=== PATIENT | female | born 1935 | race Hispanic/Latino ===

== ENCOUNTER 2021-04-01 19:26 | Observation (INO) | payer MEDICARE ==
--- NOTE | 2021-04-01 20:57 | Emergency Department Report ---
ED General Adult HPI - General Chief complaint: Urogenital-Female Stated complaint: My belly hurts, I am having chills PUI?: No Time Seen by Provider: 04/01/21 20:46 Source: patient, EMS ( EMS documentation not available at time of chart dictation ), RN notes reviewed Mode of arrival: Stretcher Limitations: No Limitations - History of Present Illness Initial comments: Primary CARE doctor: Anthony savage The patient is an 85-year-old female. She is not known to myself previously. Patient states she has no chronic medical issues. Nursing team documents the patient has a history of emphysema, renal disease. The patient presents to the ER today with a complaint of shaking, chills, malaise, fatigue, lower abdominal pain, dark-colored urine, and reports that a few days ago, she had nonsensical speech, and possibly slurred speech. She is received a Covid vaccination. She denies loss of taste and smell. At the moment, she denies headache, neck pain, chest pain. She has lower abdominal pain. She has dark and foul-smelling urine. She denies focal extremity weakness and numbness. Symptoms intermittent, do not radiate anywhere, do not have exacerbating relieving factors that she is aware of. She is currently not accompanied by friends or family at this time for collateral information. She lives by herself. She gives consent for the details of her medical care to be discussed with her family if necessary. -: Sudden Consistency: intermittent Improves with: none Worsens with: none - Related Data Home Medications Medication Instructions Recorded Confirmed Last Taken Omeprazole 20 mg PO BID 04/02/21 04/02/21 04/01/21 clonazePAM [KlonoPIN] 2 tab PO HS 04/02/21 04/02/21 04/01/21 Previous Rx's Medication Instructions Recorded Last Taken Type Aspirin EC [Halfprin EC] 81 mg PO QDAY #30 tablet. 04/03/21 Unknown Rx AtorvaSTATin [Lipitor] 40 mg PO QHS #30 tablet 04/03/21 Unknown Rx Pantoprazole [Protonix TAB] 20 mg PO BID #30 tablet. 04/03/21 Unknown Rx bisacodyL [Dulcolax suppos] 10 mg SD QDAY PRN #14 supp.rect 04/03/21 Unknown Rx cefUROXime [Ceftin] 2 tab PO Q12H #12 tablet 04/03/21 Unknown Rx Allergies Allergy/AdvReac Type Severity Reaction Status Date / Time No Known Allergies Allergy Unverified 04/01/21 21:34 ED Review of Systems ROS: Stated complaint: POSS UTI Other details as noted in HPI Constitutional: chills, malaise, weakness Eyes: denies: eye discharge ENT: denies: epistaxis Respiratory: denies: cough Cardiovascular: denies: chest pain Gastrointestinal: abdominal pain Genitourinary: as per HPI Musculoskeletal: myalgia Neurological: as per HPI, weakness, other (Slurred speech, now resolved) Psychiatric: anxiety Hematological/Lymphatic: denies: easy bleeding ED Past Medical Hx - Past Medical History Previous Medical History?: Yes Hx Renal Disease: Yes (kidney stones) Hx Arthritis: Yes Additional medical history: Emphyzema - Surgical History Past Surgical History?: Yes Hx Appendectomy: Yes Additional Surgical History: C Section, Kidney stone removal - Social History Smoking Status: Never Smoker Substance Use Type: None - Medications Home Medications: Home Medications Medication Instructions Recorded Confirmed Last Taken Type Omeprazole 20 mg PO BID 04/02/21 04/02/21 04/01/21 History clonazePAM [KlonoPIN] 2 tab PO HS 04/02/21 04/02/21 04/01/21 History Aspirin EC [Halfprin EC] 81 mg PO QDAY #30 tablet. 04/03/21 Unknown Rx AtorvaSTATin [Lipitor] 40 mg PO QHS #30 tablet 04/03/21 Unknown Rx Pantoprazole [Protonix TAB] 20 mg PO BID #30 tablet. 04/03/21 Unknown Rx bisacodyL [Dulcolax suppos] 10 mg SD QDAY PRN #14 supp.rect 04/03/21 Unknown Rx cefUROXime [Ceftin] 2 tab PO Q12H #12 tablet 04/03/21 Unknown Rx ED Physical Exam - General Limitations: No Limitations General appearance: alert, in no apparent distress - Head Head exam: Present: atraumatic, normocephalic - Eye Eye exam: Present: normal appearance, EOMI. Absent: nystagmus - ENT ENT exam: Present: normal exam, normal orophraynx, mucous membranes moist, normal external ear exam - Neck Neck exam: Present: normal inspection, full ROM. Absent: tenderness, meningismus - Respiratory Respiratory exam: Present: normal lung sounds bilaterally. Absent: respiratory distress, wheezes, rales, rhonchi, stridor, decreased breath sounds - Cardiovascular Cardiovascular Exam: Present: regular rate, normal rhythm, normal heart sounds. Absent: bradycardia, tachycardia, irregular rhythm, systolic murmur, diastolic murmur, rubs, gallop - GI/Abdominal GI/Abdominal exam: Present: soft, tenderness. Absent: distended, guarding, rebound, rigid, pulsatile mass - Extremities Exam Extremities exam: Present: normal inspection, full ROM, other (2+ pulses noted in the bilateral upper and lower extremities. There is no palpable cord. negative Homans sign. Muscular compartments are soft. The pelvis is stable.). Absent: pedal edema, calf tenderness - Back Exam Back exam: Present: normal inspection, full ROM. Absent: tenderness, CVA tenderness (R), CVA tenderness (L), paraspinal tenderness, vertebral tenderness - Neurological Exam Neurological exam: Present: alert, oriented X3, other (No facial droop. Tongue midline. Extraocular movements intact bilaterally. Facial sensation intact to light touch in V1, V2, V3 distribution bilaterally. 5 and a 5 strength in 4 extremities. Sensation intact to light touch in 4 extremities.). Absent: motor sensory deficit - Psychiatric Psychiatric exam: Present: anxious - Skin Skin exam: Present: warm, dry, intact, normal color. Absent: rash ED Course Vital Signs 04/01/21 04/01/21 04/01/21 20:33 20:41 20:45 Temperature 98.6 F Pulse Rate 76 115 H Respiratory 22 38 H Rate Blood Pressure 162/78 O2 Sat by Pulse 99 96 Oximetry 04/01/21 04/01/21 04/01/21 21:01 21:15 21:31 Temperature Pulse Rate 75 79 101 H Respiratory 24 20 30 H Rate Blood Pressure 162/78 157/73 157/73 O2 Sat by Pulse 93 98 98 Oximetry 04/01/21 04/01/21 04/01/21 21:36 21:49 21:50 Temperature 102 F H Pulse Rate 87 119 H Respiratory 21 33 H Rate Blood Pressure 147/66 O2 Sat by Pulse 98 96 Oximetry 04/01/21 04/01/21 04/01/21 21:51 22:00 22:15 Temperature Pulse Rate 104 H 103 H 91 H Respiratory 25 H 22 24 Rate Blood Pressure 147/66 147/66 137/69 O2 Sat by Pulse 96 95 95 Oximetry 04/01/21 04/01/21 04/01/21 22:31 22:45 23:09 Temperature Pulse Rate 90 89 82 Respiratory 20 21 22 Rate Blood Pressure 137/69 129/67 O2 Sat by Pulse 96 94 97 Oximetry 04/01/21 04/01/21 04/01/21 23:15 23:31 23:45 Temperature Pulse Rate 88 84 87 Respiratory 21 20 23 Rate Blood Pressure 127/50 127/50 111/55 O2 Sat by Pulse 91 94 93 Oximetry 04/02/21 04/02/21 04/02/21 00:00 00:01 00:16 Temperature 98.8 F Pulse Rate 90 85 Respiratory 21 32 H Rate Blood Pressure 111/55 111/55 O2 Sat by Pulse 95 Oximetry 04/02/21 04/02/21 04/02/21 00:31 00:45 01:01 Temperature Pulse Rate 78 73 74 Respiratory 16 11 L 18 Rate Blood Pressure 109/59 109/59 107/56 O2 Sat by Pulse 98 95 95 Oximetry 04/02/21 04/02/21 04/02/21 01:15 01:31 01:45 Temperature Pulse Rate 76 78 72 Respiratory 20 15 20 Rate Blood Pressure 111/55 114/56 107/56 O2 Sat by Pulse 93 95 92 Oximetry 04/02/21 04/02/21 04/02/21 02:01 02:31 03:01 Temperature Pulse Rate 71 65 66 Respiratory 19 19 19 Rate Blood Pressure 114/65 125/67 136/70 O2 Sat by Pulse 92 93 93 Oximetry 04/02/21 04/02/21 04/02/21 03:31 04:01 04:31 Temperature Pulse Rate 61 58 L Respiratory 16 19 Rate Blood Pressure 136/70 128/65 136/70 O2 Sat by Pulse 98 95 93 Oximetry 04/02/21 05:01 Temperature Pulse Rate 56 L Respiratory 18 Rate Blood Pressure 128/65 O2 Sat by Pulse 93 Oximetry - Reevaluation(s) Reevaluation #1: 04/01/21 21:48 Differential diagnosis, Limited to: Bacteremia, viremia, pneumonia, urinary tract infection, renal colic, sepsis, TIA, electrolyte derangement, thyroid derangement Assessment and plan 85-year-old female, with a complaint of urinary symptoms, lower abdominal pain, shaking, chills, rigors, and speech disturbance, now resolved. Patient has a GCS of 15. She has an NIH score of 0 at this time. Not a TPA candidate as she has NIH score of 0. Her examination is not suggestive of a large vessel occlusion at this time. 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 Obtain rectal temperature. Obtain CT scan of the abdomen pelvis. Start antibiotics empirically. Anticipate acute infectious pathology. I recommended admission to the medical service. Hold aspirin at this time, given potential for acutely surgical condition. I discussed this plan of care with the patient. She has verbalized jesus alberto gChristine Reassess after data points have resulted. 04/01/21 21:48 04/01/21 21:55 Rectal temperature 102. Heart rate greater than 90. Patient meets criteria for sepsis. Code sepsis called overhead. IV fluids ordered. 04/01/21 23:01 Dr Lema of the [facility] authorizes patient to be admitted to this hospital. I discussed the patient's history, physical, laboratory studies, imaging studies, and overall clinical impression. [facility] will call back in a day or so, if the patient is still in the hospital Transaminitis reviewed and appreciated. No right upper quadrant tenderness. CT scan of the abdomen pelvis negative for acute pathology in the right upper quadrant. Defer to inpatient team to further evaluate. 04/04/21 06:18 23: 50 p.m. 04/01/2021. CT scan brain negative for acute findings. CT scan abdomen pelvis negative for acute findings. Urinalysis pending at this time. [facility] physician, Dr. Lema has provided authorization for this patient to be admitted to this hospital, as the [facility] does not have any beds at this time. Care will be admitted to the hospital nurse practitioner, Matt Dailey, working with hospital physician, Dr. Emily Simmons Please note this patient was admitted during downtime procedures. Please reference hardcopy paper chart. 04/04/21 06:20 ED Medical Decision Making - Lab Data Result diagrams: 04/03/21 05:51 04/03/21 05:51 Vital Signs 04/01/21 20:41 Temperature 98.6 F Lab Results 04/01/21 04/01/21 04/01/21 Range/Units 21:05 21:05 21:05 WBC 6.7 (4.5-11.0) K/mm3 RBC 4.78 (3.65-5.03) M/mm3 Hgb 13.6 (10.1-14.3) gm/dl Hct 41.3 (30.3-42.9) % MCV 87 (79-97) fl MCH 28 (28-32) pg MCHC 33 (30-34) % RDW 15.3 H (13.2-15.2) % Plt Count 228 (140-440) K/mm3 Lymph % (Auto) 7.9 L (13.4-35.0) % [place] % (Auto) 8.1 H (0.0-7.3) % Eos % (Auto) 0.7 (0.0-4.3) % Baso % (Auto) 0.3 (0.0-1.8) % Lymph # (Auto) 0.5 L (1.2-5.4) K/mm3 [place] # (Auto) 0.5 (0.0-0.8) K/mm3 Eos # (Auto) 0.0 (0.0-0.4) K/mm3 Baso # (Auto) 0.0 (0.0-0.1) K/mm3 Seg Neutrophils % 83.0 H (40.0-70.0) % Seg Neutrophils # 5.6 (1.8-7.7) K/mm3 PT 13.7 (12.2-14.9) Sec. INR 1.00 (0.87-1.13) APTT 27.7 (24.2-36.6) Sec. Estimated GFR 53 ml/min BUN/Creatinine Ratio 12 % Lactic Acid (0.7-2.0) mmol/L Troponin T < 0.010 (0.00-0.029) ng/mL Albumin/Globulin Ratio 1.0 % 04/01/21 Range/Units 21:05 WBC (4.5-11.0) K/mm3 RBC (3.65-5.03) M/mm3 Hgb (10.1-14.3) gm/dl Hct (30.3-42.9) % MCV (79-97) fl MCH (28-32) pg MCHC (30-34) % RDW (13.2-15.2) % Plt Count (140-440) K/mm3 Lymph % (Auto) (13.4-35.0) % [place] % (Auto) (0.0-7.3) % Eos % (Auto) (0.0-4.3) % Baso % (Auto) (0.0-1.8) % Lymph # (Auto) (1.2-5.4) K/mm3 [place] # (Auto) (0.0-0.8) K/mm3 Eos # (Auto) (0.0-0.4) K/mm3 Baso # (Auto) (0.0-0.1) K/mm3 Seg Neutrophils % (40.0-70.0) % Seg Neutrophils # (1.8-7.7) K/mm3 PT (12.2-14.9) Sec. INR (0.87-1.13) APTT (24.2-36.6) Sec. Estimated GFR ml/min BUN/Creatinine Ratio % Lactic Acid 1.50 (0.7-2.0) mmol/L Troponin T (0.00-0.029) ng/mL Albumin/Globulin Ratio % Lab Results 04/01/21 04/01/21 04/01/21 Range/Units 21:05 21:05 21:05 WBC 6.7 (4.5-11.0) K/mm3 RBC 4.78 (3.65-5.03) M/mm3 Hgb 13.6 (10.1-14.3) gm/dl Hct 41.3 (30.3-42.9) % MCV 87 (79-97) fl MCH 28 (28-32) pg MCHC 33 (30-34) % RDW 15.3 H (13.2-15.2) % Plt Count 228 (140-440) K/mm3 Lymph % (Auto) 7.9 L (13.4-35.0) % [place] % (Auto) 8.1 H (0.0-7.3) % Eos % (Auto) 0.7 (0.0-4.3) % Baso % (Auto) 0.3 (0.0-1.8) % Lymph # (Auto) 0.5 L (1.2-5.4) K/mm3 [place] # (Auto) 0.5 (0.0-0.8) K/mm3 Eos # (Auto) 0.0 (0.0-0.4) K/mm3 Baso # (Auto) 0.0 (0.0-0.1) K/mm3 Seg Neutrophils % 83.0 H (40.0-70.0) % Seg Neutrophils # 5.6 (1.8-7.7) K/mm3 PT 13.7 (12.2-14.9) Sec. INR 1.00 (0.87-1.13) APTT 27.7 (24.2-36.6) Sec. Sodium 138 (137-145) mmol/L Potassium 4.0 (3.6-5.0) mmol/L Chloride 104.1 (98-107) mmol/L Carbon Dioxide 19 L (22-30) mmol/L Anion Gap 19 mmol/L BUN 12 (7-17) mg/dL Creatinine 1.0 (0.6-1.2) mg/dL Estimated GFR 53 ml/min BUN/Creatinine Ratio 12 % Glucose 98 (65-100) mg/dL Lactic Acid (0.7-2.0) mmol/L Calcium 9.3 (8.4-10.2) mg/dL Magnesium 2.00 (1.7-2.3) mg/dL Total Bilirubin 1.30 H (0.1-1.2) mg/dL AST 74 H (5-40) units/L ALT 93 H (7-56) units/L Alkaline Phosphatase 196 H (35-129) units/L Total Creatine Kinase 87 (30-135) units/L Troponin T < 0.010 (0.00-0.029) ng/mL Total Protein 7.2 (6.3-8.2) g/dL Albumin 3.6 L (3.9-5) g/dL Albumin/Globulin Ratio 1.0 % TSH (0.270-4.200) mlU/mL 04/01/21 04/01/21 Range/Units 21:05 21:05 WBC (4.5-11.0) K/mm3 RBC (3.65-5.03) M/mm3 Hgb (10.1-14.3) gm/dl Hct (30.3-42.9) % MCV (79-97) fl MCH (28-32) pg MCHC (30-34) % RDW (13.2-15.2) % Plt Count (140-440) K/mm3 Lymph % (Auto) (13.4-35.0) % [place] % (Auto) (0.0-7.3) % Eos % (Auto) (0.0-4.3) % Baso % (Auto) (0.0-1.8) % Lymph # (Auto) (1.2-5.4) K/mm3 [place] # (Auto) (0.0-0.8) K/mm3 Eos # (Auto) (0.0-0.4) K/mm3 Baso # (Auto) (0.0-0.1) K/mm3 Seg Neutrophils % (40.0-70.0) % Seg Neutrophils # (1.8-7.7) K/mm3 PT (12.2-14.9) Sec. INR (0.87-1.13) APTT (24.2-36.6) Sec. Sodium (137-145) mmol/L Potassium (3.6-5.0) mmol/L Chloride (98-107) mmol/L Carbon Dioxide (22-30) mmol/L Anion Gap mmol/L BUN (7-17) mg/dL Creatinine (0.6-1.2) mg/dL Estimated GFR ml/min BUN/Creatinine Ratio % Glucose (65-100) mg/dL Lactic Acid 1.50 (0.7-2.0) mmol/L Calcium (8.4-10.2) mg/dL Magnesium (1.7-2.3) mg/dL Total Bilirubin (0.1-1.2) mg/dL AST (5-40) units/L ALT (7-56) units/L Alkaline Phosphatase (35-129) units/L Total Creatine Kinase (30-135) units/L Troponin T (0.00-0.029) ng/mL Total Protein (6.3-8.2) g/dL Albumin (3.9-5) g/dL Albumin/Globulin Ratio % TSH 2.600 (0.270-4.200) mlU/mL Vital Signs 07/21/21 07/21/21 07/21/21 20:33 20:41 20:45 Temperature 98.6 F Pulse Rate 76 115 H Respiratory 22 38 H Rate Blood Pressure 162/78 O2 Sat by Pulse 99 96 Oximetry 04/01/21 04/01/21 04/01/21 21:01 21:15 21:31 Temperature Pulse Rate 75 79 101 H Respiratory 24 20 30 H Rate Blood Pressure 162/78 157/73 157/73 O2 Sat by Pulse 93 98 98 Oximetry 04/01/21 04/01/21 21:49 21:50 Temperature 102 F H Pulse Rate 119 H Respiratory 33 H Rate Blood Pressure 147/66 O2 Sat by Pulse 96 Oximetry - EKG Data -: EKG Interpreted by Ok EKG shows normal: sinus rhythm Rate: normal - EKG Data 04/01/21 21:47 The EKG today is interpreted at 21: 16 This is a sinus rhythm, with a normal P wave axis. Rate 80 bpm. QTC prolonged, 463 ms. Low voltage. Abnormal EKG. Q waves noted in the inferior leads. This is not a STEMI. There is no prior for comparison. - Radiology Data Radiology results: pending, report reviewed, image reviewed CHEST 1 VIEW 04/01/2021 8:10 PM INDICATION / CLINICAL INFORMATION: chills weakness sepsis. COMPARISON: None available. FINDINGS: SUPPORT DEVICES: None. HEART / MEDIASTINUM: The cardiomediastinal silhouette is within normal limits for technique. LUNGS / PLEURA: No focal lung consolidation. No pneumothorax. ADDITIONAL FINDINGS: No significant additional findings. IMPRESSION: 1. No acute findings. Signer Name: Nima Schwab MD Signed: 04/01/2021 8:25 PM Workstation Name: [id number] CT HEAD WITHOUT CONTRAST INDICATION / CLINICAL INFORMATION: slurred speech confusion now resolved. TECHNIQUE: All CT scans at this location are performed using CT dose reduction for ALARA by means of automated exposure control. COMPARISON: None available. FINDINGS: HEMORRHAGE: None. EXTRA-AXIAL SPACES: Normal in size and morphology for the patient's age. VENTRICULAR SYSTEM: Normal in size and morphology for the patient's age. CEREBRAL PARENCHYMA: No acute abnormality. No acute territorial infarct. There is decreased attenuation in the periventricular white matter characteristic of microangiopathic change. MIDLINE SHIFT / HERNIATION: None. CEREBELLUM / BRAINSTEM: No significant abnormality. ORBITS: Normal as visualized. SOFT TISSUES: No significant abnormality. SKULL: No significant abnormality. PARANASAL SINUSES / MASTOID AIR CELLS: Normal as visualized. ADDITIONAL FINDINGS: None. IMPRESSION: 1. No acute intracranial abnormality. Signer Name: Rasheed Elaine MD Signed: 04/01/2021 10:38 PM Workstation Name: [id number] 04/01/2021 Tamar Goldstein Matt; date of 1935; ; da te of service 04/01/2021 CT ABDOMEN AND PELVIS WITHOUT AND WITH CONTRAST INDICATION / CLINICAL INFORMATION: Acute right lower quadrant pain, suspected sepsis [id number] 100ml. TECHNIQUE: Axial CT images were obtained through the abdomen and pelvis before and after 100 cc of Omnipaque [address] scans at this location are performed using CT dose reduction for ALARA by means of automated exposure control. COMPARISON: None available. FINDINGS: LOWER CHEST: There is peripheral interstitial disease in the lung bases which is likely chronic atherosclerotic calcifications are noted in the coronary arteries. LIVER: No acute abnormality. GALLBLADDER: Absent BILE DUCTS: There is air in the intrahepatic biliary system indicating prior sphincterotomy or biliary surgery. PANCREAS: No significant abnormality. SPLEEN: No significant abnormality. ADRENALS: There is a 1.7 cm left adrenal nodule which measures fat density on precontrast images. This does enhance but is likely an adenoma RIGHT KIDNEY and URETER: No significant abnormality. LEFT KIDNEY and URETER: There is a 2 cm cyst in the upper pole which measures water density on pre and postcontrast imaging. No renal or ureteral calculi are seen. STOMACH and SMALL BOWEL: No significant abnormality. COLON: There is oral contrast media in the colon APPENDIX: Not seen PERITONEUM: No free fluid. No free air. No fluid collection. LYMPH NODES: No significant adenopathy. AORTA and ARTERIES: Moderate atherosclerotic calcification without acute abnormality. IVC and VEINS: No significant abnormality. URINARY BLADDER: No significant abnormality. REPRODUCTIVE ORGANS: No significant abnormality. ADDITIONAL FINDINGS: None. Tamar Goldstein; date of 1935; ; date of service 04/01/2021 SKELETAL SYSTEM: No acute abnormality IMPRESSION: 1. There is no obstruction, inflammation, or free air. There are no abnormal fluid collections. The appendix is not seen. There is no inflammatory change in the right lower quadrant to suggest appendicitis however. Signer Name: Rasheed Elaine MD Signed: 04/01/2021 10:36 PM Workstation Name: [id number] Critical Care Time: Yes Critical care time in (mins) excluding proc time.: 35 Critical care attestation.: If time is entered above; I have spent that time in minutes in the direct care of this critically ill patient, excluding procedure time. ED Disposition Clinical Impression: Sepsis, Acute abdominal pain, History of dysarthria Disposition: -09 OP ADMIT IP TO THIS HOSP Is pt being admited?: Yes Does the pt Need Aspirin: No (Aspirin ordered on downtime form) Condition: Stable
[2021-04-01 21:25] LABS: Basophils % (Auto) 0.3 % (0.0-1.8); Eosinophils % (Auto) 0.7 % (0.0-4.3); Hematocrit 41.3 % (30.3-42.9); Hemoglobin 13.6 gm/dl (10.1-14.3); Lymphocytes # (Auto) 0.5 K/mm3 (1.2-5.4); Lymphocytes % (Auto) 7.9 % (13.4-35.0); Mean Corpuscular HGB Conc 33 % (30-34); Mean Corpuscular Volume 87 fl (79-97); Monocytes # (Auto) 0.5 K/mm3 (0.0-0.8); Monocytes % (Auto) 8.1 % (0.0-7.3); Platelet Count 228 K/mm3 (140-440); Red Blood Count 4.78 M/mm3 (3.65-5.03); Red Cell Distribution Width 15.3 % (13.2-15.2)
--- NOTE | 2021-04-01 21:29 | XRay Report ---
CHEST 1 VIEW 04/01/2021 8:10 PM INDICATION / CLINICAL INFORMATION: chills weakness sepsis. COMPARISON: None available. FINDINGS: SUPPORT DEVICES: None. HEART / MEDIASTINUM: The cardiomediastinal silhouette is within normal limits for technique. LUNGS / PLEURA: No focal lung consolidation. No pneumothorax. ADDITIONAL FINDINGS: No significant additional findings. IMPRESSION: 1. No acute findings. Signer Name: Nima Schwab MD Signed: 04/01/2021 9:25 PM Workstation Name: [id number]
[2021-04-01 21:36] LABS: Partial Thromboplastin Time 27.7 Sec. (24.2-36.6)
[2021-04-01 21:44] LABS: Alanine Aminotransferase 93 units/L (7-56); Albumin 3.6 g/dL (3.9-5); BUN/Creatinine Ratio 12; Blood Urea Nitrogen 12 mg/dL (7-17); Calcium 9.3 mg/dL (8.4-10.2); Hemolysis Index 7
[2021-04-01] MEDS ORDERED: LACTATED RINGERS 1000 ML IV SOLN IV ONE (21:54)
[2021-04-01] MEDS ORDERED: ACETAMINOPHEN 325 MG TAB PO ONE (22:00)
[2021-04-01] MEDS ORDERED: PIPERACIL/TAZOBACTA 4.5/NS 100 4.5 GM/100 ML VIAL IV ONE (22:00)
[2021-04-01] MEDS ORDERED: LACTATED RINGERS 500 ML IV ONE (22:00)
--- NOTE | 2021-04-02 00:41 | Cat Scan Report ---
CT HEAD WITHOUT CONTRAST INDICATION / CLINICAL INFORMATION: slurred speech confusion now resolved. TECHNIQUE: All CT scans at this location are performed using CT dose reduction for ALARA by means of automated exposure control. COMPARISON: None available. FINDINGS: HEMORRHAGE: None. EXTRA-AXIAL SPACES: Normal in size and morphology for the patient's age. VENTRICULAR SYSTEM: Normal in size and morphology for the patient's age. CEREBRAL PARENCHYMA: No acute abnormality. No acute territorial infarct. There is decreased attenuati on in the periventricular white matter characteristic of microangiopathic change. MIDLINE SHIFT / HERNIATION: None. CEREBELLUM / BRAINSTEM: No significant abnormality. ORBITS: Normal as visualized. SOFT TISSUES: No significant abnormality. SKULL: No significant abnormality. PARANASAL SINUSES / MASTOID AIR CELLS: Normal as visualized. ADDITIONAL FINDINGS: None. IMPRESSION: 1. No acute intracranial abnormality. Signer Name: Rasheed Elaine MD Signed: 04/01/2021 11:38 PM Workstation Name: [id number]
--- NOTE | 2021-04-02 00:41 | Cat Scan Report ---
CT ABDOMEN AND PELVIS WITHOUT AND WITH CONTRAST INDICATION / CLINICAL INFORMATION: Acute right lower quadrant pain, suspected sepsis [id number] 100ml. TECHNIQUE: Axial CT images were obtained through the abdomen and pelvis before and after 100 cc of Omnipaque [address] scans at this location are performed using CT dose reduction for ALARA by means of automated exposure control. COMPARISON: None available. FINDINGS: LOWER CHEST: There is peripheral interstitial disease in the lung bases which is likely chronic ather osclerotic calcifications are noted in the coronary arteries. LIVER: No acute abnormality. GALLBLADDER: Absent BILE DUCTS: There is air in the intrahepatic biliary system indicating prior sphincterotomy or biliar y surgery. PANCREAS: No significant abnormality. SPLEEN: No significant abnormality. ADRENALS: There is a 1.7 cm left adrenal nodule which measures fat density on precontrast images. Thi s does enhance but is likely an adenoma RIGHT KIDNEY and URETER: No significant abnormality. LEFT KIDNEY and URETER: There is a 2 cm cyst in the upper pole which measures water density on pre an d postcontrast imaging. No renal or ureteral calculi are seen. STOMACH and SMALL BOWEL: No significant abnormality. COLON: There is oral contrast media in the colon APPENDIX: Not seen PERITONEUM: No free fluid. No free air. No fluid collection. LYMPH NODES: No significant adenopathy. AORTA and ARTERIES: Moderate atherosclerotic calcification without acute abnormality. IVC and VEINS: No significant abnormality. URINARY BLADDER: No significant abnormality. REPRODUCTIVE ORGANS: No significant abnormality. ADDITIONAL FINDINGS: None. SKELETAL SYSTEM: No acute abnormality IMPRESSION: 1. There is no obstruction, inflammation, or free air. There are no abnormal fluid collections. The a ppendix is not seen. There is no inflammatory change in the right lower quadrant to suggest appendici tis however. Signer Name: Rasheed Elaine MD Signed: 04/01/2021 11:36 PM Workstation Name: [id number]
[2021-04-02] MEDS ORDERED: ACETAMINOPHEN 325 MG TAB PO PRN ×3 (03:26→03:45)
[2021-04-02] MEDS ORDERED: ONDANSETRON 4 MG/2 ML INJ IV PRN ×3 (03:26→03:45)
[2021-04-02] MEDS ORDERED: MORPHINE 2 MG/1 ML INJ IV PRN ×2 (03:26→03:45)
[2021-04-02] MEDS ORDERED: MORPHINE 4 MG/1 ML INJ IV PRN ×2 (03:26→03:45)
[2021-04-02] MEDS ORDERED: PROMETHAZINE 25 MG RECT SUPP PR PRN (03:26)
[2021-04-02] MEDS ORDERED: METOCLOPRAMIDE 10 MG TAB PO PRN (03:26)
[2021-04-02] MEDS ORDERED: MAGNESIUM HYDROXIDE (MOM) ORAL LIQD UDC PO PRN ×2 (03:26)
[2021-04-02] MEDS ORDERED: SODIUM CHLORIDE 0.9% 1000 ML 1,000 ML IV SCH (03:30)
--- NOTE | 2021-04-02 03:55 | History and Physical Report ---
History of Present Illness Date of examination: 04/02/21 Date of admission: 04/02/2021 Chief complaint: Fever Chills History of present illness: 85-year-old white female with known history of arthritis, emphysema and kidney stone presents to the emergency room today complaining of chills, generalized malaise, fatigue, abdominal pain and dark-colored urine which has been ongoing for the past few days. She denies any cough or shortness of breath no chest pain, no nausea vomiting, no diarrhea, denies any hematuria or dysuria. Patient however indicates that she has had recurrent urinary tract infection in the past. She denies any sick contacts and no recent travel. Patient denies contact with anyone with COVID-19. Patient also states that she had an episode of slurred speech few days ago which has since resolved. She denies any difficulty swallowing, denies any facial Asymmetry and denies any unsteady gait. Upon arrival in the emergency room patient was tachycardic and tachypneic with temperature 102.0 F Work-up in the emergency room today, CT of the abdomen and pelvis was unremarkable. CT of the head shows no acute findings. Chest x-ray no acute findings Urinalysis was also unremarkable. Liver enzymes were elevated with AST of 74 and ALT of 93, alkaline phos was 196. Patient being admitted for abdominal pain, possible sepsis, elevated liver enzymes. Past History Past Medical History: arthritis, other (Kidney stones, emphysema) Past Surgical History: , Other (Kidney stone removal) Social history: no significant social history, full code Family history: no significant family history Medications and Allergies Allergies Allergy/AdvReac Type Severity Reaction Status Date / Time No Known Allergies Allergy Unverified 04/01/21 21:34 Active Meds: Active Medications Acetaminophen (Acetaminophen 325 Mg Tab) 650 mg PO Q4H PRN PRN Reason: Pain MILD(1-3)/Fever >100.5/ Acetaminophen (Acetaminophen 325 Mg Tab) 650 mg PO Q4H PRN PRN Reason: Pain, Mild (1-3) Acetaminophen (Acetaminophen 325 Mg Tab) 650 mg PO Q4H PRN PRN Reason: Pain MILD(1-3)/Fever >100.5/ Aspirin (Aspirin 325 Mg Tab) 325 mg PO QDAY OVI Atorvastatin Calcium (Atorvastatin 40 Mg Tab) 40 mg PO QHS OVI Bisacodyl (Bisacodyl 10 Mg Rect Supp) 10 mg [place] QDAY PRN PRN Reason: Constipation Heparin Sodium (Porcine) (Heparin 5,000 Unit/1 Ml Vial) 5,000 unit SUB-Q Q8HR OVI Sodium Chloride (Nacl 0.9% 1000 Ml) 1,000 mls @ 125 mls/hr IV DIRECT OVI Ceftriaxone Sodium (Rocephin/Ns 1 Gm/50 Ml) 1 gm in 50 mls @ 100 mls/hr IV Q24H OVI; Protocol Magnesium Hydroxide (Magnesium Hydroxide (Mom) Oral Liqd Udc) 30 ml PO Q4H PRN PRN Reason: Constipation Magnesium Hydroxide (Magnesium Hydroxide (Mom) Oral Liqd Udc) 30 ml PO Q4H PRN PRN Reason: Constipation Metoclopramide HCl (Metoclopramide 10 Mg Tab) 10 mg PO Q6H PRN PRN Reason: Nausea And Vomiting Morphine Sulfate (Morphine 2 Mg/1 Ml Inj) 2 mg IV Q4H PRN PRN Reason: Pain, Moderate (4-6) Morphine Sulfate (Morphine 4 Mg/1 Ml Inj) 4 mg IV Q4H PRN PRN Reason: Pain , Severe (7-10) Morphine Sulfate (Morphine 2 Mg/1 Ml Inj) 2 mg IV Q4H PRN PRN Reason: Pain, Moderate (4-6) Morphine Sulfate (Morphine 4 Mg/1 Ml Inj) 4 mg IV Q4H PRN PRN Reason: Pain , Severe (7-10) Ondansetron HCl (Ondansetron 4 Mg/2 Ml Inj) 4 mg IV Q8H PRN PRN Reason: Nausea And Vomiting Ondansetron HCl (Ondansetron 4 Mg/2 Ml Inj) 4 mg IV Q8H PRN PRN Reason: Nausea And Vomiting Ondansetron HCl (Ondansetron 4 Mg/2 Ml Inj) 4 mg IV Q8H PRN PRN Reason: Nausea And Vomiting Promethazine HCl (Promethazine 25 Mg Rect Supp) 25 mg [place] Q6H PRN PRN Reason: Nausea And Vomiting Sodium Chloride (Sodium Chloride 0.9% 10 Ml Flush Syringe) 10 ml IV BID OVI Sodium Chloride (Sodium Chloride 0.9% 10 Ml Flush Syringe) 10 ml IV PRN PRN PRN Reason: LINE FLUSH Sodium Chloride (Sodium Chloride 0.9% 10 Ml Flush Syringe) 10 ml INJ PRN PRN PRN Reason: LINE FLUSH Review of Systems Constitutional: fever, chills, no weakness Ears, nose, mouth and throat: no nasal congestion, no sore throat Cardiovascular: no chest pain, no palpitations Respiratory: no cough, no shortness of breath Gastrointestinal: abdominal pain, no nausea, no vomiting, no diarrhea Genitourinary Female: no pelvic pain, no flank pain, no dysuria, no hematuria Musculoskeletal: no neck pain, no low back pain Integumentary: no rash, no pruritis Neurological: no headaches, no confusion Psychiatric: no anxiety, no depression Endocrine: no polydipsia, no polyuria, no nocturia Exam - Constitutional Vitals: Temp Pulse Resp BP Pulse Ox 98.8 F 65 19 125/67 93 04/02/21 00:00 04/02/21 02:31 04/02/21 02:31 04/02/21 02:31 04/02/21 02:31 General appearance: Present: no acute distress, well-nourished - EENT Eyes: Present: PERRL, EOM intact. Absent: scleral icterus ENT: hearing intact, clear oral mucosa, dentition normal - Neck Neck: Present: supple, normal ROM - Respiratory Respiratory effort: normal Respiratory: bilateral: CTA - Cardiovascular Rhythm: regular Heart Sounds: Present: S1 & S2. Absent: gallop, systolic murmur, diastolic murmur, rub, click - Extremities Extremities: no ischemia, pulses intact, pulses symmetrical, No edema, normal temperature, normal color, Full ROM Peripheral Pulses: within normal limits - Abdominal General gastrointestinal: Present: soft, tender (Mild tenderness in the suprapubic region), non-distended, normal bowel sounds. Absent: mass - Integumentary Integumentary: Present: clear, warm, dry. Absent: rash - Musculoskeletal Musculoskeletal: strength equal bilaterally - Psychiatric Psychiatric: appropriate mood/affect, intact judgment & insight, memory intact, cooperative - Neurologic Neurologic: CNII-XII intact, no focal deficits, moves all extremities HEART Score - HEART Score Troponin: Troponin T < 0.010 ng/mL (0.00-0.029) 04/01/21 21:05 Results - Labs CBC & Chem 7: 04/01/21 21:05 07/21/21 21:05 Labs: Abnormal lab results 07/21/21 07/21/21 Range/Units 21:05 21:05 RDW 15.3 H (13.2-15.2) % Lymph % (Auto) 7.9 L (13.4-35.0) % [place] % (Auto) 8.1 H (0.0-7.3) % Lymph # (Auto) 0.5 L (1.2-5.4) K/mm3 Seg Neutrophils % 83.0 H (40.0-70.0) % Carbon Dioxide 19 L (22-30) mmol/L Total Bilirubin 1.30 H (0.1-1.2) mg/dL AST 74 H (5-40) units/L ALT 93 H (7-56) units/L Alkaline Phosphatase 196 H (35-129) units/L Albumin 3.6 L (3.9-5) g/dL Assessment and Plan - Patient Problems (1) Acute abdominal pain Current Visit: Yes Status: Acute Plan to address problem: Etiology is unclear. Patient will be placed on analgesic medications as needed. CT of the abdomen and pelvis has been unremarkable. (2) Sepsis Current Visit: Yes Status: Acute Plan to address problem: Present on admission. Patient placed on empiric IV antibiotics. Will await culture results. (3) Slurred speech Current Visit: Yes Status: Acute Plan to address problem: Resolved. However will work patient up for possible TIA. She has been started on daily aspirin. We will schedule for carotid Doppler, MRI and echocardiogram. We will request neurology evaluation. (4) Elevated liver enzymes Current Visit: Yes Status: Acute Plan to address problem: Etiology unclear.. Will check hepatitis profile. We will also schedule for right upper quadrant ultrasound. Consult placed to gastroenterology for evaluation and recommendations. We will monitor liver enzymes. (5) DVT prophylaxis Current Visit: Yes Status: Acute Plan to address problem: Patient placed on subcutaneous heparin.
[2021-04-02] MEDS ORDERED: cefTRIAXone/NS 1 GM/50 ML 1 GM/50 ML BAG IV SCH (04:00)
[2021-04-02 04:24] LABS: Bacteria,Urine 1+ /HPF (Negative); Bilirubin,Urine NEG (Negative); Blood,Urine NEG (Negative); Color,Urine Yellow (Yellow); Mucus,Urine FEW /HPF
[2021-04-02] MEDS: HEPARIN 5,000 UNIT/1 ML VIAL SUB-Q SCH ×3 (07:13→22:46)
[2021-04-02] MEDS: PIPERACIL/TAZOBACTA 4.5/NS 100 4.5 GM/100 ML VIAL IV SCH ×3 (07:13→22:45)
--- NOTE | 2021-04-02 09:45 | Gastroenterology Consultation ---
History of Present Illness - Reason for Consult Consult date: 04/02/21 abnormal liver enzymes Requesting physician: VALENTINO GEIGER - History of Present Illness The patient presents with constitutional sx's including generalized weakness, fatigue, chills and abd pain per chart (however, denies abd pain to me at time of exam). reports sx's for ~4-5 days. change in urine color as well. poor po intake. denies fevers. h/o ccy. elevated liver enzymes in mixed pattern. Past History Past Medical History: arthritis, other (Kidney stones, emphysema) Past Surgical History: , Other (Kidney stone removal) Social history: no significant social history, full code Family history: no significant family history Medications and Allergies Allergies Allergy/AdvReac Type Severity Reaction Status Date / Time No Known Allergies Allergy Unverified 04/01/21 21:34 Active Meds: Active Medications Acetaminophen (Acetaminophen 325 Mg Tab) 650 mg PO Q4H PRN PRN Reason: Pain MILD(1-3)/Fever >100.5/ Aspirin (Aspirin 325 Mg Tab) 325 mg PO QDAY OVI Atorvastatin Calcium (Atorvastatin 40 Mg Tab) 40 mg PO QHS OVI Bisacodyl (Bisacodyl 10 Mg Rect Supp) 10 mg [place] QDAY PRN PRN Reason: Constipation Heparin Sodium (Porcine) (Heparin 5,000 Unit/1 Ml Vial) 5,000 unit SUB-Q Q8HR OVI Last Admin: 04/02/21 07:13 Dose: 5,000 unit Documented by: Sodium Chloride (Nacl 0.9% 1000 Ml) 1,000 mls @ 125 mls/hr IV DIRECT OVI Piperacillin Sod/Tazobactam Sod (Zosyn/Ns 4.5gm/100ml) 4.5 gm in 100 mls @ 200 mls/hr IV Q8H OVI; Protocol Last Admin: 04/02/21 07:13 Dose: 200 mls/hr Documented by: Magnesium Hydroxide (Magnesium Hydroxide (Mom) Oral Liqd Udc) 30 ml PO Q4H PRN PRN Reason: Constipation Metoclopramide HCl (Metoclopramide 10 Mg Tab) 10 mg PO Q6H PRN PRN Reason: Nausea And Vomiting Morphine Sulfate (Morphine 2 Mg/1 Ml Inj) 2 mg IV Q4H PRN PRN Reason: Pain, Moderate (4-6) Morphine Sulfate (Morphine 4 Mg/1 Ml Inj) 4 mg IV Q4H PRN PRN Reason: Pain , Severe (7-10) Ondansetron HCl (Ondansetron 4 Mg/2 Ml Inj) 4 mg IV Q8H PRN PRN Reason: Nausea And Vomiting Promethazine HCl (Promethazine 25 Mg Rect Supp) 25 mg [place] Q6H PRN PRN Reason: Nausea And Vomiting Sodium Chloride (Sodium Chloride 0.9% 10 Ml Flush Syringe) 10 ml IV BID OVI Sodium Chloride (Sodium Chloride 0.9% 10 Ml Flush Syringe) 10 ml IV PRN PRN PRN Reason: LINE FLUSH reviewed/updated patient's home and current medications Review of Systems - Review of Systems All systems: negative (per HPI) Exam - Constitutional Vital Signs: Temp Pulse Resp BP Pulse Ox 98.8 F 56 L 18 128/65 96 04/02/21 00:00 04/02/21 05:01 04/02/21 05:01 04/02/21 05:01 04/02/21 05:55 General appearance: no acute distress - Respiratory Respiratory effort: normal Respiratory: bilateral: CTA - Cardiovascular Rhythm: regular Heart Sounds: Present: S1 & S2 - Gastrointestinal General gastrointestinal: Present: soft, non-tender, non-distended - Neurologic Neurological: alert and oriented x3 - Psychiatric Psychiatric: appropriate mood/affect - Labs CBC & Chem 7: 04/01/21 21:05 04/01/21 21:05 Lab Results: Laboratory Results - last 24 hr 04/01/21 04/01/21 04/01/21 21:05 21:05 21:05 WBC 6.7 RBC 4.78 Hgb 13.6 Hct 41.3 MCV 87 MCH 28 MCHC 33 RDW 15.3 H Plt Count 228 Lymph % (Auto) 7.9 L [place] % (Auto) 8.1 H Eos % (Auto) 0.7 Baso % (Auto) 0.3 Lymph # (Auto) 0.5 L [place] # (Auto) 0.5 Eos # (Auto) 0.0 Baso # (Auto) 0.0 Seg Neutrophils % 83.0 H Seg Neutrophils # 5.6 PT 13.7 INR 1.00 APTT 27.7 Sodium 138 Potassium 4.0 Chloride 104.1 Carbon Dioxide 19 L Anion Gap 19 BUN 12 Creatinine 1.0 Estimated GFR 53 BUN/Creatinine Ratio 12 Glucose 98 Lactic Acid Calcium 9.3 Magnesium 2.00 Total Bilirubin 1.30 H AST 74 H ALT 93 H Alkaline Phosphatase 196 H Total Creatine Kinase 87 Troponin T < 0.010 Total Protein 7.2 Albumin 3.6 L Albumin/Globulin Ratio 1.0 Lipase TSH Urine Color Urine Turbidity Urine pH Ur Specific [place] Urine Protein Urine Glucose (UA) Urine Ketones Urine Blood Urine Nitrite Urine Bilirubin Urine Urobilinogen Ur Leukocyte Esterase Urine WBC (Auto) Urine RBC (Auto) U Epithel Cells (Auto) Urine Bacteria (Auto) Urine Mucus 04/01/21 04/01/21 04/01/21 21:05 21:05 21:05 WBC RBC Hgb Hct MCV MCH MCHC RDW Plt Count Lymph % (Auto) [place] % (Auto) Eos % (Auto) Baso % (Auto) Lymph # (Auto) [place] # (Auto) Eos # (Auto) Baso # (Auto) Seg Neutrophils % Seg Neutrophils # PT INR APTT Sodium Potassium Chloride Carbon Dioxide Anion Gap BUN Creatinine Estimated GFR BUN/Creatinine Ratio Glucose Lactic Acid 1.50 Calcium Magnesium Total Bilirubin AST ALT Alkaline Phosphatase Total Creatine Kinase Troponin T Total Protein Albumin Albumin/Globulin Ratio Lipase 30 TSH 2.600 Urine Color Urine Turbidity Urine pH Ur Specific [place] Urine Protein Urine Glucose (UA) Urine Ketones Urine Blood Urine Nitrite Urine Bilirubin Urine Urobilinogen Ur Leukocyte Esterase Urine WBC (Auto) Urine RBC (Auto) U Epithel Cells (Auto) Urine Bacteria (Auto) Urine Mucus 04/02/21 04/02/21 02:56 03:51 WBC RBC Hgb Hct MCV MCH MCHC RDW Plt Count Lymph % (Auto) [place] % (Auto) Eos % (Auto) Baso % (Auto) Lymph # (Auto) [place] # (Auto) Eos # (Auto) Baso # (Auto) Seg Neutrophils % Seg Neutrophils # PT INR APTT Sodium Potassium Chloride Carbon Dioxide Anion Gap BUN Creatinine Estimated GFR BUN/Creatinine Ratio Glucose Lactic Acid 0.70 Calcium Magnesium Total Bilirubin AST ALT Alkaline Phosphatase Total Creatine Kinase Troponin T Total Protein Albumin Albumin/Globulin Ratio Lipase TSH Urine Color Yellow Urine Turbidity Clear Urine pH 7.0 Ur Specific [place] 1.046 H Urine Protein 30 mg/dl Urine Glucose (UA) Neg Urine Ketones 20 Urine Blood Neg Urine Nitrite Neg Urine Bilirubin Neg Urine Urobilinogen 4.0 Ur Leukocyte Esterase Neg Urine WBC (Auto) 2.0 Urine RBC (Auto) 1.0 U Epithel Cells (Auto) 2.0 Urine Bacteria (Auto) 1+ Urine Mucus Few Assessment and Plan abnormal liver enzymes - labs show + 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 would explain constitutional sx's as well. supportive care is the mainstay of management from gi stand point. trend liver enzymes and okay for po intake as tolerated.
--- NOTE | 2021-04-02 09:48 | Ultrasound Report ---
ULTRASOUND ABDOMEN, LIMITED (RIGHT UPPER QUADRANT) INDICATION: ELEVATED LIVER ENZYMES. COMPARISON: CT one day prior FINDINGS: Pancreas: Visualized portion shows no significant abnormality. Liver: Normal. Gallbladder: Removed. Bile ducts: Normal. Common Bile Duct measures 3 mm. Free fluid: None. Additional Findings: None. IMPRESSION: 1. No sonographic abnormality of the right upper quadrant. Signer Name: Omari Garcia MD Signed: 04/02/2021 9:44 AM Workstation Name: [id number]
--- NOTE | 2021-04-02 10:02 | Progress Note ---
Assessment and Plan Assessment and plan: --Slurred speech/possible CVA and TIA Current Visit: Yes Status: Acute Possible CVA versus TIA Not a candidate for TPA Neuro work-up is in progress Continue aspirin and statin Follow neurology evaluation recommendations Patient's work-up ;Negative so far; CT head without contrast; no acute abnormality MRI brain; no acute abnormality Carotid Doppler; Echocardiogram; echo 55 to 60%, no shunt Abdominal ultrasound; no abnormality right upper quadrant CT abdomen and pelvis chest x-ray; no acute abnormality no acute abnormality no acute abnormality CT abdomen and pelvis; no obstruction inflammation of free air Appendix normal --Bilateral carotid artery stenosis;> 70% Current Visit: Yes Status: Acute Patient is already on aspirin and statin Consult vascular surgeon --Acute abdominal pain Current Visit: Yes Status: Acute Etiology is unclear. Patient will be placed on analgesic medications as needed. CT of the abdomen and pelvis has been unremarkable. -- Sepsis secondary to urinary tract infection Current Visit: Yes Status: Acute/present on admission Fever , tachycardia , tachypnea , UA consistent with UTI present on admission.Continue empiric IV antibiotics. Follow cultures -- Elevated liver enzymes Current Visit: Yes Status: Acute Etiology unclear.. Will check hepatitis profile. We will also schedule for right upper quadrant ultrasound. GI evaluated the patient, meds optimized We will monitor liver enzymes. -- DVT prophylaxis Current Visit: Yes Status: Acute subcutaneous heparin Follow PT OT. Recommendations We will closely monitor the patient and adjust management as needed Plan of care reviewed with the patient and her nurse History Interval history: Seen and examined the patient at the bedside patient's chart and medicines re viewed Admitted with neuro symptoms Not a candidate for TPA Neuro work-up is negative except for bilateral carotid stenosis Vital signs noted Hospitalist Physical - Constitutional Vitals: Temp Pulse Resp BP Pulse Ox 98.8 F 56 L 18 128/65 96 04/02/21 00:00 04/02/21 05:01 04/02/21 05:01 04/02/21 05:01 04/02/21 05:55 General appearance: Present: no acute distress, well-nourished - EENT Eyes: Present: PERRL, EOM intact - Neck Neck: Present: supple, normal ROM - Respiratory Respiratory effort: normal Respiratory: bilateral: diminished, negative: rales, rhonchi, wheezing - Cardiovascular Rhythm: regular Heart Sounds: Present: S1 & S2 - Extremities Extremities: no ischemia, No edema - Abdominal General gastrointestinal: soft, non-tender, non-distended, normal bowel sounds - Integumentary Integumentary: Present: clear, warm - Psychiatric Psychiatric: appropriate mood/affect, cooperative - Neurologic Neurologic: CNII-XII intact, moves all extremities HEART Score - HEART Score Troponin: Troponin T < 0.010 ng/mL (0.00-0.029) 04/01/21 21:05 Results - Labs CBC & Chem 7: 04/01/21 21:05 04/01/21 21:05 Labs: Laboratory Last Values WBC 6.7 K/mm3 (4.5-11.0) 04/01/21 21: RBC 4.78 M/mm3 (3.65-5.03) 04/01/21 21: Hgb 13.6 gm/dl (10.1-14.3) 04/01/21 21: Hct 41.3 % (30.3-42.9) 04/01/21 21: MCV 87 fl (79-97) 04/01/21 21:05 MCH 28 pg (28-32) 04/01/21 21:05 MCHC 33 % (30-34) 04/01/21 21: RDW 15.3 % (13.2-15.2) H 04/01/21 21:05 Plt Count 228 K/mm3 (140-440) 04/01/21 21:05 Lymph % (Auto) 7.9 % (13.4-35.0) L 04/01/21 21: [place] % (Auto) 8.1 % (0.0-7.3) H 04/01/21 21:05 Eos % (Auto) 0.7 % (0.0-4.3) 04/01/21 21:05 Baso % (Auto) 0.3 % (0.0-1.8) 04/01/21 21:05 Lymph # (Auto) 0.5 K/mm3 (1.2-5.4) L 04/01/21 21:05 [place] # (Auto) 0.5 K/mm3 (0.0-0.8) 04/01/21 21:05 Eos # (Auto) 0.0 K/mm3 (0.0-0.4) 04/01/21 21:05 Baso # (Auto) 0.0 K/mm3 (0.0-0.1) 04/01/21 21:05 Seg Neutrophils % 83.0 % (40.0-70.0) H 04/01/21 21:05 Seg Neutrophils # 5.6 K/mm3 (1.8-7.7) 04/01/21 21:05 PT 13.7 Sec. (12.2-14.9) 04/01/21 21:05 INR 1.00 (0.87-1.13) 04/01/21 21:05 APTT 27.7 Sec. (24.2-36.6) 04/01/21 21:05 Sodium 138 mmol/L (137-145) 04/01/21 21:05 Potassium 4.0 mmol/L (3.6-5.0) 04/01/21 21:05 Chloride 104.1 mmol/L (98-107) 04/01/21 21:05 Carbon Dioxide 19 mmol/L (22-30) L 04/01/21 21:05 Anion Gap 19 mmol/L 04/01/21 21:05 BUN 12 mg/dL (7-17) 04/01/21 21:05 Creatinine 1.0 mg/dL (0.6-1.2) 04/01/21 21:05 Estimated GFR 53 ml/min 04/01/21 21:05 BUN/Creatinine Ratio 12 % 04/01/21 21:05 Glucose 98 mg/dL (65-100) 04/01/21 21:05 Lactic Acid 0.70 mmol/L (0.7-2.0) 04/02/21 03:51 Calcium 9.3 mg/dL (8.4-10.2) 04/01/21 21:05 Magnesium 2.00 mg/dL (1.7-2.3) 04/01/21 21:05 Total Bilirubin 1.30 mg/dL (0.1-1.2) H 04/01/21 21:05 AST 74 units/L (5-40) H 04/01/21 21:05 ALT 93 units/L (7-56) H 04/01/21 21:05 Alkaline Phosphatase 196 units/L (35-129) H 04/01/21 21:05 Total Creatine Kinase 87 units/L (30-135) 04/01/21 21:05 Troponin T < 0.010 ng/mL (0.00-0.029) 04/01/21 21:05 Total Protein 7.2 g/dL (6.3-8.2) 04/01/21 21:05 Albumin 3.6 g/dL (3.9-5) L 04/01/21 21:05 Albumin/Globulin Ratio 1.0 % 04/01/21 21:05 Lipase 30 units/L (13-60) 04/01/21 21:05 TSH 2.600 mlU/mL (0.270-4.200) 04/01/21 21:05 Urine Color Yellow (Yellow) 04/02/21 02:56 Urine Turbidity Clear (Clear) 04/02/21 02:56 Urine pH 7.0 (5.0-7.0) 04/02/21 02:56 Ur Specific [place] 1.046 (1.003-1.030) H 04/02/21 02:56 Urine Protein 30 mg/dl mg/dL (Negative) 04/02/21 02:56 Urine Glucose (UA) Neg mg/dL (Negative) 04/02/21 02:56 Urine Ketones 20 mg/dL (Negative) 04/02/21 02:56 Urine Blood Neg (Negative) 04/02/21 02:56 Urine Nitrite Neg (Negative) 04/02/21 02:56 Urine Bilirubin Neg (Negative) 04/02/21 02:56 Urine Urobilinogen 4.0 mg/dL (<2.0) 04/02/21 02:56 Ur Leukocyte Esterase Neg (Negative) 04/02/21 02:56 Urine WBC (Auto) 2.0 /HPF (0.0-6.0) 04/02/21 02:56 Urine RBC (Auto) 1.0 /HPF (0.0-6.0) 04/02/21 02:56 U Epithel Cells (Auto) 2.0 /HPF (0-13.0) 04/02/21 02:56 Urine Bacteria (Auto) 1+ /HPF (Negative) 04/02/21 02:56 Urine Mucus Few /HPF 04/02/21 02:56 Microbiology: Microbiology 04/01/21 21:14 Peripheral/Venous Blood Culture - Preliminary Culture in Progress 04/01/21 21:05 Peripheral/Venous Blood Culture - Preliminary Culture in Progress Sánchez/IV: Voiding Method Toilet Active Medications - Current Medications Current Medications: Generic Name Dose Route Start Last Admin Trade Name Freq PRN Reason Stop Dose Admin Acetaminophen 650 mg 04/02/21 03:26 Acetaminophen 325 Mg Tab PO Q4H PRN Pain MILD(1-3)/Fever >100.5/ Aspirin 325 mg 04/02/21 10:00 Aspirin 325 Mg Tab PO QDAY [facility] Atorvastatin Calcium 40 mg 04/02/21 22:00 Atorvastatin 40 Mg Tab PO QHS [facility] Bisacodyl 10 mg 04/02/21 03:26 Bisacodyl 10 Mg Rect Supp DC QDAY PRN Constipation Heparin Sodium (Porcine) 5,000 unit 04/02/21 06:00 04/02/21 07:13 Heparin 5,000 Unit/1 Ml Vial SUB-Q 5,000 unit Q8HR OVI Administration Sodium Chloride 1,000 mls @ 125 mls/hr 04/02/21 03:30 Nacl 0.9% 1000 Ml IV DIRECT OVI Piperacillin Sod/Tazobactam Sod 4.5 gm in 100 mls @ 200 mls/hr 04/02/21 06:00 04/02/21 07:13 Zosyn/Ns 4.5gm/100ml IV 200 mls/hr Q8H OVI Administration Protocol Magnesium Hydroxide 30 ml 04/02/21 03:26 Magnesium Hydroxide (Mom) Oral Liqd Udc PO Q4H PRN Constipation Metoclopramide HCl 10 mg 04/02/21 03:26 Metoclopramide 10 Mg Tab PO Q6H PRN Nausea And Vomiting Morphine Sulfate 2 mg 04/02/21 03:26 Morphine 2 Mg/1 Ml Inj IV Q4H PRN Pain, Moderate (4-6) Morphine Sulfate 4 mg 04/02/21 03:26 Morphine 4 Mg/1 Ml Inj IV Q4H PRN Pain , Severe (7-10) Ondansetron HCl 4 mg 04/02/21 03:26 Ondansetron 4 Mg/2 Ml Inj IV Q8H PRN Nausea And Vomiting Promethazine HCl 25 mg 04/02/21 03:26 Promethazine 25 Mg Rect Supp DC Q6H PRN Nausea And Vomiting Sodium Chloride 10 ml 04/02/21 10:00 Sodium Chloride 0.9% 10 Ml Flush Syringe IV BID OVI Sodium Chloride 10 ml 04/02/21 03:26 Sodium Chloride 0.9% 10 Ml Flush Syringe IV PRN PRN LINE FLUSH Nutrition/Malnutrition Assess - Dietary Evaluation Nutrition/Malnutrition Findings: Nutrition Notes Start: 04/02/21 08:51 Freq: Status: Active Protocol: Document 04/02/21 08:51 JOSE EDUARDO (Rec: 04/02/21 08:56 NHALL [id number]) Nutrition Notes Need for Assessment generated from: MD Order,Education Initial or Follow up Assessment Current Diagnosis Sepsis Other Pertinent Diagnosis Abdominal pain, elevated LFTs, possible UTI Current Diet Regular Labs/Tests Reviewed Pertinent Medications Reviewed Height 5 ft 4 in Weight 74.843 kg [place] Body Weight (kg) 54.54 BMI 28.3 Weight Status Appropriate Subjective/Other Information RD consulted for diet education (unsure of reason though) and NTR recommendations. Pt being worked up for possible TIA ( sec to slurred speech); she was admitted with c/o chills, generalized malaise and fatigue. Burn Absent Trauma Absent Minimum of two criteria No #1 Nutrition Diagnosis Predicted suboptimal energy intake Etiology advanced age, weakness As Evidenced by Signs and Symptoms pt c/o abdominal pain and weakness upon admission Is patient on ventilator? No Is Patient Ambulatory and/or Out of Bed No REE-([facility]-confined to bed) [phone] Calculation Used for Recommendations [facility] Additional Notes Pro needs 1-1.2g/k-90g/ day Fluid needs 1ml/kcal Nutrition Intervention Change Diet Order: Continue current diet order Goal #1 PO intakes to meet at least 75 % energy and pro needs Anticipated Discharge Needs: None identified at this time Follow-Up By: 04/07/21 Additional Comments F/U: intakes
[2021-04-02 11:05] LABS: Hepatitis B Surface Antigen Non-Reactive (Negative); Hepatitis C Virus Antibody Non-Reactive (NonReactive)
--- NOTE | 2021-04-02 11:50 | Magnetic Resonance Report ---
MRI BRAIN WITHOUT CONTRAST INDICATION / CLINICAL INFORMATION: stroke, DIZZINESS. TECHNIQUE: Multiplanar, multisequence MR images of the brain were obtained. COMPARISON: Head CT 04/01/2021 FINDINGS: BRAIN / INTRACRANIAL CONTENTS: No acute ischemia, acute hemorrhage, mass effect, midline shift, or hy drocephalus. No chronic infarct. Age-commensurate generalized ventricular and cisternal/sulcal promi nence without discrete superimposed focal atrophy. Age-commensurate small foci of cerebral white kim er FLAIR hyperintensity. CRANIOCERVICAL JUNCTION: No significant abnormality. VASCULAR FLOW-VOIDS: No significant abnormality. ORBITS: Previous bilateral cataract surgery. SINUSES / MASTOIDS: No significant abnormality of visualized sinuses and mastoid air cells. ADDITIONAL FINDINGS: None. IMPRESSION: 1. No acute intracranial abnormality. Signer Name: Alex Cristina MD Signed: 04/02/2021 11:46 AM Workstation Name: [id number]
--- NOTE | 2021-04-02 12:36 | Electrocardiograph Report ---
[facility] Test Date: 2021-04-01 Test Time: 21:16:50 Pat Name: MARGRET MARIE Department: Room: A356 1 Gender: F [employer] Managing Editor: HELGA : 1935 Requested By: ELIF ACEVES Order Number: [id number] Reading MD: Lyla Campos Measurements Intervals [place] Rate: 80 P: 54 LA: 120 QRS: 83 QRSD: 95 T: 33 QT: 392 QTc: 453 Interpretive Statements Sinus rhythm Low voltage, precordial leads No previous ECG available for comparison Electronically Signed On 04-02-2021 12:36:15 EDT by Lyla Campos
[2021-04-02] MEDS: ASPIRIN 325 MG TAB PO SCH (13:51)
--- NOTE | 2021-04-02 15:11 | Consultation ---
History of Present Illness Consult date: 04/02/21 Reason for Consult: slurred speech Chief complaint: slurred speech History of present illness: 85 yo female with arthritis, emphysema, pancreatitis secondary to compliaction of biliary duct patholog leading to cholecystectomy, kidney stones, who presents with a transient (<10 second) episode of speaking "nonsense" prior to experiencing (15 to 20 mins later) chills, shakes, and generalized malaise. Upon arrival to the ED, noted with a fever with tachypnea/tachycardia with transaminitis and noted UTI. Daughter at bedside notes that the patient had a similar issues when she experienced delirium with the whole pancreatitis / cholecystectomy hospitalization, otherwise no other similar episodes have occurred in the past. Currently, she feels she is back at her baseline. Past History Past Medical History: arthritis, other (Kidney stones, emphysema) Past Surgical History: , Other (Kidney stone removal) Social history: no significant social history, full code Family history: no significant family history Medications and Allergies Allergies Allergy/AdvReac Type Severity Reaction Status Date / Time No Known Allergies Allergy Unverified 04/01/21 21:34 Active Meds: Active Medications Acetaminophen (Acetaminophen 325 Mg Tab) 650 mg PO Q4H PRN PRN Reason: Pain MILD(1-3)/Fever >100.5/ Aspirin (Aspirin 325 Mg Tab) 325 mg PO QDAY OVI Last Admin: 04/02/21 13:51 Dose: 325 mg Documented by: Atorvastatin Calcium (Atorvastatin 40 Mg Tab) 40 mg PO QHS OVI Bisacodyl (Bisacodyl 10 Mg Rect Supp) 10 mg OR QDAY PRN PRN Reason: Constipation Heparin Sodium (Porcine) (Heparin 5,000 Unit/1 Ml Vial) 5,000 unit SUB-Q Q8HR OVI Last Admin: 04/02/21 13:51 Dose: 5,000 unit Documented by: Sodium Chloride (Nacl 0.9% 1000 Ml) 1,000 mls @ 125 mls/hr IV DIRECT OVI Piperacillin Sod/Tazobactam Sod (Zosyn/Ns 4.5gm/100ml) 4.5 gm in 100 mls @ 200 mls/hr IV Q8H OVI; Protocol Last Admin: 04/02/21 13:53 Dose: 200 mls/hr Documented by: Magnesium Hydroxide (Magnesium Hydroxide (Mom) Oral Liqd Udc) 30 ml PO Q4H PRN PRN Reason: Constipation Metoclopramide HCl (Metoclopramide 10 Mg Tab) 10 mg PO Q6H PRN PRN Reason: Nausea And Vomiting Morphine Sulfate (Morphine 2 Mg/1 Ml Inj) 2 mg IV Q4H PRN PRN Reason: Pain, Moderate (4-6) Morphine Sulfate (Morphine 4 Mg/1 Ml Inj) 4 mg IV Q4H PRN PRN Reason: Pain , Severe (7-10) Ondansetron HCl (Ondansetron 4 Mg/2 Ml Inj) 4 mg IV Q8H PRN PRN Reason: Nausea And Vomiting Promethazine HCl (Promethazine 25 Mg Rect Supp) 25 mg OR Q6H PRN PRN Reason: Nausea And Vomiting Sodium Chloride (Sodium Chloride 0.9% 10 Ml Flush Syringe) 10 ml IV BID OVI Last Admin: 04/02/21 13:51 Dose: 10 ml Documented by: Sodium Chloride (Sodium Chloride 0.9% 10 Ml Flush Syringe) 10 ml IV PRN PRN PRN Reason: LINE FLUSH Review of Systems All systems: negative (as per HPI;) Physical Examination - Vital Signs Vital Signs: Vital Signs Pulse Resp Pulse Ox 76 22 99 04/01/21 20:33 04/01/21 20:33 04/01/21 20:33 - Physical Exam Narrative exam: Gen: nad, well-nourished; Head: normocephalic; Eyes: no gaze deviation; no ptosis; ENT: normal vocalization; CVS: warm and well-perfused; Pulm: no respiratory distress; GI: appears non-distended, protuberant; Ext: no cyanosis at distal extremities; Skin: no acute rash at distal extremities; Heme: no pathologic bruising or ecchymosis at distal extremities; Neuro: alert, oriented to name, age, month, year, surroundings, no dysarthria, no aphasia, CN 2 - PERRL, visual jiménez grossly intact, CN 3, 4, 6 - EOMI, CN 5 - facial sensation symmetric to light touch, CN 7 - facial movement symmetric, CN 8 - hearing grossly intact, CN 9, 10 - uvula midline, CN 11 - shrug symmetric, CN 12 - tongue midline; Motor - at least 4+/5 in all exts; Sensory - light touch symmetric, Cerebellar - fnf /hts intact, Gait - deferred secondary to fall risk; NIHSS0 (1a.) Level of Consciousness:0 (1b.) LOC Questions:0 (1c.) LOC Commands:0 (2.) Best Gaze:0 (3.) Visual:0 (4.) Facial Palsy:0 (5a.) Motor Arm, Left:0 (5b.) Motor Arm, Right:0 (6a.) Motor Leg, Left:0 (6b.) Motor Leg, Right:0 (7.) Limb Ataxia:0 (8.) Sensory:0 (9.) Best Language:0 (10.) Dysarthria:0 (11.) Extinction and Inattention:0 NIHSS Total Score:0 Results - Laboratory Findings CBC and BMP: 04/01/21 21:05 04/01/21 21:05 Abnormal Lab Findings: Abnormal Labs 04/01/21 04/01/21 04/02/21 21:05 21:05 02:56 RDW 15.3 H Lymph % (Auto) 7.9 L [place] % (Auto) 8.1 H Lymph # (Auto) 0.5 L Seg Neutrophils % 83.0 H Carbon Dioxide 19 L Total Bilirubin 1.30 H AST 74 H ALT 93 H Alkaline Phosphatase 196 H Albumin 3.6 L Ur Specific [place] 1.046 H Hepatitis A IgM Ab 04/02/21 08:27 RDW Lymph % (Auto) [place] % (Auto) Lymph # (Auto) Seg Neutrophils % Carbon Dioxide Total Bilirubin AST ALT Alkaline Phosphatase Albumin Ur Specific [place] Hepatitis A IgM Ab Reactive A Assessment and Plan 85 yo female with arthritis, emphysema, pancreatitis secondary to compliaction of biliary duct patholog leading to cholecystectomy, kidney stones, who presents with a transient (<10 second) episode of speaking "nonsense" prior to experiencing (15 to 20 mins later) chills, shakes, and generalized malaise. Upon arrival to the ED, noted with a fever with tachypnea/tachycardia with transaminitis and a noted UTI. Daughter at bedside notes that the patient had a similar issues when she experienced delirium with the whole pancreatitis / cholecystectomy hospitalization, otherwise no other similar episodes have occurred in the past. Currently, she feels she is back at her baseline. 1. TIA - asa 325 mg po qday; plavix 75 mg po qday x 21 days only; statin therapy for a goal ldl of 70; nihss every 4 hours; telemetry, permissive hypertension w/ SBP <200 mmHg / DBP < 90 mmHg; st evaluation/monitoring. 2. Bilateral Carotid Stenosis - per CUS; cta head/neck w/ wo contrast (system will not let me order these tests). 3. Metabolic Encephalopathy - in the setting of underlying fever / inflammation / infection. 4. Transaminitis - noted with positive HepA profile per primary team. 5. UTI w/ SIRS / Sepsis - aggressive treatment per primary team. Donavon Taylor MD Neurology [id number]
--- NOTE | 2021-04-02 15:43 | Vascular Lab Report ---
DUPLEX DOPPLER ULTRASOUND CAROTID, BILATERAL INDICATION / CLINICAL INFORMATION: Stroke. COMPARISON: None available. FINDINGS: RIGHT CAROTID: Calcified plaque is present within the bulb, extending into proximal ICA. - PLAQUE ESTIMATE (%): >50% - CCA velocity: 66 cm/sec. - ICA peak systolic velocity: 269 cm/sec. - ICA/CCA PSV Ratio: 4.1 Right Vertebral Artery: Antegrade flow. LEFT CAROTID: Calcified plaque is present within the bulb, extending into proximal ICA. - PLAQUE ESTIMATE (%): >50% - CCA velocity: 76 cm/sec. - ICA peak systolic velocity: 298 cm/sec. - ICA/CCA PSV Ratio: 3.9 Left Vertebral Artery: Antegrade flow. IMPRESSION: 1. Right Internal Carotid Artery: >70% diameter stenosis but less than total occlusion 2. Left Internal Carotid Artery: >70% diameter stenosis but less than total occlusion Velocity criteria are extrapolated from diameter data as defined by the Society of Radiologists in Ul trasound Consensus Conference, Radiology 2003; 229;340-346. NO STENOSIS (NORMAL) - Plaque = none; ICA PSV < 125 cm/sec; ICA/CCA PSV Ratio < 2.0 <50% STENOSIS - Plaque < 50%; ICA PSV < 125 cm/sec; ICA/CCA PSV Ratio < 2.0 50-69% STENOSIS - Plaque > 50%; ICA PSV = 125-230 cm/sec; ICA/CCA PSV Ratio = 2.0-4.0 >70% BUT <100% STENOSIS - Plaque > 50%; ICA PSV > 230 cm/sec; ICA/CCA PSV Ratio > 4.0 NEAR OCCLUSION - Plaque = visible lumen; ICA PSV = high/low/none; ICA/CCA PSV Ratio = variable TOTAL OCCLUSION - Plaque = no lumen; ICA PSV = none; ICA/CCA PSV Ratio = N/A Scribed by: Uzma Potter RDMS, RVT Scribed: 04/02/2021 2:20 PM I have reviewed the images, agree with this report, and edited this report as needed. Signer Name: Trip Maldonado MD Signed: 04/02/2021 3:39 PM Workstation Name: [id number]
--- NOTE | 2021-04-02 19:12 | Progress Note ---
Assessment and Plan Assessment and plan: --Hypokalemia; Current Visit: Yes Status: Acute Replenished with 40 mEq oral KCl Follow electrolytes --Bilateral carotid artery stenosis;> 70% Current Visit: Yes Status: Acute Patient is already on aspirin and statin Vascular consulted --Slurred speech resolved/possible TIA Current Visit: Yes Status: Acute CT head without contrast and MRI brain negative Acute CVA ruled out ,Continue aspirin and statin Follow neurology evaluation recommendations Patient's work-up ;Negative so far; acute CVA ruled out CT head without contrast; no acute abnormality MRI brain; no acute abnormality Carotid Doppler; bilateral carotid stenosis more than 70% Echocardiogram; echo 55 to 60%, no shunt Abdominal ultrasound; no abnormality right upper quadrant CT abdomen and pelvis; no acute abnormality noted chest x-ray; no acute abnormality --Acute abdominal pain Current Visit: Yes Status: Acute Resolved CT of the abdomen and pelvis has been unremarkable. -- Sepsis secondary to urinary tract infection Current Visit: Yes Status: Acute/present on admission Fever , tachycardia , tachypnea , UA consistent with UTI present on admission.Continue empiric IV antibiotics. Follow cultures -- Elevated liver enzymes Current Visit: Yes Status: Acute Etiology unclear.. Will check hepatitis profile. We will also schedule for right upper quadrant ultrasound. GI evaluated the patient, meds optimized We will monitor liver enzymes. -- DVT prophylaxis Current Visit: Yes Status: Acute subcutaneous heparin PT recommended outpatient physical therapy upon discharge We will closely monitor the patient and adjust management as needed Plan of care reviewed with the patient and her nurse Hospitalist Physical - Constitutional Vitals: Temp Pulse Resp BP Pulse Ox 97.9 F 60 18 125/59 95 04/02/21 15:39 04/02/21 15:39 04/02/21 15:39 04/02/21 15:39 04/02/21 15:39 General appearance: Present: no acute distress, well-nourished HEART Score - HEART Score Troponin: Troponin T < 0.010 ng/mL (0.00-0.029) 04/01/21 21:05 Results - Labs CBC & Chem 7: 04/03/21 05:51 04/03/21 05:51 Labs: Laboratory Last Values WBC 6.7 K/mm3 (4.5-11.0) 04/01/21 21:05 RBC 4.78 M/mm3 (3.65-5.03) 04/01/21 21:05 Hgb 13.6 gm/dl (10.1-14.3) 04/01/21 21:05 Hct 41.3 % (30.3-42.9) 04/01/21 21:05 MCV 87 fl (79-97) 04/01/21 21:05 MCH 28 pg (28-32) 04/01/21 21:05 MCHC 33 % (30-34) 04/01/21 21:05 RDW 15.3 % (13.2-15.2) H 04/01/21 21:05 Plt Count 228 K/mm3 (140-440) 04/01/21 21:05 Lymph % (Auto) 7.9 % (13.4-35.0) L 04/01/21 21:05 [place] % (Auto) 8.1 % (0.0-7.3) H 04/01/21 21:05 Eos % (Auto) 0.7 % (0.0-4.3) 04/01/21 21:05 Baso % (Auto) 0.3 % (0.0-1.8) 04/01/21 21:05 Lymph # (Auto) 0.5 K/mm3 (1.2-5.4) L 04/01/21 21:05 [place] # (Auto) 0.5 K/mm3 (0.0-0.8) 04/01/21 21:05 Eos # (Auto) 0.0 K/mm3 (0.0-0.4) 04/01/21 21: Baso # (Auto) 0.0 K/mm3 (0.0-0.1) 04/01/21 21:05 Seg Neutrophils % 83.0 % (40.0-70.0) H 04/01/21 21:05 Seg Neutrophils # 5.6 K/mm3 (1.8-7.7) 04/01/21 21:05 PT 13.7 Sec. (12.2-14.9) 04/01/21 21: INR 1.00 (0.87-1.13) 04/01/21 21:05 APTT 27.7 Sec. (24.2-36.6) 04/01/21 21:05 Sodium 138 mmol/L (137-145) 04/01/21 21:05 Potassium 4.0 mmol/L (3.6-5.0) 04/01/21 21:05 Chloride 104.1 mmol/L (98-107) 04/01/21 21:05 Carbon Dioxide 19 mmol/L (22-30) L 04/01/21 21:05 Anion Gap 19 mmol/L 04/01/21 21:05 BUN 12 mg/dL (7-17) 04/01/21 21:05 Creatinine 1.0 mg/dL (0.6-1.2) 04/01/21 21:05 Estimated GFR 53 ml/min 04/01/21 21:05 BUN/Creatinine Ratio 12 % 04/01/21 21:05 Glucose 98 mg/dL (65-100) 04/01/21 21:05 Lactic Acid 0.70 mmol/L (0.7-2.0) 04/02/21 03:51 Calcium 9.3 mg/dL (8.4-10.2) 04/01/21 21:05 Magnesium 2.00 mg/dL (1.7-2.3) 04/01/21 21:05 Total Bilirubin 1.30 mg/dL (0.1-1.2) H 04/01/21 21:05 AST 74 units/L (5-40) H 04/01/21 21:05 ALT 93 units/L (7-56) H 04/01/21 21:05 Alkaline Phosphatase 196 units/L (35-129) H 04/01/21 21:05 Total Creatine Kinase 87 units/L (30-135) 04/01/21 21:05 Troponin T < 0.010 ng/mL (0.00-0.029) 04/01/21 21:05 Total Protein 7.2 g/dL (6.3-8.2) 04/01/21 21:05 Albumin 3.6 g/dL (3.9-5) L 04/01/21 21:05 Albumin/Globulin Ratio 1.0 % 04/01/21 21:05 Lipase 30 units/L (13-60) 04/01/21 21:05 TSH 2.600 mlU/mL (0.270-4.200) 04/01/21 21:05 Urine Color Yellow (Yellow) 04/02/21 02:56 Urine Turbidity Clear (Clear) 04/02/21 02:56 Urine pH 7.0 (5.0-7.0) 04/02/21 02:56 Ur Specific [place] 1.046 (1.003-1.030) H 04/02/21 02:56 Urine Protein 30 mg/dl mg/dL (Negative) 04/02/21 02:56 Urine Glucose (UA) Neg mg/dL (Negative) 04/02/21 02:56 Urine Ketones 20 mg/dL (Negative) 04/02/21 02:56 Urine Blood Neg (Negative) 04/02/21 02:56 Urine Nitrite Neg (Negative) 04/02/21 02:56 Urine Bilirubin Neg (Negative) 04/02/21 02:56 Urine Urobilinogen 4.0 mg/dL (<2.0) 04/02/21 02:56 Ur Leukocyte Esterase Neg (Negative) 04/02/21 02:56 Urine WBC (Auto) 2.0 /HPF (0.0-6.0) 04/02/21 02:56 Urine RBC (Auto) 1.0 /HPF (0.0-6.0) 04/02/21 02:56 U Epithel Cells (Auto) 2.0 /HPF (0-13.0) 04/02/21 02:56 Urine Bacteria (Auto) 1+ /HPF (Negative) 04/02/21 02:56 Urine Mucus Few /HPF 04/02/21 02:56 Hepatitis A IgM Ab Reactive (NonReactive) A 04/02/21 08:27 Hep Bs Antigen Non-reactive (Negative) 04/02/21 08:27 Hep B Core IgM Ab Non-reactive (NonReactive) 04/02/21 08:27 Hepatitis C Antibody Non-reactive (NonReactive) 04/02/21 08:27 Microbiology: Microbiology 04/01/21 21:14 Peripheral/Venous Blood Culture - Preliminary Culture in Progress 04/01/21 21:05 Peripheral/Venous Blood Culture - Preliminary Culture in Progress Sánchez/IV: Voiding Method Toilet Active Medications - Current Medications Current Medications: Generic Name Dose Route Start Last Admin Trade Name Freq PRN Reason Stop Dose Admin Acetaminophen 650 mg 04/02/21 03:26 Acetaminophen 325 Mg Tab PO Q4H PRN Pain MILD(1-3)/Fever >100.5/ Aspirin 325 mg 04/02/21 10:00 04/02/21 13:51 Aspirin 325 Mg Tab PO 325 mg QDAY OVI Administration Atorvastatin Calcium 40 mg 04/02/21 22:00 Atorvastatin 40 Mg Tab PO QHS OVI Bisacodyl 10 mg 04/02/21 03:26 Bisacodyl 10 Mg Rect Supp [place] QDAY PRN Constipation Heparin Sodium (Porcine) 5,000 unit 04/02/21 06:00 04/02/21 13:51 Heparin 5,000 Unit/1 Ml Vial SUB-Q 5,000 unit Q8HR OVI Administration Sodium Chloride 1,000 mls @ 125 mls/hr 04/02/21 03:30 Nacl 0.9% 1000 Ml IV DIRECT OVI Piperacillin Sod/Tazobactam Sod 4.5 gm in 100 mls @ 200 mls/hr 04/02/21 06:00 04/02/21 13:53 Zosyn/Ns 4.5gm/100ml IV 200 mls/hr Q8H OVI Administration Protocol Magnesium Hydroxide 30 ml 04/02/21 03:26 Magnesium Hydroxide (Mom) Oral Liqd Udc PO Q4H PRN Constipation Metoclopramide HCl 10 mg 04/02/21 03:26 Metoclopramide 10 Mg Tab PO Q6H PRN Nausea And Vomiting Morphine Sulfate 2 mg 04/02/21 03:26 Morphine 2 Mg/1 Ml Inj IV Q4H PRN Pain, Moderate (4-6) Morphine Sulfate 4 mg 04/02/21 03:26 Morphine 4 Mg/1 Ml Inj IV Q4H PRN Pain , Severe (7-10) Ondansetron HCl 4 mg 04/02/21 03:26 Ondansetron 4 Mg/2 Ml Inj IV Q8H PRN Nausea And Vomiting Promethazine HCl 25 mg 04/02/21 03:26 Promethazine 25 Mg Rect Supp [place] Q6H PRN Nausea And Vomiting Sodium Chloride 10 ml 04/02/21 10:00 04/02/21 13:51 Sodium Chloride 0.9% 10 Ml Flush Syringe IV 10 ml BID OVI Administration Sodium Chloride 10 ml 04/02/21 03:26 Sodium Chloride 0.9% 10 Ml Flush Syringe IV PRN PRN LINE FLUSH Nutrition/Malnutrition Assess - Dietary Evaluation Nutrition/Malnutrition Findings: Nutrition Notes Start: 04/02/21 08:51 Freq: Status: Active Protocol: Document 04/02/21 08:51 JOSE EDUARDO (Rec: 04/02/21 08:56 JOSE EDUARDO [id number]) Nutrition Notes Need for Assessment generated from: MD Order,Education Initial or Follow up Assessment Current Diagnosis Sepsis Other Pertinent Diagnosis Abdominal pain, elevated LFTs, possible UTI Current Diet Regular Labs/Tests Reviewed Pertinent Medications Reviewed Height 5 ft 4 in Weight 74.843 kg [place] Body Weight (kg) 54.54 BMI 28.3 Weight Status Appropriate Subjective/Other Information RD consulted for diet education (unsure of reason though) and NTR recommendations. Pt being worked up for possible TIA ( sec to slurred speech); she was admitted with c/o chills, generalized malaise and fatigue. Burn Absent Trauma Absent Minimum of two criteria No #1 Nutrition Diagnosis Predicted suboptimal energy intake Etiology advanced age, weakness As Evidenced by Signs and Symptoms pt c/o abdominal pain and weakness upon admission Is patient on ventilator? No Is Patient Ambulatory and/or Out of Bed No REE-([facility]-confined to bed) 5745.722 Calculation Used for Recommendations [facility] Additional Notes Pro needs 1-1.2g/k-90g/ day Fluid needs 1ml/kcal Nutrition Intervention Change Diet Order: Continue current diet order Goal #1 PO intakes to meet at least 75 % energy and pro needs Anticipated Discharge Needs: None identified at this time Follow-Up By: 04/07/21 Additional Comments F/U: intakes
[2021-04-02] MEDS ORDERED: clonazePAM 0.5 MG TAB PO PRN (19:18)
--- NOTE | 2021-04-02 19:22 | Event Note ---
Date: 04/02/21 I called [place] physician Dr. Gray at [phone] and discussed in detail patient's condition, tests and reports, consultants recommendations, treatment plan, informed her about abnormal carotid Doppler with bilateral more than 70% stenosis, that we consulted vascular pending evaluation tomorrow morning. She agreed with the treatment plan, and will update has a physician tomorrow after vascular evaluation and recommendations.
[2021-04-02] MEDS: PANTOPRAZOLE 20 MG TAB PO SCH (22:46)
[2021-04-03] MEDS: PIPERACIL/TAZOBACTA 4.5/NS 100 4.5 GM/100 ML VIAL IV SCH ×2 (06:01→15:24)
[2021-04-03] MEDS: HEPARIN 5,000 UNIT/1 ML VIAL SUB-Q SCH ×2 (06:01→15:24)
[2021-04-03 07:17] LABS: Basophils % (Auto) 0.6 % (0.0-1.8); Eosinophils # (Auto) 0.2 K/mm3 (0.0-0.4); Eosinophils % (Auto) 4.1 % (0.0-4.3); Hematocrit 35.8 % (30.3-42.9); Lymphocytes # (Auto) 0.9 K/mm3 (1.2-5.4); Lymphocytes % (Auto) 24.4 % (13.4-35.0); Mean Corpuscular HGB Conc 34 % (30-34); Mean Corpuscular Volume 86 fl (79-97); Monocytes # (Auto) 0.5 K/mm3 (0.0-0.8); Monocytes % (Auto) 12.8 % (0.0-7.3); Platelet Count 192 K/mm3 (140-440); Red Blood Count 4.18 M/mm3 (3.65-5.03); Red Cell Distribution Width 15.4 % (13.2-15.2)
[2021-04-03 07:27] LABS: INR 1.01 (0.87-1.13)
[2021-04-03 07:38] LABS: Calcium 8.9 mg/dL (8.4-10.2)
[2021-04-03] MEDS ORDERED: POTASSIUM CHLORIDE ER 20 MEQ TAB PO NR (07:50)
[2021-04-03 08:14] LABS: Albumin 3.4 g/dL (3.9-5); Bilirubin,Direct 0.3 mg/dL (0-0.2)
[2021-04-03] MEDS: ASPIRIN 325 MG TAB PO SCH (11:32)
[2021-04-03] MEDS: PANTOPRAZOLE 20 MG TAB PO SCH (11:32)
--- NOTE | 2021-04-03 13:58 | Gastroenterology Progress Note ---
Assessment and Plan abnormal liver enzymes - normalized, ? acute hep A (IgM Ab positive). cont supportive care. diet as tolerated. will sign off, please call as needed. Subjective Date of service: 04/03/21 Principal diagnosis: abnormal liver enzymes Interval history: feels well without new gi complaints/symptoms Objective - Constitutional Vitals: Temp Pulse Resp BP Pulse Ox 97.9 F 66 20 127/61 94 04/02/21 22:01 04/02/21 22:01 04/02/21 22:01 04/02/21 22:01 04/02/21 22:01 General appearance: no acute distress - Respiratory Respiratory effort: normal Respiratory: bilateral: CTA - Cardiovascular Rhythm: regular Heart Sounds: Present: S1 & S2 - Gastrointestinal General gastrointestinal: Present: soft, non-tender, non-distended - Labs CBC & Chem 7: 04/03/21 05:51 04/03/21 05:51 Labs: Laboratory Results - last 24 hr 04/03/21 04/03/21 04/03/21 05:51 05:51 05:51 WBC 3.8 L RBC 4.18 Hgb 12.0 Hct 35.8 MCV 86 MCH 29 MCHC 34 RDW 15.4 H Plt Count 192 Lymph % (Auto) 24.4 [place] % (Auto) 12.8 H Eos % (Auto) 4.1 Baso % (Auto) 0.6 Lymph # (Auto) 0.9 L [place] # (Auto) 0.5 Eos # (Auto) 0.2 Baso # (Auto) 0.0 Seg Neutrophils % 58.1 Seg Neutrophils # 2.2 PT 13.9 INR 1.01 Sodium 142 Potassium 3.3 L Chloride 107.5 H Carbon Dioxide 23 Anion Gap 15 BUN 7 Creatinine 1.0 Estimated GFR 53 BUN/Creatinine Ratio 7 Glucose 76 Calcium 8.9 Total Bilirubin Direct Bilirubin Indirect Bilirubin AST ALT Alkaline Phosphatase Total Protein Albumin Albumin/Globulin Ratio 04/03/21 05:51 WBC RBC Hgb Hct MCV MCH MCHC RDW Plt Count Lymph % (Auto) [place] % (Auto) Eos % (Auto) Baso % (Auto) Lymph # (Auto) [place] # (Auto) Eos # (Auto) Baso # (Auto) Seg Neutrophils % Seg Neutrophils # PT INR Sodium Potassium Chloride Carbon Dioxide Anion Gap BUN Creatinine Estimated GFR BUN/Creatinine Ratio Glucose Calcium Total Bilirubin 0.60 Direct Bilirubin 0.3 H Indirect Bilirubin 0.3 AST 31 ALT 46 Alkaline Phosphatase 126 Total Protein 6.1 L Albumin 3.4 L Albumin/Globulin Ratio 1.3
--- NOTE | 2021-04-03 15:31 | Event Note ---
Date: 04/03/21 Discussed the history and examined the patient. Also reviewed the carotid duplex. Patient's symptoms not related to her carotid disease and more likely due to infection. She does have bilateral cartoid stenosis that is >70% bilaterally. She would benefit from a CTA of her neck and head to evaluate patency of the distal carotid arteries however this as well as any surgical intervention can be performed as an outpatient at [place].
--- NOTE | 2021-04-03 15:44 | Discharge Summary ---
Providers - Providers Date of Admission: 04/02/21 03:45 Date of discharge: 04/03/21 Attending physician: VALENTINO GEIGER 04/02/21 03:30 Consult to Dietitian/Nutrition [CONS] Routine Physician Instructions: Reason For Exam: Reason for Consult: Nutrition Recommendations Reason for Consult: Diet education Occupational Therapy Evaluate and Treat [CONS] Routine Comment: Reason For Exam: Neuro deficits Physical Therapy Evaluation and Treat [CONS] Routine Comment: Reason For Exam: Neuro deficits 04/02/21 03:58 Consult to Physician [CONS] Routine Comment: Consulting Provider: ANTON FERNANDEZ Physician Instructions: Reason For Exam: Slurred speech- R/O TIA 04/02/21 05:27 Consult to Physician [CONS] Routine Comment: Consulting Provider: KATHI PENA Physician Instructions: Reason For Exam: Elevated liver enzymes 04/02/21 17:18 Consult to Physician [CONS] Routine Comment: Consulting Provider: FRANKIE RINCON Physician Instructions: Reason For Exam: Morales carotid stenosis[>70%] neuro symptoms Primary care physician: COMBINER Hospitalization Reason for admission: Generalized weakness/slurred speech Condition: Stable Pertinent studies: CT head without contrast; no acute abnormality MRI brain; no acute abnormality Carotid Doppler; bilateral carotids more than 70% stenosis[evaluated by vascular, advised to see [facility] vascular surgeon upon discharge] Echocardiogram; echo 55 to 60%, no shunt, Abdominal ultrasound; no abnormality right upper quadrant chest x-ray; no acute abnormality no acute abnormality no acute abnormality CT abdomen and pelvis; no obstruction inflammation of free air Appendix normal Hospital course: 85-year-old female patient with history of osteoarthritis emphysema kidney stone was admitted through emergency room generalized malaise fatigue and dark-colored urine, patient also reported episode of slurred speech few days ago which has since resolved denies any difficulty swallowing or focal weakness or unsteady gait Initial work-up CT abdomen pelvis and CT head and CT chest were unremarkable Patient was evaluated by neurologist work-up was negative except for bilateral carotid artery stenosis, vascular surgeon has evaluated the patient and recommend outpatient evaluation and surgery as needed by the [facility] vascular physicians as patient is from the [facility] system Patient was treated with aspirin and statin aspirin statin patient symptoms slowly but gradually improved today patient is comfortable no new complaints. Rest of the work-up with CT head and, MRI brain negative acute CVA ruled out possible TIA Patient symptoms significantly improved Today she is comfortable no new complaints vital signs stable physical examination no new changes Hemodynamically and clinically stable for discharge Discharge diagnosis: --Hypokalemia; Current Visit: Yes Status: Acute Replenished with 40 mEq oral KCl Follow electrolytes --Bilateral carotid artery stenosis;> 70% Current Visit: Yes Status: Acute Patient is already on aspirin and statin Vascular evaluated, Dr. Frankie Rincon vascular surgeon recommended Follow-up with [facility] vascular physicians immediately after discharge [As patient is from [facility]] --Slurred speech resolved/possible TIA Current Visit: Yes Status: Acute CT head without contrast and MRI brain negative Acute CVA ruled out ,Continue aspirin and statin Follow neurology evaluation recommendations Patient's work-up ;Negative so far; acute CVA ruled out CT head without contrast; no acute abnormality MRI brain; no acute abnormality Carotid Doppler; bilateral carotid stenosis more than 70% Echocardiogram; echo 55 to 60%, no shunt, no LV thrombus Abdominal ultrasound; no abnormality right upper quadrant CT abdomen and pelvis; no acute abnormality noted chest x-ray; no acute abnormality --Acute abdominal pain Current Visit: Yes Status: Acute Resolved CT of the abdomen and pelvis has been unremarkable. -- Sepsis secondary to urinary tract infection Current Visit: Yes Status: Acute/present on admission Fever , tachycardia , tachypnea , UA consistent with UTI present on admission.Continue empiric IV antibiotics. Follow cultures -- Elevated liver enzymes Current Visit: Yes Status: Acute Etiology unclear.. Will check hepatitis profile. We will also schedule for right upper quadrant ultrasound. GI evaluated the patient, meds optimized We will monitor liver enzymes. Stable at discharge Disposition: DC-01 TO HOME OR SELFCARE Final Discharge Diagnosis (Prints w/discharge instructions): TIA. Sepsis secondary to UTI. Transaminitis improving. Bilateral carotid artery stenosis. Slurred speech resolved. Hypokalemia corrected Time spent for discharge: 35 min Core Measure Documentation - Palliative Care Palliative Care/ Comfort Measures: Not Applicable - Core Measures Any of the following diagnoses?: none Exam - Constitutional Vitals: Temp Pulse Resp BP Pulse Ox 97.9 F 66 20 127/61 94 04/02/21 22:01 04/02/21 22:01 04/02/21 22:01 04/02/21 22:01 04/02/21 22:01 General appearance: Present: no acute distress, well-nourished - EENT Eyes: Present: PERRL, EOM intact - Neck Neck: Present: supple, normal ROM - Respiratory Respiratory effort: normal Respiratory: bilateral: diminished, negative: rales, rhonchi, wheezing - Cardiovascular Rhythm: regular Heart Sounds: Present: S1 & S2 - Extremities Extremities: no ischemia, No edema - Abdominal General gastrointestinal: Present: soft, non-tender, non-distended - Integumentary Integumentary: Present: clear, warm - Musculoskeletal Musculoskeletal: strength equal bilaterally - Psychiatric Psychiatric: appropriate mood/affect, cooperative - Neurologic Neurologic: moves all extremities Plan Activity: advance as tolerated, fall precautions Diet: other (cardiac diet) Additional Instructions: Advised to see private neurologist in 2 to 4 weeks or as needed. Advised to see private [facility] primary care physician within 1 week. Fall precautions. If you have worsening symptoms contact MD or go to emergency room as needed. Follow vascular surgery in 4 to 6 weeks for further evaluation of bilateral carotid stenosis Follow up with: PRIMARY CARE,MD [Primary Care Provider] - 3-5 Days Prescriptions: cefUROXime [Ceftin] 2 tab PO Q12H #12 tablet bisacodyL [Dulcolax suppos] 10 mg VA QDAY PRN #14 supp.rect PRN Reason: Constipation Aspirin EC [Halfprin EC] 81 mg PO QDAY #30 tablet. AtorvaSTATin [Lipitor] 40 mg PO QHS #30 tablet Pantoprazole [Protonix TAB] 20 mg PO BID #30 tablet.
[2021-04-03 16:41] LABS: Chol/HDL Ratio 5.63 %
[2021-04-03 17:02] VITALS: BP 144/71
--- NOTE | 2021-04-03 19:08 | Event Note ---
Date: 04/03/21 I called [facility] physician at [phone] and updated patient's condition, vascular recommendations Discharge plans for today, she she informed me that she is going to set up follow-up visits with [facility] primary care physician as well as vascular. I informed the patient's nurse about my conversation with [facility] physician
== END 2021-04-03 17:53 | disposition home or self-care (01) ==
LOC: ED 19:26 → 3A 04-02 03:45
PROVIDERS: ADMIT Internal Medicine Geriatric Medicine; ATTEND Internal Medicine
DX: A41.9 Sepsis, unspecified organism (principal); R10.9 Unspecified abdominal pain; R47.81 Slurred speech; J43.9 Emphysema, unspecified; R79.89 Other specified abnormal findings of blood chemistry; M19.90 Unspecified osteoarthritis, unspecified site; E87.6 Hypokalemia; R47.1 Dysarthria and anarthria; R29.700 NIHSS score 0; I65.23 Occlusion and stenosis of bilateral carotid arteries; G93.41 Metabolic encephalopathy; N39.0 Urinary tract infection, site not specified; R74.01 Elevation of levels of liver transaminase levels; Z87.442 Personal history of urinary calculi; Z98.891 History of uterine scar from previous surgery; Z79.82 Long term (current) use of aspirin; Z90.49 Acquired absence of other specified parts of digestive tract
CPT/HCPCS: 36415; 70450; 70551; 71045; 74178; 76705; 80048; 80053; 80061; 80074; 80076; 81001; 82140; 82550; 83690; 83735; 84443; 84484; 85025; 85610; 85730; 87040; 87086; 93005; 93306; 93880; 96365; 96366; 97116; 97161; 97165; 99291; A9270; G0378; J1644; J2543; J7120; Q9967

== ENCOUNTER 2021-12-06 09:22 | Inpatient (IN) | payer MEDICARE ==
[2021-12-06] MEDS ORDERED: ALBUTEROL 2.5 MG/3 ML NEBU IH ONE (09:35)
--- NOTE | 2021-12-06 09:36 | Emergency Department Report ---
ED Shortness of Breath HPI - General Stated Complaint: ISH Time Seen by Provider: 12/06/21 09:28 Source: patient, EMS, old records reviewed Mode of arrival: Stretcher Limitations: Other - History of Present Illness Initial Comments: 86-year-old female the past medical history of COPD on home oxygen, atrial fibrillation (pradaxa), and TIA presents to the hospital with complaints of respiratory distress. EMS reports that they were at the home 3 days ago for same complaint and patient refused transport at that time. Today upon EMS arrival patient was satting 50% on room air and had a A. fib heart rate in the 140s with respiratory distress. Patient was treated with albuterol 5 mg, Atrovent 0.5 mg, Solu-Medrol 125 mg, magnesium 2 g with some improvement in symptoms. Patient apparently declined CPAP in route to the hospital. She arrives with nonrebreather oxygen treatment with persistent tachypnea and signs of respiratory distress. 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 [employer] - Related Data Home Medications Medication Instructions Recorded Confirmed Last Taken Omeprazole 20 mg PO BID 04/02/21 12/06/21 12/05/21 clonazePAM [KlonoPIN] 2 tab PO HS 04/02/21 12/06/21 12/05/21 Albuterol Sulfate [Proair 90 mcg IH Q6HR PRN 12/06/21 12/06/21 Unknown Digihaler] Calcium Carbonate [Calcium] 1,200 mg PO DAILY 12/06/21 12/06/21 12/05/21 Cholecalciferol Vit D3 [Vitamin D3 1,000 unit PO DAILY 12/06/21 12/06/21 12/06/21 1,000 UNIT TAB] Cyanocobalamin (Vitamin B-12) 1,000 mcg PO DAILY 12/06/21 12/06/21 12/05/21 [Vitamin B-12] Dabigatran [Pradaxa] 150 mg PO BID 12/06/21 12/06/21 12/05/21 Fluticasone Propion/Salmeterol 1 each IH DAILY 12/06/21 12/06/21 12/05/21 [Wixela 250-50 Inhub] Furosemide [Lasix] 40 mg PO DAILY 12/06/21 12/06/21 12/05/21 Pravastatin Sodium [Pravastatin] 40 mg PO QHS 12/06/21 12/06/21 12/05/21 Prednisone [predniSONE 10 mg 10 mg PO .TAPER 12/06/21 12/06/21 12/05/21 (6-Day Pack, 21 Tabs)] Thiamine HCl [Vitamin B-1] 100 mg PO DAILY 12/06/21 12/06/21 12/05/21 dilTIAZem HCl [Diltiazem 24Hr ER 180 mg PO DAILY 12/06/21 12/06/21 12/05/21 (Cd)] Previous Rx's Medication Instructions Recorded Last Taken Type Aspirin EC [Halfprin EC] 81 mg PO QDAY #30 tablet. 04/03/21 12/05/21 Rx Allergies Allergy/AdvReac Type Severity Reaction Status Date / Time No Known Allergies Allergy Unverified 04/01/21 21:34 ED Review of Systems ROS: Stated complaint: ISH Other details as noted in HPI Comment: All other systems reviewed and negative ED Past Medical Hx - Past Medical History Hx Renal Disease: Yes (kidney stones) Hx Arthritis: Yes Hx Kidney Stones: Yes Additional medical history: Emphyzema - Surgical History Hx Appendectomy: Yes Additional Surgical History: C Section, Kidney stone removal - Social History Smoking Status: Never Smoker Substance Use Type: None - Medications Home Medications: Home Medications Medication Instructions Recorded Confirmed Last Taken Type Omeprazole 20 mg PO BID 04/02/21 12/06/21 12/05/21 History clonazePAM [KlonoPIN] 2 tab PO HS 04/02/21 12/06/21 12/05/21 History Aspirin EC [Halfprin EC] 81 mg PO QDAY #30 tablet. 04/03/21 12/06/21 12/05/21 Rx Albuterol Sulfate [Proair 90 mcg IH Q6HR PRN 12/06/21 12/06/21 Unknown History Digihaler] Calcium Carbonate [Calcium] 1,200 mg PO DAILY 12/06/21 12/06/21 12/05/21 History Cholecalciferol Vit D3 [Vitamin D3 1,000 unit PO DAILY 12/06/21 12/06/21 12/06/21 History 1,000 UNIT TAB] Cyanocobalamin (Vitamin B-12) 1,000 mcg PO DAILY 12/06/21 12/06/21 12/05/21 History [Vitamin B-12] Dabigatran [Pradaxa] 150 mg PO BID 12/06/21 12/06/21 12/05/21 History Fluticasone Propion/Salmeterol 1 each IH DAILY 12/06/21 12/06/21 12/05/21 History [Wixela 250-50 Inhub] Furosemide [Lasix] 40 mg PO DAILY 12/06/21 12/06/21 12/05/21 History Pravastatin Sodium [Pravastatin] 40 mg PO QHS 12/06/21 12/06/21 12/05/21 History Prednisone [predniSONE 10 mg 10 mg PO .TAPER 12/06/21 12/06/21 12/05/21 History (6-Day Pack, 21 Tabs)] Thiamine HCl [Vitamin B-1] 100 mg PO DAILY 12/06/21 12/06/21 12/05/21 History dilTIAZem HCl [Diltiazem 24Hr ER 180 mg PO DAILY 12/06/21 12/06/21 12/05/21 History (Cd)] ED Physical Exam - Other Other exam information: General: Moderate respiratory distress Head: Atraumatic Eyes: normal appearance ENT: Moist mucous membranes Neck: Normal appearance, no midline tenderness Chest: Tachypneic, excessive muscle use, fair air movement, bilateral wheezing CV: Tachycardic irregular rate Abdomen: Soft, normal bowel sounds, nontender, nondistended, no rebound or guarding Back: Normal inspection Extremity: Normal inspection, full range of motion Neuro: Alert O x 3, no facial asymmetry Psych: Appropriate behavior Skin: No rash ED Course Vital Signs 12/06/21 12/06/21 12/06/21 09:25 09:30 09:45 Temperature 987.6 F H Pulse Rate 98 H 98 H 99 H Pulse Rate [ Anterior Bilateral Throughout] Respiratory 38 H 38 H 32 H Rate Respiratory Rate [Anterior Bilateral Throughout] Blood Pressure 112/58 Blood Pressure 112/58 [Right] O2 Sat by Pulse 97 76 L 98 Oximetry 12/06/21 12/06/21 12/06/21 10:02 10:06 10:15 Temperature Pulse Rate 110 H 105 H Pulse Rate [ Anterior Bilateral Throughout] Respiratory 34 H 38 H 39 H Rate Respiratory Rate [Anterior Bilateral Throughout] Blood Pressure 124/61 Blood Pressure [Right] O2 Sat by Pulse 91 98 88 Oximetry 12/06/21 12/06/21 12/06/21 10:28 10:30 10:31 Temperature Pulse Rate 107 H 112 H Pulse Rate [ 119 H Anterior Bilateral Throughout] Respiratory 36 H 35 H Rate Respiratory 34 H Rate [Anterior Bilateral Throughout] Blood Pressure 129/76 129/76 Blood Pressure [Right] O2 Sat by Pulse 96 97 Oximetry 12/06/21 12/06/21 12/06/21 10:45 11:01 11:15 Temperature Pulse Rate 97 H 106 H 98 H Pulse Rate [ Anterior Bilateral Throughout] Respiratory 35 H 35 H 34 H Rate Respiratory Rate [Anterior Bilateral Throughout] Blood Pressure 135/66 134/67 Blood Pressure 134/67 [Right] O2 Sat by Pulse 95 94 95 Oximetry - Consultations Consultation #1: 12/06/21 11:21 case d/w Dr Sánchez with [facility], will fax recent meds on file, last echo was years ago with plan to schedule repeat echo soon, recent steroid taper prescribed should be completed, admission in Sep for pneumonia. approved admission for here. ED Medical Decision Making - Lab Data Result diagrams: 12/06/21 10:05 12/06/21 10:05 Lab Results 12/06/21 12/06/21 12/06/21 Range/Units 10:05 10:05 10:05 WBC 16.9 H (4.5-11.0) K/mm3 RBC 4.30 (3.65-5.03) M/mm3 Hgb 11.9 (10.1-14.3) gm/dl Hct 37.6 (30.3-42.9) % MCV 88 (79-97) fl MCH 28 (28-32) pg MCHC 32 (30-34) % RDW 16.3 H (13.2-15.2) % Plt Count 473 H (140-440) K/mm3 Lymph % (Auto) 3.3 L (13.4-35.0) % Menard % (Auto) 7.1 (0.0-7.3) % Eos % (Auto) 0.0 (0.0-4.3) % Baso % (Auto) 0.1 (0.0-1.8) % Lymph # (Auto) 0.6 L (1.2-5.4) K/mm3 Menard # (Auto) 1.2 H (0.0-0.8) K/mm3 Eos # (Auto) 0.0 (0.0-0.4) K/mm3 Baso # (Auto) 0.0 (0.0-0.1) K/mm3 Seg Neutrophils % 89.5 H (40.0-70.0) % Seg Neutrophils # 15.1 H (1.8-7.7) K/mm3 PT 18.5 H (12.2-14.9) Sec. INR 1.37 H (0.87-1.13) Sodium 138 (137-145) mmol/L Potassium 2.9 L* (3.6-5.0) mmol/L Chloride 100.1 (98-107) mmol/L Carbon Dioxide 21 L (22-30) mmol/L Anion Gap 20 mmol/L BUN 20 H (7-17) mg/dL Creatinine 0.7 (0.6-1.2) mg/dL Estimated GFR > 60 ml/min BUN/Creatinine Ratio 29 % Glucose 127 H (65-100) mg/dL Calcium 8.9 (8.4-10.2) mg/dL Magnesium 2.90 H (1.7-2.3) mg/dL Total Bilirubin 0.90 (0.1-1.2) mg/dL AST 21 (5-40) units/L ALT 22 (7-56) units/L Alkaline Phosphatase 140 H (35-129) units/L Troponin T (0.00-0.029) ng/mL NT-Pro-B Natriuret Pep (0-900) pg/mL Total Protein 7.1 (6.3-8.2) g/dL Albumin 3.5 L (3.9-5) g/dL Albumin/Globulin Ratio 1.0 % // Range/Units 10:05 WBC (4.5-11.0) K/mm3 RBC (3.65-5.03) M/mm3 Hgb (10.1-14.3) gm/dl Hct (30.3-42.9) % MCV (79-97) fl MCH (28-32) pg MCHC (30-34) % RDW (13.2-15.2) % Plt Count (140-440) K/mm3 Lymph % (Auto) (13.4-35.0) % Menard % (Auto) (0.0-7.3) % Eos % (Auto) (0.0-4.3) % Baso % (Auto) (0.0-1.8) % Lymph # (Auto) (1.2-5.4) K/mm3 Menard # (Auto) (0.0-0.8) K/mm3 Eos # (Auto) (0.0-0.4) K/mm3 Baso # (Auto) (0.0-0.1) K/mm3 Seg Neutrophils % (40.0-70.0) % Seg Neutrophils # (1.8-7.7) K/mm3 PT (12.2-14.9) Sec. INR (0.87-1.13) Sodium (137-145) mmol/L Potassium (3.6-5.0) mmol/L Chloride (98-107) mmol/L Carbon Dioxide (22-30) mmol/L Anion Gap mmol/L BUN (7-17) mg/dL Creatinine (0.6-1.2) mg/dL Estimated GFR ml/min BUN/Creatinine Ratio % Glucose (65-100) mg/dL Calcium (8.4-10.2) mg/dL Magnesium (1.7-2.3) mg/dL Total Bilirubin (0.1-1.2) mg/dL AST (5-40) units/L ALT (7-56) units/L Alkaline Phosphatase (35-129) units/L Troponin T < 0.010 (0.00-0.029) ng/mL NT-Pro-B Natriuret Pep 6552 H (0-900) pg/mL Total Protein (6.3-8.2) g/dL Albumin (3.9-5) g/dL Albumin/Globulin Ratio % - EKG Data -: EKG Interpreted by Me (afib) EKG shows normal: ST-T waves (no stemi) Rate: tachycardia (100) - Radiology Data Radiology results: report reviewed CHEST 1 VIEW 12/06/2021 9:46 AM INDICATION / CLINICAL INFORMATION: Dyspnea. COMPARISON: 04/01/2021 FINDINGS: SUPPORT DEVICES: None. HEART / MEDIASTINUM: No significant abnormality. LUNGS / PLEURA: Diffuse opacities in bilateral lungs. No large pneumothorax ADDITIONAL FINDINGS: No significant additional findings. IMPRESSION: 1. Diffuse bilateral pulmonary opacities - Medical Decision Making 86-year female presents to the hospital respiratory distress requiring BiPAP support. History of COPD with oxygen dependence as well as CHF and atrial fibrillation. Patient improved symptomatically on BiPAP with 1 hour continuous bronchodilators. X-ray shows bilateral pulmonary opacities suspicious for CHF. Patient also empirically treated for pneumonia given leukocytosis. Covid test ordered. Patient treated with p.o. and IV potassium for hypokalemia. Lasix held secondary to hypokalemia. ABG shows hypoxia without acid-base disturbance Critical Care Time: Yes Critical care attestation.: If time is entered above; I have spent that time in minutes in the direct care of this critically ill patient, excluding procedure time. Critical Care Time: 35 minutes of critical care time excluding procedures were used in the care of the patient. I came immediately to the bedside upon patient's arrival. I obtained history from EMS at the bedside. I discussed treatment plan with the nursing team members. I reviewed electronic record. Patient required multiple interventions and reassessments. Spoke with hospitalist, asya wilkes, ordered cardiology consult. ED Disposition Clinical Impression: Acute respiratory failure, Pulmonary edema, COPD exacerbation, Bilateral pneumonia, Chronic atrial fibrillation, Chronic anticoagulation, Hypokalemia Disposition: 09 ADMITTED INPATIENT Is pt being admited?: Yes Condition: Stable Instructions: Pulmonary Edema (ED), Chronic Obstructive Pulmonary Disease (ED), Bacterial Pneumonia (ED) Time of Disposition: 11:54 (Dr Dias/hospitalist)
[2021-12-06] MEDS: IPRATROPIUM 0.02% NEBU 2.5 ML IH ONE (09:47)
--- NOTE | 2021-12-06 10:02 | XRay Report ---
CHEST 1 VIEW 12/06/2021 9:46 AM INDICATION / CLINICAL INFORMATION: Dyspnea. COMPARISON: 04/01/2021 FINDINGS: SUPPORT DEVICES: None. HEART / MEDIASTINUM: No significant abnormality. LUNGS / PLEURA: Diffuse opacities in bilateral lungs. No large pneumothorax ADDITIONAL FINDINGS: No significant additional findings. IMPRESSION: 1. Diffuse bilateral pulmonary opacities Signer Name: Pablito Meyers MD Signed: 12/06/2021 9:58 AM Workstation Name: [id number]
[2021-12-06 10:25] LABS: Basophils % (Auto) 0.1 % (0.0-1.8); Hematocrit 37.6 % (30.3-42.9); Hemoglobin 11.9 gm/dl (10.1-14.3); Lymphocytes # (Auto) 0.6 K/mm3 (1.2-5.4); Lymphocytes % (Auto) 3.3 % (13.4-35.0); Mean Corpuscular HGB Conc 32 % (30-34); Mean Corpuscular Volume 88 fl (79-97); Monocytes # (Auto) 1.2 K/mm3 (0.0-0.8); Monocytes % (Auto) 7.1 % (0.0-7.3); Platelet Count 473 K/mm3 (140-440); Red Cell Distribution Width 16.3 % (13.2-15.2)
[2021-12-06 10:38] LABS: INR 1.37 (0.87-1.13)
[2021-12-06 10:58] LABS: Alanine Aminotransferase 22 units/L (7-56); Albumin 3.5 g/dL (3.9-5); Blood Urea Nitrogen 20 mg/dL (7-17); Calcium 8.9 mg/dL (8.4-10.2); Hemolysis Index 3
[2021-12-06 10:59] LABS: BUN/Creatinine Ratio 29
[2021-12-06] MEDS ORDERED: cefTRIAXone/NS 2 GM/100 ML 2 GM/100 ML BAG IV ONE (11:24)
[2021-12-06] MEDS ORDERED: AZITHROMYCIN/NS 500 MG/250 ML 500 MG/250 ML BAG IV ONE (11:24)
[2021-12-06 11:32] LABS: ABG Base Excess -1.4 mmol/L (-2.0-3.0); ABG HCO3 22.2 mmol/L (20.0-26.0); ABG Methemoglobin 0.5 % (0.0-1.5); ABG Oxygen Saturation 91.7 % (95.0-99.0); ABG PCO2 33.6 mm Hg; ABG PH 7.438 pH Units (7.350-7.450); ABG PO2 61.6 mm Hg (80.0-90.0)
[2021-12-06] MEDS: POTASSIUM CHLORIDE 10 MEQ 10 MEQ/100 ML BAG IV SCH ×4 (11:48→16:12)
[2021-12-06] MEDS ORDERED: NON-FORMULARY EACH (Albuterol Sulfate [Proair Digihaler] 90 MCG Aer.Pw.Bas) IH PRN (15:18)
[2021-12-06] MEDS ORDERED: ACETAMINOPHEN 325 MG TAB PO PRN (15:23)
[2021-12-06] MEDS ORDERED: ONDANSETRON 4 MG/2 ML INJ IV PRN (15:23)
[2021-12-06] MEDS ORDERED: IPRATROPIUM/ALBUTEROL SULFATE 3 ML AMPUL.NEB IH PRN (15:27)
[2021-12-06] MEDS: DABIGATRAN 150 MG CAP PO SCH ×2 (16:05→22:00)
[2021-12-06] MEDS: dilTIAZem CD 180 MG CAP PO SCH (16:05)
[2021-12-06] MEDS: ASPIRIN EC 81 MG TAB PO SCH (16:05)
[2021-12-06] MEDS ORDERED: ALBUTEROL 2.5 MG/3 ML NEBU IH PRN (16:11)
[2021-12-06] MEDS: methylPREDNISolone Sod Succinate 125 MG/2 ML INJ IV SCH (16:57)
[2021-12-06] MEDS: SODIUM CHLORIDE 0.9% 1000 ML 1,000 ML IV SCH (16:58)
[2021-12-06] MEDS: IPRATROPIUM/ALBUTEROL SULFATE 3 ML AMPUL.NEB IH SCH ×2 (19:21→21:21)
[2021-12-06] MEDS ORDERED: NON-FORMULARY EACH (Pravastatin Sodium [Pravastatin] 10 MG Tablet) PO SCH (22:00)
[2021-12-06] MEDS: PANTOPRAZOLE 20 MG TAB PO SCH (22:00)
[2021-12-06] MEDS ORDERED: NON-FORMULARY EACH (Omeprazole [Omeprazole] 20 MG Capsule.Dr) PO SCH (22:00)
[2021-12-06] MEDS: PRAVASTATIN 40 MG TAB PO SCH (22:00)
[2021-12-06] MEDS ORDERED: HEPARIN 5,000 UNIT/1 ML VIAL SUB-Q SCH (22:00)
[2021-12-06] MEDS: clonazePAM 0.5 MG TAB PO SCH (22:00)
[2021-12-07] MEDS: methylPREDNISolone Sod Succinate 125 MG/2 ML INJ IV SCH ×4 (03:07→23:02)
--- NOTE | 2021-12-07 08:09 | History and Physical Report ---
History of Present Illness Date of examination: 12/06/21 Date of admission: 12/06/21 15:23 Chief complaint: Increasing shortness of breath for 3 days History of present illness: 86-year-old female with history of COPD, atrial fibrillation, CHF and hyperlipidemia brought in by EMS for severe shortness of breath and low oxygen saturations with 50% improvement. Patient also atrial fibrillation with rapid ventricular rate of 140. Patient was treated with Solu-Medrol. Patient declined CPAP en route to the hospital. Patient arrived with nonrebreather oxygen treatment systemic tachypnea. Patient was initiated on BiPAP. No fever or chills. Cough productive of mucoid sputum present. - Past Medical History --Renal Disease: Yes (kidney stones) --Arthritis: Yes --Kidney Stones: Yes --Additional medical history: Emphyzema - Surgical History --Appendectomy: Yes --Additional Surgical History: C Section, Kidney stone removal - Social History --Smoking Status: Never Smoker --Substance Use Type: None Review of Systems ROS: Constitutional no weight loss or weight gain no fever or chills HEENT no sore throat no post nasal drip no diplopia Neck no neck stiffness no lymph gland enlargement Chest and lungs severe shortness of breath and respiratory distress CVS no chest pain no diaphoresis no palpitations GI no nausea no vomiting no diarrhea Genitourinary system no dysuria no flank pain Musculoskeletal system no muscle pains no joint pains PRODUCER no syncope no seizures Skin no rash no itching Psychiatric no depression no homicidal or suicidal tendencies Hematologic no lymphedema or bruising Endocrine no polydipsia no polyuria no cold intolerance no heat intolerance Medications and Allergies Allergies Allergy/AdvReac Type Severity Reaction Status Date / Time No Known Allergies Allergy Unverified 04/01/21 21:34 Home Medications Medication Instructions Recorded Confirmed Last Taken Type Omeprazole 20 mg PO BID 04/02/21 12/06/21 12/05/21 History clonazePAM [KlonoPIN] 2 tab PO HS 04/02/21 12/06/21 12/05/21 History Aspirin EC [Halfprin EC] 81 mg PO QDAY #30 tablet. 04/03/21 12/06/21 12/05/21 Rx Albuterol Sulfate [Proair 90 mcg IH Q6HR PRN 12/06/21 12/06/21 Unknown History Digihaler] Calcium Carbonate [Calcium] 1,200 mg PO DAILY 12/06/21 12/06/21 12/05/21 History Cholecalciferol Vit D3 [Vitamin D3 1,000 unit PO DAILY 12/06/21 12/06/21 12/05/21 History 1,000 UNIT TAB] Cyanocobalamin (Vitamin B-12) 1,000 mcg PO DAILY 12/06/21 12/06/21 12/05/21 History [Vitamin B-12] Dabigatran [Pradaxa] 150 mg PO BID 12/06/21 12/06/21 12/05/21 History Fluticasone Propion/Salmeterol 1 each IH DAILY 12/06/21 12/06/21 12/05/21 History [Wixela 250-50 Inhub] Furosemide [Lasix] 40 mg PO DAILY 12/06/21 12/06/21 12/05/21 History Pravastatin Sodium [Pravastatin] 40 mg PO QHS 12/06/21 12/06/21 12/05/21 History Prednisone [predniSONE 10 mg 10 mg PO .TAPER 12/06/21 12/06/21 12/05/21 History (6-Day Pack, 21 Tabs)] Thiamine HCl [Vitamin B-1] 100 mg PO DAILY 12/06/21 12/06/21 12/05/21 History dilTIAZem HCl [Diltiazem 24Hr ER 180 mg PO DAILY 12/06/21 12/06/21 12/05/21 History (Cd)] Active Meds: Active Medications Acetaminophen (Acetaminophen 325 Mg Tab) 650 mg PO Q4H PRN PRN Reason: Pain MILD(1-3)/Fever >100.5/ Albuterol (Albuterol 2.5 Mg/3 Ml Nebu) 2.5 mg IH Q4H PRN PRN Reason: Shortness Of Breath Albuterol/Ipratropium (Ipratropium/Albuterol Sulfate 3 Ml Ampul.Neb) 1 ampul IH QIDRT [facility] Last Admin: 12/06/21 21:21 Dose: 1 ampul Arformoterol Tartrate (Arformoterol 15 Mcg/2 Ml Nebu) 15 mcg IH Q12HRT [facility] Aspirin (Aspirin Ec 81 Mg Tab) 81 mg PO QDAY [facility] Last Admin: 12/06/21 16:05 Dose: Not Given Azithromycin (Azithromycin 250 Mg Tab) 500 mg PO QDAY [facility]; Protocol Stop: 12/10/21 10:01 Budesonide (Budesonide 0.5 Mg/2 Ml Nebu) 0.5 mg IH Q12HRT [facility] Calcium Carbonate/Glycine (Calcium Carbonate 1250 Mg Tab) 1,250 mg PO QDAY [facility] Cholecalciferol (Cholecalciferol (Vit D3) 1000 Unit (25 Mcg) Tab) 1,000 unit PO DAILY [facility] Clonazepam (Clonazepam 0.5 Mg Tab) 0.5 mg PO HS [facility] Last Admin: 12/06/21 22:00 Dose: 0.5 mg Cyanocobalamin (Cyanocobalamin (Vit B-12) 1000 Mcg Tab) 1,000 mcg PO DAILY [facility] Dabigatran (Dabigatran 150 Mg Cap) 150 mg PO BID [facility]; Protocol Last Admin: 12/06/21 22:00 Dose: 150 mg Diltiazem HCl (Diltiazem Cd 180 Mg Cap) 180 mg PO DAILY [facility] Last Admin: 12/06/21 16:05 Dose: Not Given Furosemide (Furosemide 40 Mg Tab) 40 mg PO DAILY [facility] Sodium Chloride (Nacl 0.9% 1000 Ml) 1,000 mls @ 42 mls/hr IV DIRECT [facility] Last Admin: 12/06/21 16:58 Dose: 42 mls/hr Ceftriaxone Sodium (Rocephin/Ns 2 Gm/100 Ml) 2 gm in 100 mls @ 200 mls/hr IV Q24H [facility]; Protocol Stop: 12/10/21 12:59 Methylprednisolone Sodium Succinate (Methylprednisolone Sod Succinate 125 Mg/2 Ml Inj) 80 mg IV Q8H [facility] Last Admin: 12/07/21 03:07 Dose: Not Given Morphine Sulfate (Morphine 2 Mg/1 Ml Inj) 2 mg IV Q4H PRN PRN Reason: Pain, Moderate (4-6) Ondansetron HCl (Ondansetron 4 Mg/2 Ml Inj) 4 mg IV Q8H PRN PRN Reason: Nausea And Vomiting Oxycodone/Acetaminophen (Oxycodone /Acetaminophen 5-325mg Tab) 1 tab PO Q6H PRN PRN Reason: Pain, Moderate (4-6) Pantoprazole Sodium (Pantoprazole 20 Mg Tab) 20 mg PO BID [facility] Last Admin: 12/06/21 22:00 Dose: 20 mg Pravastatin Sodium (Pravastatin 40 Mg Tab) 40 mg PO QHS [facility] Last Admin: 12/06/21 22:00 Dose: 40 mg Sodium Chloride (Sodium Chloride 0.9% 10 Ml Flush Syringe) 10 ml IV BID [facility] Last Admin: 12/06/21 22:00 Dose: 10 ml Sodium Chloride (Sodium Chloride 0.9% 10 Ml Flush Syringe) 10 ml IV PRN PRN PRN Reason: LINE FLUSH Thiamine HCl (Thiamine 100 Mg Tab) 100 mg PO QDAY [facility] Exam - Constitutional Vitals: Temp Pulse Resp BP Pulse Ox 97.5 F L 103 H 32 H 148/83 91 12/07/21 02:24 12/07/21 05:57 12/07/21 05:57 12/07/21 05:57 12/07/21 05:57 General appearance: Present: no acute distress, well-nourished - EENT Eyes: Present: PERRL ENT: hearing intact, clear oral mucosa - Neck Neck: Present: supple, normal ROM - Respiratory Respiratory effort: normal Respiratory: bilateral: diminished, rhonchi, wheezing - Cardiovascular Heart rate: 140 Rhythm: irregularly irregular Heart Sounds: Present: S1 & S2. Absent: rub, click - Extremities Extremities: pulses symmetrical, No edema Peripheral Pulses: within normal limits - Abdominal General gastrointestinal: Present: soft, non-tender, non-distended, normal bowel sounds Female genitourinary: Present: normal - Integumentary Integumentary: Present: clear, warm, dry - Musculoskeletal Musculoskeletal: gait normal, strength equal bilaterally - Psychiatric Psychiatric: appropriate mood/affect, intact judgment & insight - Neurologic Neurologic: CNII-XII intact, moves all extremities HEART Score - HEART Score Troponin: Troponin T 0.019 ng/mL (0.00-0.029) 12/06/21 13:54 Results - Labs CBC & Chem 7: 12/06/21 10:05 12/06/21 10:05 Labs: Laboratory Last Values WBC 16.9 K/mm3 (4.5-11.0) H 12/06/21 10:05 RBC 4.30 M/mm3 (3.65-5.03) 12/06/21 10:05 Hgb 11.9 gm/dl (10.1-14.3) 12/06/21 10:05 Hct 37.6 % (30.3-42.9) 12/06/21 10:05 MCV 88 fl (79-97) 12/06/21 10:05 MCH 28 pg (28-32) 12/06/21 10:05 MCHC 32 % (30-34) 12/06/21 10:05 RDW 16.3 % (13.2-15.2) H 12/06/21 10:05 Plt Count 473 K/mm3 (140-440) H 12/06/21 10:05 Lymph % (Auto) 3.3 % (13.4-35.0) L 12/06/21 10:05 [place] % (Auto) 7.1 % (0.0-7.3) 12/06/21 10:05 Eos % (Auto) 0.0 % (0.0-4.3) 12/06/21 10:05 Baso % (Auto) 0.1 % (0.0-1.8) 12/06/21 10:05 Lymph # (Auto) 0.6 K/mm3 (1.2-5.4) L 12/06/21 10:05 [place] # (Auto) 1.2 K/mm3 (0.0-0.8) H 12/06/21 10:05 Eos # (Auto) 0.0 K/mm3 (0.0-0.4) 12/06/21 10:05 Baso # (Auto) 0.0 K/mm3 (0.0-0.1) 12/06/21 10:05 Seg Neutrophils % 89.5 % (40.0-70.0) H 12/06/21 10:05 Seg Neutrophils # 15.1 K/mm3 (1.8-7.7) H 12/06/21 10:05 PT 18.5 Sec. (12.2-14.9) H 12/06/21 10:05 INR 1.37 (0.87-1.13) H 12/06/21 10:05 ABG pH 7.438 pH Units (7.350-7.450) 12/06/21 11:15 ABG pCO2 33.6 mm Hg 12/06/21 11:15 ABG pO2 61.6 mm Hg (80.0-90.0) L 12/06/21 11:15 ABG HCO3 22.2 mmol/L (20.0-26.0) 12/06/21 11:15 ABG O2 Saturation 91.7 % (95.0-99.0) L 12/06/21 11:15 ABG O2 Content 15.0 (0.0-44) 12/06/21 11:15 ABG Base Excess -1.4 mmol/L (-2.0-3.0) 12/06/21 11:15 ABG Hemoglobin 11.9 gm/dl (12.0-16.0) L 12/06/21 11:15 ABG Carboxyhemoglobin 1.5 % (0.0-5.0) 12/06/21 11:15 ABG Methemoglobin 0.5 % (0.0-1.5) 12/06/21 11:15 Oxyhemoglobin 90.0 % (95.0-99.0) L 12/06/21 11:15 FiO2 80 % 12/06/21 11:15 Sodium 138 mmol/L (137-145) 12/06/21 10:05 Potassium 2.9 mmol/L (3.6-5.0) L* 12/06/21 10:05 Chloride 100.1 mmol/L (98-107) 12/06/21 10:05 Carbon Dioxide 21 mmol/L (22-30) L 12/06/21 10:05 Anion Gap 20 mmol/L 12/06/21 10:05 BUN 20 mg/dL (7-17) H 12/06/21 10:05 Creatinine 0.7 mg/dL (0.6-1.2) 12/06/21 10:05 Estimated GFR > 60 ml/min 12/06/21 10:05 BUN/Creatinine Ratio 29 % 12/06/21 10:05 Glucose 127 mg/dL (65-100) H 12/06/21 10:05 Calcium 8.9 mg/dL (8.4-10.2) 12/06/21 10:05 Magnesium 2.90 mg/dL (1.7-2.3) H 12/06/21 10:05 Total Bilirubin 0.90 mg/dL (0.1-1.2) 12/06/21 10:05 AST 21 units/L (5-40) 12/06/21 10:05 ALT 22 units/L (7-56) 12/06/21 10:05 Alkaline Phosphatase 140 units/L (35-129) H 12/06/21 10:05 Troponin T 0.019 ng/mL (0.00-0.029) 12/06/21 13:54 NT-Pro-B Natriuret Pep 6552 pg/mL (0-900) H 12/06/21 10:05 Total Protein 7.1 g/dL (6.3-8.2) 12/06/21 10:05 Albumin 3.5 g/dL (3.9-5) L 12/06/21 10:05 Albumin/Globulin Ratio 1.0 % 12/06/21 10:05 Short CBC 12/06/21 Range/Units 10:05 WBC 16.9 H (4.5-11.0) K/mm3 Hgb 11.9 (10.1-14.3) gm/dl Hct 37.6 (30.3-42.9) % Plt Count 473 H (140-440) K/mm3 BMP 12/06/21 10:05 Sodium 138 Potassium 2.9 L* Chloride 100.1 Carbon Dioxide 21 L BUN 20 H Creatinine 0.7 Glucose 127 H Calcium 8.9 Cardiac Enzymes 12/06/21 12/06/21 Range/Units 10:05 13:54 Troponin T < 0.010 0.019 (0.00-0.029) ng/mL Liver Function 12/06/21 Range/Units 10:05 Total Bilirubin 0.90 (0.1-1.2) mg/dL AST 21 (5-40) units/L ALT 22 (7-56) units/L Alkaline Phosphatase 140 H (35-129) units/L Albumin 3.5 L (3.9-5) g/dL Microbiology: Microbiology 12/06/21 13:54 Peripheral/Venous Blood Culture - Preliminary Culture in Progress 12/06/21 13:54 Peripheral/Venous Blood Culture - Preliminary Culture in Progress - Imaging and Cardiology EKG: report reviewed (Atrial fibrillation with rapid ventricular rate) Chest x-ray: report reviewed Imaging and Cardiology: Chest x-ray Diffuse bilateral pulmonary opacities Sánchez/IV: Voiding Method External Female Catheter Assessment and Plan Advance Directives: Yes (Full code) VTE prophylaxis?: Chemical Plan of care discussed with patient/family: Yes - Patient Problems (1) Acute respiratory failure with hypoxia Current Visit: Yes Status: Acute Plan to address problem: Patient initiated on BiPAP IV Solu-Medrol IV antibiotics Duo nebs [id number] and as needed Intubation if necessary Pulmonary consult if necessary (2) Bilateral pneumonia Current Visit: Yes Status: Acute Plan to address problem: Patient initiated on IV Zithromax and IV ceftriaxone Coronavirus to be ruled out (3) COPD exacerbation Current Visit: Yes Status: Acute Plan to address problem: Patient initiated on IV antibiotics, IV Solu-Medrol duo nebs [id number] and as needed. BiPAP. Intubation if necessary. (4) Chronic atrial fibrillation Current Visit: Yes Status: Chronic Plan to address problem: Patient on Pradaxa and diltiazem. Initially rate was high but now controlled. (5) Hypokalemia Current Visit: Yes Status: Acute Plan to address problem: Supplemented. (6) CHF (congestive heart failure) Current Visit: Yes Status: Chronic Qualifiers: Heart failure type: combined systolic and diastolic Plan to address problem: On Lasix and Aldactone. Echocardiogram for ejection fraction. (7) GERD (gastroesophageal reflux disease) Current Visit: Yes Status: Chronic Qualifiers: Esophagitis presence: without esophagitis Qualified Code(s): K21.9 - Gastro-esophageal reflux disease without esophagitis Plan to address problem: On PPIs. (8) Hyperlipidemia Current Visit: Yes Status: Chronic Qualifiers: Hyperlipidemia type: mixed hyperlipidemia Qualified Code(s): E78.2 - Mixed hyperlipidemia Plan to address problem: On statins. (9) DVT prophylaxis Current Visit: Yes Status: Acute Plan to address problem: On Pradaxa and GI prophylaxis. (10) Advance care planning Current Visit: Yes Status: Acute Plan to address problem: Disease education conducted, care plan discussed, diagnosis discussed, prognosis discussed. Patient is full code. Patient acknowledges understanding and agreement with care plan. +30 minutes.
[2021-12-07] MEDS: IPRATROPIUM/ALBUTEROL SULFATE 3 ML AMPUL.NEB IH SCH ×5 (08:25→20:53)
[2021-12-07] MEDS: BUDESONIDE 0.5 MG/2 ML NEBU IH SCH ×2 (08:25→20:54)
[2021-12-07] MEDS: ARFORMOTEROL 15 MCG/2 ML NEBU IH SCH ×2 (08:26→20:53)
[2021-12-07] MEDS ORDERED: POTASSIUM CHLORIDE ER 20 MEQ TAB PO NR (09:00)
[2021-12-07] MEDS: SODIUM CHLORIDE 0.9% 1000 ML 1,000 ML IV SCH (09:56)
[2021-12-07] MEDS: THIAMINE 100 MG TAB PO SCH (09:59)
[2021-12-07] MEDS ORDERED: CALCIUM CARBONATE 1250 MG TAB PO SCH (10:00)
[2021-12-07] MEDS ORDERED: NON-FORMULARY EACH (Thiamine Hcl [Vitamin B-1] 100 MG Tablet) PO SCH (10:00)
[2021-12-07] MEDS: PANTOPRAZOLE 20 MG TAB PO SCH ×2 (10:00→22:55)
[2021-12-07] MEDS ORDERED: FUROSEMIDE 40 MG TAB PO SCH (10:00)
[2021-12-07] MEDS ORDERED: AZITHROMYCIN 250 MG TAB PO SCH (10:00)
[2021-12-07] MEDS: CHOLECALCIFEROL (VIT D3) 1000 UNIT (25 mcg) TAB PO SCH (10:00)
[2021-12-07] MEDS: CYANOCOBALAMIN (VIT B-12) 1000 MCG TAB PO SCH (10:00)
[2021-12-07] MEDS ORDERED: NON-FORMULARY EACH (Fluticasone Propion/Salmeterol [Wixela 250-50 Inhub] 1 EACH Blst.W.Dev IH SCH (10:00)
[2021-12-07] MEDS ORDERED: NON-FORMULARY EACH (Calcium Carbonate [Calcium] 600 MG Tablet) PO SCH (10:00)
[2021-12-07] MEDS: POTASSIUM CHLORIDE 10 MEQ 10 MEQ/100 ML BAG IV SCH ×4 (10:05→16:37)
--- NOTE | 2021-12-07 10:25 | Consultation ---
History of Present Illness Consult date: 12/07/21 Consult reason: atrial fibrillation, shortness of breath History of present illness: The patient is an 86-year-old woman with COPD on home oxygen, who presents to the hospital with shortness of breath, hypoxemia and on chest x-ray has a dense right lower lobe and right middle lobe infiltrate. She is admitted to the medical floor, a COVID-19 test has been ordered and is pending. She is a patient of [facility], with additional comorbidities of atrial fibrillation, and prior CVA. She is on Pradaxa for anticoagulation. Her out patient records are not available for review, but an echocardiogram done in this hospital 8 months ago reported normal left ventricular systolic ejection fraction 55 to 60%, negative contrast bubble study. Serial EKGs during that admission in March 2021 also showed a stable sinus rhythm at the time. The chronicity of the atrial fibrillation is therefore uncertain without review of the intervening outpatient records. There is no documented history of coronary artery disease. Patient is currently on the medical unit, on BiPAP therapy, awake, no chest pain. EKG is atrial fibrillation, with well-controlled ventricular rate, nonspecific intraventricular conduction delay. Laboratory exams show a negative troponin x2. The potassium was low at 2.9 on presentation. Chest x-ray shows dense right middle lobe and right lower lobe infiltrate. The right upper lobe and the left lung jiménez are relatively free of infiltrate or edema. There is mild enlargement of the cardiac silhouette. Past History Past Medical History: atrial fib, COPD, hypertension, stroke Medications and Allergies Allergies Allergy/AdvReac Type Severity Reaction Status Date / Time No Known Allergies Allergy Unverified 04/01/21 21:34 Home Medications Medication Instructions Recorded Confirmed Last Taken Type Omeprazole 20 mg PO BID 04/02/21 12/06/21 12/05/21 History clonazePAM [KlonoPIN] 2 tab PO HS 04/02/21 12/06/21 12/05/21 History Aspirin EC [Halfprin EC] 81 mg PO QDAY #30 tablet. 04/03/21 12/06/21 12/05/21 Rx Albuterol Sulfate [Proair 90 mcg IH Q6HR PRN 12/06/21 12/06/21 Unknown History Digihaler] Calcium Carbonate [Calcium] 1,200 mg PO DAILY 12/06/21 12/06/21 12/05/21 History Cholecalciferol Vit D3 [Vitamin D3 1,000 unit PO DAILY 12/06/21 12/06/21 12/05/21 History 1,000 UNIT TAB] Cyanocobalamin (Vitamin B-12) 1,000 mcg PO DAILY 12/06/21 12/06/21 12/05/21 History [Vitamin B-12] Dabigatran [Pradaxa] 150 mg PO BID 12/06/21 12/06/21 12/05/21 History Fluticasone Propion/Salmeterol 1 each IH DAILY 12/06/21 12/06/21 12/05/21 History [Wixela 250-50 Inhub] Furosemide [Lasix] 40 mg PO DAILY 12/06/21 12/06/21 12/05/21 History Pravastatin Sodium [Pravastatin] 40 mg PO QHS 12/06/21 12/06/21 12/05/21 History Prednisone [predniSONE 10 mg 10 mg PO .TAPER 12/06/21 12/06/21 12/05/21 History (6-Day Pack, 21 Tabs)] Thiamine HCl [Vitamin B-1] 100 mg PO DAILY 12/06/21 12/06/21 12/05/21 History dilTIAZem HCl [Diltiazem 24Hr ER 180 mg PO DAILY 12/06/21 12/06/21 12/05/21 History (Cd)] Active Meds: Active Medications Acetaminophen (Acetaminophen 325 Mg Tab) 650 mg PO Q4H PRN PRN Reason: Pain MILD(1-3)/Fever >100.5/ Albuterol (Albuterol 2.5 Mg/3 Ml Nebu) 2.5 mg IH Q4H PRN PRN Reason: Shortness Of Breath Albuterol/Ipratropium (Ipratropium/Albuterol Sulfate 3 Ml Ampul.Neb) 1 ampul IH QIDRT [facility] Last Admin: 12/06/21 21:21 Dose: 1 ampul Arformoterol Tartrate (Arformoterol 15 Mcg/2 Ml Nebu) 15 mcg IH Q12HRT [facility] Last Admin: 12/07/21 08:26 Dose: 15 mcg Aspirin (Aspirin Ec 81 Mg Tab) 81 mg PO QDAY [facility] Last Admin: 12/06/21 16:05 Dose: Not Given Azithromycin (Azithromycin 250 Mg Tab) 500 mg PO QDAY [facility]; Protocol Stop: 12/10/21 10:01 Last Admin: 12/07/21 10:00 Dose: 500 mg Budesonide (Budesonide 0.5 Mg/2 Ml Nebu) 0.5 mg IH Q12HRT [facility] Last Admin: 12/07/21 08:25 Dose: 0.5 mg Calcium Carbonate/Glycine (Calcium Carbonate 1250 Mg Tab) 1,250 mg PO QDAY [facility] Cholecalciferol (Cholecalciferol (Vit D3) 1000 Unit (25 Mcg) Tab) 1,000 unit PO DAILY [facility] Last Admin: 12/07/21 10:00 Dose: 1,000 unit Clonazepam (Clonazepam 0.5 Mg Tab) 0.5 mg PO HS [facility] Last Admin: 12/06/21 22:00 Dose: 0.5 mg Cyanocobalamin (Cyanocobalamin (Vit B-12) 1000 Mcg Tab) 1,000 mcg PO DAILY [facility] Last Admin: 12/07/21 10:00 Dose: 1,000 mcg Dabigatran (Dabigatran 150 Mg Cap) 150 mg PO BID [facility]; Protocol Last Admin: 12/06/21 22:00 Dose: 150 mg Diltiazem HCl (Diltiazem Cd 180 Mg Cap) 180 mg PO DAILY [facility] Last Admin: 12/06/21 16:05 Dose: Not Given Furosemide (Furosemide 40 Mg Tab) 40 mg PO DAILY [facility] Last Admin: 12/07/21 09:59 Dose: 40 mg Sodium Chloride (Nacl 0.9% 1000 Ml) 1,000 mls @ 42 mls/hr IV DIRECT [facility] Last Admin: 12/07/21 09:56 Dose: 42 mls/hr Ceftriaxone Sodium (Rocephin/Ns 2 Gm/100 Ml) 2 gm in 100 mls @ 200 mls/hr IV Q24H [facility]; Protocol Stop: 12/10/21 12:59 Potassium Chloride (Kcl 10meq/100ml) 10 meq in 100 mls @ 100 mls/hr IV Q1H [facility] Stop: 12/07/21 13:59 Last Admin: 12/07/21 10:05 Dose: 100 mls/hr Methylprednisolone Sodium Succinate (Methylprednisolone Sod Succinate 125 Mg/2 Ml Inj) 80 mg IV Q8H [facility] Last Admin: 12/07/21 09:56 Dose: 80 mg Morphine Sulfate (Morphine 2 Mg/1 Ml Inj) 2 mg IV Q4H PRN PRN Reason: Pain, Moderate (4-6) Ondansetron HCl (Ondansetron 4 Mg/2 Ml Inj) 4 mg IV Q8H PRN PRN Reason: Nausea And Vomiting Oxycodone/Acetaminophen (Oxycodone /Acetaminophen 5-325mg Tab) 1 tab PO Q6H PRN PRN Reason: Pain, Moderate (4-6) Pantoprazole Sodium (Pantoprazole 20 Mg Tab) 20 mg PO BID [facility] Last Admin: 12/07/21 10:00 Dose: 20 mg Potassium Chloride (Potassium Chloride Er 20 Meq Tab) 40 meq PO ONCE@0900 NR Stop: 12/07/21 13:00 Last Admin: 12/07/21 09:59 Dose: 40 meq Pravastatin Sodium (Pravastatin 40 Mg Tab) 40 mg PO QHS [facility] Last Admin: 12/06/21 22:00 Dose: 40 mg Sodium Chloride (Sodium Chloride 0.9% 10 Ml Flush Syringe) 10 ml IV BID [facility] Last Admin: 12/06/21 22:00 Dose: 10 ml Sodium Chloride (Sodium Chloride 0.9% 10 Ml Flush Syringe) 10 ml IV PRN PRN PRN Reason: LINE FLUSH Thiamine HCl (Thiamine 100 Mg Tab) 100 mg PO QDAY [facility] Last Admin: 12/07/21 09:59 Dose: 100 mg Review of Systems Cardiovascular: palpitations, rapid/irregular heart beat, shortness of breath, no chest pain, no orthopnea, no edema, no syncope, no lightheadedness Physical Examination Vital Signs Pulse Resp Pulse Ox 98 H 38 H 97 12/06/21 09:25 12/06/21 09:25 12/06/21 09:25 General appearance: mild distress, other (Patient is on BiPAP) HEENT: Positive: PERRL Neck: Positive: neck supple Cardiac: Positive: irregularly irregular Lungs: Positive: Decreased Breath Sounds Neuro: Positive: Grossly Intact Abdomen: Positive: Soft Female genitourinary: deferred Skin: Positive: Clear Extremities: Absent: edema Results 12/06/21 10:05 12/06/21 10:05 Cardiac Enzymes 12/06/21 Range/Units 10:05 AST 21 (5-40) units/L Coagulation 12/06/21 Range/Units 10:05 PT 18.5 H (12.2-14.9) Sec. INR 1.37 H (0.87-1.13) CBC 12/06/21 Range/Units 10:05 WBC 16.9 H (4.5-11.0) K/mm3 RBC 4.30 (3.65-5.03) M/mm3 Hgb 11.9 (10.1-14.3) gm/dl Hct 37.6 (30.3-42.9) % Plt Count 473 H (140-440) K/mm3 Lymph # (Auto) 0.6 L (1.2-5.4) K/mm3 [place] # (Auto) 1.2 H (0.0-0.8) K/mm3 Eos # (Auto) 0.0 (0.0-0.4) K/mm3 Baso # (Auto) 0.0 (0.0-0.1) K/mm3 Comprehensive Metabolic Panel 12/06/21 Range/Units 10:05 Sodium 138 (137-145) mmol/L Potassium 2.9 L* (3.6-5.0) mmol/L Chloride 100.1 (98-107) mmol/L Carbon Dioxide 21 L (22-30) mmol/L BUN 20 H (7-17) mg/dL Creatinine 0.7 (0.6-1.2) mg/dL Glucose 127 H (65-100) mg/dL Calcium 8.9 (8.4-10.2) mg/dL AST 21 (5-40) units/L ALT 22 (7-56) units/L Alkaline Phosphatase 140 H (35-129) units/L Total Protein 7.1 (6.3-8.2) g/dL Albumin 3.5 L (3.9-5) g/dL EKG interpretations - Telemetry EKG Rhythm: Atrial Fibrillation Assessment and Plan - Patient Problems (1) Shortness of breath Current Visit: Yes Status: Acute Plan to address problem: Patient with COPD on home oxygen, admitted with shortness of breath and has dense right lower lobe and right middle lobe infiltrate. Presentation is consistent with acute pneumonia. A COVID-19 test is pending. Defer to internal medicine and pulmonary for further management of COPD exacerbation and acute pneumonia. (2) Atrial fibrillation Current Visit: Yes Status: Acute Plan to address problem: Patient has paroxysmal atrial fibrillation, was sinus rhythm on prior presentation in February 2021. Outpatient records are not available to establish the actual chronicity of the atrial fibrillation. We will continue rate control and oral anticoagulation with Pradaxa.
[2021-12-07 11:06] LABS: Alanine Aminotransferase 19 units/L (7-56); Albumin 3.4 g/dL (3.9-5); BUN/Creatinine Ratio 32; Blood Urea Nitrogen 16 mg/dL (7-17); Calcium 8.3 mg/dL (8.4-10.2); Hemolysis Index 0
[2021-12-07] MEDS ORDERED: AZITHROMYCIN/NS 500 MG/250 ML 500 MG/250 ML BAG IV SCH (12:00)
[2021-12-07] MEDS ORDERED: LORazepam 2 MG/ML VIAL IV ONE (12:30)
--- NOTE | 2021-12-07 12:51 | Consultation ---
History of Present Illness Consult date: 12/07/21 Reason for consult: dyspnea, hypoxemia History of present illness: 86-year-old female the past medical history of COPD on home oxygen, atrial fib rillation (pradaxa), and TIA presents to the hospital with complaints of respiratory distress. EMS reports that they were at the home 3 days ago for same complaint and patient refused transport at that time. Today upon EMS arrival patient was satting 50% on room air and had a A. fib heart rate in the 140s with respiratory distress. Patient was treated with albuterol 5 mg, Atrovent 0.5 mg, Solu-Medrol 125 mg, magnesium 2 g with some improvement in symptoms. Patient apparently declined CPAP in route to the hospital. She arrives with nonrebreather oxygen treatment with persistent tachypnea and signs of respiratory distress. BiPAP initiated upon arrival. Patient admitted to third floor. Patient is on BIPAP 16/6, rate 14,FIO2 100%. Patient still having increased work of breathing. Patient has slight history of smoking. Stopped smoking 30 years ago. Denies alcohol or drug abuse. 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 Patient afebrile. Has leukocytosis.Blood pressure 140/96, pulse 87. Respirations 27. Chest xray 12/06/21 reported Diffuse bilateral pulmonary opacities Venous doppler studies of both extremities 12/07/21 reported no sonographic evidence of DVT. Patient is on I/V Solumedrol, Brovanna/Bdesonide aerosol treatments q 12 hours. Albuterol/atrovent aerosol treatments q 6 hours prn for shortness of breath., Zithromax and ceftriaxone, Pradaxa and protonix. Patient having increased work of breathing even with BPAP. Recommend to transfer the patient to ICU or IMCU. Past History Past Medical History: atrial fib, COPD, hypertension, stroke Medications and Allergies Allergies Allergy/AdvReac Type Severity Reaction Status Date / Time No Known Allergies Allergy Unverified 04/01/21 21:34 Home Medications Medication Instructions Recorded Confirmed Last Taken Type Omeprazole 20 mg PO BID 04/02/21 12/06/21 12/05/21 History clonazePAM [KlonoPIN] 2 tab PO HS 04/02/21 12/06/21 12/05/21 History Aspirin EC [Halfprin EC] 81 mg PO QDAY #30 tablet. 04/03/21 12/06/21 12/05/21 Rx Albuterol Sulfate [Proair 90 mcg IH Q6HR PRN 12/06/21 12/06/21 Unknown History Digihaler] Calcium Carbonate [Calcium] 1,200 mg PO DAILY 12/06/21 12/06/21 12/05/21 History Cholecalciferol Vit D3 [Vitamin D3 1,000 unit PO DAILY 12/06/21 12/06/21 12/05/21 History 1,000 UNIT TAB] Cyanocobalamin (Vitamin B-12) 1,000 mcg PO DAILY 12/06/21 12/06/21 12/05/21 History [Vitamin B-12] Dabigatran [Pradaxa] 150 mg PO BID 12/06/21 12/06/21 12/05/21 History Fluticasone Propion/Salmeterol 1 each IH DAILY 12/06/21 12/06/21 12/05/21 History [Wixela 250-50 Inhub] Furosemide [Lasix] 40 mg PO DAILY 12/06/21 12/06/21 12/05/21 History Pravastatin Sodium [Pravastatin] 40 mg PO QHS 12/06/21 12/06/21 12/05/21 History Prednisone [predniSONE 10 mg 10 mg PO .TAPER 12/06/21 12/06/21 12/05/21 History (6-Day Pack, 21 Tabs)] Thiamine HCl [Vitamin B-1] 100 mg PO DAILY 12/06/21 12/06/21 12/05/21 History dilTIAZem HCl [Diltiazem 24Hr ER 180 mg PO DAILY 12/06/21 12/06/21 12/05/21 History (Cd)] Active Meds: Active Medications Acetaminophen (Acetaminophen 325 Mg Tab) 650 mg PO Q4H PRN PRN Reason: Pain MILD(1-3)/Fever >100.5/ Albuterol (Albuterol 2.5 Mg/3 Ml Nebu) 2.5 mg IH Q4H PRN PRN Reason: Shortness Of Breath Albuterol/Ipratropium (Ipratropium/Albuterol Sulfate 3 Ml Ampul.Neb) 1 ampul IH QIDRT [facility] Last Admin: 12/06/21 21:21 Dose: 1 ampul Arformoterol Tartrate (Arformoterol 15 Mcg/2 Ml Nebu) 15 mcg IH Q12HRT [facility] Last Admin: 12/07/21 08:26 Dose: 15 mcg Aspirin (Aspirin Ec 81 Mg Tab) 81 mg PO QDAY [facility] Last Admin: 12/06/21 16:05 Dose: Not Given Azithromycin (Azithromycin 250 Mg Tab) 500 mg PO QDAY [facility]; Protocol Stop: 12/10/21 10:01 Last Admin: 12/07/21 10:00 Dose: 500 mg Budesonide (Budesonide 0.5 Mg/2 Ml Nebu) 0.5 mg IH Q12HRT [facility] Last Admin: 12/07/21 08:25 Dose: 0.5 mg Calcium Carbonate/Glycine (Calcium Carbonate 1250 Mg Tab) 1,250 mg PO QDAY [facility] Cholecalciferol (Cholecalciferol (Vit D3) 1000 Unit (25 Mcg) Tab) 1,000 unit PO DAILY [facility] Last Admin: 12/07/21 10:00 Dose: 1,000 unit Clonazepam (Clonazepam 0.5 Mg Tab) 0.5 mg PO HS [facility] Last Admin: 12/06/21 22:00 Dose: 0.5 mg Cyanocobalamin (Cyanocobalamin (Vit B-12) 1000 Mcg Tab) 1,000 mcg PO DAILY [facility] Last Admin: 12/07/21 10:00 Dose: 1,000 mcg Dabigatran (Dabigatran 150 Mg Cap) 150 mg PO BID [facility]; Protocol Last Admin: 12/06/21 22:00 Dose: 150 mg Diltiazem HCl (Diltiazem Cd 180 Mg Cap) 180 mg PO DAILY [facility] Last Admin: 12/06/21 16:05 Dose: Not Given Furosemide (Furosemide 40 Mg Tab) 40 mg PO DAILY [facility] Last Admin: 12/07/21 09:59 Dose: 40 mg Sodium Chloride (Nacl 0.9% 1000 Ml) 1,000 mls @ 42 mls/hr IV DIRECT [facility] Last Admin: 12/07/21 09:56 Dose: 42 mls/hr Ceftriaxone Sodium (Rocephin/Ns 2 Gm/100 Ml) 2 gm in 100 mls @ 200 mls/hr IV Q24H [facility]; Protocol Stop: 12/10/21 12:59 Potassium Chloride (Kcl 10meq/100ml) 10 meq in 100 mls @ 100 mls/hr IV Q1H [facility] Stop: 12/07/21 13:59 Last Admin: 12/07/21 10:05 Dose: 100 mls/hr Methylprednisolone Sodium Succinate (Methylprednisolone Sod Succinate 125 Mg/2 Ml Inj) 80 mg IV Q8H [facility] Last Admin: 12/07/21 09:56 Dose: 80 mg Morphine Sulfate (Morphine 2 Mg/1 Ml Inj) 2 mg IV Q4H PRN PRN Reason: Pain, Moderate (4-6) Ondansetron HCl (Ondansetron 4 Mg/2 Ml Inj) 4 mg IV Q8H PRN PRN Reason: Nausea And Vomiting Oxycodone/Acetaminophen (Oxycodone /Acetaminophen 5-325mg Tab) 1 tab PO Q6H PRN PRN Reason: Pain, Moderate (4-6) Pantoprazole Sodium (Pantoprazole 20 Mg Tab) 20 mg PO BID [facility] Last Admin: 12/07/21 10:00 Dose: 20 mg Potassium Chloride (Potassium Chloride Er 20 Meq Tab) 40 meq PO ONCE@0900 NR Stop: 12/07/21 13:00 Last Admin: 12/07/21 09:59 Dose: 40 meq Pravastatin Sodium (Pravastatin 40 Mg Tab) 40 mg PO QHS [facility] Last Admin: 12/06/21 22:00 Dose: 40 mg Sodium Chloride (Sodium Chloride 0.9% 10 Ml Flush Syringe) 10 ml IV BID [facility] Last Admin: 12/06/21 22:00 Dose: 10 ml Sodium Chloride (Sodium Chloride 0.9% 10 Ml Flush Syringe) 10 ml IV PRN PRN PRN Reason: LINE FLUSH Thiamine HCl (Thiamine 100 Mg Tab) 100 mg PO QDAY [facility] Last Admin: 12/07/21 09:59 Dose: 100 mg Review of Systems All systems: negative Physical Examination Vital signs: Vital Signs Pulse Resp Pulse Ox 98 H 38 H 97 12/06/21 09:25 12/06/21 09:25 12/06/21 09:25 General appearance: alert, appears uncomfortable, other (Having increased work of breathing on BIPAP.) Eyes: non-icteric ENT: oropharynx moist Neck: supple, no JVD Effort: mildly labored Ascultation: Bilateral: rales, rhonchi Cardiovascular: irregular rhythm Gastrointestinal: hypoactive bowel sounds, soft, non-tender Integumentary: normal Extremities: no cyanosis Musculoskeletal: no deformities Gait: other (Patient is in bed at this time.) normal mental status, non-focal exam, pupils equal and round depressed Results - Laboratory Findings CBC and BMP: 12/06/21 10:05 12/07/21 09:21 ABG ABG pH 7.438 pH Units (7.350-7.450) 12/06/21 11:15 ABG pCO2 33.6 mm Hg 12/06/21 11:15 ABG pO2 61.6 mm Hg (80.0-90.0) L 12/06/21 11:15 ABG O2 Saturation 91.7 % (95.0-99.0) L 12/06/21 11:15 PT/INR, D-dimer PT 18.5 Sec. (12.2-14.9) H 12/06/21 10:05 INR 1.37 (0.87-1.13) H 12/06/21 10:05 Abnormal lab findings: Abnormal Labs 12/06/21 12/06/21 12/06/21 10:05 10:05 10:05 WBC 16.9 H RDW 16.3 H Plt Count 473 H Lymph % (Auto) 3.3 L Lymph # (Auto) 0.6 L [place] # (Auto) 1.2 H Seg Neutrophils % 89.5 H Seg Neutrophils # 15.1 H PT 18.5 H INR 1.37 H ABG pO2 ABG O2 Saturation ABG Hemoglobin Oxyhemoglobin Potassium 2.9 L* Carbon Dioxide 21 L BUN 20 H Creatinine Glucose 127 H Calcium Magnesium 2.90 H Alkaline Phosphatase 140 H NT-Pro-B Natriuret Pep Albumin 3.5 L 12/06/21 12/06/21 12/07/21 10:05 11:15 09:21 WBC RDW Plt Count Lymph % (Auto) Lymph # (Auto) [place] # (Auto) Seg Neutrophils % Seg Neutrophils # PT INR ABG pO2 61.6 L ABG O2 Saturation 91.7 L ABG Hemoglobin 11.9 L Oxyhemoglobin 90.0 L Potassium 3.5 L D Carbon Dioxide 20 L BUN Creatinine 0.5 L Glucose 105 H Calcium 8.3 L Magnesium Alkaline Phosphatase 136 H NT-Pro-B Natriuret Pep 6552 H Albumin 3.4 L - Diagnostic Findings Chest x-ray: report reviewed, image reviewed Additional studies: CHEST 1 VIEW 12/06/2021 9:46 AM INDICATION / CLINICAL INFORMATION: Dyspnea. COMPARISON: 04/01/2021 FINDINGS: SUPPORT DEVICES: None. HEART / MEDIASTINUM: No significant abnormality. LUNGS / PLEURA: Diffuse opacities in bilateral lungs. No large pneumothorax ADDITIONAL FINDINGS: No significant additional findings. IMPRESSION: 1. Diffuse bilateral pulmonary opacities Assessment and Plan 86-year-old female the past medical history of COPD on home oxygen, atrial fib rillation (pradaxa), and TIA presents to the hospital with complaints of respiratory distress. EMS reports that they were at the home 3 days ago for same complaint and patient refused transport at that time. Today upon EMS arrival patient was satting 50% on room air and had a A. fib heart rate in the 140s with respiratory distress. Patient was treated with albuterol 5 mg, Atrovent 0.5 mg, Solu-Medrol 125 mg, magnesium 2 g with some improvement in symptoms. Patient apparently declined CPAP in route to the hospital. She arrives with nonrebreather oxygen treatment with persistent tachypnea and signs of respiratory distress. BiPAP initiated upon arrival. Patient admitted to third floor. Patient is on BIPAP 16/6, rate 14,FIO2 100%. Patient still having increased work of breathing. Patient has slight history of smoking. Stopped smoking 30 years ago. Denies alcohol or drug abuse. 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 Patient afebrile. Has leukocytosis.Blood pressure 140/96, pulse 87. Respirations 27. Chest xray 12/06/21 reported Diffuse bilateral pulmonary opacities Venous doppler studies of both extremities 12/07/21 reported no sonographic evidence of DVT. Patient is on I/V Solumedrol, Brovanna/Bdesonide aerosol treatments q 12 hours. Albuterol/atrovent aerosol treatments q 6 hours prn for shortness of breath., Zithromax and ceftriaxone, Pradaxa and protonix. Patient having increased work of breathing even with BPAP. Recommend to transfer the patient to ICU or IMCU. I spent critical care time of 45 minutes review the chart, Talking to the patient, Examine the patient, review xrays and labs, talking to the nursing staff and respiratory therapy and work up a plan of treatment. - Patient Problems (1) Acute respiratory failure with hypoxia Current Visit: Yes Status: Acute Plan to address problem: BIPAP20/6, rate 14, FIO2 100%. Continue I/V solumedrol Brovanna/Budesonide aerosol treatments q 12 hours. Albuterol/atrovent aerosol treatments q 6 hours prn for shortness of breath. Continue Pradaxa Continue Protonix. (2) Bilateral pneumonia Current Visit: Yes Status: Acute Plan to address problem: Zithromax and ceftriaxone. (3) Atrial fibrillation Current Visit: Yes Status: Acute Plan to address problem: On Pradaxa. Management as per cardiology. (4) COPD exacerbation Current Visit: Yes Status: Acute Plan to address problem: BIPAP20/6, rate 14, FIO2 100%. Continue I/V solumedrol Brovanna/Budesonide aerosol treatments q 12 hours. Albuterol/atrovent aerosol treatments q 6 hours prn for shortness of breath. Continue Pradaxa Continue Protonix. Continue ceftriaxone and Zithromax. (5) Pulmonary edema Current Visit: Yes Status: Acute Plan to address problem: Patient is on Lasix. Management as per cardiology. (6) CHF (congestive heart failure) Current Visit: Yes Status: Chronic Qualifiers: Heart failure type: combined systolic and diastolic Plan to address problem: Management as per cardiology. (7) GERD (gastroesophageal reflux disease) Current Visit: Yes Status: Chronic Qualifiers: Esophagitis presence: without esophagitis Qualified Code(s): K21.9 - Gastro-esophageal reflux disease without esophagitis Plan to address problem: Patient is on Protonix.
[2021-12-07] MEDS: ASPIRIN EC 81 MG TAB PO SCH (13:05)
[2021-12-07] MEDS: dilTIAZem CD 180 MG CAP PO SCH (13:05)
[2021-12-07] MEDS: CALCIUM CARBONATE 1250 MG TAB PO SCH (13:06)
[2021-12-07] MEDS: DABIGATRAN 150 MG CAP PO SCH ×2 (13:06→22:28)
[2021-12-07 13:34] LABS: ABG HCO3 20.5 mmol/L (20.0-26.0); ABG Methemoglobin 0.4 % (0.0-1.5); ABG Oxygen Saturation 96.6 % (95.0-99.0); ABG PH 7.424 pH Units (7.350-7.450); ABG PO2 79.3 mm Hg (80.0-90.0)
--- NOTE | 2021-12-07 14:45 | Event Note ---
Date: 12/07/21 s/p rapid resp[onse evaluation seen and examined at bedside states she is on lasix at home now on BIPAP with tachypnea to high 30's denies acute chest pain denies N/V over past week - transferred to IMCU - increased set rate on BIPAP to 30/min in short term to catch up on her rate - lasix 20 mg IV X 1 - get procalcitonin level - empiric CAP AB's - VTE w/up with d-dimers and dopplers +/- CTA - full consult to follow
[2021-12-07] MEDS: AZITHROMYCIN/NS 500 MG/250 ML 500 MG/250 ML BAG IV SCH (15:25)
[2021-12-07] MEDS: FUROSEMIDE 20 MG/2 ML INJ IV SCH (15:25)
--- NOTE | 2021-12-07 16:25 | Vascular Lab Report ---
DUPLEX DOPPLER LOWER EXTREMITY VEINS, BILATERAL INDICATION / CLINICAL INFORMATION: pain swelling. TECHNIQUE: Duplex doppler imaging was performed through the veins of both lower extremities using venous maki arlene and other maneuvers. COMPARISON: None available. FINDINGS: RIGHT COMMON FEMORAL VEIN: Negative. RIGHT FEMORAL VEIN: Negative. RIGHT POPLITEAL VEIN: Negative. RIGHT CALF VEINS: Negative. LEFT COMMON FEMORAL VEIN: Negative. LEFT FEMORAL VEIN: Negative. LEFT POPLITEAL VEIN: Negative. LEFT CALF VEINS: Negative. ADDITIONAL FINDINGS: None. IMPRESSION: 1. No sonographic evidence for DVT in either lower extremity. Signer Name: Sam Boo MD Signed: 12/07/2021 4:20 PM Workstation Name: [id number]
[2021-12-07] MEDS: cefTRIAXone/NS 2 GM/100 ML 2 GM/100 ML BAG IV SCH (16:30)
[2021-12-07] MEDS: MORPHINE 2 MG/1 ML INJ IV PRN (22:26)
[2021-12-07] MEDS: clonazePAM 0.5 MG TAB PO SCH (22:28)
[2021-12-07] MEDS: PRAVASTATIN 40 MG TAB PO SCH (22:28)
--- NOTE | 2021-12-08 06:23 | Progress Note ---
Assessment and Plan - Patient Problems (1) Acute respiratory failure with hypoxia Current Visit: Yes Status: Acute Plan to address problem: Patient initiated on BiPAP IV Solu-Medrol IV antibiotics Duo nebs [id number] and as needed Intubation if necessary Pulmonary consult appreciated Patient transferred to [facility] for possible intubation (2) Bilateral pneumonia Current Visit: Yes Status: Acute Plan to address problem: Patient initiated on IV Zithromax and IV ceftriaxone Coronavirus to be ruled out (3) COPD exacerbation Current Visit: Yes Status: Acute Plan to address problem: Patient initiated on IV antibiotics, IV Solu-Medrol duo nebs [id number] and as needed. BiPAP. Intubation if necessary. (4) Chronic atrial fibrillation Current Visit: Yes Status: Chronic Plan to address problem: Patient on Pradaxa and diltiazem. Initially rate was high but now controlled. (5) Hypokalemia Current Visit: Yes Status: Acute Plan to address problem: Supplemented. (6) CHF (congestive heart failure) Current Visit: Yes Status: Chronic Qualifiers: Heart failure type: combined systolic and diastolic Plan to address problem: On Lasix and Aldactone. Echocardiogram for ejection fraction. (7) GERD (gastroesophageal reflux disease) Current Visit: Yes Status: Chronic Qualifiers: Esophagitis presence: without esophagitis Qualified Code(s): K21.9 - Gastro-esophageal reflux disease without esophagitis Plan to address problem: On PPIs. (8) Hyperlipidemia Current Visit: Yes Status: Chronic Qualifiers: Hyperlipidemia type: mixed hyperlipidemia Qualified Code(s): E78.2 - Mixed hyperlipidemia Plan to address problem: On statins. (9) DVT prophylaxis Current Visit: Yes Status: Acute Plan to address problem: On Pradaxa and GI prophylaxis. (10) Advance care planning Current Visit: Yes Status: Acute Plan to address problem: Disease education conducted, care plan discussed, diagnosis discussed, prognosis discussed. Patient is full code. Patient acknowledges understanding and agreement with care plan. +30 minutes. Subjective Date of service: 12/07/21 Principal diagnosis: Acute respiratory failure with hypoxia, COPD exacerbation Interval history: History of present illness: 86-year-old female with history of COPD, atrial fibrillation, CHF and hyperlipidemia brought in by EMS for severe shortness of breath and low oxygen saturations with 50% improvement. Patient also atrial fibrillation with rapid ventricular rate of 140. Patient was treated with Solu-Medrol. Patient declined CPAP en route to the hospital. Patient arrived with nonrebreather oxygen treatment systemic tachypnea. Patient was initiated on BiPAP. No fever or chills. Cough productive of mucoid sputum present. 12/07/2021 Patient very short of breath in spite of BiPAP Patient to be transferred to IMCU Patient may need intubation Pulmonary informed Objective - Constitutional Vitals: Vital Signs - 12hr 12/07/21 12/07/21 12/07/21 18:30 18:40 19:00 Temperature Pulse Rate 105 H 115 H 113 H Pulse Rate [ Anterior Bilateral Throughout] Pulse Rate [ From Monitor] Respiratory 37 H 39 H 38 H Rate Respiratory Rate [Anterior Bilateral Throughout] Blood Pressure 149/90 149/90 149/90 O2 Sat by Pulse 92 92 92 Oximetry 12/07/21 12/07/21 12/07/21 19:15 19:30 20:00 Temperature 97.2 F L Pulse Rate 124 H 123 H 118 H Pulse Rate [ Anterior Bilateral Throughout] Pulse Rate [ 118 H From Monitor] Respiratory 38 H 44 H Rate Respiratory Rate [Anterior Bilateral Throughout] Blood Pressure 149/90 149/90 O2 Sat by Pulse 93 93 Oximetry 12/07/21 12/07/21 12/07/21 20:14 20:40 20:46 Temperature Pulse Rate 119 H 135 H Pulse Rate [ 128 H Anterior Bilateral Throughout] Pulse Rate [ From Monitor] Respiratory 38 H 38 H Rate Respiratory 34 H Rate [Anterior Bilateral Throughout] Blood Pressure 158/96 158/96 O2 Sat by Pulse 93 92 Oximetry 12/07/21 12/07/21 12/07/21 21:00 22:00 22:26 Temperature Pulse Rate 114 H 114 H Pulse Rate [ Anterior Bilateral Throughout] Pulse Rate [ From Monitor] Respiratory 38 H 38 H 34 H Rate Respiratory Rate [Anterior Bilateral Throughout] Blood Pressure 158/96 166/106 O2 Sat by Pulse 93 92 Oximetry 12/07/21 12/07/21 12/08/21 23:00 23:50 00:00 Temperature 97.7 F Pulse Rate 114 H 111 H 105 H Pulse Rate [ Anterior Bilateral Throughout] Pulse Rate [ 105 H From Monitor] Respiratory 40 H 32 H 30 H Rate Respiratory Rate [Anterior Bilateral Throughout] Blood Pressure 173/98 141/92 141/92 O2 Sat by Pulse 92 93 94 Oximetry 12/08/21 12/08/21 12/08/21 01:00 02:00 03:00 Temperature Pulse Rate 112 H 114 H 112 H Pulse Rate [ Anterior Bilateral Throughout] Pulse Rate [ From Monitor] Respiratory 31 H 38 H 33 H Rate Respiratory Rate [Anterior Bilateral Throughout] Blood Pressure 118/83 118/83 136/93 O2 Sat by Pulse 94 89 95 Oximetry 12/08/21 12/08/21 12/08/21 04:00 04:15 04:45 Temperature 97.6 F Pulse Rate 108 H 111 H 103 H Pulse Rate [ Anterior Bilateral Throughout] Pulse Rate [ 108 H From Monitor] Respiratory 28 H 31 H Rate Respiratory Rate [Anterior Bilateral Throughout] Blood Pressure 146/94 146/94 O2 Sat by Pulse 94 94 Oximetry 12/08/21 05:00 Temperature Pulse Rate 111 H Pulse Rate [ Anterior Bilateral Throughout] Pulse Rate [ From Monitor] Respiratory 30 H Rate Respiratory Rate [Anterior Bilateral Throughout] Blood Pressure 138/103 O2 Sat by Pulse 95 Oximetry General appearance: Present: severe distress, well-nourished - EENT Eyes: PERRL, EOM intact ENT: hearing intact, clear oral mucosa Ears: bilateral: normal - Neck Neck: supple, normal ROM - Respiratory Respiratory effort: normal Respiratory: bilateral: diminished, rhonchi (Severe rhonchi), wheezing (Severe wheezing) - Breasts Breasts: normal - Cardiovascular Heart rate: 98 Rhythm: regular Heart Sounds: Present: S1 & S2. Absent: gallop, rub Extremities: pulses intact, No edema, normal color, Full ROM - Gastrointestinal General gastrointestinal: Present: soft, non-tender, non-distended, normal bowel sounds - Genitourinary Female genitourinary: normal - Integumentary Integumentary: clear, warm, dry - Musculoskeletal Musculoskeletal: 1, strength equal bilaterally - Neurologic Neurologic: moves all extremities - Psychiatric Psychiatric: memory intact, appropriate mood/affect, intact judgment & insight - Labs CBC & Chem 7: 12/06/21 10:05 12/07/21 09:21 Labs: Abnormal lab results 12/07/21 12/07/21 12/07/21 Range/Units 09:21 12:50 20:13 D-Dimer 7549.01 H (0-234) ng/mlDDU ABG pO2 79.3 L (80.0-90.0) mm Hg ABG Base Excess -3.0 L (-2.0-3.0) mmol/L Potassium 3.5 L D (3.6-5.0) mmol/L Carbon Dioxide 20 L (22-30) mmol/L Creatinine 0.5 L (0.6-1.2) mg/dL Glucose 105 H (65-100) mg/dL Calcium 8.3 L (8.4-10.2) mg/dL Alkaline Phosphatase 136 H (35-129) units/L Albumin 3.4 L (3.9-5) g/dL HEART Score - HEART Score Troponin: Troponin T 0.019 ng/mL (0.00-0.029) 12/06/21 13:54
[2021-12-08] MEDS: MORPHINE 2 MG/1 ML INJ IV PRN ×3 (06:42→20:18)
[2021-12-08] MEDS: methylPREDNISolone Sod Succinate 125 MG/2 ML INJ IV SCH ×3 (07:41→23:01)
--- NOTE | 2021-12-08 09:00 | Electrocardiograph Report ---
[facility] Test Date: 2021-12-06 Test Time: 09:24:19 Pat Name: MARGRET MARIE Department: Room: A265 Gender: F Mobile Device Developer: EDITH : [id number] Requested By: KRIS FARRELL Order Number: [id number] Reading MD: Juan J Carias Measurements Intervals [place] Rate: 100 P: FL: QRS: 104 QRSD: 96 T: 259 QT: 366 QTc: 473 Interpretive Statements Atrial fibrillation Nonspecific repol abnormality, diffuse leads Compared to ECG 04/01/2021 21:16:50 Right-axis deviation now present Early repolarization now present Sinus rhythm no longer present Electronically Signed On 12-08-2021 9:00:39 EDT by Juan J Carias
[2021-12-08] MEDS: IPRATROPIUM/ALBUTEROL SULFATE 3 ML AMPUL.NEB IH SCH ×5 (09:25→20:49)
[2021-12-08] MEDS: ARFORMOTEROL 15 MCG/2 ML NEBU IH SCH ×2 (09:25→20:49)
[2021-12-08] MEDS: BUDESONIDE 0.5 MG/2 ML NEBU IH SCH ×2 (09:25→20:49)
[2021-12-08] MEDS: CALCIUM CARBONATE 1250 MG TAB PO SCH (10:09)
[2021-12-08] MEDS: FUROSEMIDE 20 MG/2 ML INJ IV SCH ×2 (10:09→22:56)
[2021-12-08] MEDS: dilTIAZem CD 180 MG CAP PO SCH (10:09)
[2021-12-08] MEDS: DABIGATRAN 150 MG CAP PO SCH ×2 (10:09→22:55)
[2021-12-08] MEDS: CHOLECALCIFEROL (VIT D3) 1000 UNIT (25 mcg) TAB PO SCH (10:10)
[2021-12-08] MEDS: PANTOPRAZOLE 20 MG TAB PO SCH ×2 (10:10→22:55)
[2021-12-08] MEDS: CYANOCOBALAMIN (VIT B-12) 1000 MCG TAB PO SCH (10:10)
[2021-12-08] MEDS: THIAMINE 100 MG TAB PO SCH (10:10)
[2021-12-08] MEDS: ASPIRIN EC 81 MG TAB PO SCH (11:56)
[2021-12-08] MEDS: cefTRIAXone/NS 2 GM/100 ML 2 GM/100 ML BAG IV SCH (12:58)
--- NOTE | 2021-12-08 14:18 | Progress Note ---
Assessment and Plan Acute hypoxemic respiratory failure Bilateral pneumonia (CAP) Atrial fibrillation with RVR Acute COPD exacerbation Acute Pulmonary edema AE-CHF GERD - increased lasix to 20 mg IV bid - get ABG now and address - dopplers negative for DVT - repeat CXR in am - continue BIPAP scheduled qhs with prn daytime use - continue diuresis while monitoring electrolytes - continue to wean supplemental oxygen to keep O2 sats > 90% - continue Bronchodilators (LIU & LABA) with pulm hygiene per RT - aspiration precautions - continue bronchodilators with pulmonary hygiene per RT - continue accuchecks with glycemic control per SSI (While critically ill target blood glucose of 140-180 mg/dL; avoid hypoglycemia) - avoid nephrotoxins, renally dose all medications - continue to avoid benzodiazepine's, reduce the possibility of delirium - AB's per ID rec's - Maintenance of sleep-wake cycle, avoid delirium - G.I. & VTE prophylaxis - PT/OT/ROM exercises - mobility protocols for pressure ulcer prophylaxis - Monitor hemodynamics closely - continue other care per attending / other consultants - discharge planning ongoing concurrently COVID SPECIFIC INTERVENTIONS - COVID-19 PCR negative .... Re-evaluate in am & prn CONDITION: CRITICAL PROGNOSIS: GUARDED CODE STATUS: FULL CODE The high probability of a clinically significant, sudden or life-threatening deterioration of the [respiratory, cardiovascular & neurologic] system(s) required my full and direct attention, intervention and personal management. The aggregate critical care time was [33] minutes without overlap. Time includes spent on; [x] Data Review and interpretation [x] Patient assessment and monitoring of vital signs [x] Documentation [x] Medication orders and management Subjective Date of service: 12/08/21 Principal diagnosis: AHRF; CAP; A-fib with RVR; AE-COPD; Acute Pulmonary edema; AE-CHF; GERD Interval history: Patient is seen today for: Acute hypoxemic respiratory failure; Pneumonia (CAP); A-fib with RVR; AE-COPD; Acute Pulmonary edema; AE-CHF; GERD Seen and examined at bedside; 24hour events reviewed; nursing and respiratory care staff consulted; no adverse overnight events reported to me; resting peacefully in bed; daughter visiting; remains BIPAP dependent; feels better; denies N/V/F/C Objective Vital Signs - 12hr 12/08/21 12/08/21 12/08/21 03:00 04:00 04:15 Temperature 97.6 F Pulse Rate 112 H 108 H 111 H Pulse Rate [ Anterior Bilateral Throughout] Pulse Rate [ 108 H From Monitor] Respiratory 33 H 28 H 31 H Rate Respiratory Rate [Anterior Bilateral Throughout] Blood Pressure 136/93 146/94 146/94 O2 Sat by Pulse 95 94 94 Oximetry 12/08/21 12/08/21 12/08/21 04:45 05:00 05:30 Temperature Pulse Rate 103 H 111 H 118 H Pulse Rate [ Anterior Bilateral Throughout] Pulse Rate [ From Monitor] Respiratory 30 H 29 H Rate Respiratory Rate [Anterior Bilateral Throughout] Blood Pressure 138/103 138/103 O2 Sat by Pulse 95 95 Oximetry 12/08/21 12/08/21 12/08/21 06:00 06:30 06:42 Temperature Pulse Rate 115 H 118 H Pulse Rate [ Anterior Bilateral Throughout] Pulse Rate [ From Monitor] Respiratory 32 H 30 H 33 H Rate Respiratory Rate [Anterior Bilateral Throughout] Blood Pressure 138/103 146/98 O2 Sat by Pulse 94 95 Oximetry 12/08/21 12/08/21 12/08/21 07:00 07:08 07:30 Temperature Pulse Rate 108 H 105 H Pulse Rate [ Anterior Bilateral Throughout] Pulse Rate [ From Monitor] Respiratory 30 H 28 H 29 H Rate Respiratory Rate [Anterior Bilateral Throughout] Blood Pressure 146/95 146/95 O2 Sat by Pulse 95 96 Oximetry 12/08/21 12/08/21 12/08/21 08:00 08:30 09:00 Temperature 96.8 F L Pulse Rate 126 H 123 H 121 H Pulse Rate [ Anterior Bilateral Throughout] Pulse Rate [ 108 H From Monitor] Respiratory 35 H 30 H 29 H Rate Respiratory Rate [Anterior Bilateral Throughout] Blood Pressure 152/104 152/104 152/104 O2 Sat by Pulse 93 95 96 Oximetry 12/08/21 12/08/21 12/08/21 09:25 09:30 09:41 Temperature Pulse Rate 106 H 131 H Pulse Rate [ 128 H Anterior Bilateral Throughout] Pulse Rate [ From Monitor] Respiratory 33 H 33 H Rate Respiratory 34 H Rate [Anterior Bilateral Throughout] Blood Pressure 150/97 150/97 O2 Sat by Pulse 94 92 Oximetry 12/08/21 12/08/21 12/08/21 10:00 10:30 11:00 Temperature Pulse Rate 119 H 141 H 126 H Pulse Rate [ Anterior Bilateral Throughout] Pulse Rate [ From Monitor] Respiratory 34 H 38 H 31 H Rate Respiratory Rate [Anterior Bilateral Throughout] Blood Pressure 150/97 150/96 150/96 O2 Sat by Pulse 94 93 93 Oximetry 12/08/21 12/08/21 12/08/21 11:31 12:00 12:01 Temperature 98 F Pulse Rate 129 H 131 H 129 H Pulse Rate [ Anterior Bilateral Throughout] Pulse Rate [ 108 H From Monitor] Respiratory 36 H 28 H 31 H Rate Respiratory Rate [Anterior Bilateral Throughout] Blood Pressure 150/96 150/97 146/80 O2 Sat by Pulse 90 94 91 Oximetry 12/08/21 12/08/21 12/08/21 12:31 13:01 13:31 Temperature Pulse Rate 102 H 132 H 114 H Pulse Rate [ Anterior Bilateral Throughout] Pulse Rate [ From Monitor] Respiratory 30 H 29 H 28 H Rate Respiratory Rate [Anterior Bilateral Throughout] Blood Pressure 146/80 146/80 109/41 O2 Sat by Pulse 93 94 94 Oximetry Constitutional: alert, appears uncomfortable, other (Having increased work of breathing on BIPAP.) Eyes: non-icteric ENT: oropharynx moist Neck: supple, no JVD Effort: mildly labored Ascultation: Bilateral: rhonchi Percussion: Bilateral: not dull Cardiovascular: irregular rhythm Gastrointestinal: hypoactive bowel sounds, soft, non-tender, non-distended (protuberant) Integumentary: normal Extremities: no cyanosis, no edema, pink and warm, pulses normal, no ischemia or petechiae Neurologic: normal mental status, non-focal exam, pupils equal and round, motor strength normal and Psychiatric: anxious CBC and BMP: 12/09/21 07:31 12/09/21 07:31 ABG, PT/INR, D-dimer: ABG ABG pH 7.424 pH Units (7.350-7.450) 12/07/21 12:50 ABG pCO2 32.0 mm Hg 12/07/21 12:50 ABG pO2 79.3 mm Hg (80.0-90.0) L 12/07/21 12:50 ABG O2 Saturation 96.6 % (95.0-99.0) 12/07/21 12:50 PT/INR, D-dimer PT 18.5 Sec. (12.2-14.9) H 12/06/21 10:05 INR 1.37 (0.87-1.13) H 12/06/21 10:05 D-Dimer 7549.01 ng/mlDDU (0-234) H 12/07/21 20:13 Abnormal lab findings: Abnormal Labs 12/06/21 12/06/21 12/06/21 10:05 10:05 10:05 WBC 16.9 H RDW 16.3 H Plt Count 473 H Lymph % (Auto) 3.3 L Lymph # (Auto) 0.6 L [place]ven # (Auto) 1.2 H Seg Neutrophils % 89.5 H Seg Neutrophils # 15.1 H PT 18.5 H INR 1.37 H D-Dimer ABG pO2 ABG O2 Saturation ABG Base Excess ABG Hemoglobin Oxyhemoglobin Potassium 2.9 L* Carbon Dioxide 21 L BUN 20 H Creatinine Glucose 127 H Calcium Magnesium 2.90 H Alkaline Phosphatase 140 H NT-Pro-B Natriuret Pep Albumin 3.5 L 12/06/21 12/06/21 12/07/21 10:05 11:15 09:21 WBC RDW Plt Count Lymph % (Auto) Lymph # (Auto) Craven # (Auto) Seg Neutrophils % Seg Neutrophils # PT INR D-Dimer ABG pO2 61.6 L ABG O2 Saturation 91.7 L ABG Base Excess ABG Hemoglobin 11.9 L Oxyhemoglobin 90.0 L Potassium 3.5 L D Carbon Dioxide 20 L BUN Creatinine 0.5 L Glucose 105 H Calcium 8.3 L Magnesium Alkaline Phosphatase 136 H NT-Pro-B Natriuret Pep 6552 H Albumin 3.4 L 12/07/21 12/07/21 12:50 20:13 WBC RDW Plt Count Lymph % (Auto) Lymph # (Auto) [place]ven # (Auto) Seg Neutrophils % Seg Neutrophils # PT INR D-Dimer 7549.01 H ABG pO2 79.3 L ABG O2 Saturation ABG Base Excess -3.0 L ABG Hemoglobin Oxyhemoglobin Potassium Carbon Dioxide BUN Creatinine Glucose Calcium Magnesium Alkaline Phosphatase NT-Pro-B Natriuret Pep Albumin Allied health notes reviewed: nursing
[2021-12-08] MEDS: AZITHROMYCIN/NS 500 MG/250 ML 500 MG/250 ML BAG IV SCH (15:21)
[2021-12-08 16:30] LABS: ABG Base Excess -1.8 mmol/L (-2.0-3.0); ABG HCO3 21.9 mmol/L (20.0-26.0); ABG Methemoglobin 0.4 % (0.0-1.5); ABG PCO2 33.8 mm Hg; ABG PH 7.43 pH Units (7.350-7.450); ABG PO2 72.1 mm Hg (80.0-90.0)
--- NOTE | 2021-12-08 18:23 | Progress Note ---
Assessment and Plan - Patient Problems (1) Shortness of breath Current Visit: Yes Status: Acute Plan to address problem: Patient with COPD on home oxygen, admitted with shortness of breath and has dense right lower lobe and right middle lobe infiltrate. Presentation is consistent with acute pneumonia. A COVID-19 test is negative. Defer to internal medicine and pulmonary for further management of COPD exacerbation and acute pneumonia. (2) Atrial fibrillation Current Visit: Yes Status: Acute Plan to address problem: Patient has paroxysmal atrial fibrillation, was sinus rhythm on prior presentation in February 2021. Had been scheduled in the outpatients for cardioversion. With the onset of acute pneumonia, patient is currently not a candidate for mechanical rhythm control of the atrial fibrillation. We will continue rate control and oral anticoagulation with Pradaxa. Subjective Date of service: 12/08/21 Principal diagnosis: Right lower lobe pneumonia Interval history: Patient is on the stepdown unit, on BiPAP. On pvc monitor, atrial fibrill ation with a well-controlled ventricular rate. The patient's daughter who is at the bedside reports that the atrial fibrillation is relatively new, and had been planned for cardioversion as an outpatient, scheduled for next week. Objective Vital Signs Temp Pulse Pulse Pulse Resp Resp BP 12/08/21 17:00 123 H 30 H 130/78 12/08/21 16:31 131 H 33 H 127/83 12/08/21 16:10 126 H 32 H 12/08/21 16:01 117 H 32 H 127/83 12/08/21 16:00 97.6 F 125 H 108 H 28 H 120/64 12/08/21 15:31 111 H 30 H 120/64 12/08/21 15:00 125 H 27 H 120/64 12/08/21 14:31 122 H 39 H 110/60 12/08/21 14:01 111 H 28 H 110/60 12/08/21 13:31 114 H 28 H 109/41 12/08/21 13:01 132 H 29 H 146/80 12/08/21 12:31 102 H 30 H 146/80 12/08/21 12:01 129 H 31 H 146/80 12/08/21 12:00 98 F 131 H 108 H 28 H 150/97 12/08/21 11:31 129 H 36 H 150/96 12/08/21 11:00 126 H 31 H 150/96 12/08/21 10:30 141 H 38 H 150/96 12/08/21 10:00 119 H 34 H 150/97 12/08/21 09:41 131 H 33 H 150/97 12/08/21 09:30 106 H 33 H 150/97 12/08/21 09:25 128 H 34 H 12/08/21 09:00 121 H 29 H 152/104 12/08/21 08:30 123 H 30 H 152/104 12/08/21 08:00 96.8 F L 126 H 108 H 35 H 152/104 12/08/21 07:30 105 H 29 H 146/95 12/08/21 07:08 28 H 12/08/21 07:00 108 H 30 H 146/95 12/08/21 06:42 33 H 12/08/21 06:30 118 H 30 H 146/98 12/08/21 06:00 115 H 32 H 138/103 12/08/21 05:30 118 H 29 H 138/103 12/08/21 05:00 111 H 30 H 138/103 12/08/21 04:45 103 H 12/08/21 04:15 111 H 31 H 146/94 12/08/21 04:00 97.6 F 108 H 108 H 28 H 146/94 12/08/21 03:00 112 H 33 H 136/93 12/08/21 02:00 114 H 38 H 118/83 12/08/21 01:00 112 H 31 H 118/83 12/08/21 00:00 97.7 F 105 H 105 H 30 H 141/92 12/07/21 23:50 111 H 32 H 141/92 12/07/21 23:00 114 H 40 H 173/98 12/07/21 22:26 34 H 12/07/21 22:00 114 H 38 H 166/106 12/07/21 21:00 114 H 38 H 158/96 12/07/21 20:46 128 H 34 H 12/07/21 20:40 135 H 38 H 158/96 12/07/21 20:14 119 H 38 H 158/96 12/07/21 20:00 97.2 F L 118 H 118 H 44 H 149/90 12/07/21 19:30 123 H 38 H 149/90 12/07/21 19:15 124 H 03/28/22 19:00 113 H 38 H 149/90 12/07/21 18:40 115 H 39 H 149/90 12/07/21 18:30 105 H 37 H 149/90 Pulse Ox 12/08/21 17:00 95 12/08/21 16:31 97 12/08/21 16:10 12/08/21 16:01 93 12/08/21 16:00 94 12/08/21 15:31 95 12/08/21 15:00 95 12/08/21 14:31 89 12/08/21 14:01 95 12/08/21 13:31 94 12/08/21 13:01 94 12/08/21 12:31 93 12/08/21 12:01 91 12/08/21 12:00 94 12/08/21 11:31 90 12/08/21 11:00 93 12/08/21 10:30 93 12/08/21 10:00 94 12/08/21 09:41 92 12/08/21 09:30 94 12/08/21 09:25 12/08/21 09:00 96 12/08/21 08:30 95 12/08/21 08:00 93 12/08/21 07:30 96 12/08/21 07:08 12/08/21 07:00 95 12/08/21 06:42 12/08/21 06:30 95 12/08/21 06:00 94 12/08/21 05:30 95 12/08/21 05:00 95 12/08/21 04:45 12/08/21 04:15 94 12/08/21 04:00 94 12/08/21 03:00 95 12/08/21 02:00 89 12/08/21 01:00 94 12/08/21 00:00 94 12/07/21 23:50 93 12/07/21 23:00 92 12/07/21 22:26 12/07/21 22:00 92 12/07/21 21:00 93 12/07/21 20:46 12/07/21 20:40 92 12/07/21 20:14 93 12/07/21 20:00 93 12/07/21 19:30 93 12/07/21 19:15 12/07/21 19:00 92 12/07/21 18:40 92 12/07/21 18:30 92 - Physical Examination General: Other (Short of breath, on BiPAP) HEENT: Positive: PERRL Neck: Positive: neck supple Cardiac: Positive: irregularly irregular Lungs: Positive: Decreased Breath Sounds Neuro: Positive: Grossly Intact Abdomen: Positive: Soft Skin: Positive: Clear Extremities: Absent: edema - Imaging and Cardiology EKG: report reviewed (Atrial fibrillation with rapid ventricular rate)
[2021-12-08] MEDS: clonazePAM 0.5 MG TAB PO SCH (22:55)
[2021-12-08] MEDS: PRAVASTATIN 40 MG TAB PO SCH (22:56)
[2021-12-08] MEDS: oxyCODONE /ACETAMINOPHEN 5-325MG TAB PO PRN (23:05)
--- NOTE | 2021-12-09 05:55 | Progress Note ---
Assessment and Plan Critical care statement The high probability OF a clinically significant sudden or life-threatening deterioration of the cardiorespiratory system and endocrine system required my full and direct attention, intervention and postoperative management. The aggregate critical care time was 40 minutes. The time is in addition to time spent performing reported procedures but includes the followin: Data review and interpretation 2: Patient assessment and monitoring of vital signs 3: Documentation 4:: Medication orders and management - Patient Problems (1) Acute respiratory failure with hypoxia Current Visit: Yes Status: Acute Plan to address problem: Patient initiated on BiPAP IV Solu-Medrol IV antibiotics Duo nebs [id number] and as needed Intubation if necessary Pulmonary consult appreciated Slow improvement (2) Bilateral pneumonia Current Visit: Yes Status: Acute Plan to address problem: Patient initiated on IV Zithromax and IV ceftriaxone Coronavirus negative (3) COPD exacerbation Current Visit: Yes Status: Acute Plan to address problem: Patient initiated on IV antibiotics, IV Solu-Medrol duo nebs [id number] and as needed. BiPAP. Intubation if necessary. (4) Chronic atrial fibrillation Current Visit: Yes Status: Chronic Plan to address problem: Patient on Pradaxa and diltiazem. Initially rate was high but now controlled. (5) Hypokalemia Current Visit: Yes Status: Acute Plan to address problem: Supplemented. (6) CHF (congestive heart failure) Current Visit: Yes Status: Chronic Qualifiers: Heart failure type: combined systolic and diastolic Plan to address problem: On Lasix and Aldactone. Echocardiogram for ejection fraction. (7) GERD (gastroesophageal reflux disease) Current Visit: Yes Status: Chronic Qualifiers: Esophagitis presence: without esophagitis Qualified Code(s): K21.9 - Gastro-esophageal reflux disease without esophagitis Plan to address problem: On PPIs. (8) Hyperlipidemia Current Visit: Yes Status: Chronic Qualifiers: Hyperlipidemia type: mixed hyperlipidemia Qualified Code(s): E78.2 - Mixed hyperlipidemia Plan to address problem: On statins. (9) DVT prophylaxis Current Visit: Yes Status: Acute Plan to address problem: On Pradaxa and GI prophylaxis. (10) Advance care planning Current Visit: Yes Status: Acute Plan to address problem: Disease education conducted, care plan discussed, diagnosis discussed, prognosis discussed. Patient is full code. Patient acknowledges understanding and agreement with care plan. +30 minutes. Subjective Date of service: 12/08/21 Principal diagnosis: Right lower lobe pneumonia Interval history: History of present illness: 86-year-old female with history of COPD, atrial fibrillation, CHF and hype rlipidemia brought in by EMS for severe shortness of breath and low oxygen saturations with 50% improvement. Patient also atrial fibrillation with rapid ventricular rate of 140. Patient was treated with Solu-Medrol. Patient declined CPAP en route to the hospital. Patient arrived with nonrebreather oxygen treatment systemic tachypnea. Patient was initiated on BiPAP. No fever or chills. Cough productive of mucoid sputum present. 12/07/2021 Patient very short of breath in spite of BiPAP Patient to be transferred to IMCU Patient may need intubation Pulmonary informed December 08, 2021 Patient continues to be very short of breath Patient on BiPAP Slight improvement since yesterday Objective - Constitutional Vitals: Vital Signs - 12hr 12/08/21 12/08/21 12/08/21 18:01 18:31 19:00 Temperature Pulse Rate 127 H 129 H 114 H Pulse Rate [ Anterior Bilateral Throughout] Pulse Rate [ From Monitor] Respiratory 30 H 29 H 29 H Rate Respiratory Rate [Anterior Bilateral Throughout] Blood Pressure 130/87 130/87 123/83 O2 Sat by Pulse 95 95 95 Oximetry 12/08/21 12/08/21 12/08/21 19:53 20:00 20:05 Temperature 97.3 F L Pulse Rate 133 H 126 H Pulse Rate [ Anterior Bilateral Throughout] Pulse Rate [ 126 H From Monitor] Respiratory 35 H Rate Respiratory Rate [Anterior Bilateral Throughout] Blood Pressure 138/83 O2 Sat by Pulse 89 Oximetry 12/08/21 12/08/21 12/08/21 20:18 20:49 21:01 Temperature Pulse Rate 114 H 129 H Pulse Rate [ 118 H Anterior Bilateral Throughout] Pulse Rate [ From Monitor] Respiratory 32 H 32 H 30 H Rate Respiratory 27 H Rate [Anterior Bilateral Throughout] Blood Pressure 138/83 134/92 O2 Sat by Pulse 93 92 Oximetry 12/08/21 12/08/21 12/08/21 22:00 22:05 23:00 Temperature Pulse Rate 143 H 136 H 126 H Pulse Rate [ Anterior Bilateral Throughout] Pulse Rate [ From Monitor] Respiratory 43 H 33 H 30 H Rate Respiratory Rate [Anterior Bilateral Throughout] Blood Pressure 134/92 136/90 143/94 O2 Sat by Pulse 94 95 92 Oximetry 12/08/21 12/09/21 12/09/21 23:05 00:00 00:34 Temperature 98.2 F Pulse Rate 120 H 121 H Pulse Rate [ Anterior Bilateral Throughout] Pulse Rate [ 120 H From Monitor] Respiratory 29 H 19 34 H Rate Respiratory Rate [Anterior Bilateral Throughout] Blood Pressure 121/71 134/92 O2 Sat by Pulse 90 92 Oximetry 12/09/21 12/09/21 12/09/21 01:01 02:00 03:00 Temperature Pulse Rate 114 H 112 H 105 H Pulse Rate [ Anterior Bilateral Throughout] Pulse Rate [ From Monitor] Respiratory 20 19 20 Rate Respiratory Rate [Anterior Bilateral Throughout] Blood Pressure 104/59 109/77 110/76 O2 Sat by Pulse 92 92 92 Oximetry 12/09/21 12/09/21 04:00 05:10 Temperature 97.5 F L Pulse Rate 106 H 112 H Pulse Rate [ Anterior Bilateral Throughout] Pulse Rate [ From Monitor] Respiratory 32 H Rate Respiratory Rate [Anterior Bilateral Throughout] Blood Pressure 141/96 O2 Sat by Pulse 94 Oximetry General appearance: Present: no acute distress, well-nourished - EENT Eyes: PERRL, EOM intact ENT: hearing intact, clear oral mucosa Ears: bilateral: normal - Neck Neck: supple, normal ROM - Respiratory Respiratory effort: normal Respiratory: bilateral: diminished, rhonchi, wheezing - Breasts Breasts: normal - Cardiovascular Heart rate: 98 Rhythm: regular Heart Sounds: Present: S1 & S2. Absent: gallop, rub Extremities: pulses intact, No edema, normal color, Full ROM - Gastrointestinal General gastrointestinal: Present: soft, non-tender, non-distended, normal bowel sounds - Genitourinary Female genitourinary: normal - Integumentary Integumentary: clear, warm, dry - Musculoskeletal Musculoskeletal: 1, strength equal bilaterally - Neurologic Neurologic: moves all extremities - Psychiatric Psychiatric: memory intact, appropriate mood/affect, intact judgment & insight - Labs CBC & Chem 7: 12/06/21 10:05 12/07/21 09:21 Labs: Abnormal lab results 12/08/21 12/08/21 Range/Units 16:12 23:14 ABG pO2 72.1 L (80.0-90.0) mm Hg ABG Hemoglobin 11.2 L (12.0-16.0) gm/dl Oxyhemoglobin 93.6 L (95.0-99.0) % POC Glucose 179 H (70-105) mg/dL HEART Score - HEART Score Troponin: Troponin T 0.019 ng/mL (0.00-0.029) 12/06/21 13:54
[2021-12-09] MEDS: MORPHINE 2 MG/1 ML INJ IV PRN ×2 (06:11→13:23)
[2021-12-09 07:45] LABS: Hematocrit 33.8 % (30.3-42.9); Mean Corpuscular HGB Conc 32 % (30-34); Mean Corpuscular Volume 86 fl (79-97); Platelet Count 250 K/mm3 (140-440); Red Blood Count 3.94 M/mm3 (3.65-5.03); Red Cell Distribution Width 16.1 % (13.2-15.2)
[2021-12-09] MEDS: IPRATROPIUM/ALBUTEROL SULFATE 3 ML AMPUL.NEB IH SCH ×3 (07:48→21:00)
[2021-12-09] MEDS: BUDESONIDE 0.5 MG/2 ML NEBU IH SCH ×2 (07:48→21:00)
[2021-12-09] MEDS: ARFORMOTEROL 15 MCG/2 ML NEBU IH SCH ×2 (07:48→21:00)
[2021-12-09 08:05] LABS: Blood Urea Nitrogen 37 mg/dL (7-17); Calcium 9.4 mg/dL (8.4-10.2); Hemolysis Index 7
[2021-12-09 08:10] LABS: BUN/Creatinine Ratio 53
[2021-12-09 08:18] LABS: Total Cells Counted 100
[2021-12-09 08:19] LABS: Basophils % (Manual) 0 % (0.0-1.8); Eosinophils % (Manual) 0 % (0.0-4.3); Platelet Estimate Consistent w Auto; RBC Morphology Normal
[2021-12-09] MEDS ORDERED: ALBUTEROL 2.5 MG/3 ML NEBU IH PRN (08:44)
[2021-12-09] MEDS ORDERED: ALPRAZolam 0.25 MG TAB PO ONE (10:00)
[2021-12-09] MEDS: PANTOPRAZOLE 20 MG TAB PO SCH ×2 (10:03→21:55)
[2021-12-09] MEDS: FUROSEMIDE 20 MG/2 ML INJ IV SCH (10:03)
[2021-12-09] MEDS: DABIGATRAN 150 MG CAP PO SCH ×2 (10:03→21:54)
[2021-12-09] MEDS: THIAMINE 100 MG TAB PO SCH (10:03)
[2021-12-09] MEDS: CYANOCOBALAMIN (VIT B-12) 1000 MCG TAB PO SCH (10:03)
[2021-12-09] MEDS: ASPIRIN EC 81 MG TAB PO SCH (10:03)
[2021-12-09] MEDS: methylPREDNISolone Sod Succinate 125 MG/2 ML INJ IV SCH ×2 (10:03→17:37)
[2021-12-09] MEDS: CALCIUM CARBONATE 1250 MG TAB PO SCH (10:03)
[2021-12-09] MEDS: CHOLECALCIFEROL (VIT D3) 1000 UNIT (25 mcg) TAB PO SCH (10:04)
[2021-12-09] MEDS: dilTIAZem CD 180 MG CAP PO SCH (10:04)
--- NOTE | 2021-12-09 11:23 | Progress Note ---
Assessment and Plan Assessment and plan: 86-year-old female with history of COPD, atrial fibrillation, CHF and hyperlipidemia brought in by EMS for severe shortness of breath and low oxygen saturations with 50% improvement. Patient also atrial fibrillation with rapid ventricular rate of 140. Patient was treated with Solu-Medrol. Patient decl ined CPAP en route to the hospital. Patient arrived with nonrebreather oxygen treatment systemic tachypnea. Patient was initiated on BiPAP. No fever or chills. Cough productive of mucoid sputum present. 12/07/2021 Patient very short of breath in spite of BiPAP Patient to be transferred to [facility] Patient may need intubation Pulmonary informed December 08, 2021 Patient continues to be very short of breath Patient on BiPAP Slight improvement since yesterday 12/09: Patient seen and examined remains anxious. Patient is on high flow and nonrebreather and will likely continue to require BiPAP at nighttime. Will trial of low-dose Xanax 0.25. Cardiology and pulmonary input noted. Continue current management for severe COPD exacerbation with underlying pneumonia possible gram-negative. Will request records from [facility] and [facility]. Continue steroids no indication for weaning at this time except if otherwise noted by clothes ironer. # Acute respiratory failure with hypoxia # Bilateral pneumonia #COPD exacerbation # Chronic atrial fibrillation Patient on Pradaxa and diltiazem. Initially rate was high but now controlled. # Hypokalemia Current Visit: Yes Status: Acute Plan to address problem: Supplemented. # CHF (congestive heart failure) Current Visit: Yes Status: Chronic Qualifiers: Heart failure type: combined systolic and diastolic Plan to address problem: On Lasix and Aldactone. Echocardiogram for ejection fraction. # leukocytosis without evidence of sepsis # Hyponatremia #GERD (gastroesophageal reflux disease) # Hyperlipidemia # DVT prophylaxis Current Visit: Yes Status: Acute Plan to address problem: On Pradaxa and GI prophylaxis. # anxious # advance care planning Current Visit: Yes Status: Acute Plan to address problem: Disease education conducted, care plan discussed, diagnosis discussed, prognosis discussed. Patient is full code. Patient acknowledges understanding and agre ement with care plan. +30 minutes. The high probability of a clinically significant, sudden or life threatening deterioration of the [pulmonary, cardiac, neuro] system(s) required my full and direct attention, intervention and personal management. The aggregate critical care time was [40] minutes. This time is in addition to time spent performing reported procedures but includes the following: [x] Data Review and interpretation [x] Patient assessment and monitoring of vital signs [x] Documentation [x] Medication orders and management History Interval history: Patient seen and examined this morning still anxious. She is on high flow and a lso nonrebreather satting 94% to get a break from the BiPAP. Still with A. romario RVR. Hospitalist Physical - Physical exam Narrative exam: VITAL SIGNS: Reviewed. GENERAL: The patient appears normally developed, anxious, appears stated age vital signs as documented. HEAD: No signs of head trauma. EYES: Pupils are equal. Extraocular motions intact. EARS: Hearing grossly intact. MOUTH: Oropharynx is normal. NECK: No adenopathy, no JVD. CHEST: Tachypnea chest with clear breath although diminished sounds bilaterally. No wheezes, rales, or rhonchi. CARDIAC: Irregularly irregular rate and rhythm tachycardia S1 and S2, without murmurs, gallops, or rubs. VASCULAR: No Edema. Peripheral pulses normal and equal in all extremities. ABDOMEN: Soft, non tender and non distended. No rebound or guarding, and no masses palpated. Bowel Sounds normal. MUSCULOSKELETAL: Good range of motion of all major joints. Extremities without clubbing, cyanosis or edema. NEUROLOGIC EXAM: Alert and oriented x 3 No focal sensory or strength deficits. Speech normal. Follows commands. PSYCHIATRIC: Mood anxious SKIN: detail exam as documented in skin assessment - Constitutional Vitals: Temp Pulse Resp BP Pulse Ox 97.5 F L 126 H 29 H 152/82 86 12/09/21 04:00 12/09/21 11:01 12/09/21 11:01 12/09/21 11:01 12/09/21 11:01 General appearance: Present: no acute distress, well-nourished HEART Score - HEART Score Troponin: Troponin T 0.019 ng/mL (0.00-0.029) 12/06/21 13:54 Results - Labs CBC & Chem 7: 12/09/21 07:31 12/09/21 07:31 Labs: Laboratory Last Values WBC 16.7 K/mm3 (4.5-11.0) H 12/09/21 07:31 RBC 3.94 M/mm3 (3.65-5.03) 12/09/21 07:31 Hgb 11.0 gm/dl (10.1-14.3) 12/09/21 07:31 Hct 33.8 % (30.3-42.9) 12/09/21 07:31 MCV 86 fl (79-97) 12/09/21 07:31 MCH 28 pg (28-32) 12/09/21 07:31 MCHC 32 % (30-34) 12/09/21 07:31 RDW 16.1 % (13.2-15.2) H 12/09/21 07:31 Plt Count 250 K/mm3 (140-440) 12/09/21 07:31 Lymph % (Auto) 3.3 % (13.4-35.0) L 12/06/21 10:05 [place] % (Auto) 7.1 % (0.0-7.3) 12/06/21 10:05 Eos % (Auto) 0.0 % (0.0-4.3) 12/06/21 10:05 Baso % (Auto) 0.1 % (0.0-1.8) 12/06/21 10:05 Lymph # (Auto) 0.6 K/mm3 (1.2-5.4) L 12/06/21 10:05 [place] # (Auto) 1.2 K/mm3 (0.0-0.8) H 12/06/21 10:05 Eos # (Auto) 0.0 K/mm3 (0.0-0.4) 12/06/21 10:05 Baso # (Auto) 0.0 K/mm3 (0.0-0.1) 12/06/21 10:05 Add Manual Diff Complete 12/09/21 07:31 Total Counted 100 12/09/21 07:31 Seg Neutrophils % Workers' Compensation Hearings Officer 12/09/21 07:31 Seg Neuts % (Manual) 93.0 % (40.0-70.0) H 12/09/21 07:31 Band Neutrophils % 0 % 12/09/21 07:31 Lymphocytes % (Manual) 2.0 % (13.4-35.0) L 12/09/21 07:31 Reactive Lymphs % (Man) 0 % 12/09/21 07:31 Monocytes % (Manual) 5.0 % (0.0-7.3) 12/09/21 07:31 Eosinophils % (Manual) 0 % (0.0-4.3) 12/09/21 07:31 Basophils % (Manual) 0 % (0.0-1.8) 12/09/21 07:31 Metamyelocytes % 0 % 12/09/21 07:31 Myelocytes % 0 % 12/09/21 07:31 Promyelocytes % 0 % 12/09/21 07:31 Blast Cells % 0 % 12/09/21 07:31 Nucleated RBC % Not Reportable 12/09/21 07:31 Seg Neutrophils # 15.1 K/mm3 (1.8-7.7) H 12/06/21 10:05 Seg Neutrophils # Man 15.5 K/mm3 (1.8-7.7) H 12/09/21 07:31 Band Neutrophils # 0.0 K/mm3 12/09/21 07:31 Lymphocytes # (Manual) 0.3 K/mm3 (1.2-5.4) L 12/09/21 07:31 Abs React Lymphs (Man) 0.0 K/mm3 12/09/21 07:31 Monocytes # (Manual) 0.8 K/mm3 (0.0-0.8) 12/09/21 07:31 Eosinophils # (Manual) 0.0 K/mm3 (0.0-0.4) 12/09/21 07:31 Basophils # (Manual) 0.0 K/mm3 (0.0-0.1) 12/09/21 07:31 Metamyelocytes # 0.0 K/mm3 12/09/21 07:31 Myelocytes # 0.0 K/mm3 12/09/21 07:31 Promyelocytes # 0.0 K/mm3 12/09/21 07:31 Blast Cells # 0.0 K/mm3 12/09/21 07:31 WBC Morphology Not Reportable 12/09/21 07:31 Hypersegmented Neuts Not Reportable 12/09/21 07:31 Hyposegmented Neuts Not Reportable 12/09/21 07:31 Hypogranular Neuts Not Reportable 12/09/21 07:31 Smudge Cells Not Reportable 12/09/21 07:31 Toxic Granulation Not Reportable 12/09/21 07:31 Toxic Vacuolation Not Reportable 12/09/21 07:31 Dohle Bodies Not Reportable 12/09/21 07:31 Pelger-Huet Anomaly Not Reportable 12/09/21 07:31 Merry Rods Not Reportable 12/09/21 07:31 Platelet Estimate Consistent w auto 12/09/21 07:31 Clumped Platelets Not Reportable 12/09/21 07:31 Plt Clumps, EDTA Not Reportable 12/09/21 07:31 Large Platelets Not Reportable 12/09/21 07:31 Giant Platelets Not Reportable 12/09/21 07:31 Platelet Satelliting Not Reportable 12/09/21 07:31 Plt Morphology Comment Not Reportable 12/09/21 07:31 RBC Morphology Normal 12/09/21 07:31 Dimorphic RBCs Not Reportable 12/09/21 07:31 Polychromasia Not Reportable 12/09/21 07:31 Hypochromasia Not Reportable 12/09/21 07:31 Poikilocytosis Not Reportable 12/09/21 07:31 Anisocytosis Not Reportable 12/09/21 07:31 Microcytosis Not Reportable 12/09/21 07:31 Macrocytosis Not Reportable 12/09/21 07:31 Spherocytes Not Reportable 12/09/21 07:31 Pappenheimer Bodies Not Reportable 12/09/21 07:31 Sickle Cells Not Reportable 12/09/21 07:31 Target Cells Not Reportable 12/09/21 07:31 Tear Drop Cells Not Reportable 12/09/21 07:31 Ovalocytes Not Reportable 12/09/21 07:31 Helmet Cells Not Reportable 12/09/21 07:31 Alan-Uehling Bodies Not Reportable 12/09/21 07:31 Boring Rings Not Reportable 12/09/21 07:31 [place] Cells Not Reportable 12/09/21 07:31 Bite Cells Not Reportable 12/09/21 07:31 Crenated Cell Not Reportable 12/09/21 07:31 Elliptocytes Not Reportable 12/09/21 07:31 Acanthocytes (Spur) Not Reportable 12/09/21 07:31 Rouleaux Not Reportable 12/09/21 07:31 Hemoglobin C Crystals Not Reportable 12/09/21 07:31 Schistocytes Not Reportable 12/09/21 07:31 Malaria parasites Not Reportable 12/09/21 07:31 Farhan Bodies Not Reportable 12/09/21 07:31 Hem Pathologist Commnt No 12/09/21 07:31 PT 18.5 Sec. (12.2-14.9) H 12/06/21 10:05 INR 1.37 (0.87-1.13) H 12/06/21 10:05 D-Dimer 7549.01 ng/mlDDU (0-234) H 12/07/21 20:13 ABG pH 7.430 pH Units (7.350-7.450) 12/08/21 16:12 ABG pCO2 33.8 mm Hg 12/08/21 16:12 ABG pO2 72.1 mm Hg (80.0-90.0) L 12/08/21 16:12 ABG HCO3 21.9 mmol/L (20.0-26.0) 12/08/21 16:12 ABG O2 Saturation 95.0 % (95.0-99.0) 12/08/21 16:12 ABG O2 Content 14.8 (0.0-44) 12/08/21 16:12 ABG Base Excess -1.8 mmol/L (-2.0-3.0) 12/08/21 16:12 ABG Hemoglobin 11.2 gm/dl (12.0-16.0) L 12/08/21 16:12 ABG Carboxyhemoglobin 1.1 % (0.0-5.0) 12/08/21 16:12 ABG Methemoglobin 0.4 % (0.0-1.5) 12/08/21 16:12 Oxyhemoglobin 93.6 % (95.0-99.0) L 12/08/21 16:12 FiO2 100 % 12/08/21 16:12 Sodium 150 mmol/L (137-145) H 12/09/21 07:31 Potassium 3.8 mmol/L (3.6-5.0) 12/09/21 07:31 Chloride 110.4 mmol/L (98-107) H 12/09/21 07:31 Carbon Dioxide 23 mmol/L (22-30) 12/09/21 07:31 Anion Gap 20 mmol/L 12/09/21 07:31 BUN 37 mg/dL (7-17) H 12/09/21 07:31 Creatinine 0.7 mg/dL (0.6-1.2) 12/09/21 07:31 Estimated GFR > 60 ml/min 12/09/21 07:31 BUN/Creatinine Ratio 53 % 12/09/21 07:31 Glucose 183 mg/dL (65-100) H 12/09/21 07:31 POC Glucose 179 mg/dL (70-105) H 12/08/21 23:14 Calcium 9.4 mg/dL (8.4-10.2) 12/09/21 07:31 Magnesium 2.90 mg/dL (1.7-2.3) H 12/06/21 10:05 Total Bilirubin 0.60 mg/dL (0.1-1.2) 12/07/21 09:21 AST 22 units/L (5-40) 12/07/21 09:21 ALT 19 units/L (7-56) 12/07/21 09:21 Alkaline Phosphatase 136 units/L (35-129) H 12/07/21 09:21 Troponin T 0.019 ng/mL (0.00-0.029) 12/06/21 13:54 NT-Pro-B Natriuret Pep 6552 pg/mL (0-900) H 12/06/21 10:05 Total Protein 6.3 g/dL (6.3-8.2) 12/07/21 09:21 Albumin 3.4 g/dL (3.9-5) L 12/07/21 09:21 Albumin/Globulin Ratio 1.2 % 12/07/21 09:21 Nasal Screen MRSA (PCR) Negative (Negative) 12/08/21 Unknown Coronavirus (PCR) Negative (Negative) 12/07/21 08:25 Microbiology: Microbiology 12/06/21 13:54 Peripheral/Venous Blood Culture - Preliminary NO GROWTH AFTER 48 HOURS 12/06/21 13:54 Peripheral/Venous Blood Culture - Preliminary NO GROWTH AFTER 48 HOURS Sánchez/IV: Voiding Method External Female Catheter Active Medications - Current Medications Current Medications: Generic Name Dose Route Start Last Admin Trade Name Freq PRN Reason Stop Dose Admin Acetaminophen 650 mg 12/06/21 15:23 Acetaminophen 325 Mg Tab PO Q4H PRN Pain MILD(1-3)/Fever >100.5/ Albuterol 2.5 mg 12/09/21 08:44 Albuterol 2.5 Mg/3 Ml Nebu IH Q4H PRN Shortness Of Breath Albuterol/Ipratropium 1 ampul 12/09/21 14:00 Ipratropium/Albuterol Sulfate 3 Ml Ampul.Neb IH Q6HRT [facility] Arformoterol Tartrate 15 mcg 12/09/21 20:00 Arformoterol 15 Mcg/2 Ml Nebu IH Q12HRT [facility] Aspirin 81 mg 12/06/21 16:00 12/09/21 10:03 Aspirin Ec 81 Mg Tab PO 81 mg QDAY OVI Administration Budesonide 0.5 mg 12/09/21 20:00 Budesonide 0.5 Mg/2 Ml Nebu IH Q12HRT [facility] Calcium Carbonate/Glycine 1,250 mg 12/07/21 10:00 12/09/21 10:03 Calcium Carbonate 1250 Mg Tab PO 1,250 mg QDAY OVI Administration Cholecalciferol 1,000 unit 12/07/21 10:00 12/09/21 10:04 Cholecalciferol (Vit D3) 1000 Unit (25 Mcg) Tab PO 1,000 unit DAILY OVI Administration Clonazepam 0.5 mg 12/06/21 22:00 12/08/21 22:55 Clonazepam 0.5 Mg Tab PO 0.5 mg HS OVI Administration Cyanocobalamin 1,000 mcg 12/07/21 10:00 12/09/21 10:03 Cyanocobalamin (Vit B-12) 1000 Mcg Tab PO 1,000 mcg DAILY OVI Administration Dabigatran 150 mg 12/06/21 16:00 12/09/21 10:03 Dabigatran 150 Mg Cap PO 150 mg BID OVI Administration Protocol Diltiazem HCl 180 mg 12/06/21 16:00 12/09/21 10:04 Diltiazem Cd 180 Mg Cap PO 180 mg DAILY OVI Administration Furosemide 20 mg 12/08/21 22:00 12/09/21 10:03 Furosemide 20 Mg/2 Ml Inj IV 12/10/21 10:01 20 mg BID OVI Administration Ceftriaxone Sodium 2 gm in 100 mls @ 200 mls/hr 12/07/21 12:00 12/08/21 12:58 Rocephin/Ns 2 Gm/100 Ml IV 12/10/21 12:59 200 mls/hr Q24H OVI Administration Protocol Azithromycin 500 mg in 250 mls @ 250 mls/hr 12/07/21 15:00 12/08/21 15:21 Zithromax/Ns IV 12/09/21 15:59 250 mls/hr Q24H OVI Administration Methylprednisolone Sodium Succinate 80 mg 12/06/21 16:00 12/09/21 10:03 Methylprednisolone Sod Succinate 125 Mg/2 Ml Inj IV 80 mg Q8H OVI Administration Morphine Sulfate 2 mg 12/06/21 15:23 12/09/21 06:11 Morphine 2 Mg/1 Ml Inj IV 2 mg Q4H PRN Administration Pain, Moderate (4-6) Ondansetron HCl 4 mg 12/06/21 15:23 Ondansetron 4 Mg/2 Ml Inj IV Q8H PRN Nausea And Vomiting Oxycodone/Acetaminophen 1 tab 12/06/21 15:23 12/08/21 23:05 Oxycodone /Acetaminophen 5-325mg Tab PO 1 tab Q6H PRN Administration Pain, Moderate (4-6) Pantoprazole Sodium 20 mg 12/06/21 22:00 12/09/21 10:03 Pantoprazole 20 Mg Tab PO 20 mg BID OVI Administration Pravastatin Sodium 40 mg 12/06/21 22:00 12/08/21 22:56 Pravastatin 40 Mg Tab PO 40 mg QHS OVI Administration Sodium Chloride 10 ml 12/06/21 22:00 12/09/21 10:02 Sodium Chloride 0.9% 10 Ml Flush Syringe IV 10 ml BID OVI Administration Sodium Chloride 10 ml 12/06/21 15:23 Sodium Chloride 0.9% 10 Ml Flush Syringe IV PRN PRN LINE FLUSH Thiamine HCl 100 mg 12/07/21 10:00 12/09/21 10:03 Thiamine 100 Mg Tab PO 100 mg QDAY OVI Administration Nutrition/Malnutrition Assess - Dietary Evaluation Nutrition/Malnutrition Findings: Nutrition Notes Start: 12/08/21 16:55 Freq: Status: Active Protocol: Document 12/08/21 16:55 BLAEK (Rec: 12/08/21 17:16 BLAKE [id number]) Nutrition Notes Need for Assessment generated from: MD Order,inshore undersea warfare officer,MST Initial or Follow up Assessment Current Diagnosis COPD,Respiratory Failure, Hyperlipidemia Other Pertinent Diagnosis SOB, Atrial Fibrilation w/RVR, CHF, Bilateral Pneumonia, GERD. Current Diet NPO. Labs/Tests 12/08: K 3.5, CO2 20, Crea 0.5 , Glu 105, Ca 8.3. Pertinent Medications 12/08: Vit D3, others nutritionally unremarkable. Height 5 ft 4 in Weight 80 kg [place] Body Weight (kg) 54.54 BMI 30.2 Intake Prior to Admission Good Weight change and time frame Pt stated being unsure if loss body weight [employer] WORK[employer]. Weight Status Obese Subjective/Other Information RD consult for risk of malnutrition and dietary supplementation assessments. Pt currently on NPO. will assess PO intake of meals at F /U. Pt is on Bi-PaP+. Nutritional Supplements are not appropriate at this time, since NPO status. Pt shows no signs of concern for risk of malnutrition at the time, according to Physical Assessment History notes. Percent of energy/protein needs met: Pt currently on NPO. Burn Absent Trauma Absent GI Symptoms None Food Allergy No Skin Integrity/Comment Assessment WNL. Current % PO Other Minimum of two criteria No #1 Nutrition Diagnosis No nutrition diagnosis at this time Comments: Will assess PO intake of meals and need of ONS at F/U. Is patient on ventilator? No Is Patient Ambulatory and/or Out of Bed Yes REE-([place]-ambulatory/OOB) [ 1586.000 NUTR.[id number]] Kcal/Kg value to use for calculation 18 Approximate Energy Requirements Using 1440 kcal/Kg Calculation Used for Recommendations Kcal/kg Additional Notes Protein: 1-1.2 g/Kg AdjBW; 68- 82 g/day. Fluids: 1 ml/Kcal, or as per MD. Nutrition Intervention Follow-Up By: 12/10/21 Additional Comments Continue monitoring food tolerance, %PO intake of meals , and BM.
[2021-12-09] MEDS: cefTRIAXone/NS 2 GM/100 ML 2 GM/100 ML BAG IV SCH (13:11)
[2021-12-09] MEDS: HALOPERIDOL LACTATE 5 MG/1 ML INJ IV PRN ×2 (13:11→21:54)
--- NOTE | 2021-12-09 13:30 | Progress Note ---
Assessment and Plan - Patient Problems (1) Shortness of breath Current Visit: Yes Status: Acute Plan to address problem: Patient with COPD on home oxygen, admitted with shortness of breath and has dense right lower lobe and right middle lobe infiltrate. Presentation is consistent with acute pneumonia. A COVID-19 test is negative. Defer to internal medicine and pulmonary for further management of COPD exacerbation and acute pneumonia. (2) Atrial fibrillation Current Visit: Yes Status: Acute Plan to address problem: Patient has paroxysmal atrial fibrillation, was sinus rhythm on prior presentation in February 2021. Had been scheduled in the outpatients for cardioversion. With the onset of acute pneumonia, patient is currently not a candidate for mechanical rhythm control of the atrial fibrillation. We will continue rate control and oral anticoagulation with Pradaxa. Subjective Date of service: 12/09/21 Principal diagnosis: Right lower lobe pneumonia Interval history: Patient is in no acute distress, on hall monitor remains in atrial fibrilla tion with a well-controlled ventricular rate. Objective Vital Signs Temp Pulse Pulse Pulse Resp Resp BP 12/09/21 12:01 121 H 32 H 158/83 12/09/21 12:00 110 H 110 H 22 12/09/21 11:01 126 H 29 H 152/82 12/09/21 10:04 121 H 152/82 12/09/21 10:01 135 H 27 H 152/82 12/09/21 09:00 131 H 20 141/88 12/09/21 08:42 12/09/21 08:04 121 H 20 12/09/21 08:01 141 H 25 H 138/86 12/09/21 08:00 115 H 114 H 23 12/09/21 07:44 103 H 37 H 135/76 12/09/21 07:01 107 H 24 135/76 12/09/21 06:11 26 H 12/09/21 06:00 130 H 28 H 147/90 12/09/21 05:10 112 H 32 H 141/96 12/09/21 05:01 118 H 25 H 141/96 12/09/21 04:00 97.5 F L 111 H 93 H 19 120/83 12/09/21 03:00 105 H 20 110/76 12/09/21 02:00 112 H 19 109/77 12/09/21 01:01 114 H 20 104/59 12/09/21 00:34 121 H 34 H 134/92 12/09/21 00:00 98.2 F 120 H 120 H 19 121/71 12/08/21 23:05 29 H 12/08/21 23:00 126 H 30 H 143/94 12/08/21 22:05 136 H 33 H 136/90 12/08/21 22:00 143 H 43 H 134/92 12/08/21 21:01 129 H 30 H 134/92 12/08/21 20:49 114 H 118 H 32 H 27 H 138/83 12/08/21 20:18 32 H 12/08/21 20:05 126 H 12/08/21 20:00 133 H 126 H 35 H 138/83 12/08/21 19:53 97.3 F L 12/08/21 19:00 114 H 29 H 123/83 12/08/21 18:31 129 H 29 H 130/87 12/08/21 18:01 127 H 30 H 130/87 12/08/21 17:31 126 H 28 H 130/78 12/08/21 17:00 123 H 30 H 130/78 12/08/21 16:31 131 H 33 H 127/83 12/08/21 16:10 126 H 32 H 12/08/21 16:01 117 H 32 H 127/83 12/08/21 16:00 97.6 F 125 H 108 H 28 H 120/64 12/08/21 15:31 111 H 30 H 120/64 12/08/21 15:00 125 H 27 H 120/64 12/08/21 14:31 122 H 39 H 110/60 12/08/21 14:01 111 H 28 H 110/60 12/08/21 13:31 114 H 28 H 109/41 Pulse Ox 12/09/21 12:01 87 12/09/21 12:00 94 12/09/21 11:01 86 12/09/21 10:04 12/09/21 10:01 90 12/09/21 09:00 92 12/09/21 08:42 95 12/09/21 08:04 95 12/09/21 08:01 81 L 12/09/21 08:00 93 12/09/21 07:44 94 12/09/21 07:01 93 12/09/21 06:11 12/09/21 06:00 91 12/09/21 05:10 94 12/09/21 05:01 93 12/09/21 04:00 93 12/09/21 03:00 92 12/09/21 02:00 92 12/09/21 01:01 92 12/09/21 00:34 92 12/09/21 00:00 90 12/08/21 23:05 12/08/21 23:00 92 12/08/21 22:05 95 12/08/21 22:00 94 12/08/21 21:01 92 12/08/21 20:49 93 12/08/21 20:18 12/08/21 20:05 12/08/21 20:00 89 12/08/21 19:53 12/08/21 19:00 95 12/08/21 18:31 95 12/08/21 18:01 95 12/08/21 17:31 95 12/08/21 17:00 95 12/08/21 16:31 97 12/08/21 16:10 12/08/21 16:01 93 12/08/21 16:00 94 12/08/21 15:31 95 12/08/21 15:00 95 12/08/21 14:31 89 12/08/21 14:01 95 12/08/21 13:31 94 - Physical Examination General: Other (Short of breath, on BiPAP) HEENT: Positive: PERRL Neck: Positive: neck supple Cardiac: Positive: irregularly irregular Lungs: Positive: Decreased Breath Sounds Neuro: Positive: Grossly Intact Abdomen: Positive: Soft Skin: Positive: Clear Extremities: Absent: edema - Labs and Meds CBC 12/09/21 Range/Units 07:31 WBC 16.7 H (4.5-11.0) K/mm3 RBC 3.94 (3.65-5.03) M/mm3 Hgb 11.0 (10.1-14.3) gm/dl Hct 33.8 (30.3-42.9) % Plt Count 250 (140-440) K/mm3 Comprehensive Metabolic Panel 12/09/21 Range/Units 07:31 Sodium 150 H (137-145) mmol/L Potassium 3.8 (3.6-5.0) mmol/L Chloride 110.4 H (98-107) mmol/L Carbon Dioxide 23 (22-30) mmol/L BUN 37 H (7-17) mg/dL Creatinine 0.7 (0.6-1.2) mg/dL Glucose 183 H (65-100) mg/dL Calcium 9.4 (8.4-10.2) mg/dL - Imaging and Cardiology EKG: report reviewed (Atrial fibrillation with rapid ventricular rate) - Allied health notes Allied health notes reviewed: nursing
--- NOTE | 2021-12-09 13:47 | Progress Note ---
Assessment and Plan Acute hypoxemic respiratory failure Bilateral pneumonia (CAP) Atrial fibrillation with RVR Acute COPD exacerbation Acute Pulmonary edema AE-CHF GERD - Haldol 5mg IV q6h - schedule low dose Seroquel also - stopped lasix re: azotemia - continue empiric full anticoagualation re: A-fib - too unstable to send for CTA - get Procalcitonin to aid clinical decision making - continue care as below otherwise; - continue BIPAP scheduled qhs with prn daytime use - continue diuresis while monitoring electrolytes - continue to wean supplemental oxygen to keep O2 sats > 90% - continue Bronchodilators (LIU & LABA) with pulm hygiene per RT - aspiration precautions - continue bronchodilators with pulmonary hygiene per RT - continue accuchecks with glycemic control per SSI (While critically ill target blood glucose of 140-180 mg/dL; avoid hypoglycemia) - avoid nephrotoxins, renally dose all medications - continue to avoid benzodiazepine's, reduce the possibility of delirium - AB's per ID rec's - Maintenance of sleep-wake cycle, avoid delirium - G.I. & VTE prophylaxis - PT/OT/ROM exercises - mobility protocols for pressure ulcer prophylaxis - Monitor hemodynamics closely - continue other care per attending / other consultants - discharge planning ongoing concurrently COVID SPECIFIC INTERVENTIONS - COVID-19 PCR negative .... Re-evaluate in am & prn CONDITION: CRITICAL PROGNOSIS: GUARDED CODE STATUS: FULL CODE The high probability of a clinically significant, sudden or life-threatening deterioration of the [respiratory, cardiovascular & neurologic] system(s) required my full and direct attention, intervention and personal management. The aggregate critical care time was [35] minutes without overlap. Time includes spent on; [x] Data Review and interpretation [x] Patient assessment and monitoring of vital signs [x] Documentation [x] Medication orders and management Subjective Date of service: 12/09/21 Principal diagnosis: AHRF; CAP; A-fib with RVR; AE-COPD; Acute Pulmonary edema; AE-CHF; GERD Interval history: Patient is seen today for: Acute hypoxemic respiratory failure; Pneumonia (CAP); A-fib with RVR; AE-COPD; Acute Pulmonary edema; AE-CHF; GERD Seen and examined at bedside; 24hour events reviewed; nursing and respiratory care staff consulted; no adverse overnight events reported to me; resting peacefully in bed; back in RVR; anxious; no emesis or overt aspiration; Objective Vital Signs - 12hr 12/09/21 12/09/21 12/09/21 02:00 03:00 04:00 Temperature 97.5 F L Pulse Rate 112 H 105 H 111 H Pulse Rate [ Anterior Bilateral Throughout] Pulse Rate [ 93 H From Monitor] Respiratory 19 20 19 Rate Respiratory Rate [Anterior Bilateral Throughout] Blood Pressure 109/77 110/76 120/83 O2 Sat by Pulse 92 92 93 Oximetry 12/09/21 12/09/21 12/09/21 05:01 05:10 06:00 Temperature Pulse Rate 118 H 112 H 130 H Pulse Rate [ Anterior Bilateral Throughout] Pulse Rate [ From Monitor] Respiratory 25 H 32 H 28 H Rate Respiratory Rate [Anterior Bilateral Throughout] Blood Pressure 141/96 141/96 147/90 O2 Sat by Pulse 93 94 91 Oximetry 12/09/21 12/09/21 12/09/21 06:11 07:01 07:44 Temperature Pulse Rate 107 H 103 H Pulse Rate [ Anterior Bilateral Throughout] Pulse Rate [ From Monitor] Respiratory 26 H 24 37 H Rate Respiratory Rate [Anterior Bilateral Throughout] Blood Pressure 135/76 135/76 O2 Sat by Pulse 93 94 Oximetry 12/09/21 12/09/21 12/09/21 08:00 08:01 08:04 Temperature Pulse Rate 115 H 141 H Pulse Rate [ 121 H Anterior Bilateral Throughout] Pulse Rate [ 114 H From Monitor] Respiratory 23 25 H Rate Respiratory 20 Rate [Anterior Bilateral Throughout] Blood Pressure 138/86 O2 Sat by Pulse 93 81 L 95 Oximetry 12/09/21 12/09/21 12/09/21 08:42 09:00 10:01 Temperature Pulse Rate 131 H 135 H Pulse Rate [ Anterior Bilateral Throughout] Pulse Rate [ From Monitor] Respiratory 20 27 H Rate Respiratory Rate [Anterior Bilateral Throughout] Blood Pressure 141/88 152/82 O2 Sat by Pulse 95 92 90 Oximetry 12/09/21 12/09/21 12/09/21 10:04 11:01 12:00 Temperature Pulse Rate 121 H 126 H 110 H Pulse Rate [ Anterior Bilateral Throughout] Pulse Rate [ 110 H From Monitor] Respiratory 29 H 22 Rate Respiratory Rate [Anterior Bilateral Throughout] Blood Pressure 152/82 152/82 O2 Sat by Pulse 86 94 Oximetry 12/09/21 12:01 Temperature Pulse Rate 121 H Pulse Rate [ Anterior Bilateral Throughout] Pulse Rate [ From Monitor] Respiratory 32 H Rate Respiratory Rate [Anterior Bilateral Throughout] Blood Pressure 158/83 O2 Sat by Pulse 87 Oximetry Constitutional: alert, appears uncomfortable, other (Having increased work of breathing on BIPAP.) Eyes: non-icteric ENT: oropharynx moist Neck: supple, no JVD Effort: mildly labored Ascultation: Bilateral: rales (basilar inspiratory) Percussion: Bilateral: not dull Cardiovascular: irregular rhythm Gastrointestinal: hypoactive bowel sounds, soft, non-tender, non-distended (protuberant) Integumentary: normal Extremities: no cyanosis, no edema, pink and warm, pulses normal, no ischemia or petechiae Neurologic: normal mental status, non-focal exam, pupils equal and round, motor strength normal and Psychiatric: anxious CBC and BMP: 12/09/21 07:31 12/09/21 07:31 ABG, PT/INR, D-dimer: ABG ABG pH 7.430 pH Units (7.350-7.450) 12/08/21 16:12 ABG pCO2 33.8 mm Hg 12/08/21 16:12 ABG pO2 72.1 mm Hg (80.0-90.0) L 12/08/21 16:12 ABG O2 Saturation 95.0 % (95.0-99.0) 12/08/21 16:12 PT/INR, D-dimer PT 18.5 Sec. (12.2-14.9) H 12/06/21 10:05 INR 1.37 (0.87-1.13) H 12/06/21 10:05 D-Dimer 7549.01 ng/mlDDU (0-234) H 12/07/21 20:13 Abnormal lab findings: Abnormal Labs 12/06/21 12/06/21 12/06/21 10:05 10:05 10:05 WBC 16.9 H RDW 16.3 H Plt Count 473 H Lymph % (Auto) 3.3 L Lymph # (Auto) 0.6 L [place] # (Auto) 1.2 H Seg Neutrophils % 89.5 H Seg Neuts % (Manual) Lymphocytes % (Manual) Seg Neutrophils # 15.1 H Seg Neutrophils # Man Lymphocytes # (Manual) PT 18.5 H INR 1.37 H D-Dimer ABG pO2 ABG O2 Saturation ABG Base Excess ABG Hemoglobin Oxyhemoglobin Sodium Potassium 2.9 L* Chloride Carbon Dioxide 21 L BUN 20 H Creatinine Glucose 127 H POC Glucose Calcium Magnesium 2.90 H Alkaline Phosphatase 140 H NT-Pro-B Natriuret Pep Albumin 3.5 L 12/06/21 12/06/21 12/07/21 10:05 11:15 09:21 WBC RDW Plt Count Lymph % (Auto) Lymph # (Auto) [place] # (Auto) Seg Neutrophils % Seg Neuts % (Manual) Lymphocytes % (Manual) Seg Neutrophils # Seg Neutrophils # Man Lymphocytes # (Manual) PT INR D-Dimer ABG pO2 61.6 L ABG O2 Saturation 91.7 L ABG Base Excess ABG Hemoglobin 11.9 L Oxyhemoglobin 90.0 L Sodium Potassium 3.5 L D Chloride Carbon Dioxide 20 L BUN Creatinine 0.5 L Glucose 105 H POC Glucose Calcium 8.3 L Magnesium Alkaline Phosphatase 136 H NT-Pro-B Natriuret Pep 6552 H Albumin 3.4 L 12/07/21 12/07/21 12/08/21 12:50 20:13 16:12 WBC RDW Plt Count Lymph % (Auto) Lymph # (Auto) [place] # (Auto) Seg Neutrophils % Seg Neuts % (Manual) Lymphocytes % (Manual) Seg Neutrophils # Seg Neutrophils # Man Lymphocytes # (Manual) PT INR D-Dimer 7549.01 H ABG pO2 79.3 L 72.1 L ABG O2 Saturation ABG Base Excess -3.0 L ABG Hemoglobin 11.2 L Oxyhemoglobin 93.6 L Sodium Potassium Chloride Carbon Dioxide BUN Creatinine Glucose POC Glucose Calcium Magnesium Alkaline Phosphatase NT-Pro-B Natriuret Pep Albumin 12/08/21 12/09/21 12/09/21 23:14 07:31 07:31 WBC 16.7 H RDW 16.1 H Plt Count Lymph % (Auto) Lymph # (Auto) [place] # (Auto) Seg Neutrophils % Seg Neuts % (Manual) 93.0 H Lymphocytes % (Manual) 2.0 L Seg Neutrophils # Seg Neutrophils # Man 15.5 H Lymphocytes # (Manual) 0.3 L PT INR D-Dimer ABG pO2 ABG O2 Saturation ABG Base Excess ABG Hemoglobin Oxyhemoglobin Sodium 150 H Potassium Chloride 110.4 H Carbon Dioxide BUN 37 H Creatinine Glucose 183 H POC Glucose 179 H Calcium Magnesium Alkaline Phosphatase NT-Pro-B Natriuret Pep Albumin Allied health notes reviewed: nursing
[2021-12-09] MEDS: AZITHROMYCIN/NS 500 MG/250 ML 500 MG/250 ML BAG IV SCH (14:44)
[2021-12-09] MEDS: QUEtiapine 25 MG TAB PO SCH ×2 (14:47→22:07)
[2021-12-09] MEDS: clonazePAM 0.5 MG TAB PO SCH (21:54)
[2021-12-09] MEDS: PRAVASTATIN 40 MG TAB PO SCH (21:55)
[2021-12-09] MEDS ORDERED: dilTIAZem 25 MG/5 ML INJ IV ONE (22:42)
[2021-12-10] MEDS: methylPREDNISolone Sod Succinate 125 MG/2 ML INJ IV SCH ×3 (00:22→17:13)
[2021-12-10] MEDS: IPRATROPIUM/ALBUTEROL SULFATE 3 ML AMPUL.NEB IH SCH ×4 (04:43→20:41)
[2021-12-10] MEDS: HALOPERIDOL LACTATE 5 MG/1 ML INJ IV PRN ×2 (06:47→21:55)
[2021-12-10] MEDS: ARFORMOTEROL 15 MCG/2 ML NEBU IH SCH ×2 (09:00→20:41)
[2021-12-10] MEDS: BUDESONIDE 0.5 MG/2 ML NEBU IH SCH ×2 (09:00→20:41)
[2021-12-10] MEDS: MORPHINE 2 MG/1 ML INJ IV PRN ×2 (09:40→20:30)
[2021-12-10] MEDS: ASPIRIN EC 81 MG TAB PO SCH (11:07)
[2021-12-10] MEDS: CHOLECALCIFEROL (VIT D3) 1000 UNIT (25 mcg) TAB PO SCH (11:07)
[2021-12-10] MEDS: THIAMINE 100 MG TAB PO SCH (11:07)
[2021-12-10] MEDS: QUEtiapine 25 MG TAB PO SCH ×2 (11:07→21:57)
[2021-12-10] MEDS: CYANOCOBALAMIN (VIT B-12) 1000 MCG TAB PO SCH (11:07)
[2021-12-10] MEDS: PANTOPRAZOLE 20 MG TAB PO SCH ×2 (11:08→21:57)
[2021-12-10] MEDS: dilTIAZem CD 180 MG CAP PO SCH (11:16)
[2021-12-10] MEDS: CALCIUM CARBONATE 1250 MG TAB PO SCH (11:16)
[2021-12-10] MEDS: DABIGATRAN 150 MG CAP PO SCH ×2 (11:16→21:57)
[2021-12-10] MEDS: cefTRIAXone/NS 2 GM/100 ML 2 GM/100 ML BAG IV SCH (12:07)
--- NOTE | 2021-12-10 12:47 | Progress Note ---
Assessment and Plan Acute hypoxemic respiratory failure Bilateral pneumonia (CAP) Atrial fibrillation with RVR Acute COPD exacerbation Acute Pulmonary edema AE-CHF GERD - scontinue Seroquel but increased dose by 25 mg - continue Haldol 5mg IV q6h prn - repeat CXR - resume lasix 20 mg IV daily - repeat BMP in am - continue full anticoagualation re: A-fib - still too unstable to send for CTA - Procalcitonin unremarkable - continue systemic steroids - continue care as below otherwise; - continue BIPAP scheduled qhs with prn daytime use - continue diuresis while monitoring electrolytes - continue to wean supplemental oxygen to keep O2 sats > 90% - continue Bronchodilators (LIU & LABA) with pulm hygiene per RT - aspiration precautions - continue bronchodilators with pulmonary hygiene per RT - continue accuchecks with glycemic control per SSI (While critically ill target blood glucose of 140-180 mg/dL; avoid hypoglycemia) - avoid nephrotoxins, renally dose all medications - continue to avoid benzodiazepine's, reduce the possibility of delirium - AB's per ID rec's - Maintenance of sleep-wake cycle, avoid delirium - G.I. & VTE prophylaxis - PT/OT/ROM exercises - mobility protocols for pressure ulcer prophylaxis - Monitor hemodynamics closely - continue other care per attending / other consultants - discharge planning ongoing concurrently COVID SPECIFIC INTERVENTIONS - COVID-19 PCR negative .... Re-evaluate in am & prn CONDITION: CRITICAL PROGNOSIS: GUARDED CODE STATUS: FULL CODE The high probability of a clinically significant, sudden or life-threatening deterioration of the [respiratory, cardiovascular & neurologic] system(s) required my full and direct attention, intervention and personal management. The aggregate critical care time was [32] minutes without overlap. Time includes spent on; [x] Data Review and interpretation [x] Patient assessment and monitoring of vital signs [x] Documentation [x] Medication orders and management Subjective Date of service: 12/10/21 Principal diagnosis: AHRF; CAP; A-fib with RVR; AE-COPD; Acute Pulmonary edema; AE-CHF; GERD Interval history: Patient is seen today for: Acute hypoxemic respiratory failure; Pneumonia (CAP); A-fib with RVR; AE-COPD; Acute Pulmonary edema; AE-CHF; GERD Seen and examined at bedside; 24hour events reviewed; nursing and respiratory care staff consulted; no adverse overnight events reported to me; resting peacefully in bed; less agitated today but still with ARDS; denies chest pain; denies N/V/F/C; would like to try some broth Objective Vital Signs - 12hr 12/10/21 12/10/21 12/10/21 01:00 02:00 03:00 Temperature Pulse Rate 139 H 109 H 108 H Pulse Rate [ Anterior Bilateral Throughout] Pulse Rate [ From Monitor] Respiratory 25 H 21 22 Rate Respiratory Rate [Anterior Bilateral Throughout] Blood Pressure 144/86 137/87 127/95 O2 Sat by Pulse 96 96 96 Oximetry 12/10/21 12/10/21 12/10/21 04:00 04:01 04:43 Temperature 97.3 F L Pulse Rate 107 H 124 H 124 H Pulse Rate [ Anterior Bilateral Throughout] Pulse Rate [ 128 H From Monitor] Respiratory 22 22 30 H Rate Respiratory Rate [Anterior Bilateral Throughout] Blood Pressure 133/91 133/91 O2 Sat by Pulse 95 96 94 Oximetry 12/10/21 12/10/21 12/10/21 04:52 05:01 06:00 Temperature Pulse Rate 131 H 108 H Pulse Rate [ 138 H Anterior Bilateral Throughout] Pulse Rate [ From Monitor] Respiratory 25 H 25 H Rate Respiratory 26 H Rate [Anterior Bilateral Throughout] Blood Pressure 144/110 149/100 O2 Sat by Pulse 94 97 95 Oximetry 12/10/21 12/10/21 12/10/21 07:00 07:14 09:00 Temperature 97.8 F Pulse Rate 110 H 121 H Pulse Rate [ Anterior Bilateral Throughout] Pulse Rate [ From Monitor] Respiratory 25 H 26 H Rate Respiratory Rate [Anterior Bilateral Throughout] Blood Pressure 139/94 153/96 O2 Sat by Pulse 97 96 Oximetry 12/10/21 12/10/21 12/10/21 09:10 09:35 11:16 Temperature Pulse Rate 131 H Pulse Rate [ 122 H Anterior Bilateral Throughout] Pulse Rate [ From Monitor] Respiratory Rate Respiratory 25 H Rate [Anterior Bilateral Throughout] Blood Pressure 152/89 O2 Sat by Pulse 93 Oximetry Constitutional: alert, appears uncomfortable, other (Having increased work of breathing ) Eyes: non-icteric ENT: oropharynx moist Neck: supple, no JVD Effort: mildly labored Ascultation: Bilateral: rales (basilar inspiratory) Percussion: Bilateral: not dull Cardiovascular: irregular rhythm Gastrointestinal: hypoactive bowel sounds, soft, non-tender, non-distended (protuberant) Integumentary: normal Extremities: no cyanosis, no edema, pink and warm, pulses normal, no ischemia or petechiae Neurologic: normal mental status, non-focal exam, pupils equal and round, motor strength normal and Psychiatric: anxious CBC and BMP: 12/09/21 07:31 12/09/21 07:31 ABG, PT/INR, D-dimer: ABG ABG pH 7.430 pH Units (7.350-7.450) 12/08/21 16:12 ABG pCO2 33.8 mm Hg 12/08/21 16:12 ABG pO2 72.1 mm Hg (80.0-90.0) L 12/08/21 16:12 ABG O2 Saturation 95.0 % (95.0-99.0) 12/08/21 16:12 PT/INR, D-dimer PT 18.5 Sec. (12.2-14.9) H 12/06/21 10:05 INR 1.37 (0.87-1.13) H 12/06/21 10:05 D-Dimer 7549.01 ng/mlDDU (0-234) H 12/07/21 20:13 Abnormal lab findings: Abnormal Labs 12/06/21 12/06/21 12/06/21 10:05 10:05 10:05 WBC 16.9 H RDW 16.3 H Plt Count 473 H Lymph % (Auto) 3.3 L Lymph # (Auto) 0.6 L [place] # (Auto) 1.2 H Seg Neutrophils % 89.5 H Seg Neuts % (Manual) Lymphocytes % (Manual) Seg Neutrophils # 15.1 H Seg Neutrophils # Man Lymphocytes # (Manual) PT 18.5 H INR 1.37 H D-Dimer ABG pO2 ABG O2 Saturation ABG Base Excess ABG Hemoglobin Oxyhemoglobin Sodium Potassium 2.9 L* Chloride Carbon Dioxide 21 L BUN 20 H Creatinine Glucose 127 H POC Glucose Calcium Magnesium 2.90 H Alkaline Phosphatase 140 H NT-Pro-B Natriuret Pep Albumin 3.5 L 12/06/21 12/06/21 12/07/21 10:05 11:15 09:21 WBC RDW Plt Count Lymph % (Auto) Lymph # (Auto) [place] # (Auto) Seg Neutrophils % Seg Neuts % (Manual) Lymphocytes % (Manual) Seg Neutrophils # Seg Neutrophils # Man Lymphocytes # (Manual) PT INR D-Dimer ABG pO2 61.6 L ABG O2 Saturation 91.7 L ABG Base Excess ABG Hemoglobin 11.9 L Oxyhemoglobin 90.0 L Sodium Potassium 3.5 L D Chloride Carbon Dioxide 20 L BUN Creatinine 0.5 L Glucose 105 H POC Glucose Calcium 8.3 L Magnesium Alkaline Phosphatase 136 H NT-Pro-B Natriuret Pep 6552 H Albumin 3.4 L 12/07/21 12/07/21 12/08/21 12:50 20:13 16:12 WBC RDW Plt Count Lymph % (Auto) Lymph # (Auto) [place] # (Auto) Seg Neutrophils % Seg Neuts % (Manual) Lymphocytes % (Manual) Seg Neutrophils # Seg Neutrophils # Man Lymphocytes # (Manual) PT INR D-Dimer 7549.01 H ABG pO2 79.3 L 72.1 L ABG O2 Saturation ABG Base Excess -3.0 L ABG Hemoglobin 11.2 L Oxyhemoglobin 93.6 L Sodium Potassium Chloride Carbon Dioxide BUN Creatinine Glucose POC Glucose Calcium Magnesium Alkaline Phosphatase NT-Pro-B Natriuret Pep Albumin 12/08/21 12/09/21 12/09/21 23:14 07:31 07:31 WBC 16.7 H RDW 16.1 H Plt Count Lymph % (Auto) Lymph # (Auto) [place] # (Auto) Seg Neutrophils % Seg Neuts % (Manual) 93.0 H Lymphocytes % (Manual) 2.0 L Seg Neutrophils # Seg Neutrophils # Man 15.5 H Lymphocytes # (Manual) 0.3 L PT INR D-Dimer ABG pO2 ABG O2 Saturation ABG Base Excess ABG Hemoglobin Oxyhemoglobin Sodium 150 H Potassium Chloride 110.4 H Carbon Dioxide BUN 37 H Creatinine Glucose 183 H POC Glucose 179 H Calcium Magnesium Alkaline Phosphatase NT-Pro-B Natriuret Pep Albumin 12/10/21 00:09 WBC RDW Plt Count Lymph % (Auto) Lymph # (Auto) [place] # (Auto) Seg Neutrophils % Seg Neuts % (Manual) Lymphocytes % (Manual) Seg Neutrophils # Seg Neutrophils # Man Lymphocytes # (Manual) PT INR D-Dimer ABG pO2 ABG O2 Saturation ABG Base Excess ABG Hemoglobin Oxyhemoglobin Sodium Potassium Chloride Carbon Dioxide BUN Creatinine Glucose POC Glucose 166 H Calcium Magnesium Alkaline Phosphatase NT-Pro-B Natriuret Pep Albumin Chest x-ray: pending Allied health notes reviewed: nursing
--- NOTE | 2021-12-10 13:59 | XRay Report ---
CHEST 1 VIEW 12/10/2021 1:36 PM INDICATION / CLINICAL INFORMATION: Bilateral Pneumonia. COMPARISON: 12/06/21. FINDINGS: SUPPORT DEVICES: There is a probable new right midline catheter with the tip overlying the right axil la. HEART / MEDIASTINUM: Unchanged. LUNGS / PLEURA: There are moderate patchy areas of groundglass parenchymal opacity in both mid to low er lung zones, right greater than left. Bilateral consolidation has shown significant improvement. Th ere may be mild residual consolidation in the right midlung. No pleural effusion. No pneumothorax. ADDITIONAL FINDINGS: No significant additional findings. IMPRESSION: Moderate parenchymal opacities in both mid to lower lung zones have improved significantl y. Signer Name: Oleg Taylor MD Signed: 12/10/2021 1:55 PM Workstation Name: [id number]
--- NOTE | 2021-12-10 14:22 | Progress Note ---
Assessment and Plan - Patient Problems (1) Shortness of breath Current Visit: Yes Status: Acute Plan to address problem: Patient with COPD on home oxygen, admitted with shortness of breath and has dense right lower lobe and right middle lobe infiltrate. Presentation is consistent with acute pneumonia. A COVID-19 test is negative. Defer to internal medicine and pulmonary for further management of COPD exacerbation and acute pneumonia. (2) Atrial fibrillation Current Visit: Yes Status: Acute Plan to address problem: Patient has paroxysmal atrial fibrillation, was sinus rhythm on prior presentation in February 2021. Had been scheduled in the outpatients for cardioversion. With the onset of acute pneumonia, patient is currently not a candidate for mechanical rhythm control of the atrial fibrillation. We will continue rate control and oral anticoagulation with Pradaxa. We will add digoxin for rate control of atrial fibrillation. Subjective Date of service: 12/10/21 Principal diagnosis: Right lower lobe pneumonia Interval history: Patient is on BiPAP, on pvc monitor today there is an increase in ventricular rate of atrial fibrillation to 130s. Objective Vital Signs Temp Pulse Pulse Pulse Resp Resp BP 12/10/21 12:27 12/10/21 11:16 131 H 152/89 12/10/21 09:35 12/10/21 09:10 122 H 25 H 12/10/21 09:00 121 H 26 H 153/96 12/10/21 07:14 97.8 F 12/10/21 07:00 110 H 25 H 139/94 12/10/21 06:00 108 H 25 H 149/100 12/10/21 05:01 131 H 25 H 144/110 12/10/21 04:52 138 H 26 H 12/10/21 04:43 124 H 30 H 133/91 12/10/21 04:01 124 H 22 133/91 12/10/21 04:00 97.3 F L 107 H 128 H 22 12/10/21 03:00 108 H 22 127/95 12/10/21 02:00 109 H 21 137/87 12/10/21 01:00 139 H 25 H 144/86 12/10/21 00:28 107 H 33 H 145/88 12/10/21 00:01 116 H 22 145/88 12/09/21 23:37 115 H 32 H 12/09/21 23:29 124 H 26 H 157/94 12/09/21 23:00 97.4 F L 139 H 26 H 157/94 12/09/21 22:50 127 H 26 H 12/09/21 22:00 144 H 27 H 157/104 12/09/21 21:09 124 H 33 H 12/09/21 21:08 12/09/21 21:01 123 H 25 H 128/74 12/09/21 21:00 112 H 36 H 128/74 12/09/21 20:20 97.4 F L 12/09/21 20:01 134 H 25 H 137/83 12/09/21 19:53 126 H 120 H 26 H 12/09/21 19:01 125 H 22 128/77 12/09/21 18:01 135 H 20 95/80 12/09/21 17:06 118 H 37 H 95/77 12/09/21 17:01 120 H 21 95/77 12/09/21 16:01 120 H 19 97/70 12/09/21 16:00 98 H 114 H 26 H 12/09/21 15:00 105 H 24 130/88 Pulse Ox 12/10/21 12:27 91 12/10/21 11:16 12/10/21 09:35 93 12/10/21 09:10 12/10/21 09:00 96 12/10/21 07:14 12/10/21 07:00 97 12/10/21 06:00 95 12/10/21 05:01 97 12/10/21 04:52 94 12/10/21 04:43 94 12/10/21 04:01 96 12/10/21 04:00 95 12/10/21 03:00 96 12/10/21 02:00 96 12/10/21 01:00 96 12/10/21 00:28 97 12/10/21 00:01 96 12/09/21 23:37 95 12/09/21 23:29 96 12/09/21 23:00 95 12/09/21 22:50 97 12/09/21 22:00 94 12/09/21 21:09 12/09/21 21:08 97 12/09/21 21:01 98 12/09/21 21:00 97 12/09/21 20:20 12/09/21 20:01 97 12/09/21 19:53 95 12/09/21 19:01 98 12/09/21 18:01 97 12/09/21 17:06 96 12/09/21 17:01 96 12/09/21 16:01 95 12/09/21 16:00 95 12/09/21 15:00 95 - Physical Examination General: Other (Short of breath, on BiPAP) HEENT: Positive: PERRL Neck: Positive: neck supple Cardiac: Positive: irregularly irregular Lungs: Positive: Decreased Breath Sounds Neuro: Positive: Grossly Intact Abdomen: Positive: Soft Skin: Positive: Clear Extremities: Absent: edema - Imaging and Cardiology EKG: report reviewed (Atrial fibrillation with rapid ventricular rate) - Allied health notes Allied health notes reviewed: nursing
--- NOTE | 2021-12-10 15:01 | Progress Note ---
Assessment and Plan Assessment and plan: 86-year-old female with history of COPD, atrial fibrillation, CHF and hyperlipidemia brought in by EMS for severe shortness of breath and low oxygen saturations with 50% improvement. Patient also atrial fibrillation with rapid ventricular rate of 140. Patient was treated with Solu-Medrol. Patient decl ined CPAP en route to the hospital. Patient arrived with nonrebreather oxygen treatment systemic tachypnea. Patient was initiated on BiPAP. No fever or chills. Cough productive of mucoid sputum present. 12/07/2021 Patient very short of breath in spite of BiPAP Patient to be transferred to [facility] Patient may need intubation Pulmonary informed December 08, 2021 Patient continues to be very short of breath Patient on BiPAP Slight improvement since yesterday 12/09: Patient seen and examined remains anxious. Patient is on high flow and nonrebreather and will likely continue to require BiPAP at nighttime. Will trial of low-dose Xanax 0.25. Cardiology and pulmonary input noted. Continue current management for severe COPD exacerbation with underlying pneumonia possible gram-negative. Will request records from [facility] and [facility]. Continue steroids no indication for weaning at this time except if otherwise noted by procurement technician. 12/10: Continue current management. Cardiology added digoxin to current management. Continue Haldol and morphine for symptomatic control of hypoxia. Will request psych consult to assist with anxiety # Acute respiratory failure with hypoxia # Bilateral pneumonia #COPD exacerbation #Severe anxiety # Chronic atrial fibrillation Patient on Pradaxa and diltiazem. Initially rate was high but now controlled. # Hypokalemia Current Visit: Yes Status: Acute Plan to address problem: Supplemented. # CHF (congestive heart failure) Current Visit: Yes Status: Chronic Qualifiers: Heart failure type: combined systolic and diastolic Plan to address problem: On Lasix and Aldactone. Echocardiogram for ejection fraction. # leukocytosis without evidence of sepsis # Hyponatremia #GERD (gastroesophageal reflux disease) # Hyperlipidemia # DVT prophylaxis Current Visit: Yes Status: Acute Plan to address problem: On Pradaxa and GI prophylaxis. # anxious # advance care planning Current Visit: Yes Status: Acute Plan to address problem: Disease education conducted, care plan discussed, diagnosis discussed, prognosis discussed. Patient is full code. Patient acknowledges understanding and agreement with care plan. +30 minutes. The high probability of a clinically significant, sudden or life threatening deterioration of the [pulmonary, cardiac, neuro] system(s) required my full and direct attention, intervention and personal management. The aggregate critical care time was [40] minutes. This time is in addition to time spent performing reported procedures but includes the following: [x] Data Review and interpretation [x] Patient assessment and monitoring of vital signs [x] Documentation [x] Medication orders and management History Interval history: Patient seen and examined this morning still anxious. On BiPAP this morning with intermittent high flow and nonrebreather breaks in between. Hospitalist Physical - Physical exam Narrative exam: VITAL SIGNS: Reviewed. GENERAL: The patient appears normally developed, anxious, on BiPAP with 100% FiO2 saturating 93% appears stated age vital signs as documented. HEAD: No signs of head trauma. EYES: Pupils are equal. Extraocular motions intact. EARS: Hearing grossly intact. MOUTH: Oropharynx is normal. NECK: No adenopathy, no JVD. CHEST: Tachypnea chest with clear breath although diminished sounds bilaterally. No wheezes, rales, or rhonchi. CARDIAC: Irregularly irregular rate and rhythm tachycardia S1 and S2, without murmurs, gallops, or rubs. VASCULAR: No Edema. Peripheral pulses normal and equal in all extremities. ABDOMEN: Soft, non tender and non distended. No rebound or guarding, and no masses palpated. Bowel Sounds normal. MUSCULOSKELETAL: Good range of motion of all major joints. Extremities without clubbing, cyanosis or edema. NEUROLOGIC EXAM: Alert and oriented x 3 No focal sensory or strength deficits. Speech normal. Follows commands. PSYCHIATRIC: Mood anxious SKIN: detail exam as documented in skin assessment - Constitutional Vitals: Temp Pulse Resp BP Pulse Ox 97.8 F 131 H 25 H 152/89 91 12/10/21 07:14 12/10/21 11:16 12/10/21 09:10 12/10/21 11:16 12/10/21 12:27 General appearance: Present: no acute distress, well-nourished HEART Score - HEART Score Troponin: Troponin T 0.019 ng/mL (0.00-0.029) 12/06/21 13:54 Results - Labs CBC & Chem 7: 12/09/21 07:31 12/09/21 07:31 Labs: Laboratory Last Values WBC 16.7 K/mm3 (4.5-11.0) H 12/09/21 07:31 RBC 3.94 M/mm3 (3.65-5.03) 12/09/21 07:31 Hgb 11.0 gm/dl (10.1-14.3) 12/09/21 07:31 Hct 33.8 % (30.3-42.9) 12/09/21 07:31 MCV 86 fl (79-97) 12/09/21 07:31 MCH 28 pg (28-32) 12/09/21 07:31 MCHC 32 % (30-34) 12/09/21 07:31 RDW 16.1 % (13.2-15.2) H 12/09/21 07:31 Plt Count 250 K/mm3 (140-440) 12/09/21 07:31 Lymph % (Auto) 3.3 % (13.4-35.0) L 12/06/21 10:05 [place] % (Auto) 7.1 % (0.0-7.3) 12/06/21 10:05 Eos % (Auto) 0.0 % (0.0-4.3) 12/06/21 10:05 Baso % (Auto) 0.1 % (0.0-1.8) 12/06/21 10:05 Lymph # (Auto) 0.6 K/mm3 (1.2-5.4) L 12/06/21 10:05 [place] # (Auto) 1.2 K/mm3 (0.0-0.8) H 12/06/21 10:05 Eos # (Auto) 0.0 K/mm3 (0.0-0.4) 12/06/21 10:05 Baso # (Auto) 0.0 K/mm3 (0.0-0.1) 12/06/21 10:05 Add Manual Diff Complete 12/09/21 07:31 Total Counted 100 12/09/21 07:31 Seg Neutrophils % Beef Splitter 12/09/21 07:31 Seg Neuts % (Manual) 93.0 % (40.0-70.0) H 12/09/21 07:31 Band Neutrophils % 0 % 12/09/21 07:31 Lymphocytes % (Manual) 2.0 % (13.4-35.0) L 12/09/21 07:31 Reactive Lymphs % (Man) 0 % 12/09/21 07:31 Monocytes % (Manual) 5.0 % (0.0-7.3) 12/09/21 07:31 Eosinophils % (Manual) 0 % (0.0-4.3) 12/09/21 07:31 Basophils % (Manual) 0 % (0.0-1.8) 12/09/21 07:31 Metamyelocytes % 0 % 12/09/21 07:31 Myelocytes % 0 % 12/09/21 07:31 Promyelocytes % 0 % 12/09/21 07:31 Blast Cells % 0 % 12/09/21 07:31 Nucleated RBC % Not Reportable 12/09/21 07:31 Seg Neutrophils # 15.1 K/mm3 (1.8-7.7) H 12/06/21 10:05 Seg Neutrophils # Man 15.5 K/mm3 (1.8-7.7) H 12/09/21 07:31 Band Neutrophils # 0.0 K/mm3 12/09/21 07:31 Lymphocytes # (Manual) 0.3 K/mm3 (1.2-5.4) L 12/09/21 07:31 Abs React Lymphs (Man) 0.0 K/mm3 12/09/21 07:31 Monocytes # (Manual) 0.8 K/mm3 (0.0-0.8) 12/09/21 07:31 Eosinophils # (Manual) 0.0 K/mm3 (0.0-0.4) 12/09/21 07:31 Basophils # (Manual) 0.0 K/mm3 (0.0-0.1) 12/09/21 07:31 Metamyelocytes # 0.0 K/mm3 12/09/21 07:31 Myelocytes # 0.0 K/mm3 12/09/21 07:31 Promyelocytes # 0.0 K/mm3 12/09/21 07:31 Blast Cells # 0.0 K/mm3 12/09/21 07:31 WBC Morphology Not Reportable 12/09/21 07:31 Hypersegmented Neuts Not Reportable 12/09/21 07:31 Hyposegmented Neuts Not Reportable 12/09/21 07:31 Hypogranular Neuts Not Reportable 12/09/21 07:31 Smudge Cells Not Reportable 12/09/21 07:31 Toxic Granulation Not Reportable 12/09/21 07:31 Toxic Vacuolation Not Reportable 12/09/21 07:31 Dohle Bodies Not Reportable 12/09/21 07:31 Pelger-Huet Anomaly Not Reportable 12/09/21 07:31 Merry Rods Not Reportable 12/09/21 07:31 Platelet Estimate Consistent w auto 12/09/21 07:31 Clumped Platelets Not Reportable 12/09/21 07:31 Plt Clumps, EDTA Not Reportable 12/09/21 07:31 Large Platelets Not Reportable 12/09/21 07:31 Giant Platelets Not Reportable 12/09/21 07:31 Platelet Satelliting Not Reportable 12/09/21 07:31 Plt Morphology Comment Not Reportable 12/09/21 07:31 RBC Morphology Normal 12/09/21 07:31 Dimorphic RBCs Not Reportable 12/09/21 07:31 Polychromasia Not Reportable 12/09/21 07:31 Hypochromasia Not Reportable 12/09/21 07:31 Poikilocytosis Not Reportable 12/09/21 07:31 Anisocytosis Not Reportable 12/09/21 07:31 Microcytosis Not Reportable 12/09/21 07:31 Macrocytosis Not Reportable 12/09/21 07:31 Spherocytes Not Reportable 12/09/21 07:31 Pappenheimer Bodies Not Reportable 12/09/21 07:31 Sickle Cells Not Reportable 12/09/21 07:31 Target Cells Not Reportable 12/09/21 07:31 Tear Drop Cells Not Reportable 12/09/21 07:31 Ovalocytes Not Reportable 12/09/21 07:31 Helmet Cells Not Reportable 12/09/21 07:31 Alan-Belfonte Bodies Not Reportable 12/09/21 07:31 Otis Rings Not Reportable 12/09/21 07:31 Pollock Cells Not Reportable 12/09/21 07:31 Bite Cells Not Reportable 12/09/21 07:31 Crenated Cell Not Reportable 12/09/21 07:31 Elliptocytes Not Reportable 12/09/21 07:31 Acanthocytes (Spur) Not Reportable 12/09/21 07:31 Rouleaux Not Reportable 12/09/21 07:31 Hemoglobin C Crystals Not Reportable 12/09/21 07:31 Schistocytes Not Reportable 12/09/21 07:31 Malaria parasites Not Reportable 12/09/21 07:31 Farhan Bodies Not Reportable 12/09/21 07:31 Hem Pathologist Commnt No 12/09/21 07:31 PT 18.5 Sec. (12.2-14.9) H 12/06/21 10:05 INR 1.37 (0.87-1.13) H 12/06/21 10:05 D-Dimer 7549.01 ng/mlDDU (0-234) H 12/07/21 20:13 ABG pH 7.430 pH Units (7.350-7.450) 12/08/21 16:12 ABG pCO2 33.8 mm Hg 12/08/21 16:12 ABG pO2 72.1 mm Hg (80.0-90.0) L 12/08/21 16:12 ABG HCO3 21.9 mmol/L (20.0-26.0) 12/08/21 16:12 ABG O2 Saturation 95.0 % (95.0-99.0) 12/08/21 16:12 ABG O2 Content 14.8 (0.0-44) 12/08/21 16:12 ABG Base Excess -1.8 mmol/L (-2.0-3.0) 12/08/21 16:12 ABG Hemoglobin 11.2 gm/dl (12.0-16.0) L 12/08/21 16:12 ABG Carboxyhemoglobin 1.1 % (0.0-5.0) 12/08/21 16:12 ABG Methemoglobin 0.4 % (0.0-1.5) 12/08/21 16:12 Oxyhemoglobin 93.6 % (95.0-99.0) L 12/08/21 16:12 FiO2 100 % 12/08/21 16:12 Sodium 150 mmol/L (137-145) H 12/09/21 07:31 Potassium 3.8 mmol/L (3.6-5.0) 12/09/21 07:31 Chloride 110.4 mmol/L (98-107) H 12/09/21 07:31 Carbon Dioxide 23 mmol/L (22-30) 12/09/21 07:31 Anion Gap 20 mmol/L 12/09/21 07:31 BUN 37 mg/dL (7-17) H 12/09/21 07:31 Creatinine 0.7 mg/dL (0.6-1.2) 12/09/21 07:31 Estimated GFR > 60 ml/min 12/09/21 07:31 BUN/Creatinine Ratio 53 % 12/09/21 07:31 Glucose 183 mg/dL (65-100) H 12/09/21 07:31 POC Glucose 166 mg/dL (70-105) H 12/10/21 00:09 Calcium 9.4 mg/dL (8.4-10.2) 12/09/21 07:31 Magnesium 2.90 mg/dL (1.7-2.3) H 12/06/21 10:05 Total Bilirubin 0.60 mg/dL (0.1-1.2) 12/07/21 09:21 AST 22 units/L (5-40) 12/07/21 09:21 ALT 19 units/L (7-56) 12/07/21 09:21 Alkaline Phosphatase 136 units/L (35-129) H 12/07/21 09:21 Troponin T 0.019 ng/mL (0.00-0.029) 12/06/21 13:54 NT-Pro-B Natriuret Pep 6552 pg/mL (0-900) H 12/06/21 10:05 Total Protein 6.3 g/dL (6.3-8.2) 12/07/21 09:21 Albumin 3.4 g/dL (3.9-5) L 12/07/21 09:21 Albumin/Globulin Ratio 1.2 % 12/07/21 09:21 Procalcitonin 0.20 ng/mL (<0.15) 12/09/21 Unknown Nasal Screen MRSA (PCR) Negative (Negative) 12/08/21 Unknown Coronavirus (PCR) Negative (Negative) 12/07/21 08:25 Microbiology: Microbiology 12/06/21 13:54 Peripheral/Venous Blood Culture - Preliminary NO GROWTH AFTER 72 HOURS 12/06/21 13:54 Peripheral/Venous Blood Culture - Preliminary NO GROWTH AFTER 72 HOURS Sánchez/IV: Voiding Method External Female Catheter Active Medications - Current Medications Current Medications: Generic Name Dose Route Start Last Admin Trade Name Freq PRN Reason Stop Dose Admin Acetaminophen 650 mg 12/06/21 15:23 Acetaminophen 325 Mg Tab PO Q4H PRN Pain MILD(1-3)/Fever >100.5/ Albuterol 2.5 mg 12/09/21 08:44 Albuterol 2.5 Mg/3 Ml Nebu IH Q4H PRN Shortness Of Breath Albuterol/Ipratropium 1 ampul 12/09/21 14:00 12/10/21 08:00 Ipratropium/Albuterol Sulfate 3 Ml Ampul.Neb IH Not Given Q6HRT OVI Arformoterol Tartrate 15 mcg 12/09/21 20:00 12/10/21 09:00 Arformoterol 15 Mcg/2 Ml Nebu IH 15 mcg Q12HRT OVI Administration Aspirin 81 mg 12/06/21 16:00 12/10/21 11:07 Aspirin Ec 81 Mg Tab PO 81 mg QDAY OVI Administration Budesonide 0.5 mg 12/09/21 20:00 12/10/21 09:00 Budesonide 0.5 Mg/2 Ml Nebu IH 0.5 mg Q12HRT OVI Administration Calcium Carbonate/Glycine 1,250 mg 12/07/21 10:00 12/10/21 11:16 Calcium Carbonate 1250 Mg Tab PO 1,250 mg QDAY OVI Administration Cholecalciferol 1,000 unit 12/07/21 10:00 12/10/21 11:07 Cholecalciferol (Vit D3) 1000 Unit (25 Mcg) Tab PO 1,000 unit DAILY OVI Administration Clonazepam 0.5 mg 12/06/21 22:00 12/09/21 21:54 Clonazepam 0.5 Mg Tab PO Not Given HS [facility] Cyanocobalamin 1,000 mcg 12/07/21 10:00 12/10/21 11:07 Cyanocobalamin (Vit B-12) 1000 Mcg Tab PO 1,000 mcg DAILY OVI Administration Dabigatran 150 mg 12/06/21 16:00 12/10/21 11:16 Dabigatran 150 Mg Cap PO 150 mg BID OVI Administration Protocol Digoxin 0.125 mg 12/10/21 18:00 Digoxin 0.5 Mg/2 Ml Inj IV 12/11/21 00:01 Q6HR OVI Digoxin 0.125 mg 12/11/21 10:00 Digoxin 0.125 Mg Tab PO DAILY@1700 OVI Diltiazem HCl 180 mg 12/06/21 16:00 12/10/21 11:16 Diltiazem Cd 180 Mg Cap PO 180 mg DAILY OVI Administration Haloperidol Lactate 5 mg 12/09/21 13:01 12/10/21 06:47 Haloperidol Lactate 5 Mg/1 Ml Inj IV 5 mg Q6H PRN Administration Agitation Methylprednisolone Sodium Succinate 80 mg 12/06/21 16:00 12/10/21 11:07 Methylprednisolone Sod Succinate 125 Mg/2 Ml Inj IV 80 mg Q8H OVI Administration Morphine Sulfate 2 mg 12/06/21 15:23 12/10/21 09:40 Morphine 2 Mg/1 Ml Inj IV 2 mg Q4H PRN Administration Pain, Moderate (4-6) Ondansetron HCl 4 mg 12/06/21 15:23 Ondansetron 4 Mg/2 Ml Inj IV Q8H PRN Nausea And Vomiting Oxycodone/Acetaminophen 1 tab 12/06/21 15:23 12/08/21 23:05 Oxycodone /Acetaminophen 5-325mg Tab PO 1 tab Q6H PRN Administration Pain, Moderate (4-6) Pantoprazole Sodium 20 mg 12/06/21 22:00 12/10/21 11:08 Pantoprazole 20 Mg Tab PO 20 mg BID OVI Administration Pravastatin Sodium 40 mg 12/06/21 22:00 12/09/21 21:55 Pravastatin 40 Mg Tab PO Not Given QHS OVI Quetiapine Fumarate 50 mg 12/09/21 15:00 12/10/21 11:07 Quetiapine 25 Mg Tab PO 50 mg BID OVI Administration Sodium Chloride 10 ml 12/06/21 22:00 12/10/21 11:18 Sodium Chloride 0.9% 10 Ml Flush Syringe IV 10 ml BID OVI Administration Sodium Chloride 10 ml 12/06/21 15:23 Sodium Chloride 0.9% 10 Ml Flush Syringe IV PRN PRN LINE FLUSH Thiamine HCl 100 mg 12/07/21 10:00 12/10/21 11:07 Thiamine 100 Mg Tab PO 100 mg QDAY OVI Administration Nutrition/Malnutrition Assess - Dietary Evaluation Nutrition/Malnutrition Findings: Nutrition Notes Start: 12/08/21 16:55 Freq: Status: Active Protocol: Document 12/08/21 16:55 BLAKE (Rec: 12/08/21 17:16 BLAKE [id number]) Nutrition Notes Need for Assessment generated from: MD Order,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 Current Diet NPO. Labs/Tests 12/08: K 3.5, CO2 20, Crea 0.5 , Glu 105, Ca 8.3. Pertinent Medications 12/08: Vit D3, others nutritionally unremarkable. 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 Weight Status Obese Subjective/Other Information RD consult for risk of malnutrition and dietary supplementation assessments. Pt currently on NPO. will assess PO intake of meals at F /U. Pt is on Bi-PaP+. Nutritional Supplements are not appropriate at this time, since NPO status. Pt shows no signs of concern for risk of malnutrition at the time, according to Physical Assessment History notes. Percent of energy/protein needs met: Pt currently on NPO. Burn Absent Trauma Absent GI Symptoms None Food Allergy No Skin Integrity/Comment Assessment WNL. Current % PO Other Minimum of two criteria No #1 Nutrition Diagnosis No nutrition diagnosis at this time Comments: Will assess PO intake of meals and need of ONS at F/U. Is patient on ventilator? No Is Patient Ambulatory and/or Out of Bed Yes REE-([place]ambulatory/OOB) [ 1586.000 NUTR.[id number]] Kcal/Kg value to use for calculation 18 Approximate Energy Requirements Using 1440 kcal/Kg Calculation Used for Recommendations Kcal/kg Additional Notes Protein: 1-1.2 g/Kg AdjBW; 68- 82 g/day. Fluids: 1 ml/Kcal, or as per MD. Nutrition Intervention Follow-Up By: 12/10/21 Additional Comments Continue monitoring food tolerance, %PO intake of meals , and BM.
[2021-12-10] MEDS: DIGOXIN 0.5 MG/2 ML INJ IV SCH ×2 (17:13→23:55)
[2021-12-10] MEDS: PRAVASTATIN 40 MG TAB PO SCH (21:57)
[2021-12-10] MEDS: clonazePAM 0.5 MG TAB PO SCH (21:57)
[2021-12-11] MEDS: methylPREDNISolone Sod Succinate 125 MG/2 ML INJ IV SCH ×4 (01:52→23:10)
[2021-12-11] MEDS: IPRATROPIUM/ALBUTEROL SULFATE 3 ML AMPUL.NEB IH SCH ×5 (02:55→21:38)
[2021-12-11] MEDS: MORPHINE 2 MG/1 ML INJ IV PRN ×2 (04:40→13:24)
[2021-12-11 05:43] LABS: Hematocrit 34.9 % (30.3-42.9); Hemoglobin 11.1 gm/dl (10.1-14.3); Mean Corpuscular HGB Conc 32 % (30-34); Mean Corpuscular Volume 87 fl (79-97); Platelet Count 233 K/mm3 (140-440); Red Cell Distribution Width 16.4 % (13.2-15.2)
[2021-12-11 06:01] LABS: Blood Urea Nitrogen 43 mg/dL (7-17); Calcium 9.3 mg/dL (8.4-10.2); Hemolysis Index 5
[2021-12-11 06:04] LABS: BUN/Creatinine Ratio 61
--- NOTE | 2021-12-11 07:43 | XRay Report ---
ABDOMEN 1 VIEW(S) INDICATION / CLINICAL INFORMATION: NG tube placement. COMPARISON: None available. FINDINGS: TUBES / LINES: The distal tip of the feeding tube terminates in the body of the stomach but it is not transpyloric. BOWEL GAS PATTERN: No significant abnormality. FREE AIR / EXTRALUMINAL GAS: None seen. ADDITIONAL FINDINGS: Mild cardiomegaly and pulmonary venous congestion is suspected at the lung bases IMPRESSION: The feeding tube terminates in the mid stomach. Signer Name: Tomás Francis Jr, MD Signed: 12/11/2021 7:39 AM Workstation Name: [id number]
[2021-12-11] MEDS: ARFORMOTEROL 15 MCG/2 ML NEBU IH SCH ×2 (08:04→21:38)
[2021-12-11] MEDS: BUDESONIDE 0.5 MG/2 ML NEBU IH SCH ×2 (08:04→21:38)
[2021-12-11] MEDS ORDERED: DEXTROSE 5% IN WATER 1,000 ML IV SCH (09:00)
[2021-12-11] MEDS: PANTOPRAZOLE 20 MG TAB PO SCH ×2 (09:26→21:27)
[2021-12-11] MEDS: CHOLECALCIFEROL (VIT D3) 1000 UNIT (25 mcg) TAB PO SCH (09:26)
[2021-12-11] MEDS: HALOPERIDOL LACTATE 5 MG/1 ML INJ IV PRN ×2 (09:26→20:07)
[2021-12-11] MEDS: QUEtiapine 25 MG TAB PO SCH ×2 (09:26→21:27)
[2021-12-11] MEDS: CYANOCOBALAMIN (VIT B-12) 1000 MCG TAB PO SCH (09:26)
[2021-12-11] MEDS: DIGOXIN 0.125 MG TAB PO SCH ×2 (09:26→16:47)
[2021-12-11] MEDS: DABIGATRAN 150 MG CAP PO SCH ×2 (09:27→21:27)
[2021-12-11] MEDS: dilTIAZem CD 180 MG CAP PO SCH (09:27)
[2021-12-11] MEDS: THIAMINE 100 MG TAB PO SCH (09:27)
[2021-12-11] MEDS: CALCIUM CARBONATE 1250 MG TAB PO SCH (09:27)
[2021-12-11] MEDS: ASPIRIN EC 81 MG TAB PO SCH (09:27)
--- NOTE | 2021-12-11 11:54 | Progress Note ---
Assessment and Plan Assessment and plan: 86-year-old female with history of COPD, atrial fibrillation, CHF and hyperlipidemia brought in by EMS for severe shortness of breath and low oxygen saturations with 50% improvement. Patient also atrial fibrillation with rapid ventricular rate of 140. Patient was treated with Solu-Medrol. Patient decl ined CPAP en route to the hospital. Patient arrived with nonrebreather oxygen treatment systemic tachypnea. Patient was initiated on BiPAP. No fever or chills. Cough productive of mucoid sputum present. 12/07/2021 Patient very short of breath in spite of BiPAP Patient to be transferred to [facility] Patient may need intubation Pulmonary informed December 08, 2021 Patient continues to be very short of breath Patient on BiPAP Slight improvement since yesterday 12/09: Patient seen and examined remains anxious. Patient is on high flow and nonrebreather and will likely continue to require BiPAP at nighttime. Will trial of low-dose Xanax 0.25. Cardiology and pulmonary input noted. Continue current management for severe COPD exacerbation with underlying pneumonia possible gram-negative. Will request records from [facility] and [facility]. Continue steroids no indication for weaning at this time except if otherwise noted by compensation director. 12/10: Continue current management. Cardiology added digoxin to current management. Continue Haldol and morphine for symptomatic control of hypoxia. Will request psych consult to assist with anxiety. 12/11: Continue current management as outlined above. Still awaiting family to bring the advance care directive. Patient remains on BiPAP with interchangeable nonrebreather on high flow. Hypernatremia with a sodium level of 162 noted this morning. Patient started on water flushes at 300 cc every 6 hours with serial sodium level monitoring. Family at bedside discussed her poor prognosis with them in detail they verbalized understanding. The patient's daughter will be bringing her living will to help guide therapy. # Acute respiratory failure with hypoxia # Bilateral pneumonia #Hypernatremia #COPD exacerbation #Severe anxiety # Chronic atrial fibrillation Patient on Pradaxa and diltiazem. Initially rate was high but now controlled. # Hypokalemia Current Visit: Yes Status: Acute Plan to address problem: Supplemented. # CHF (congestive heart failure) Current Visit: Yes Status: Chronic Qualifiers: Heart failure type: combined systolic and diastolic Plan to address problem: On Lasix and Aldactone. Echocardiogram for ejection fraction. # leukocytosis without evidence of sepsis # Hyponatremia #GERD (gastroesophageal reflux disease) # Hyperlipidemia # DVT prophylaxis Current Visit: Yes Status: Acute Plan to address problem: On Pradaxa and GI prophylaxis. # anxious # advance care planning Current Visit: Yes Status: Acute Plan to address problem: Disease education conducted, care plan discussed, diagnosis discussed, prognosis discussed. Patient is full code. Patient acknowledges understanding and agreement with care plan. +30 minutes. The high probability of a clinically significant, sudden or life threatening deterioration of the [pulmonary, cardiac, neuro] system(s) required my full and direct attention, intervention and personal management. The aggregate critical care time was [40] minutes. This time is in addition to time spent performing reported procedures but includes the following: [x] Data Review and interpretation [x] Patient assessment and monitoring of vital signs [x] Documentation [x] Medication orders and management History Interval history: Patient seen and examined this morning still anxious. Was on BiPAP this morning but changed to high flow nonrebreather satting in the high 80s to low 90s. Hospitalist Physical - Physical exam Narrative exam: VITAL SIGNS: Reviewed. GENERAL: The patient appears normally developed, anxious, on high flow with nonrebreather with oxygen saturation of 89% vital signs as documented. HEAD: No signs of head trauma. EYES: Pupils are equal. Extraocular motions intact. EARS: Hearing grossly intact. MOUTH: Oropharynx is normal. NECK: No adenopathy, no JVD. CHEST: Tachypnea chest with clear breath although diminished sounds bilaterally. No wheezes, rales, or rhonchi. CARDIAC: Irregularly irregular rate and rhythm tachycardia S1 and S2, without murmurs, gallops, or rubs. VASCULAR: No Edema. Peripheral pulses normal and equal in all extremities. ABDOMEN: Soft, non tender and non distended. No rebound or guarding, and no masses palpated. Bowel Sounds normal. MUSCULOSKELETAL: Good range of motion of all major joints. Extremities without clubbing, cyanosis or edema. NEUROLOGIC EXAM: Alert and oriented x 3 No focal sensory or strength deficits. Speech normal. Follows commands. PSYCHIATRIC: Mood anxious SKIN: detail exam as documented in skin assessment - Constitutional Vitals: Temp Pulse Resp BP Pulse Ox 97.4 F L 102 H 24 110/53 93 12/11/21 03:42 12/11/21 10:12/11/21 10:22 10:01 12/11/21 10:01 General appearance: Present: no acute distress, well-nourished HEART Score - HEART Score Troponin: Troponin T 0.019 ng/mL (0.00-0.029) 12/06/21 13:54 Results - Labs CBC & Chem 7: 12/11/21 05:15 12/11/21 08:55 Labs: Laboratory Last Values WBC 15.3 K/mm3 (4.5-11.0) H 12/11/21 05:15 RBC 4.00 M/mm3 (3.65-5.03) 12/11/21 05:15 Hgb 11.1 gm/dl (10.1-14.3) 12/11/21 05:15 Hct 34.9 % (30.3-42.9) 12/11/21 05:15 MCV 87 fl (79-97) 12/11/21 05:15 MCH 28 pg (28-32) 12/11/21 05:15 MCHC 32 % (30-34) 12/11/21 05:15 RDW 16.4 % (13.2-15.2) H 12/11/21 05:15 Plt Count 233 K/mm3 (140-440) 12/11/21 05:15 Lymph % (Auto) 3.3 % (13.4-35.0) L 12/06/21 10:05 [place] % (Auto) 7.1 % (0.0-7.3) 12/06/21 10:05 Eos % (Auto) 0.0 % (0.0-4.3) 12/06/21 10:05 Baso % (Auto) 0.1 % (0.0-1.8) 12/06/21 10:05 Lymph # (Auto) 0.6 K/mm3 (1.2-5.4) L 12/06/21 10:05 [place] # (Auto) 1.2 K/mm3 (0.0-0.8) H 12/06/21 10:05 Eos # (Auto) 0.0 K/mm3 (0.0-0.4) 12/06/21 10:05 Baso # (Auto) 0.0 K/mm3 (0.0-0.1) 12/06/21 10:05 Add Manual Diff Complete 12/09/21 07:31 Total Counted 100 12/09/21 07:31 Seg Neutrophils % Redevelopment Manager 12/09/21 07:31 Seg Neuts % (Manual) 93.0 % (40.0-70.0) H 12/09/21 07:31 Band Neutrophils % 0 % 12/09/21 07:31 Lymphocytes % (Manual) 2.0 % (13.4-35.0) L 12/09/21 07:31 Reactive Lymphs % (Man) 0 % 12/09/21 07:31 Monocytes % (Manual) 5.0 % (0.0-7.3) 12/09/21 07:31 Eosinophils % (Manual) 0 % (0.0-4.3) 12/09/21 07:31 Basophils % (Manual) 0 % (0.0-1.8) 12/09/21 07:31 Metamyelocytes % 0 % 12/09/21 07:31 Myelocytes % 0 % 12/09/21 07:31 Promyelocytes % 0 % 12/09/21 07:31 Blast Cells % 0 % 12/09/21 07:31 Nucleated RBC % Not Reportable 12/09/21 07:31 Seg Neutrophils # 15.1 K/mm3 (1.8-7.7) H 12/06/21 10:05 Seg Neutrophils # Man 15.5 K/mm3 (1.8-7.7) H 12/09/21 07:31 Band Neutrophils # 0.0 K/mm3 12/09/21 07:31 Lymphocytes # (Manual) 0.3 K/mm3 (1.2-5.4) L 12/09/21 07:31 Abs React Lymphs (Man) 0.0 K/mm3 12/09/21 07:31 Monocytes # (Manual) 0.8 K/mm3 (0.0-0.8) 12/09/21 07:31 Eosinophils # (Manual) 0.0 K/mm3 (0.0-0.4) 12/09/21 07:31 Basophils # (Manual) 0.0 K/mm3 (0.0-0.1) 12/09/21 07:31 Metamyelocytes # 0.0 K/mm3 12/09/21 07:31 Myelocytes # 0.0 K/mm3 12/09/21 07:31 Promyelocytes # 0.0 K/mm3 12/09/21 07:31 Blast Cells # 0.0 K/mm3 12/09/21 07:31 WBC Morphology Not Reportable 12/09/21 07:31 Hypersegmented Neuts Not Reportable 12/09/21 07:31 Hyposegmented Neuts Not Reportable 12/09/21 07:31 Hypogranular Neuts Not Reportable 12/09/21 07:31 Smudge Cells Not Reportable 12/09/21 07:31 Toxic Granulation Not Reportable 12/09/21 07:31 Toxic Vacuolation Not Reportable 12/09/21 07:31 Dohle Bodies Not Reportable 12/09/21 07:31 Pelger-Huet Anomaly Not Reportable 12/09/21 07:31 Merry Rods Not Reportable 12/09/21 07:31 Platelet Estimate Consistent w auto 12/09/21 07:31 Clumped Platelets Not Reportable 12/09/21 07:31 Plt Clumps, EDTA Not Reportable 12/09/21 07:31 Large Platelets Not Reportable 12/09/21 07:31 Giant Platelets Not Reportable 12/09/21 07:31 Platelet Satelliting Not Reportable 12/09/21 07:31 Plt Morphology Comment Not Reportable 12/09/21 07:31 RBC Morphology Normal 12/09/21 07:31 Dimorphic RBCs Not Reportable 12/09/21 07:31 Polychromasia Not Reportable 12/09/21 07:31 Hypochromasia Not Reportable 12/09/21 07:31 Poikilocytosis Not Reportable 12/09/21 07:31 Anisocytosis Not Reportable 12/09/21 07:31 Microcytosis Not Reportable 12/09/21 07:31 Macrocytosis Not Reportable 12/09/21 07:31 Spherocytes Not Reportable 12/09/21 07:31 Pappenheimer Bodies Not Reportable 12/09/21 07:31 Sickle Cells Not Reportable 12/09/21 07:31 Target Cells Not Reportable 12/09/21 07:31 Tear Drop Cells Not Reportable 12/09/21 07:31 Ovalocytes Not Reportable 12/09/21 07:31 Helmet Cells Not Reportable 12/09/21 07:31 Alan-Bowers Bodies Not Reportable 12/09/21 07:31 [place] Rings Not Reportable 12/09/21 07:31 Abdiel Cells Not Reportable 12/09/21 07:31 Bite Cells Not Reportable 12/09/21 07:31 Crenated Cell Not Reportable 12/09/21 07:31 Elliptocytes Not Reportable 12/09/21 07:31 Acanthocytes (Spur) Not Reportable 12/09/21 07:31 Rouleaux Not Reportable 12/09/21 07:31 Hemoglobin C Crystals Not Reportable 12/09/21 07:31 Schistocytes Not Reportable 12/09/21 07:31 Malaria parasites Not Reportable 12/09/21 07:31 Farhan Bodies Not Reportable 12/09/21 07:31 Hem Pathologist Commnt No 12/09/21 07:31 PT 18.5 Sec. (12.2-14.9) H 12/06/21 10:05 INR 1.37 (0.87-1.13) H 12/06/21 10:05 D-Dimer 7549.01 ng/mlDDU (0-234) H 12/07/21 20:13 ABG pH 7.430 pH Units (7.350-7.450) 12/08/21 16:12 ABG pCO2 33.8 mm Hg 12/08/21 16:12 ABG pO2 72.1 mm Hg (80.0-90.0) L 12/08/21 16:12 ABG HCO3 21.9 mmol/L (20.0-26.0) 12/08/21 16:12 ABG O2 Saturation 95.0 % (95.0-99.0) 12/08/21 16:12 ABG O2 Content 14.8 (0.0-44) 12/08/21 16:12 ABG Base Excess -1.8 mmol/L (-2.0-3.0) 12/08/21 16:12 ABG Hemoglobin 11.2 gm/dl (12.0-16.0) L 12/08/21 16:12 ABG Carboxyhemoglobin 1.1 % (0.0-5.0) 12/08/21 16:12 ABG Methemoglobin 0.4 % (0.0-1.5) 12/08/21 16:12 Oxyhemoglobin 93.6 % (95.0-99.0) L 12/08/21 16:12 FiO2 100 % 12/08/21 16:12 Sodium 162 mmol/L (137-145) H* 12/11/21 08:55 Potassium 3.9 mmol/L (3.6-5.0) 12/11/21 05:15 Chloride 122.2 mmol/L (98-107) H 12/11/21 05:15 Carbon Dioxide 28 mmol/L (22-30) 12/11/21 05:15 Anion Gap 16 mmol/L 12/11/21 05:15 BUN 43 mg/dL (7-17) H 12/11/21 05:15 Creatinine 0.7 mg/dL (0.6-1.2) 12/11/21 05:15 Estimated GFR > 60 ml/min 12/11/21 05:15 BUN/Creatinine Ratio 61 % 12/11/21 05:15 Glucose 212 mg/dL (65-100) H 12/11/21 05:15 POC Glucose 180 mg/dL (70-105) H 12/10/21 17:01 Calcium 9.3 mg/dL (8.4-10.2) 12/11/21 05:15 Magnesium 2.90 mg/dL (1.7-2.3) H 12/06/21 10:05 Total Bilirubin 0.60 mg/dL (0.1-1.2) 12/07/21 09:21 AST 22 units/L (5-40) 12/07/21 09:21 ALT 19 units/L (7-56) 12/07/21 09:21 Alkaline Phosphatase 136 units/L (35-129) H 12/07/21 09:21 Troponin T 0.019 ng/mL (0.00-0.029) 12/06/21 13:54 NT-Pro-B Natriuret Pep 6552 pg/mL (0-900) H 12/06/21 10:05 Total Protein 6.3 g/dL (6.3-8.2) 12/07/21 09:21 Albumin 3.4 g/dL (3.9-5) L 12/07/21 09:21 Albumin/Globulin Ratio 1.2 % 12/07/21 09:21 Procalcitonin 0.20 ng/mL (<0.15) 12/09/21 Unknown Nasal Screen MRSA (PCR) Negative (Negative) 12/08/21 Unknown Coronavirus (PCR) Negative (Negative) 12/07/21 08:25 Microbiology: Microbiology 12/06/21 13:54 Peripheral/Venous Blood Culture - Preliminary NO GROWTH AFTER 4 DAYS 12/06/21 13:54 Peripheral/Venous Blood Culture - Preliminary NO GROWTH AFTER 4 DAYS Sánchez/IV: Voiding Method Indwelling Catheter Active Medications - Current Medications Current Medications: Generic Name Dose Route Start Last Admin Trade Name Freq PRN Reason Stop Dose Admin Acetaminophen 650 mg 12/06/21 15:23 Acetaminophen 325 Mg Tab PO Q4H PRN Pain MILD(1-3)/Fever >100.5/ Albuterol 2.5 mg 12/09/21 08:44 Albuterol 2.5 Mg/3 Ml Nebu IH Q4H PRN Shortness Of Breath Albuterol/Ipratropium 1 ampul 12/09/21 14:00 12/11/21 08:05 Ipratropium/Albuterol Sulfate 3 Ml Ampul.Neb IH Not Given Q6HRT OVI Arformoterol Tartrate 15 mcg 12/09/21 20:00 12/11/21 08:04 Arformoterol 15 Mcg/2 Ml Nebu IH 15 mcg Q12HRT OVI Administration Aspirin 81 mg 12/06/21 16:00 12/11/21 09:27 Aspirin Ec 81 Mg Tab PO 81 mg QDAY OVI Administration Budesonide 0.5 mg 12/09/21 20:00 12/11/21 08:04 Budesonide 0.5 Mg/2 Ml Nebu IH 0.5 mg Q12HRT OVI Administration Calcium Carbonate/Glycine 1,250 mg 12/07/21 10:00 12/11/21 09:27 Calcium Carbonate 1250 Mg Tab PO 1,250 mg QDAY OVI Administration Cholecalciferol 1,000 unit 12/07/21 10:00 12/11/21 09:26 Cholecalciferol (Vit D3) 1000 Unit (25 Mcg) Tab PO 1,000 unit DAILY OVI Administration Clonazepam 0.5 mg 12/06/21 22:00 12/10/21 21:57 Clonazepam 0.5 Mg Tab PO 0.5 mg HS OVI Administration Cyanocobalamin 1,000 mcg 12/07/21 10:00 12/11/21 09:26 Cyanocobalamin (Vit B-12) 1000 Mcg Tab PO 1,000 mcg DAILY OVI Administration Dabigatran 150 mg 12/06/21 16:00 12/11/21 09:27 Dabigatran 150 Mg Cap PO 150 mg BID OVI Administration Protocol Digoxin 0.125 mg 12/11/21 10:00 12/11/21 09:26 Digoxin 0.125 Mg Tab PO 0.125 mg DAILY@1700 OVI Administration Diltiazem HCl 180 mg 12/06/21 16:00 12/11/21 09:27 Diltiazem Cd 180 Mg Cap PO 180 mg DAILY OVI Administration Haloperidol Lactate 5 mg 12/09/21 13:01 12/11/21 09:26 Haloperidol Lactate 5 Mg/1 Ml Inj IV 5 mg Q6H PRN Administration Agitation Methylprednisolone Sodium Succinate 80 mg 12/06/21 16:00 12/11/21 09:26 Methylprednisolone Sod Succinate 125 Mg/2 Ml Inj IV 80 mg Q8H OVI Administration Morphine Sulfate 2 mg 12/06/21 15:23 12/11/21 04:40 Morphine 2 Mg/1 Ml Inj IV 2 mg Q4H PRN Administration Pain, Moderate (4-6) Ondansetron HCl 4 mg 12/06/21 15:23 Ondansetron 4 Mg/2 Ml Inj IV Q8H PRN Nausea And Vomiting Oxycodone/Acetaminophen 1 tab 12/06/21 15:23 12/08/21 23:05 Oxycodone /Acetaminophen 5-325mg Tab PO 1 tab Q6H PRN Administration Pain, Moderate (4-6) Pantoprazole Sodium 20 mg 12/06/21 22:00 12/11/21 09:26 Pantoprazole 20 Mg Tab PO 20 mg BID OVI Administration Pravastatin Sodium 40 mg 12/06/21 22:00 12/10/21 21:57 Pravastatin 40 Mg Tab PO 40 mg QHS OVI Administration Quetiapine Fumarate 50 mg 12/09/21 15:00 12/11/21 09:26 Quetiapine 25 Mg Tab PO 50 mg BID OVI Administration Sodium Chloride 10 ml 12/06/21 22:00 12/11/21 09:25 Sodium Chloride 0.9% 10 Ml Flush Syringe IV 10 ml BID OVI Administration Sodium Chloride 10 ml 12/06/21 15:23 Sodium Chloride 0.9% 10 Ml Flush Syringe IV PRN PRN LINE FLUSH Thiamine HCl 100 mg 12/07/21 10:00 12/11/21 09:27 Thiamine 100 Mg Tab PO 100 mg QDAY OVI Administration Nutrition/Malnutrition Assess - Dietary Evaluation Nutrition/Malnutrition Findings: Nutrition Notes Start: 12/08/21 16:55 Freq: Status: Active Protocol: Document 12/10/21 17:39 BLAKE (Rec: 12/10/21 17:48 BLAKE [id number]) Nutrition Notes Initial or Follow up Brief Note Current Diagnosis COPD,Respiratory Failure, Hyperlipidemia Other Pertinent Diagnosis SOB, Atrial Fibrilation w/RVR, CHF, Bilateral Pneumonia, GERD. Current Diet Clear Liquids Diet (since L ). Height 5 ft 4 in Weight 76.7 kg [place] Body Weight (kg) 54.54 BMI 29.0 Weight change and time frame 3.3 Kg body weight loss reported in 2 days. Weight Status Overweight Subjective/Other Information RD consult for routine F/U on Dietary advancement. Diet advanced to [facility], no reports available on Pt's PO intake of meals at the time, will assess at F/U. Dietary supplementation needs will be assessed at F/U. Pt continues on NIV/Bi-PaP+. Percent of energy/protein needs met: Prescribed Clear Liquids Diet provides for energy/protein needs (590 Kcal/16 g) during LOS Nutrition Intervention Follow-Up By: 12/14/21 Additional Comments Continue monitoring food tolerance, %PO intake of meals , and BM.
--- NOTE | 2021-12-11 14:45 | Progress Note ---
Assessment and Plan - Patient Problems (1) Shortness of breath Current Visit: Yes Status: Acute Plan to address problem: Patient with COPD on home oxygen, admitted with shortness of breath and has dense right lower lobe and right middle lobe infiltrate. Presentation is consistent with acute pneumonia. A COVID-19 test is negative. Defer to internal medicine and pulmonary for further management of COPD exacerbation and acute pneumonia. (2) Atrial fibrillation Current Visit: Yes Status: Acute Plan to address problem: Patient has paroxysmal atrial fibrillation, was sinus rhythm on prior presentation in February 2021. Had been scheduled in the outpatients for cardioversion. With the onset of acute pneumonia, patient is currently not a candidate for mechanical rhythm control of the atrial fibrillation. We will continue rate control and oral anticoagulation with Pradaxa. We have added digoxin for rate control of atrial fibrillation. 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 Objective Vital Signs Temp Pulse Pulse Pulse Resp Resp BP 12/11/21 13:09 12/11/21 10:01 102 H 24 110/53 12/11/21 09:27 131 H 131/95 12/11/21 09:26 141 H 131/95 12/11/21 09:01 131 H 32 H 131/95 12/11/21 08:04 139 H 22 12/11/21 08:01 145 H 27 H 140/87 12/11/21 08:00 119 H 123 H 23 12/11/21 07:01 115 H 19 127/70 12/11/21 06:01 107 H 20 134/79 12/11/21 05:09 132 H 31 H 132/57 12/11/21 05:00 120 H 22 132/57 12/11/21 04:01 114 H 26 H 139/54 12/11/21 04:00 122 H 12/11/21 03:42 97.4 F L 12/11/21 03:20 123 H 23 12/11/21 03:00 125 H 36 H 144/86 12/11/21 02:01 129 H 27 H 139/90 12/11/21 02:00 108 H 30 H 12/11/21 01:01 111 H 25 H 129/88 12/11/21 00:27 129 H 21 107/73 12/11/21 00:00 105 H 120 H 22 107/73 12/10/21 23:55 129 H 101/69 12/10/21 23:30 99.0 F 12/10/21 23:01 135 H 20 101/69 12/10/21 22:19 121 H 21 125/67 12/10/21 22:00 126 H 33 H 125/67 12/10/21 21:00 142 H 22 131/74 12/10/21 20:47 12/10/21 20:44 120 H 43 H 12/10/21 20:41 135 H 42 H 131/76 12/10/21 20:00 127 H 35 H 131/76 12/10/21 19:53 98.7 F 12/10/21 19:45 131 H 12/10/21 19:41 131 H 32 H 12/10/21 19:01 115 H 36 H 137/86 12/10/21 18:00 129 H 34 H 139/91 12/10/21 17:38 98.5 F 12/10/21 17:13 131 H 142/91 12/10/21 17:00 136 H 32 H 142/91 12/10/21 16:05 120 H 33 H 130/67 12/10/21 16:00 120 H 114 H 27 H 133/61 12/10/21 15:00 133 H 25 H 130/67 Pulse Ox 12/11/21 13:09 92 12/11/21 10:01 93 12/11/21 09:27 12/11/21 09:26 12/11/21 09:01 88 12/11/21 08:04 91 12/11/21 08:01 95 12/11/21 08:00 96 12/11/21 07:01 96 12/11/21 06:01 95 12/11/21 05:09 96 12/11/21 05:00 94 12/11/21 04:01 96 12/11/21 04:00 12/11/21 03:42 12/11/21 03:20 96 12/11/21 03:00 91 12/11/21 02:01 92 12/11/21 02:00 95 12/11/21 01:01 93 12/11/21 00:27 94 12/11/21 00:00 94 12/10/21 23:55 12/10/21 23:30 12/10/21 23:01 93 12/10/21 22:19 93 12/10/21 22:00 94 12/10/21 21:00 94 12/10/21 20:47 93 12/10/21 20:44 12/10/21 20:41 93 12/10/21 20:00 93 12/10/21 19:53 12/10/21 19:45 12/10/21 19:41 96 12/10/21 19:01 93 12/10/21 18:00 91 12/10/21 17:38 12/10/21 17:13 12/10/21 17:00 91 12/10/21 16:05 92 12/10/21 16:00 95 12/10/21 15:00 92 - Physical Examination General: Other (Mild respiratory distress) HEENT: Positive: PERRL Neck: Positive: neck supple Cardiac: Positive: irregularly irregular Lungs: Positive: Decreased Breath Sounds Neuro: Positive: Grossly Intact Abdomen: Positive: Soft Skin: Positive: Clear Extremities: Absent: edema - Labs and Meds CBC 12/11/21 Range/Units 05:15 WBC 15.3 H (4.5-11.0) K/mm3 RBC 4.00 (3.65-5.03) M/mm3 Hgb 11.1 (10.1-14.3) gm/dl Hct 34.9 (30.3-42.9) % Plt Count 233 (140-440) K/mm3 Comprehensive Metabolic Panel 12/11/21 12/11/21 Range/Units 05:15 08:55 Sodium 162 H* D 162 H* (137-145) mmol/L Potassium 3.9 (3.6-5.0) mmol/L Chloride 122.2 H (98-107) mmol/L Carbon Dioxide 28 (22-30) mmol/L BUN 43 H (7-17) mg/dL Creatinine 0.7 (0.6-1.2) mg/dL Glucose 212 H (65-100) mg/dL Calcium 9.3 (8.4-10.2) mg/dL - Imaging and Cardiology EKG: report reviewed (Atrial fibrillation with rapid ventricular rate) - Allied health notes Allied health notes reviewed: nursing
--- NOTE | 2021-12-11 19:50 | Progress Note ---
Assessment and Plan 86-year-old female the past medical history of COPD on home oxygen, atrial fibrillation (pradaxa), and TIA presents to the hospital with complaints of respiratory distress. EMS reports that they were at the home 3 days ago for same complaint and patient refused transport at that time. Today upon EMS arrival patient was satting 50% on room air and had a A. fib heart rate in the 140s with respiratory distress. Patient was treated with albuterol 5 mg, Atrovent 0.5 mg, Solu-Medrol 125 mg, magnesium 2 g with some improvement in symptoms. Patient apparently declined CPAP in route to the hospital. She arrives with nonrebreather oxygen treatment with persistent tachypnea and signs of respiratory distress. BiPAP initiated upon arrival. Patient admitted to third floor. Patient is on BIPAP 16/6, rate 14,FIO2 100%. Patient still having increased work of breathing. Patient has slight history of smoking. Stopped smoking 30 years ago. Denies alcohol or drug abuse. 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 Patient is in IMCU. Patient sleeping. On BIPAP 16/8, rate 18, Fio2 100% and O2 saturation running 99%. No acute respiratory distress. Patient afebrile. Has leukocytosis.Blood pressure 133/74, pulse 112. Respirations 29. Chest xray 12/06/21 reported Diffuse bilateral pulmonary opacities Venous doppler studies of both extremities 12/07/21 reported no sonographic evidence of DVT. Chest xray 12/10/21 reported Moderate parenchymal opacities in both mid to lower lung zones have improved significantly. Patient is on I/V Solumedrol, Brovanna/Bdesonide aerosol treatments q 12 hours. Albuterol/atrovent aerosol treatments q 6 hours prn for shortness of breath., Pradaxa and protonix. I spent critical care time of 35 minutes review the chart, Talking to the patient, Examine the patient, review xrays and labs, talking to the nursing staff and respiratory therapy and work up a plan of treatment. - Patient Problems (1) Acute respiratory failure with hypoxia Current Visit: Yes Status: Acute Plan to address problem: BIPAP16/8, rate 18, FIO2 100%. Continue I/V solumedrol Brovanna/Budesonide aerosol treatments q 12 hours. Albuterol/atrovent aerosol treatments q 6 hours prn for shortness of breath. Continue Pradaxa Continue Protonix. (2) Bilateral pneumonia Current Visit: Yes Status: Acute Plan to address problem: Patient was on Zithromax and ceftriaxone. (3) Atrial fibrillation Current Visit: Yes Status: Acute Plan to address problem: On Pradaxa. Management as per cardiology. (4) COPD exacerbation Current Visit: Yes Status: Acute Plan to address problem: BIPAP 16/8, rate 18, FIO2 100%. Continue I/V solumedrol Brovanna/Budesonide aerosol treatments q 12 hours. Albuterol/atrovent aerosol treatments q 6 hours prn for shortness of breath. Continue Pradaxa Continue Protonix. (5) Pulmonary edema Current Visit: Yes Status: Acute Plan to address problem: Patient is on Lasix. Management as per cardiology. (6) CHF (congestive heart failure) Current Visit: Yes Status: Chronic Qualifiers: Heart failure type: combined systolic and diastolic Plan to address problem: Management as per cardiology. (7) GERD (gastroesophageal reflux disease) Current Visit: Yes Status: Chronic Qualifiers: Esophagitis presence: without esophagitis Qualified Code(s): K21.9 - Gastro-esophageal reflux disease without esophagitis Plan to address problem: Patient is on Protonix. Subjective Date of service: 12/11/21 Principal diagnosis: Right lower lobe pneumonia Interval history: 86-year-old female the past medical history of COPD on home oxygen, atrial fibrillation (pradaxa), and TIA presents to the hospital with complaints of respiratory distress. EMS reports that they were at the home 3 days ago for same complaint and patient refused transport at that time. Today upon EMS arrival patient was satting 50% on room air and had a A. fib heart rate in the 140s with respiratory distress. Patient was treated with albuterol 5 mg, Atrovent 0.5 mg, Solu-Medrol 125 mg, magnesium 2 g with some improvement in symptoms. Patient apparently declined CPAP in route to the hospital. She arrives with nonrebreather oxygen treatment with persistent tachypnea and signs of respiratory distress. BiPAP initiated upon arrival. Patient admitted to third floor. Patient is on BIPAP 16/6, rate 14,FIO2 100%. Patient still having increased work of breathing. Patient has slight history of smoking. Stopped smoking 30 years ago. Denies alcohol or drug abuse. 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 Patient is in IMCU. Patient sleeping. On BIPAP 16/8, rate 18, Fio2 100% and O2 saturation running 9 9%. No acute respiratory distress. Patient afebrile. Has leukocytosis.Blood pressure 133/74, pulse 112. Respirations 29. Chest xray 12/06/21 reported Diffuse bilateral pulmonary opacities Venous doppler studies of both extremities 12/07/21 reported no sonographic evidence of DVT. Chest xray 12/10/21 reported Moderate parenchymal opacities in both mid to lower lung zones have improved significantly. Patient is on I/V Solumedrol, Brovanna/Bdesonide aerosol treatments q 12 hours. Albuterol/atrovent aerosol treatments q 6 hours prn for shortness of breath., Pradaxa and protonix. Objective Vital Signs - 12hr 12/11/21 12/11/21 12/11/21 08:00 08:01 08:04 Temperature 98.1 F Pulse Rate 119 H 145 H Pulse Rate [ 139 H Anterior Bilateral Throughout] Pulse Rate [ 119 H From Monitor] Respiratory 17 27 H Rate Respiratory 22 Rate [Anterior Bilateral Throughout] Blood Pressure 140/87 O2 Sat by Pulse 98 95 91 Oximetry 12/11/21 12/11/21 12/11/21 09:01 09:26 09:27 Temperature Pulse Rate 131 H 141 H 131 H Pulse Rate [ Anterior Bilateral Throughout] Pulse Rate [ From Monitor] Respiratory 32 H Rate Respiratory Rate [Anterior Bilateral Throughout] Blood Pressure 131/95 131/95 131/95 O2 Sat by Pulse 88 Oximetry 12/11/21 12/11/21 12/11/21 10:01 11:00 12:00 Temperature 98.5 F Pulse Rate 102 H 124 H 117 H Pulse Rate [ Anterior Bilateral Throughout] Pulse Rate [ From Monitor] Respiratory 24 28 H 21 Rate Respiratory Rate [Anterior Bilateral Throughout] Blood Pressure 110/53 125/71 121/69 O2 Sat by Pulse 93 91 89 Oximetry 12/11/21 12/11/21 12/11/21 13:00 13:09 14:00 Temperature Pulse Rate 112 H 115 H Pulse Rate [ Anterior Bilateral Throughout] Pulse Rate [ From Monitor] Respiratory 31 H 30 H Rate Respiratory Rate [Anterior Bilateral Throughout] Blood Pressure 131/79 131/79 O2 Sat by Pulse 90 92 88 Oximetry 12/11/21 12/11/21 12/11/21 15:00 16:00 16:29 Temperature 98.7 F Pulse Rate 115 H 124 H 117 H Pulse Rate [ Anterior Bilateral Throughout] Pulse Rate [ From Monitor] Respiratory 23 26 H 26 H Rate Respiratory Rate [Anterior Bilateral Throughout] Blood Pressure 127/82 126/76 126/76 O2 Sat by Pulse 92 89 94 Oximetry 12/11/21 12/11/21 12/11/21 16:47 17:00 18:00 Temperature Pulse Rate 113 H 103 H 114 H Pulse Rate [ Anterior Bilateral Throughout] Pulse Rate [ From Monitor] Respiratory 18 29 H Rate Respiratory Rate [Anterior Bilateral Throughout] Blood Pressure 126/76 123/73 117/73 O2 Sat by Pulse 97 97 Oximetry 12/11/21 19:40 Temperature 98.3 F Pulse Rate Pulse Rate [ Anterior Bilateral Throughout] Pulse Rate [ From Monitor] Respiratory Rate Respiratory Rate [Anterior Bilateral Throughout] Blood Pressure O2 Sat by Pulse Oximetry Constitutional: no acute distress, asleep Eyes: non-icteric ENT: oropharynx moist Neck: supple, no JVD Effort: mildly labored Ascultation: Bilateral: rales (basilar inspiratory), rhonchi Percussion: Bilateral: not dull Cardiovascular: irregular rhythm Gastrointestinal: hypoactive bowel sounds, soft, non-tender, non-distended (protuberant) Integumentary: normal Extremities: no cyanosis, no edema, pink and warm, pulses normal, no ischemia or petechiae Neurologic: non-focal exam, pupils equal and round Psychiatric: other (Patient sleeping at this time.) CBC and BMP: 12/12/21 04:28 12/12/21 04:28 ABG, PT/INR, D-dimer: ABG ABG pH 7.430 pH Units (7.350-7.450) 12/08/21 16:12 ABG pCO2 33.8 mm Hg 12/08/21 16:12 ABG pO2 72.1 mm Hg (80.0-90.0) L 12/08/21 16:12 ABG O2 Saturation 95.0 % (95.0-99.0) 12/08/21 16:12 PT/INR, D-dimer PT 18.5 Sec. (12.2-14.9) H 12/06/21 10:05 INR 1.37 (0.87-1.13) H 12/06/21 10:05 D-Dimer 7549.01 ng/mlDDU (0-234) H 12/07/21 20:13 Abnormal lab findings: Abnormal Labs 12/06/21 12/06/21 12/06/21 10:05 10:05 10:05 WBC 16.9 H RDW 16.3 H Plt Count 473 H Lymph % (Auto) 3.3 L Lymph # (Auto) 0.6 L [place] # (Auto) 1.2 H Seg Neutrophils % 89.5 H Seg Neuts % (Manual) Lymphocytes % (Manual) Seg Neutrophils # 15.1 H Seg Neutrophils # Man Lymphocytes # (Manual) PT 18.5 H INR 1.37 H D-Dimer ABG pO2 ABG O2 Saturation ABG Base Excess ABG Hemoglobin Oxyhemoglobin Sodium Potassium 2.9 L* Chloride Carbon Dioxide 21 L BUN 20 H Creatinine Glucose 127 H POC Glucose Calcium Magnesium 2.90 H Alkaline Phosphatase 140 H NT-Pro-B Natriuret Pep Albumin 3.5 L 12/06/21 12/06/21 12/07/21 10:05 11:15 09:21 WBC RDW Plt Count Lymph % (Auto) Lymph # (Auto) [place] # (Auto) Seg Neutrophils % Seg Neuts % (Manual) Lymphocytes % (Manual) Seg Neutrophils # Seg Neutrophils # Man Lymphocytes # (Manual) PT INR D-Dimer ABG pO2 61.6 L ABG O2 Saturation 91.7 L ABG Base Excess ABG Hemoglobin 11.9 L Oxyhemoglobin 90.0 L Sodium Potassium 3.5 L D Chloride Carbon Dioxide 20 L BUN Creatinine 0.5 L Glucose 105 H POC Glucose Calcium 8.3 L Magnesium Alkaline Phosphatase 136 H NT-Pro-B Natriuret Pep 6552 H Albumin 3.4 L 12/07/21 12/07/21 12/08/21 12:50 20:13 16:12 WBC RDW Plt Count Lymph % (Auto) Lymph # (Auto) [place] # (Auto) Seg Neutrophils % Seg Neuts % (Manual) Lymphocytes % (Manual) Seg Neutrophils # Seg Neutrophils # Man Lymphocytes # (Manual) PT INR D-Dimer 7549.01 H ABG pO2 79.3 L 72.1 L ABG O2 Saturation ABG Base Excess -3.0 L ABG Hemoglobin 11.2 L Oxyhemoglobin 93.6 L Sodium Potassium Chloride Carbon Dioxide BUN Creatinine Glucose POC Glucose Calcium Magnesium Alkaline Phosphatase NT-Pro-B Natriuret Pep Albumin 12/08/21 12/09/21 12/09/21 23:14 07:31 07:31 WBC 16.7 H RDW 16.1 H Plt Count Lymph % (Auto) Lymph # (Auto) [place] # (Auto) Seg Neutrophils % Seg Neuts % (Manual) 93.0 H Lymphocytes % (Manual) 2.0 L Seg Neutrophils # Seg Neutrophils # Man 15.5 H Lymphocytes # (Manual) 0.3 L PT INR D-Dimer ABG pO2 ABG O2 Saturation ABG Base Excess ABG Hemoglobin Oxyhemoglobin Sodium 150 H Potassium Chloride 110.4 H Carbon Dioxide BUN 37 H Creatinine Glucose 183 H POC Glucose 179 H Calcium Magnesium Alkaline Phosphatase NT-Pro-B Natriuret Pep Albumin 12/10/21 12/10/21 12/11/21 00:09 17:01 05:15 WBC 15.3 H RDW 16.4 H Plt Count Lymph % (Auto) Lymph # (Auto) [place] # (Auto) Seg Neutrophils % Seg Neuts % (Manual) Lymphocytes % (Manual) Seg Neutrophils # Seg Neutrophils # Man Lymphocytes # (Manual) PT INR D-Dimer ABG pO2 ABG O2 Saturation ABG Base Excess ABG Hemoglobin Oxyhemoglobin Sodium Potassium Chloride Carbon Dioxide BUN Creatinine Glucose POC Glucose 166 H 180 H Calcium Magnesium Alkaline Phosphatase NT-Pro-B Natriuret Pep Albumin 12/11/21 12/11/21 12/11/21 05:15 08:55 09:13 WBC RDW Plt Count Lymph % (Auto) Lymph # (Auto) [place] # (Auto) Seg Neutrophils % Seg Neuts % (Manual) Lymphocytes % (Manual) Seg Neutrophils # Seg Neutrophils # Man Lymphocytes # (Manual) PT INR D-Dimer ABG pO2 ABG O2 Saturation ABG Base Excess ABG Hemoglobin Oxyhemoglobin Sodium 162 H* D 162 H* Potassium Chloride 122.2 H Carbon Dioxide BUN 43 H Creatinine Glucose 212 H POC Glucose 171 H Calcium Magnesium Alkaline Phosphatase NT-Pro-B Natriuret Pep Albumin 12/11/21 12/11/21 12/11/21 12:48 16:10 16:50 WBC RDW Plt Count Lymph % (Auto) Lymph # (Auto) [place] # (Auto) Seg Neutrophils % Seg Neuts % (Manual) Lymphocytes % (Manual) Seg Neutrophils # Seg Neutrophils # Man Lymphocytes # (Manual) PT INR D-Dimer ABG pO2 ABG O2 Saturation ABG Base Excess ABG Hemoglobin Oxyhemoglobin Sodium 164 H* Potassium Chloride Carbon Dioxide BUN Creatinine Glucose POC Glucose 174 H 167 H Calcium Magnesium Alkaline Phosphatase NT-Pro-B Natriuret Pep Albumin Chest x-ray: report reviewed, image reviewed Additional Studies: CHEST 1 VIEW 12/10/2021 1:36 PM INDICATION / CLINICAL INFORMATION: Bilateral Pneumonia. COMPARISON: 12/06/21. FINDINGS: SUPPORT DEVICES: There is a probable new right midline catheter with the tip overlying the right axilla. HEART / MEDIASTINUM: Unchanged. LUNGS / PLEURA: There are moderate patchy areas of groundglass parenchymal opacity in both mid to lower lung zones, right greater than left. Bilateral consolidation has shown significant improvement. There may be mild residual consolidation in the right midlung. No pleural effusion. No pneumothorax. ADDITIONAL FINDINGS: No significant additional findings. IMPRESSION: Moderate parenchymal opacities in both mid to lower lung zones have improved significantly. Allied health notes reviewed: nursing
[2021-12-11] MEDS: PRAVASTATIN 40 MG TAB PO SCH (21:27)
[2021-12-11] MEDS: clonazePAM 0.5 MG TAB PO SCH (21:27)
[2021-12-12] MEDS: IPRATROPIUM/ALBUTEROL SULFATE 3 ML AMPUL.NEB IH SCH ×4 (01:18→20:34)
[2021-12-12] MEDS: HALOPERIDOL LACTATE 5 MG/1 ML INJ IV PRN ×4 (02:22→20:39)
[2021-12-12 04:55] LABS: Hematocrit 35.8 % (30.3-42.9); Hemoglobin 11.2 gm/dl (10.1-14.3); Mean Corpuscular HGB Conc 31 % (30-34); Mean Corpuscular Volume 88 fl (79-97); Platelet Count 217 K/mm3 (140-440); Red Blood Count 4.06 M/mm3 (3.65-5.03); Red Cell Distribution Width 16.9 % (13.2-15.2)
[2021-12-12 05:14] LABS: Blood Urea Nitrogen 41 mg/dL (7-17); Calcium 8.7 mg/dL (8.4-10.2); Hemolysis Index 8
[2021-12-12 05:20] LABS: BUN/Creatinine Ratio 59
[2021-12-12] MEDS: methylPREDNISolone Sod Succinate 125 MG/2 ML INJ IV SCH ×3 (07:07→23:52)
[2021-12-12] MEDS: BUDESONIDE 0.5 MG/2 ML NEBU IH SCH ×2 (07:59→20:35)
[2021-12-12] MEDS: ARFORMOTEROL 15 MCG/2 ML NEBU IH SCH ×2 (07:59→20:34)
[2021-12-12] MEDS: CALCIUM CARBONATE 1250 MG TAB PO SCH (09:01)
[2021-12-12] MEDS: QUEtiapine 25 MG TAB PO SCH ×2 (09:01→22:33)
[2021-12-12] MEDS: CYANOCOBALAMIN (VIT B-12) 1000 MCG TAB PO SCH (09:01)
[2021-12-12] MEDS: ASPIRIN EC 81 MG TAB PO SCH (09:01)
[2021-12-12] MEDS: DABIGATRAN 150 MG CAP PO SCH ×2 (09:02→22:33)
[2021-12-12] MEDS: dilTIAZem CD 180 MG CAP PO SCH (09:02)
[2021-12-12] MEDS: PANTOPRAZOLE 20 MG TAB PO SCH ×2 (09:02→22:33)
[2021-12-12] MEDS: oxyCODONE /ACETAMINOPHEN 5-325MG TAB PO PRN (09:02)
[2021-12-12] MEDS: CHOLECALCIFEROL (VIT D3) 1000 UNIT (25 mcg) TAB PO SCH (09:02)
[2021-12-12] MEDS: THIAMINE 100 MG TAB PO SCH (09:03)
--- NOTE | 2021-12-12 09:21 | Progress Note ---
Assessment and Plan - Patient Problems (1) Atrial fibrillation Current Visit: Yes Status: Acute (2) COPD exacerbation Current Visit: Yes Status: Acute Subjective Date of service: 12/12/21 Principal diagnosis: Right lower lobe pneumonia Interval history: TACHYPNEIC Objective Vital Signs Temp Pulse Pulse Pulse Resp Resp BP 12/12/21 09:02 136 H 141/95 12/12/21 09:00 139 H 41 H 125/81 12/12/21 08:07 12/12/21 08:00 131 H 141 H 135 H 31 H 30 H 125/81 12/12/21 07:59 138 H 21 125/81 12/12/21 07:54 97.6 F 12/12/21 07:00 113 H 20 116/56 12/12/21 06:00 123 H 20 104/59 12/12/21 05:00 129 H 18 102/63 12/12/21 04:00 123 H 18 111/73 12/12/21 03:57 97.6 F 12/12/21 03:00 124 H 17 112/80 12/12/21 02:00 138 H 31 H 133/68 12/12/21 01:38 12/12/21 01:18 112 H 12 12/12/21 01:00 108 H 34 H 133/68 12/12/21 00:00 115 H 131 H 24 123/73 12/11/21 23:45 97.7 F 12/11/21 23:16 104 H 20 118/67 12/11/21 23:00 110 H 20 118/67 12/11/21 22:00 119 H 14 123/72 12/11/21 21:38 112 H 21 12/11/21 21:36 12/11/21 21:00 104 H 17 133/67 12/11/21 20:00 136 H 131 H 22 130/76 12/11/21 19:40 98.3 F 12/11/21 19:00 99 H 15 117/73 12/11/21 18:00 114 H 29 H 117/73 12/11/21 17:00 103 H 18 123/73 12/11/21 16:47 113 H 126/76 12/11/21 16:29 117 H 26 H 126/76 12/11/21 16:00 98.7 F 124 H 26 H 126/76 12/11/21 15:00 115 H 23 127/82 12/11/21 14:00 115 H 30 H 131/79 12/11/21 13:09 12/11/21 13:00 112 H 31 H 131/79 12/11/21 12:00 98.5 F 117 H 21 121/69 12/11/21 11:00 124 H 28 H 125/71 12/11/21 10:01 102 H 24 110/53 12/11/21 09:27 131 H 131/95 12/11/21 09:26 141 H 131/95 Pulse Ox 12/12/21 09:02 12/12/21 09:00 83 L 12/12/21 08:07 99 12/12/21 08:00 99 12/12/21 07:59 100 12/12/21 07:54 12/12/21 07:00 99 12/12/21 06:00 99 12/12/21 05:00 100 12/12/21 04:00 100 12/12/21 03:57 12/12/21 03:00 100 12/12/21 02:00 95 12/12/21 01:38 100 12/12/21 01:18 12/12/21 01:00 100 12/12/21 00:00 100 12/11/21 23:45 12/11/21 23:16 100 12/11/21 23:00 100 12/11/21 22:00 100 12/11/21 21:38 12/11/21 21:36 100 12/11/21 21:00 99 12/11/21 20:00 100 12/11/21 19:40 12/11/21 19:00 99 12/11/21 18:00 97 12/11/21 17:00 97 12/11/21 16:47 12/11/21 16:29 94 12/11/21 16:00 89 12/11/21 15:00 92 12/11/21 14:00 88 12/11/21 13:09 92 12/11/21 13:00 90 12/11/21 12:00 89 12/11/21 11:00 91 12/11/21 10:01 93 12/11/21 09:27 12/11/21 09:26 - Physical Examination General: Other (Mild respiratory distress) HEENT: Positive: PERRL Neck: Positive: neck supple Cardiac: Positive: Irregularly Regular, Tachycardia Lungs: Positive: Decreased Breath Sounds Neuro: Positive: Grossly Intact Abdomen: Positive: Soft Skin: Positive: Clear Extremities: Absent: edema - Labs and Meds CBC 12/12/21 Range/Units 04:28 WBC 17.8 H (4.5-11.0) K/mm3 RBC 4.06 (3.65-5.03) M/mm3 Hgb 11.2 (10.1-14.3) gm/dl Hct 35.8 (30.3-42.9) % Plt Count 217 (140-440) K/mm3 Comprehensive Metabolic Panel 12/11/21 12/11/21 12/11/21 Range/Units 08:55 16:10 21:41 Sodium 162 H* 164 H* 160 H (137-145) mmol/L Potassium (3.6-5.0) mmol/L Chloride (98-107) mmol/L Carbon Dioxide (22-30) mmol/L BUN (7-17) mg/dL Creatinine (0.6-1.2) mg/dL Glucose (65-100) mg/dL Calcium (8.4-10.2) mg/dL 12/12/21 Range/Units 04:28 Sodium 161 H* (137-145) mmol/L Potassium 3.8 (3.6-5.0) mmol/L Chloride 121.9 H (98-107) mmol/L Carbon Dioxide 28 (22-30) mmol/L BUN 41 H (7-17) mg/dL Creatinine 0.7 (0.6-1.2) mg/dL Glucose 195 H (65-100) mg/dL Calcium 8.7 (8.4-10.2) mg/dL - Imaging and Cardiology EKG: report reviewed (Atrial fibrillation with rapid ventricular rate) - Allied health notes Allied health notes reviewed: nursing
[2021-12-12] MEDS: MORPHINE 2 MG/1 ML INJ IV PRN ×2 (10:30→16:13)
[2021-12-12] MEDS: ALPRAZolam 1 MG TAB FEEDTUBE SCH ×2 (10:55→22:34)
--- NOTE | 2021-12-12 11:57 | Progress Note ---
Assessment and Plan Assessment and plan: 86-year-old female with history of COPD, atrial fibrillation, CHF and hyperlipidemia brought in by EMS for severe shortness of breath and low oxygen saturations with 50% improvement. Patient also atrial fibrillation with rapid ventricular rate of 140. Patient was treated with Solu-Medrol. Patient dec lined CPAP en route to the hospital. Patient arrived with nonrebreather oxygen treatment systemic tachypnea. Patient was initiated on BiPAP. No fever or chills. Cough productive of mucoid sputum present. 12/07/2021 Patient very short of breath in spite of BiPAP Patient to be transferred to [facility] Patient may need intubation Pulmonary informed December 08, 2021 Patient continues to be very short of breath Patient on BiPAP Slight improvement since yesterday 12/09: Patient seen and examined remains anxious. Patient is on high flow and nonrebreather and will likely continue to require BiPAP at nighttime. Will trial of low-dose Xanax 0.25. Cardiology and pulmonary input noted. Continue current management for severe COPD exacerbation with underlying pneumonia possible gram-negative. Will request records from [facility] and [facility]. Continue steroids no indication for weaning at this time except if otherwise noted by senior hris analyst. 12/10: Continue current management. Cardiology added digoxin to current management. Continue Haldol and morphine for symptomatic control of hypoxia. Will request psych consult to assist with anxiety. 12/11: Continue current management as outlined above. Still awaiting family to bring the advance care directive. Patient remains on BiPAP with interchangeable nonrebreather on high flow. Hypernatremia with a sodium level of 162 noted this morning. Patient started on water flushes at 300 cc every 6 hours with serial sodium level monitoring. Family at bedside discussed her poor prognosis with them in detail they verbalized understanding. The patient's daughter will be bringing her living will to help guide therapy. 12/12: Patient still requiring BiPAP. Appears very anxious on encounter today, initiated Xanax 1 mg NG twice daily. Discussed with granddaughter at bedside who agrees that patient's prognosis is very poor. Also discussed my encounter with patient earlier this morning with patient stating to myself and AUSTEN Leahy that she "Just wants to ". The granddaughter stated that the patient's daughter/POA is coming at 1300 today with patient's living will. She stated that the family is of the the sentiment that patient should be DNR/DNI and would not want any aggressive measures. I stated that I would discuss comfort measures with patient daughter when she comes to the hospital today. # Acute respiratory failure with hypoxia # Bilateral pneumonia #Hypernatremia #COPD exacerbation #Severe anxiety # Chronic atrial fibrillation Patient on Pradaxa and diltiazem. Initially rate was high but now controlled. # Hypokalemia Current Visit: Yes Status: Acute Plan to address problem: Supplemented. # CHF (congestive heart failure) Current Visit: Yes Status: Chronic Qualifiers: Heart failure type: combined systolic and diastolic Plan to address problem: On Lasix and Aldactone. Echocardiogram for ejection fraction. # leukocytosis without evidence of sepsis # Hyponatremia #GERD (gastroesophageal reflux disease) # Hyperlipidemia # DVT prophylaxis Current Visit: Yes Status: Acute Plan to address problem: On Pradaxa and GI prophylaxis. # anxious # advance care planning Current Visit: Yes Status: Acute Plan to address problem: Disease education conducted, care plan discussed, diagnosis discussed, prognosis discussed. Patient is full code. Patient acknowledges understanding and agreement with care plan. +30 minutes. The high probability of a clinically significant, sudden or life threatening deterioration of the [pulmonary, cardiac, neuro] system(s) required my full and direct attention, intervention and personal management. The aggregate critical care time was [40] minutes. This time is in addition to time spent performing re ported procedures but includes the following: [x] Data Review and interpretation [x] Patient assessment and monitoring of vital signs [x] Documentation [x] Medication orders and management History Interval history: Patient was seen and evaluated at bedside. She appeared very anxious appearing on my encounter. She was overlying BiPAP mask saturating in mid 90s. During my encounter with her she stated to myself and AUSTEN Leahy that she "Just wants to ". I asked her if she would want any aggressive measures in the form of CPR or intubation and the patient stated "No." It was very difficult to fully assess orientation as patient inconsistently participated on my examination and BiPAP mask obscured communication. I stated to the patient that I will await for her family/POA to present with accompanying living will documentation today and we will likely proceed to make her DNR. Hospitalist Physical - Physical exam Narrative exam: VITAL SIGNS: Reviewed. GENERAL: The patient appears normally developed, anxious, on BiPAP with sats in mid 90s. vital signs as documented. Very anxious appearing HEAD: No signs of head trauma. EYES: Pupils are equal. Extraocular motions intact. EARS: Hearing grossly intact. MOUTH: Oropharynx is normal. NECK: No adenopathy, no JVD. CHEST: Tachypnea chest with clear breath although diminished sounds bilaterally. No wheezes, rales, or rhonchi. CARDIAC: Irregularly irregular rate and rhythm tachycardia S1 and S2, without murmurs, gallops, or rubs. VASCULAR: No Edema. Peripheral pulses normal and equal in all extremities. ABDOMEN: Soft, non tender and non distended. No rebound or guarding, and no masses palpated. Bowel Sounds normal. MUSCULOSKELETAL: Good range of motion of all major joints. Extremities without clubbing, cyanosis or edema. NEUROLOGIC EXAM: Alert and oriented x 3 No focal sensory or strength deficits. Speech normal. Follows commands. PSYCHIATRIC: Mood anxious SKIN: detail exam as documented in skin assessment - Constitutional Vitals: Temp Pulse Resp BP Pulse Ox 97.6 F 103 H 18 95/58 97 12/12/21 07:54 12/12/21 11:00 12/12/21 11:00 12/12/21 11:00 12/12/21 11:00 General appearance: Present: no acute distress, well-nourished HEART Score - HEART Score Troponin: Troponin T 0.019 ng/mL (0.00-0.029) 12/06/21 13:54 Results - Labs CBC & Chem 7: 12/12/21 04:28 12/12/21 04:28 Labs: Laboratory Last Values WBC 17.8 K/mm3 (4.5-11.0) H 12/12/21 04:28 RBC 4.06 M/mm3 (3.65-5.03) 12/12/21 04:28 Hgb 11.2 gm/dl (10.1-14.3) 12/12/21 04:28 Hct 35.8 % (30.3-42.9) 12/12/21 04:28 MCV 88 fl (79-97) 12/12/21 04:28 MCH 28 pg (28-32) 12/12/21 04:28 MCHC 31 % (30-34) 12/12/21 04:28 RDW 16.9 % (13.2-15.2) H 12/12/21 04:28 Plt Count 217 K/mm3 (140-440) 12/12/21 04:28 Lymph % (Auto) 3.3 % (13.4-35.0) L 12/06/21 10:05 Dawson % (Auto) 7.1 % (0.0-7.3) 12/06/21 10:05 Eos % (Auto) 0.0 % (0.0-4.3) 12/06/21 10:05 Baso % (Auto) 0.1 % (0.0-1.8) 12/06/21 10:05 Lymph # (Auto) 0.6 K/mm3 (1.2-5.4) L 12/06/21 10:05 Dawson # (Auto) 1.2 K/mm3 (0.0-0.8) H 12/06/21 10:05 Eos # (Auto) 0.0 K/mm3 (0.0-0.4) 12/06/21 10:05 Baso # (Auto) 0.0 K/mm3 (0.0-0.1) 12/06/21 10:05 Add Manual Diff Complete 12/09/21 07:31 Total Counted 100 12/09/21 07:31 Seg Neutrophils % Sub Plant Manager 12/09/21 07:31 Seg Neuts % (Manual) 93.0 % (40.0-70.0) H 12/09/21 07:31 Band Neutrophils % 0 % 12/09/21 07:31 Lymphocytes % (Manual) 2.0 % (13.4-35.0) L 12/09/21 07:31 Reactive Lymphs % (Man) 0 % 12/09/21 07:31 Monocytes % (Manual) 5.0 % (0.0-7.3) 12/09/21 07:31 Eosinophils % (Manual) 0 % (0.0-4.3) 12/09/21 07:31 Basophils % (Manual) 0 % (0.0-1.8) 12/09/21 07:31 Metamyelocytes % 0 % 12/09/21 07:31 Myelocytes % 0 % 12/09/21 07:31 Promyelocytes % 0 % 12/09/21 07:31 Blast Cells % 0 % 12/09/21 07:31 Nucleated RBC % Not Reportable 12/09/21 07:31 Seg Neutrophils # 15.1 K/mm3 (1.8-7.7) H 12/06/21 10:05 Seg Neutrophils # Man 15.5 K/mm3 (1.8-7.7) H 12/09/21 07:31 Band Neutrophils # 0.0 K/mm3 12/09/21 07:31 Lymphocytes # (Manual) 0.3 K/mm3 (1.2-5.4) L 12/09/21 07:31 Abs React Lymphs (Man) 0.0 K/mm3 12/09/21 07:31 Monocytes # (Manual) 0.8 K/mm3 (0.0-0.8) 12/09/21 07:31 Eosinophils # (Manual) 0.0 K/mm3 (0.0-0.4) 12/09/21 07:31 Basophils # (Manual) 0.0 K/mm3 (0.0-0.1) 12/09/21 07:31 Metamyelocytes # 0.0 K/mm3 12/09/21 07:31 Myelocytes # 0.0 K/mm3 12/09/21 07:31 Promyelocytes # 0.0 K/mm3 12/09/21 07:31 Blast Cells # 0.0 K/mm3 12/09/21 07:31 WBC Morphology Not Reportable 12/09/21 07:31 Hypersegmented Neuts Not Reportable 12/09/21 07:31 Hyposegmented Neuts Not Reportable 12/09/21 07:31 Hypogranular Neuts Not Reportable 12/09/21 07:31 Smudge Cells Not Reportable 12/09/21 07:31 Toxic Granulation Not Reportable 12/09/21 07:31 Toxic Vacuolation Not Reportable 12/09/21 07:31 Dohle Bodies Not Reportable 12/09/21 07:31 Pelger-Huet Anomaly Not Reportable 12/09/21 07:31 Merry Rods Not Reportable 12/09/21 07:31 Platelet Estimate Consistent w auto 12/09/21 07:31 Clumped Platelets Not Reportable 12/09/21 07:31 Plt Clumps, EDTA Not Reportable 12/09/21 07:31 Large Platelets Not Reportable 12/09/21 07:31 Giant Platelets Not Reportable 12/09/21 07:31 Platelet Satelliting Not Reportable 12/09/21 07:31 Plt Morphology Comment Not Reportable 12/09/21 07:31 RBC Morphology Normal 12/09/21 07:31 Dimorphic RBCs Not Reportable 12/09/21 07:31 Polychromasia Not Reportable 12/09/21 07:31 Hypochromasia Not Reportable 12/09/21 07:31 Poikilocytosis Not Reportable 12/09/21 07:31 Anisocytosis Not Reportable 12/09/21 07:31 Microcytosis Not Reportable 12/09/21 07:31 Macrocytosis Not Reportable 12/09/21 07:31 Spherocytes Not Reportable 12/09/21 07:31 Pappenheimer Bodies Not Reportable 12/09/21 07:31 Sickle Cells Not Reportable 12/09/21 07:31 Target Cells Not Reportable 12/09/21 07:31 Tear Drop Cells Not Reportable 12/09/21 07:31 Ovalocytes Not Reportable 12/09/21 07:31 Helmet Cells Not Reportable 12/09/21 07:31 [place] Bodies Not Reportable 12/09/21 07:31 [place] Rings Not Reportable 12/09/21 07:31 Abdiel Cells Not Reportable 12/09/21 07:31 Bite Cells Not Reportable 12/09/21 07:31 Crenated Cell Not Reportable 12/09/21 07:31 Elliptocytes Not Reportable 12/09/21 07:31 Acanthocytes (Spur) Not Reportable 12/09/21 07:31 Rouleaux Not Reportable 12/09/21 07:31 Hemoglobin C Crystals Not Reportable 12/09/21 07:31 Schistocytes Not Reportable 12/09/21 07:31 Malaria parasites Not Reportable 12/09/21 07:31 Farhan Bodies Not Reportable 12/09/21 07:31 Hem Pathologist Commnt No 12/09/21 07:31 PT 18.5 Sec. (12.2-14.9) H 12/06/21 10:05 INR 1.37 (0.87-1.13) H 12/06/21 10:05 D-Dimer 7549.01 ng/mlDDU (0-234) H 12/07/21 20:13 ABG pH 7.430 pH Units (7.350-7.450) 12/08/21 16:12 ABG pCO2 33.8 mm Hg 12/08/21 16:12 ABG pO2 72.1 mm Hg (80.0-90.0) L 12/08/21 16:12 ABG HCO3 21.9 mmol/L (20.0-26.0) 12/08/21 16:12 ABG O2 Saturation 95.0 % (95.0-99.0) 12/08/21 16:12 ABG O2 Content 14.8 (0.0-44) 12/08/21 16:12 ABG Base Excess -1.8 mmol/L (-2.0-3.0) 12/08/21 16:12 ABG Hemoglobin 11.2 gm/dl (12.0-16.0) L 12/08/21 16:12 ABG Carboxyhemoglobin 1.1 % (0.0-5.0) 12/08/21 16:12 ABG Methemoglobin 0.4 % (0.0-1.5) 12/08/21 16:12 Oxyhemoglobin 93.6 % (95.0-99.0) L 12/08/21 16:12 FiO2 100 % 12/08/21 16:12 Sodium 161 mmol/L (137-145) H* 12/12/21 04:28 Potassium 3.8 mmol/L (3.6-5.0) 12/12/21 04:28 Chloride 121.9 mmol/L (98-107) H 12/12/21 04:28 Carbon Dioxide 28 mmol/L (22-30) 12/12/21 04:28 Anion Gap 16 mmol/L 12/12/21 04:28 BUN 41 mg/dL (7-17) H 12/12/21 04:28 Creatinine 0.7 mg/dL (0.6-1.2) 12/12/21 04:28 Estimated GFR > 60 ml/min 12/12/21 04:28 BUN/Creatinine Ratio 59 % 12/12/21 04:28 Glucose 195 mg/dL (65-100) H 12/12/21 04:28 POC Glucose 167 mg/dL (70-105) H 12/11/21 16:50 Calcium 8.7 mg/dL (8.4-10.2) 12/12/21 04:28 Magnesium 2.90 mg/dL (1.7-2.3) H 12/06/21 10:05 Total Bilirubin 0.60 mg/dL (0.1-1.2) 12/07/21 09:21 AST 22 units/L (5-40) 12/07/21 09:21 ALT 19 units/L (7-56) 12/07/21 09:21 Alkaline Phosphatase 136 units/L (35-129) H 12/07/21 09:21 Troponin T 0.019 ng/mL (0.00-0.029) 12/06/21 13:54 NT-Pro-B Natriuret Pep 6552 pg/mL (0-900) H 12/06/21 10:05 Total Protein 6.3 g/dL (6.3-8.2) 12/07/21 09:21 Albumin 3.4 g/dL (3.9-5) L 12/07/21 09:21 Albumin/Globulin Ratio 1.2 % 12/07/21 09:21 Procalcitonin 0.20 ng/mL (<0.15) 12/09/21 Unknown Nasal Screen MRSA (PCR) Negative (Negative) 12/08/21 Unknown Coronavirus (PCR) Negative (Negative) 12/07/21 08:25 Microbiology: Microbiology 12/06/21 13:54 Peripheral/Venous Blood Culture - Final NO GROWTH AFTER 5 DAYS 12/06/21 13:54 Peripheral/Venous Blood Culture - Final NO GROWTH AFTER 5 DAYS Sánchez/IV: Voiding Method Indwelling Catheter Active Medications - Current Medications Current Medications: Generic Name Dose Route Start Last Admin Trade Name Freq PRN Reason Stop Dose Admin Acetaminophen 650 mg 12/06/21 15:23 Acetaminophen 325 Mg Tab PO Q4H PRN Pain MILD(1-3)/Fever >100.5/ Albuterol 2.5 mg 12/09/21 08:44 Albuterol 2.5 Mg/3 Ml Nebu IH Q4H PRN Shortness Of Breath Albuterol/Ipratropium 1 ampul 12/09/21 14:00 12/12/21 07:59 Ipratropium/Albuterol Sulfate 3 Ml Ampul.Neb IH 1 ampul Q6HRT OVI Administration Alprazolam 1 mg 12/12/21 11:00 12/12/21 10:55 Alprazolam 1 Mg Tab FEEDTUBE 1 mg BID OVI Administration Arformoterol Tartrate 15 mcg 12/09/21 20:00 12/12/21 07:59 Arformoterol 15 Mcg/2 Ml Nebu IH 15 mcg Q12HRT OVI Administration Aspirin 81 mg 12/06/21 16:00 12/12/21 09:01 Aspirin Ec 81 Mg Tab PO 81 mg QDAY OVI Administration Budesonide 0.5 mg 12/09/21 20:00 12/12/21 07:59 Budesonide 0.5 Mg/2 Ml Nebu IH 0.5 mg Q12HRT OVI Administration Calcium Carbonate/Glycine 1,250 mg 12/07/21 10:00 12/12/21 09:01 Calcium Carbonate 1250 Mg Tab PO 1,250 mg QDAY OVI Administration Cholecalciferol 1,000 unit 12/07/21 10:00 12/12/21 09:02 Cholecalciferol (Vit D3) 1000 Unit (25 Mcg) Tab PO 1,000 unit DAILY OVI Administration Clonazepam 0.5 mg 12/06/21 22:00 12/11/21 21:27 Clonazepam 0.5 Mg Tab PO 0.5 mg HS OVI Administration Cyanocobalamin 1,000 mcg 12/07/21 10:00 12/12/21 09:01 Cyanocobalamin (Vit B-12) 1000 Mcg Tab PO 1,000 mcg DAILY OVI Administration Dabigatran 150 mg 12/06/21 16:00 12/12/21 09:02 Dabigatran 150 Mg Cap PO 150 mg BID OVI Administration Protocol Digoxin 0.125 mg 12/11/21 10:00 12/11/21 16:47 Digoxin 0.125 Mg Tab PO 0.125 mg DAILY@1700 OVI Administration Diltiazem HCl 60 mg 12/12/21 12:00 Diltiazem 60 Mg Tab FEEDTUBE Q6HR OVI Haloperidol Lactate 5 mg 12/09/21 13:01 12/12/21 07:40 Haloperidol Lactate 5 Mg/1 Ml Inj IV 5 mg Q6H PRN Administration Agitation Methylprednisolone Sodium Succinate 80 mg 12/06/21 16:00 12/12/21 07:07 Methylprednisolone Sod Succinate 125 Mg/2 Ml Inj IV 80 mg Q8H OVI Administration Morphine Sulfate 2 mg 12/06/21 15:23 12/12/21 10:30 Morphine 2 Mg/1 Ml Inj IV 2 mg Q4H PRN Administration Pain, Moderate (4-6) Ondansetron HCl 4 mg 12/06/21 15:23 Ondansetron 4 Mg/2 Ml Inj IV Q8H PRN Nausea And Vomiting Oxycodone/Acetaminophen 1 tab 12/06/21 15:23 12/12/21 09:02 Oxycodone /Acetaminophen 5-325mg Tab PO 1 tab Q6H PRN Administration Pain, Moderate (4-6) Pantoprazole Sodium 20 mg 12/06/21 22:00 12/12/21 09:02 Pantoprazole 20 Mg Tab PO 20 mg BID OVI Administration Pravastatin Sodium 40 mg 12/06/21 22:00 12/11/21 21:27 Pravastatin 40 Mg Tab PO 40 mg QHS OVI Administration Quetiapine Fumarate 50 mg 12/09/21 15:00 12/12/21 09:01 Quetiapine 25 Mg Tab PO 50 mg BID OVI Administration Sodium Chloride 10 ml 12/06/21 22:00 12/12/21 09:03 Sodium Chloride 0.9% 10 Ml Flush Syringe IV 10 ml BID OVI Administration Sodium Chloride 10 ml 12/06/21 15:23 Sodium Chloride 0.9% 10 Ml Flush Syringe IV PRN PRN LINE FLUSH Thiamine HCl 100 mg 12/07/21 10:00 12/12/21 09:03 Thiamine 100 Mg Tab PO 100 mg QDAY OVI Administration Nutrition/Malnutrition Assess - Dietary Evaluation Nutrition/Malnutrition Findings: Nutrition Notes Start: 12/08/21 16:55 Freq: Status: Active Protocol: Document 12/10/21 17:39 BLAKE (Rec: 12/10/21 17:48 BLAKE [id number]) Nutrition Notes Initial or Follow up Brief Note Current Diagnosis COPD,Respiratory Failure, Hyperlipidemia Other Pertinent Diagnosis SOB, Atrial Fibrilation w/RVR, CHF, Bilateral Pneumonia, GERD. Current Diet Clear Liquids Diet (since L ). Height 5 ft 4 in Weight 76.7 kg [place] Body Weight (kg) 54.54 BMI 29.0 Weight change and time frame 3.3 Kg body weight loss reported in 2 days. Weight Status Overweight Subjective/Other Information RD consult for routine F/U on Dietary advancement. Diet advanced to [facility], no reports available on Pt's PO intake of meals at the time, will assess at F/U. Dietary supplementation needs will be assessed at F/U. Pt continues on NIV/Bi-PaP+. Percent of energy/protein needs met: Prescribed Clear Liquids Diet provides for energy/protein needs (590 Kcal/16 g) during LOS Nutrition Intervention Follow-Up By: 12/14/21 Additional Comments Continue monitoring food tolerance, %PO intake of meals , and BM.
--- NOTE | 2021-12-12 12:20 | Progress Note ---
Assessment and Plan Acute hypoxemic respiratory failure Bilateral pneumonia (CAP) Atrial fibrillation with RVR Acute COPD exacerbation Acute Pulmonary edema AE-CHF GERD - attending to discuss further with family re: goals of care - continue BIPAP scheduled qhs with prn daytime use - scontinue Seroquel bwith prn Haldol 5mg IV q6h prn for agitation / delirium - free water for hyperkalemia via DHT - continue care as below otherwise; - continue full anticoagualation re: A-fib - still too unstable to send for CTA - Procalcitonin unremarkable - continue systemic steroids - continue diuresis while monitoring electrolytes - continue to wean supplemental oxygen to keep O2 sats > 90% - continue Bronchodilators (LIU & LABA) with pulm hygiene per RT - aspiration precautions - continue bronchodilators with pulmonary hygiene per RT - continue accuchecks with glycemic control per SSI (While critically ill target blood glucose of 140-180 mg/dL; avoid hypoglycemia) - avoid nephrotoxins, renally dose all medications - continue to avoid benzodiazepine's, reduce the possibility of delirium - AB's per ID rec's - Maintenance of sleep-wake cycle, avoid delirium - G.I. & VTE prophylaxis - PT/OT/ROM exercises - mobility protocols for pressure ulcer prophylaxis - Monitor hemodynamics closely - continue other care per attending / other consultants - discharge planning ongoing concurrently COVID SPECIFIC INTERVENTIONS - COVID-19 PCR negative .... Re-evaluate in am & prn CONDITION: CRITICAL PROGNOSIS: GUARDED CODE STATUS: FULL CODE The high probability of a clinically significant, sudden or life-threatening deterioration of the [respiratory, cardiovascular & neurologic] system(s) required my full and direct attention, intervention and personal management. The aggregate critical care time was [34] minutes without overlap. Time includes spent on; [x] Data Review and interpretation [x] Patient assessment and monitoring of vital signs [x] Documentation [x] Medication orders and management Subjective Date of service: 12/12/21 Principal diagnosis: AHRF; CAP; A-fib with RVR; AE-COPD; Acute Pulmonary edema; AE-CHF; GERD Interval history: Patient is seen today for: Acute hypoxemic respiratory failure; Pneumonia (CAP); A-fib with RVR; AE-COPD; Acute Pulmonary edema; AE-CHF; GERD Seen and examined at bedside; 24hour events reviewed; nursing and respiratory care staff consulted; no adverse overnight events reported to me; resting peacefully in bed; remains BIPAP dependent mostly; work of breathing increased despite FiO2 being down to 75%; she has expressed to her family that she wants to essentially go on hospice care and wants to change her CODE status Objective Vital Signs - 12hr 12/12/21 12/12/21 12/12/21 01:00 01:18 01:38 Temperature Pulse Rate 108 H Pulse Rate [ 112 H Anterior Bilateral Throughout] Pulse Rate [ From Monitor] Respiratory 34 H Rate Respiratory 12 Rate [Anterior Bilateral Throughout] Blood Pressure 133/68 O2 Sat by Pulse 100 100 Oximetry 12/12/21 12/12/21 12/12/21 02:00 03:00 03:57 Temperature 97.6 F Pulse Rate 138 H 124 H Pulse Rate [ Anterior Bilateral Throughout] Pulse Rate [ From Monitor] Respiratory 31 H 17 Rate Respiratory Rate [Anterior Bilateral Throughout] Blood Pressure 133/68 112/80 O2 Sat by Pulse 95 100 Oximetry 12/12/21 12/12/21 12/12/21 04:00 05:00 06:00 Temperature Pulse Rate 123 H 129 H 123 H Pulse Rate [ Anterior Bilateral Throughout] Pulse Rate [ From Monitor] Respiratory 18 18 20 Rate Respiratory Rate [Anterior Bilateral Throughout] Blood Pressure 111/73 102/63 104/59 O2 Sat by Pulse 100 100 99 Oximetry 12/12/21 12/12/21 12/12/21 07:00 07:54 07:59 Temperature 97.6 F Pulse Rate 113 H 138 H Pulse Rate [ Anterior Bilateral Throughout] Pulse Rate [ From Monitor] Respiratory 20 21 Rate Respiratory Rate [Anterior Bilateral Throughout] Blood Pressure 116/56 125/81 O2 Sat by Pulse 99 100 Oximetry 12/12/21 12/12/21 12/12/21 08:00 08:07 09:00 Temperature Pulse Rate 131 H 139 H Pulse Rate [ 141 H Anterior Bilateral Throughout] Pulse Rate [ 135 H From Monitor] Respiratory 31 H 41 H Rate Respiratory 30 H Rate [Anterior Bilateral Throughout] Blood Pressure 125/81 125/81 O2 Sat by Pulse 99 99 83 L Oximetry 12/12/21 12/12/21 12/12/21 09:02 10:00 11:00 Temperature Pulse Rate 136 H 117 H 103 H Pulse Rate [ Anterior Bilateral Throughout] Pulse Rate [ From Monitor] Respiratory 21 18 Rate Respiratory Rate [Anterior Bilateral Throughout] Blood Pressure 141/95 92/48 95/58 O2 Sat by Pulse 96 97 Oximetry 12/12/21 12:00 Temperature 97.7 F Pulse Rate 126 H Pulse Rate [ Anterior Bilateral Throughout] Pulse Rate [ 120 H From Monitor] Respiratory 16 Rate Respiratory Rate [Anterior Bilateral Throughout] Blood Pressure 93/60 O2 Sat by Pulse 94 Oximetry Constitutional: alert, appears uncomfortable, other (Having increased work of breathing ) Eyes: non-icteric ENT: oropharynx moist Neck: supple, no JVD Effort: mildly labored Ascultation: Bilateral: rales (basilar inspiratory), other (occasional accessory muscle use) Percussion: Bilateral: not dull Cardiovascular: regular rate and rhythm Gastrointestinal: hypoactive bowel sounds, soft, non-tender, non-distended (protuberant) Integumentary: normal Extremities: no cyanosis, no edema, pink and warm, pulses normal, no ischemia or petechiae Neurologic: normal mental status, non-focal exam, pupils equal and round, motor strength normal and Psychiatric: anxious CBC and BMP: 12/12/21 04:28 12/12/21 04:28 ABG, PT/INR, D-dimer: ABG ABG pH 7.430 pH Units (7.350-7.450) 12/08/21 16:12 ABG pCO2 33.8 mm Hg 12/08/21 16:12 ABG pO2 72.1 mm Hg (80.0-90.0) L 12/08/21 16:12 ABG O2 Saturation 95.0 % (95.0-99.0) 12/08/21 16:12 PT/INR, D-dimer PT 18.5 Sec. (12.2-14.9) H 12/06/21 10:05 INR 1.37 (0.87-1.13) H 12/06/21 10:05 D-Dimer 7549.01 ng/mlDDU (0-234) H 12/07/21 20:13 Abnormal lab findings: Abnormal Labs 12/06/21 12/06/21 12/06/21 10:05 10:05 10:05 WBC 16.9 H RDW 16.3 H Plt Count 473 H Lymph % (Auto) 3.3 L Lymph # (Auto) 0.6 L [place] # (Auto) 1.2 H Seg Neutrophils % 89.5 H Seg Neuts % (Manual) Lymphocytes % (Manual) Seg Neutrophils # 15.1 H Seg Neutrophils # Man Lymphocytes # (Manual) PT 18.5 H INR 1.37 H D-Dimer ABG pO2 ABG O2 Saturation ABG Base Excess ABG Hemoglobin Oxyhemoglobin Sodium Potassium 2.9 L* Chloride Carbon Dioxide 21 L BUN 20 H Creatinine Glucose 127 H POC Glucose Calcium Magnesium 2.90 H Alkaline Phosphatase 140 H NT-Pro-B Natriuret Pep Albumin 3.5 L 12/06/21 12/06/21 12/07/21 10:05 11:15 09:21 WBC RDW Plt Count Lymph % (Auto) Lymph # (Auto) [place] # (Auto) Seg Neutrophils % Seg Neuts % (Manual) Lymphocytes % (Manual) Seg Neutrophils # Seg Neutrophils # Man Lymphocytes # (Manual) PT INR D-Dimer ABG pO2 61.6 L ABG O2 Saturation 91.7 L ABG Base Excess ABG Hemoglobin 11.9 L Oxyhemoglobin 90.0 L Sodium Potassium 3.5 L D Chloride Carbon Dioxide 20 L BUN Creatinine 0.5 L Glucose 105 H POC Glucose Calcium 8.3 L Magnesium Alkaline Phosphatase 136 H NT-Pro-B Natriuret Pep 6552 H Albumin 3.4 L 12/07/21 12/07/21 12/08/21 12:50 20:13 16:12 WBC RDW Plt Count Lymph % (Auto) Lymph # (Auto) [place] # (Auto) Seg Neutrophils % Seg Neuts % (Manual) Lymphocytes % (Manual) Seg Neutrophils # Seg Neutrophils # Man Lymphocytes # (Manual) PT INR D-Dimer 7549.01 H ABG pO2 79.3 L 72.1 L ABG O2 Saturation ABG Base Excess -3.0 L ABG Hemoglobin 11.2 L Oxyhemoglobin 93.6 L Sodium Potassium Chloride Carbon Dioxide BUN Creatinine Glucose POC Glucose Calcium Magnesium Alkaline Phosphatase NT-Pro-B Natriuret Pep Albumin 12/08/21 12/09/21 12/09/21 23:14 07:31 07:31 WBC 16.7 H RDW 16.1 H Plt Count Lymph % (Auto) Lymph # (Auto) [place] # (Auto) Seg Neutrophils % Seg Neuts % (Manual) 93.0 H Lymphocytes % (Manual) 2.0 L Seg Neutrophils # Seg Neutrophils # Man 15.5 H Lymphocytes # (Manual) 0.3 L PT INR D-Dimer ABG pO2 ABG O2 Saturation ABG Base Excess ABG Hemoglobin Oxyhemoglobin Sodium 150 H Potassium Chloride 110.4 H Carbon Dioxide BUN 37 H Creatinine Glucose 183 H POC Glucose 179 H Calcium Magnesium Alkaline Phosphatase NT-Pro-B Natriuret Pep Albumin 12/10/21 12/10/21 12/11/21 00:09 17:01 05:15 WBC 15.3 H RDW 16.4 H Plt Count Lymph % (Auto) Lymph # (Auto) [place] # (Auto) Seg Neutrophils % Seg Neuts % (Manual) Lymphocytes % (Manual) Seg Neutrophils # Seg Neutrophils # Man Lymphocytes # (Manual) PT INR D-Dimer ABG pO2 ABG O2 Saturation ABG Base Excess ABG Hemoglobin Oxyhemoglobin Sodium Potassium Chloride Carbon Dioxide BUN Creatinine Glucose POC Glucose 166 H 180 H Calcium Magnesium Alkaline Phosphatase NT-Pro-B Natriuret Pep Albumin 12/11/21 12/11/21 12/11/21 05:15 08:55 09:13 WBC RDW Plt Count Lymph % (Auto) Lymph # (Auto) [place] # (Auto) Seg Neutrophils % Seg Neuts % (Manual) Lymphocytes % (Manual) Seg Neutrophils # Seg Neutrophils # Man Lymphocytes # (Manual) PT INR D-Dimer ABG pO2 ABG O2 Saturation ABG Base Excess ABG Hemoglobin Oxyhemoglobin Sodium 162 H* D 162 H* Potassium Chloride 122.2 H Carbon Dioxide BUN 43 H Creatinine Glucose 212 H POC Glucose 171 H Calcium Magnesium Alkaline Phosphatase NT-Pro-B Natriuret Pep Albumin 12/11/21 12/11/21 12/11/21 12:48 16:10 16:50 WBC RDW Plt Count Lymph % (Auto) Lymph # (Auto) [place] # (Auto) Seg Neutrophils % Seg Neuts % (Manual) Lymphocytes % (Manual) Seg Neutrophils # Seg Neutrophils # Man Lymphocytes # (Manual) PT INR D-Dimer ABG pO2 ABG O2 Saturation ABG Base Excess ABG Hemoglobin Oxyhemoglobin Sodium 164 H* Potassium Chloride Carbon Dioxide BUN Creatinine Glucose POC Glucose 174 H 167 H Calcium Magnesium Alkaline Phosphatase NT-Pro-B Natriuret Pep Albumin 12/11/21 12/12/21 12/12/21 21:41 04:28 04:28 WBC 17.8 H RDW 16.9 H Plt Count Lymph % (Auto) Lymph # (Auto) [place] # (Auto) Seg Neutrophils % Seg Neuts % (Manual) Lymphocytes % (Manual) Seg Neutrophils # Seg Neutrophils # Man Lymphocytes # (Manual) PT INR D-Dimer ABG pO2 ABG O2 Saturation ABG Base Excess ABG Hemoglobin Oxyhemoglobin Sodium 160 H 161 H* Potassium Chloride 121.9 H Carbon Dioxide BUN 41 H Creatinine Glucose 195 H POC Glucose Calcium Magnesium Alkaline Phosphatase NT-Pro-B Natriuret Pep Albumin Allied health notes reviewed: nursing
[2021-12-12] MEDS: dilTIAZem 60 MG TAB FEEDTUBE SCH ×3 (13:03→23:52)
--- NOTE | 2021-12-12 13:50 | Event Note ---
Date: 12/12/21 Spoke at length with both daughters of Tamar Goldstein at bedside. Discussed patient's case and clinical prognosis. I explained to them both that patient has severe end-stage COPD and overall clinical prognosis appears poor in the setting of multiple medical comorbidities. Thus far she has not responded to medical medical therapies administered this hospital admission. She has been escalating on her oxygen requirement and currently remains on BiPAP machine. The next step would be mechanical ventilation as she continues to progressively decline. The daughters expressed that they do not want any aggressive interventions in the form of intubation/mechanical ventilation or chest compressions. They also stated that they would like their mother to be comfortable and would like to look into comfort measures for their mother. I told him I would relay the sentiment to our case management will help initiate arrangements for hospice care. Arrangements likely will not be made until Tuesday. The daughter stated their preference would be for their mother to come home with hospice following along. I stated that I would make sure that this was communicated to our case management team. DNR paperwork was signed at bedside. CODE STATUS has been updated in the computer. CCT +30 minutes
[2021-12-12] MEDS: DIGOXIN 0.125 MG TAB PO SCH (17:08)
[2021-12-12] MEDS: clonazePAM 0.5 MG TAB PO SCH (22:33)
[2021-12-12] MEDS: PRAVASTATIN 40 MG TAB PO SCH (22:33)
[2021-12-13] MEDS: IPRATROPIUM/ALBUTEROL SULFATE 3 ML AMPUL.NEB IH SCH ×4 (02:15→19:47)
[2021-12-13] MEDS: dilTIAZem 60 MG TAB FEEDTUBE SCH ×3 (05:35→18:28)
[2021-12-13] MEDS ORDERED: DEXTROSE 50% IN WATER (25GM) 50 ML SYRINGE IV PRN (08:11)
--- NOTE | 2021-12-13 08:33 | Progress Note ---
Assessment and Plan Assessment and plan: HPI: 86-year-old female with history of COPD, atrial fibrillation, CHF and hyperlipidemia brought in by EMS for severe shortness of breath and low oxygen saturations with 50% improvement. Patient also atrial fibrillation with rapid ventricular rate of 140. Patient was treated with Solu-Medrol. Patient declined CPAP en route to the hospital. Patient arrived with nonrebreather oxygen treatment systemic tachypnea. Patient was initiated on BiPAP. No fever or chills. Cough productive of mucoid sputum present. CODE STATUS: DNR/AND hospital course: 12/07/2021 Patient very short of breath in spite of BiPAP Patient to be transferred to IMCU Patient may need intubation Pulmonary informed December 08, 2021 Patient continues to be very short of breath Patient on BiPAP Slight improvement since yesterday 12/09: Patient seen and examined remains anxious. Patient is on high flow and nonrebreather and will likely continue to require BiPAP at nighttime. Will tr ial of low-dose Xanax 0.25. Cardiology and pulmonary input noted. Continue current management for severe COPD exacerbation with underlying pneumonia possible gram-negative. Will request records from [facility] and [facility]. Continue steroids no indication for weaning at this time except if otherwise noted by loop tender. 12/10: Continue current management. Cardiology added digoxin to current management. Continue Haldol and morphine for symptomatic control of hypoxia. Will request psych consult to assist with anxiety. 12/11: Continue current management as outlined above. Still awaiting family to bring the advance care directive. Patient remains on BiPAP with interchangeable nonrebreather on high flow. Hypernatremia with a sodium level of 162 noted this morning. Patient started on water flushes at 300 cc every 6 hours with serial sodium level monitoring. Family at bedside discussed her poor prognosis with them in detail they verbalized understanding. The patient's daughter will be bringing her living will to help guide therapy. 12/12: Patient still requiring BiPAP. Appears very anxious on encounter today, initiated Xanax 1 mg NG twice daily. Discussed with granddaughter at bedside who agrees that patient's prognosis is very poor. Also discussed my encounter with patient earlier this morning with patient stating to myself and AUSTEN Leahy that she "Just wants to ". The granddaughter stated that the patient's daughter/POA is coming at 1300 today with patient's living will. She stated that the family is of the the sentiment that patient should be DNR/DNI and would not want any aggressive measures. I stated that I would discuss comfort measures with patient daughter when she comes to the hospital today. 12/13: Remains BIPAP dependent. HR better controlled, digoxin addition noted. Discussion with daughters yesterday regarding patient (please refer to event note). Patient now DNR/AND. Plan for home hospice arrangements, will discuss with cm tuesday. Assessment and Plan: # Acute respiratory failure with hypoxia # Bilateral pneumonia #Hypernatremia #COPD exacerbation #Severe anxiety # Chronic atrial fibrillation Patient on Pradaxa and diltiazem. Was initially scheduled for cardioversion OP, but hospitalized, now too unstable. Initially rate was high but now controlled. # Hypokalemia Current Visit: Yes Status: Acute Plan to address problem: Supplemented. # CHF (congestive heart failure) Current Visit: Yes Status: Chronic Qualifiers: Heart failure type: combined systolic and diastolic Plan to address problem: On Lasix and Aldactone. Echocardiogram for ejection fraction 60%. # leukocytosis without evidence of sepsis # Hyponatremia #GERD (gastroesophageal reflux disease) # Hyperlipidemia # DVT prophylaxis Current Visit: Yes Status: Acute Plan to address problem: On Pradaxa and GI prophylaxis. # anxious # advance care planning Current Visit: Yes Status: Acute Plan to address problem: Disease education conducted, care plan discussed, diagnosis discussed, prognosis discussed. Patient is full code. Patient acknowledges understanding and agreement with care plan. +30 minutes. The high probability of a clinically significant, sudden or life threatening deterioration of the [pulmonary, cardiac, neuro] system(s) required my full and direct attention, intervention and personal management. The aggregate critical care time was [40] minutes. This time is in addition to time spent performing reported procedures but includes the following: [x] Data Review and interpretation [x] Patient assessment and monitoring of vital signs [x] Documentation [x] Medication orders and management History Interval history: remains on bipap this AM. Not in any distress. Hospitalist Physical - Physical exam Narrative exam: VITAL SIGNS: Reviewed. GENERAL: The patient appears normally developed, anxious, on BiPAP with sats in mid 90s. vital signs as documented. Very anxious appearing HEAD: No signs of head trauma. EYES: Pupils are equal. Extraocular motions intact. EARS: Hearing grossly intact. MOUTH: Oropharynx is normal. NECK: No adenopathy, no JVD. CHEST: Tachypnea chest with clear breath although diminished sounds bilaterally. No wheezes, rales, or rhonchi. CARDIAC: Irregularly irregular rate and rhythm tachycardia S1 and S2, without murmurs, gallops, or rubs. VASCULAR: No Edema. Peripheral pulses normal and equal in all extremities. ABDOMEN: Soft, non tender and non distended. No rebound or guarding, and no masses palpated. Bowel Sounds normal. MUSCULOSKELETAL: Good range of motion of all major joints. Extremities without clubbing, cyanosis or edema. NEUROLOGIC EXAM: Alert and oriented x 3 No focal sensory or strength deficits. Speech normal. Follows commands. PSYCHIATRIC: Mood anxious SKIN: detail exam as documented in skin assessment - Constitutional Vitals: Temp Pulse Resp BP Pulse Ox 97.7 F 87 18 114/58 98 12/13/21 04:00 12/13/21 06:00 12/13/21 06:00 12/13/21 06:00 12/13/21 06:00 General appearance: Present: no acute distress, well-nourished HEART Score - HEART Score Troponin: Troponin T 0.019 ng/mL (0.00-0.029) 12/06/21 13:54 Results - Labs CBC & Chem 7: 12/12/21 04:28 12/12/21 04:28 Labs: Laboratory Last Values WBC 17.8 K/mm3 (4.5-11.0) H 12/12/21 04:28 RBC 4.06 M/mm3 (3.65-5.03) 12/12/21 04:28 Hgb 11.2 gm/dl (10.1-14.3) 12/12/21 04:28 Hct 35.8 % (30.3-42.9) 12/12/21 04:28 MCV 88 fl (79-97) 12/12/21 04:28 MCH 28 pg (28-32) 12/12/21 04:28 MCHC 31 % (30-34) 12/12/21 04:28 RDW 16.9 % (13.2-15.2) H 12/12/21 04:28 Plt Count 217 K/mm3 (140-440) 12/12/21 04:28 Lymph % (Auto) 3.3 % (13.4-35.0) L 12/06/21 10:05 [place] % (Auto) 7.1 % (0.0-7.3) 12/06/21 10:05 Eos % (Auto) 0.0 % (0.0-4.3) 12/06/21 10:05 Baso % (Auto) 0.1 % (0.0-1.8) 12/06/21 10:05 Lymph # (Auto) 0.6 K/mm3 (1.2-5.4) L 12/06/21 10:05 [place] # (Auto) 1.2 K/mm3 (0.0-0.8) H 12/06/21 10:05 Eos # (Auto) 0.0 K/mm3 (0.0-0.4) 12/06/21 10:05 Baso # (Auto) 0.0 K/mm3 (0.0-0.1) 12/06/21 10:05 Add Manual Diff Complete 12/09/21 07:31 Total Counted 100 12/09/21 07:31 Seg Neutrophils % Rv Mechanic 12/09/21 07:31 Seg Neuts % (Manual) 93.0 % (40.0-70.0) H 12/09/21 07:31 Band Neutrophils % 0 % 12/09/21 07:31 Lymphocytes % (Manual) 2.0 % (13.4-35.0) L 12/09/21 07:31 Reactive Lymphs % (Man) 0 % 12/09/21 07:31 Monocytes % (Manual) 5.0 % (0.0-7.3) 12/09/21 07:31 Eosinophils % (Manual) 0 % (0.0-4.3) 12/09/21 07:31 Basophils % (Manual) 0 % (0.0-1.8) 12/09/21 07:31 Metamyelocytes % 0 % 12/09/21 07:31 Myelocytes % 0 % 12/09/21 07:31 Promyelocytes % 0 % 12/09/21 07:31 Blast Cells % 0 % 12/09/21 07:31 Nucleated RBC % Not Reportable 12/09/21 07:31 Seg Neutrophils # 15.1 K/mm3 (1.8-7.7) H 12/06/21 10:05 Seg Neutrophils # Man 15.5 K/mm3 (1.8-7.7) H 12/09/21 07:31 Band Neutrophils # 0.0 K/mm3 12/09/21 07:31 Lymphocytes # (Manual) 0.3 K/mm3 (1.2-5.4) L 12/09/21 07:31 Abs React Lymphs (Man) 0.0 K/mm3 12/09/21 07:31 Monocytes # (Manual) 0.8 K/mm3 (0.0-0.8) 12/09/21 07:31 Eosinophils # (Manual) 0.0 K/mm3 (0.0-0.4) 12/09/21 07:31 Basophils # (Manual) 0.0 K/mm3 (0.0-0.1) 12/09/21 07:31 Metamyelocytes # 0.0 K/mm3 12/09/21 07:31 Myelocytes # 0.0 K/mm3 12/09/21 07:31 Promyelocytes # 0.0 K/mm3 12/09/21 07:31 Blast Cells # 0.0 K/mm3 12/09/21 07:31 WBC Morphology Not Reportable 12/09/21 07:31 Hypersegmented Neuts Not Reportable 12/09/21 07:31 Hyposegmented Neuts Not Reportable 12/09/21 07:31 Hypogranular Neuts Not Reportable 12/09/21 07:31 Smudge Cells Not Reportable 12/09/21 07:31 Toxic Granulation Not Reportable 12/09/21 07:31 Toxic Vacuolation Not Reportable 12/09/21 07:31 Dohle Bodies Not Reportable 12/09/21 07:31 Pelger-Huet Anomaly Not Reportable 12/09/21 07:31 Merry Rods Not Reportable 12/09/21 07:31 Platelet Estimate Consistent w auto 12/09/21 07:31 Clumped Platelets Not Reportable 12/09/21 07:31 Plt Clumps, EDTA Not Reportable 12/09/21 07:31 Large Platelets Not Reportable 12/09/21 07:31 Giant Platelets Not Reportable 12/09/21 07:31 Platelet Satelliting Not Reportable 12/09/21 07:31 Plt Morphology Comment Not Reportable 12/09/21 07:31 RBC Morphology Normal 12/09/21 07:31 Dimorphic RBCs Not Reportable 12/09/21 07:31 Polychromasia Not Reportable 12/09/21 07:31 Hypochromasia Not Reportable 12/09/21 07:31 Poikilocytosis Not Reportable 12/09/21 07:31 Anisocytosis Not Reportable 12/09/21 07:31 Microcytosis Not Reportable 12/09/21 07:31 Macrocytosis Not Reportable 12/09/21 07:31 Spherocytes Not Reportable 12/09/21 07:31 Pappenheimer Bodies Not Reportable 12/09/21 07:31 Sickle Cells Not Reportable 12/09/21 07:31 Target Cells Not Reportable 12/09/21 07:31 Tear Drop Cells Not Reportable 12/09/21 07:31 Ovalocytes Not Reportable 12/09/21 07:31 Helmet Cells Not Reportable 12/09/21 07:31 [place] Bodies Not Reportable 12/09/21 07:31 [place] Rings Not Reportable 12/09/21 07:31 Abdiel Cells Not Reportable 12/09/21 07:31 Bite Cells Not Reportable 12/09/21 07:31 Crenated Cell Not Reportable 12/09/21 07:31 Elliptocytes Not Reportable 12/09/21 07:31 Acanthocytes (Spur) Not Reportable 12/09/21 07:31 Rouleaux Not Reportable 12/09/21 07:31 Hemoglobin C Crystals Not Reportable 12/09/21 07:31 Schistocytes Not Reportable 12/09/21 07:31 Malaria parasites Not Reportable 12/09/21 07:31 Farhan Bodies Not Reportable 12/09/21 07:31 Hem Pathologist Commnt No 12/09/21 07:31 PT 18.5 Sec. (12.2-14.9) H 12/06/21 10:05 INR 1.37 (0.87-1.13) H 12/06/21 10:05 D-Dimer 7549.01 ng/mlDDU (0-234) H 12/07/21 20:13 ABG pH 7.430 pH Units (7.350-7.450) 12/08/21 16:12 ABG pCO2 33.8 mm Hg 12/08/21 16:12 ABG pO2 72.1 mm Hg (80.0-90.0) L 12/08/21 16:12 ABG HCO3 21.9 mmol/L (20.0-26.0) 12/08/21 16:12 ABG O2 Saturation 95.0 % (95.0-99.0) 12/08/21 16:12 ABG O2 Content 14.8 (0.0-44) 12/08/21 16:12 ABG Base Excess -1.8 mmol/L (-2.0-3.0) 12/08/21 16:12 ABG Hemoglobin 11.2 gm/dl (12.0-16.0) L 12/08/21 16:12 ABG Carboxyhemoglobin 1.1 % (0.0-5.0) 12/08/21 16:12 ABG Methemoglobin 0.4 % (0.0-1.5) 12/08/21 16:12 Oxyhemoglobin 93.6 % (95.0-99.0) L 12/08/21 16:12 FiO2 100 % 12/08/21 16:12 Sodium 161 mmol/L (137-145) H* 12/12/21 04:28 Potassium 3.8 mmol/L (3.6-5.0) 12/12/21 04:28 Chloride 121.9 mmol/L (98-107) H 12/12/21 04:28 Carbon Dioxide 28 mmol/L (22-30) 12/12/21 04:28 Anion Gap 16 mmol/L 12/12/21 04:28 BUN 41 mg/dL (7-17) H 12/12/21 04:28 Creatinine 0.7 mg/dL (0.6-1.2) 12/12/21 04:28 Estimated GFR > 60 ml/min 12/12/21 04:28 BUN/Creatinine Ratio 59 % 12/12/21 04:28 Glucose 195 mg/dL (65-100) H 12/12/21 04:28 POC Glucose 196 mg/dL (70-105) H 12/13/21 05:36 Calcium 8.7 mg/dL (8.4-10.2) 12/12/21 04:28 Magnesium 2.90 mg/dL (1.7-2.3) H 12/06/21 10:05 Total Bilirubin 0.60 mg/dL (0.1-1.2) 12/07/21 09:21 AST 22 units/L (5-40) 12/07/21 09:21 ALT 19 units/L (7-56) 12/07/21 09:21 Alkaline Phosphatase 136 units/L (35-129) H 12/07/21 09:21 Troponin T 0.019 ng/mL (0.00-0.029) 12/06/21 13:54 NT-Pro-B Natriuret Pep 6552 pg/mL (0-900) H 12/06/21 10:05 Total Protein 6.3 g/dL (6.3-8.2) 12/07/21 09:21 Albumin 3.4 g/dL (3.9-5) L 12/07/21 09:21 Albumin/Globulin Ratio 1.2 % 12/07/21 09:21 Procalcitonin 0.20 ng/mL (<0.15) 12/09/21 Unknown Nasal Screen MRSA (PCR) Negative (Negative) 12/08/21 Unknown Coronavirus (PCR) Negative (Negative) 12/07/21 08:25 Sánchez/IV: Voiding Method Indwelling Catheter Active Medications - Current Medications Current Medications: Generic Name Dose Route Start Last Admin Trade Name Freq PRN Reason Stop Dose Admin Acetaminophen 650 mg 12/06/21 15:23 Acetaminophen 325 Mg Tab PO Q4H PRN Pain MILD(1-3)/Fever >100.5/ Albuterol 2.5 mg 12/09/21 08:44 Albuterol 2.5 Mg/3 Ml Nebu IH Q4H PRN Shortness Of Breath Albuterol/Ipratropium 1 ampul 12/09/21 14:00 12/13/21 02:15 Ipratropium/Albuterol Sulfate 3 Ml Ampul.Neb IH 1 ampul Q6HRT OVI Administration Alprazolam 1 mg 12/12/21 11:00 12/12/21 22:34 Alprazolam 1 Mg Tab FEEDTUBE 1 mg BID OVI Administration Arformoterol Tartrate 15 mcg 12/09/21 20:00 12/12/21 20:34 Arformoterol 15 Mcg/2 Ml Nebu IH 15 mcg Q12HRT OVI Administration Aspirin 81 mg 12/06/21 16:00 12/12/21 09:01 Aspirin Ec 81 Mg Tab PO 81 mg QDAY OVI Administration Budesonide 0.5 mg 12/09/21 20:00 12/12/21 20:35 Budesonide 0.5 Mg/2 Ml Nebu IH 0.5 mg Q12HRT OVI Administration Calcium Carbonate/Glycine 1,250 mg 12/07/21 10:00 12/12/21 09:01 Calcium Carbonate 1250 Mg Tab PO 1,250 mg QDAY OVI Administration Cholecalciferol 1,000 unit 12/07/21 10:00 12/12/21 09:02 Cholecalciferol (Vit D3) 1000 Unit (25 Mcg) Tab PO 1,000 unit DAILY OVI Administration Clonazepam 0.5 mg 12/06/21 22:00 12/12/21 22:33 Clonazepam 0.5 Mg Tab PO 0.5 mg HS OVI Administration Cyanocobalamin 1,000 mcg 12/07/21 10:00 12/12/21 09:01 Cyanocobalamin (Vit B-12) 1000 Mcg Tab PO 1,000 mcg DAILY OVI Administration Dabigatran 150 mg 12/06/21 16:00 12/12/21 22:33 Dabigatran 150 Mg Cap PO 150 mg BID OVI Administration Protocol Dextrose 50 ml 12/13/21 08:11 Dextrose 50% In Water (25gm) 50 Ml Syringe IV Q30MIN PRN Hypoglycemia Protocol Digoxin 0.125 mg 12/11/21 10:00 12/12/21 17:08 Digoxin 0.125 Mg Tab PO 0.125 mg DAILY@1700 OVI Administration Diltiazem HCl 60 mg 12/12/21 12:00 12/13/21 05:35 Diltiazem 60 Mg Tab FEEDTUBE 60 mg Q6HR OVI Administration Haloperidol Lactate 5 mg 12/09/21 13:01 12/12/21 20:39 Haloperidol Lactate 5 Mg/1 Ml Inj IV 5 mg Q6H PRN Administration Agitation Insulin Human Lispro 0 unit 12/13/21 11:30 Insulin Lispro 100 Unit/Ml SUB-Q ACHS [facility] Protocol Methylprednisolone Sodium Succinate 80 mg 12/06/21 16:00 12/12/21 23:52 Methylprednisolone Sod Succinate 125 Mg/2 Ml Inj IV 80 mg Q8H OVI Administration Morphine Sulfate 2 mg 12/06/21 15:23 12/12/21 16:13 Morphine 2 Mg/1 Ml Inj IV 2 mg Q4H PRN Administration Pain, Moderate (4-6) Ondansetron HCl 4 mg 12/06/21 15:23 Ondansetron 4 Mg/2 Ml Inj IV Q8H PRN Nausea And Vomiting Oxycodone/Acetaminophen 1 tab 12/06/21 15:23 12/12/21 09:02 Oxycodone /Acetaminophen 5-325mg Tab PO 1 tab Q6H PRN Administration Pain, Moderate (4-6) Pantoprazole Sodium 20 mg 12/06/21 22:00 12/12/21 22:33 Pantoprazole 20 Mg Tab PO 20 mg BID OVI Administration Pravastatin Sodium 40 mg 12/06/21 22:00 12/12/21 22:33 Pravastatin 40 Mg Tab PO 40 mg QHS OVI Administration Quetiapine Fumarate 50 mg 12/09/21 15:00 12/12/21 22:33 Quetiapine 25 Mg Tab PO 50 mg BID OVI Administration Sodium Chloride 10 ml 12/06/21 22:00 12/12/21 22:34 Sodium Chloride 0.9% 10 Ml Flush Syringe IV 10 ml BID OVI Administration Sodium Chloride 10 ml 12/06/21 15:23 Sodium Chloride 0.9% 10 Ml Flush Syringe IV PRN PRN LINE FLUSH Thiamine HCl 100 mg 12/07/21 10:00 12/12/21 09:03 Thiamine 100 Mg Tab PO 100 mg QDAY OVI Administration Nutrition/Malnutrition Assess - Dietary Evaluation Nutrition/Malnutrition Findings: Nutrition Notes Start: 12/08/21 16:55 Freq: Status: Active Protocol: Document 12/12/21 12:12 JOSE EDUARDO (Rec: 12/12/21 12:23 [facility] [id number]) Nutrition Notes Need for Assessment generated from: MD Order Initial or Follow up Reassessment Current Diagnosis COPD,Heart Failure,Respiratory Failure,Hyperlipidemia Other Pertinent Diagnosis Bilat pneu, Hypernatremia, severe anxiety, chronic afib, GERD Current Diet Cl liq Labs/Tests Na 161 BUN 41 BG 195 Pertinent Medications Xanax BID, Oscal, Vit B12, Solumedrol, Vit B1 Height 5 ft 4 in Weight 75.4 kg [place] Body Weight (kg) 54.54 BMI 28.5 Weight Status Overweight Subjective/Other Information RD consulted for NPO status ( despite current order for cl liq diet). Pt on continuous BiPap support and with a very poor prognosis. She receives 300ml water flush q6h via NGT. MD to discuss comfort measures with her family today . Burn Absent Trauma Absent Minimum of two criteria No Energy Intake (severe) < or equal to 50% Estimated Energy Requirement > or equal to 5 days #1 Nutrition Diagnosis Inadequate oral intake Etiology respiratory failure; need for continuous BiPap therapy As Evidenced by Signs and Symptoms pt unable to tolerate PO intake at this time Is patient on ventilator? No Is Patient Ambulatory and/or Out of Bed No REE-(Pitts-St. Jeor-confined to bed) 3736.252 Calculation Used for Recommendations Pitts-St Jeor Additional Notes Pro needs 1-1.2g/k-90g/ day Fluid needs per MD. Nutrition Intervention Change Diet Order: PO diet as tolerated Nutrition Support: Consider NTR support if unable to tolerate/consume adequate PO Goal #1 PO tolerance Goal #2 Start NTR support in PO intake remains suboptimal Anticipated Discharge Needs: Unable to identify at this time Follow-Up By: 12/14/21 Additional Comments F/U: POC
[2021-12-13] MEDS: BUDESONIDE 0.5 MG/2 ML NEBU IH SCH ×2 (08:50→19:47)
[2021-12-13] MEDS: ARFORMOTEROL 15 MCG/2 ML NEBU IH SCH ×2 (08:55→19:47)
--- NOTE | 2021-12-13 09:32 | Progress Note ---
Assessment and Plan - Patient Problems (1) Atrial fibrillation Current Visit: Yes Status: Acute (2) COPD exacerbation Current Visit: Yes Status: Acute Subjective Date of service: 12/13/21 Principal diagnosis: AHRF; CAP; A-fib with RVR; AE-COPD; Acute Pulmonary edema; AE-CHF; GERD Interval history: TACHYPNEIC Objective Vital Signs Temp Pulse Pulse Pulse Resp Resp BP 12/13/21 06:00 87 18 114/58 12/13/21 05:35 118 H 125/71 12/13/21 05:00 118 H 20 125/71 12/13/21 04:00 97.7 F 86 114 H 15 113/57 12/13/21 03:00 100 H 17 124/63 12/13/21 02:15 93 H 18 12/13/21 02:00 94 H 17 110/63 12/13/21 01:00 113 H 17 115/53 12/13/21 00:05 115 H 27 H 116/47 12/13/21 00:02 104 H 17 116/51 12/13/21 00:00 97.8 F 100 H 16 116/51 12/12/21 23:52 117 H 111/63 12/12/21 23:00 103 H 17 128/66 12/12/21 22:00 99 H 15 118/63 12/12/21 21:00 117 H 14 111/63 12/12/21 20:30 104 H 22 120/66 12/12/21 20:15 117 H 21 12/12/21 20:00 97.5 F L 122 H 114 H 16 120/66 12/12/21 19:00 100 H 14 120/73 12/12/21 18:00 109 H 13 111/53 12/12/21 17:09 109 H 127/64 12/12/21 17:08 112 H 127/64 12/12/21 17:00 116 H 18 127/64 12/12/21 16:00 109 H 143 H 18 116/66 12/12/21 15:49 97.5 F L 12/12/21 15:40 112 H 34 H 12/12/21 15:30 104 H 22 118/60 12/12/21 15:20 121 H 12/12/21 15:00 114 H 22 106/55 12/12/21 14:00 101 H 15 104/51 12/12/21 13:03 129 H 111/51 12/12/21 13:00 130 H 16 115/66 12/12/21 12:00 97.7 F 126 H 120 H 16 93/60 12/12/21 11:00 103 H 18 95/58 12/12/21 10:00 117 H 21 92/48 Pulse Ox 12/13/21 06:00 98 12/13/21 05:35 12/13/21 05:00 97 12/13/21 04:00 98 12/13/21 03:00 97 12/13/21 02:15 12/13/21 02:00 97 12/13/21 01:00 96 12/13/21 00:05 96 12/13/21 00:02 97 12/13/21 00:00 97 12/12/21 23:52 12/12/21 23:00 97 12/12/21 22:00 96 12/12/21 21:00 95 12/12/21 20:30 96 12/12/21 20:15 12/12/21 20:00 97 12/12/21 19:00 96 12/12/21 18:00 95 12/12/21 17:09 12/12/21 17:08 12/12/21 17:00 95 12/12/21 16:00 97 12/12/21 15:49 12/12/21 15:40 12/12/21 15:30 96 12/12/21 15:20 12/12/21 15:00 96 12/12/21 14:00 96 12/12/21 13:03 12/12/21 13:00 95 12/12/21 12:00 94 12/12/21 11:00 97 12/12/21 10:00 96 - Physical Examination General: Other (Mild respiratory distress) HEENT: Positive: PERRL Neck: Positive: neck supple Cardiac: Positive: Irregularly Regular Lungs: Positive: Decreased Breath Sounds Neuro: Positive: Grossly Intact, Other (nonverbal) Abdomen: Positive: Soft Skin: Positive: Clear Extremities: Absent: edema - Imaging and Cardiology EKG: report reviewed (Atrial fibrillation with rapid ventricular rate) - Allied health notes Allied health notes reviewed: nursing
[2021-12-13] MEDS: methylPREDNISolone Sod Succinate 125 MG/2 ML INJ IV SCH ×2 (09:51→18:03)
[2021-12-13] MEDS: CYANOCOBALAMIN (VIT B-12) 1000 MCG TAB PO SCH (09:51)
[2021-12-13] MEDS: CALCIUM CARBONATE 1250 MG TAB PO SCH (09:51)
[2021-12-13] MEDS: ALPRAZolam 1 MG TAB FEEDTUBE SCH ×2 (09:51→21:45)
[2021-12-13] MEDS: ASPIRIN EC 81 MG TAB PO SCH (09:52)
[2021-12-13] MEDS: CHOLECALCIFEROL (VIT D3) 1000 UNIT (25 mcg) TAB PO SCH (09:52)
[2021-12-13] MEDS: QUEtiapine 25 MG TAB PO SCH ×2 (09:52→21:44)
[2021-12-13] MEDS: PANTOPRAZOLE 20 MG TAB PO SCH ×2 (09:52→21:45)
[2021-12-13] MEDS: DABIGATRAN 150 MG CAP PO SCH ×2 (09:52→21:44)
[2021-12-13] MEDS: THIAMINE 100 MG TAB PO SCH (09:52)
[2021-12-13] MEDS: INSULIN LISPRO 100 UNIT/ML SUB-Q SCH ×2 (13:23→18:02)
--- NOTE | 2021-12-13 15:01 | Progress Note ---
Assessment and Plan Acute hypoxemic respiratory failure Bilateral pneumonia (CAP) Atrial fibrillation with RVR Acute COPD exacerbation Acute Pulmonary edema AE-CHF GERD - hospice care consult - continue BIPAP scheduled qhs with prn daytime use (RTC use for now) - continue care as below otherwise; - scontinue Seroquel with prn Haldol 5mg IV q6h prn for agitation / delirium - free water for hyperkalemia via DHT - continue full anticoagualation re: A-fib - still too unstable to send for CTA - continue systemic steroids - continue diuresis while monitoring electrolytes - continue to wean supplemental oxygen to keep O2 sats > 90% - continue Bronchodilators (LIU & LABA) with pulm hygiene per RT - aspiration precautions - continue bronchodilators with pulmonary hygiene per RT - continue accuchecks with glycemic control per SSI (While critically ill target blood glucose of 140-180 mg/dL; avoid hypoglycemia) - avoid nephrotoxins, renally dose all medications - continue to avoid benzodiazepine's, reduce the possibility of delirium - AB's per ID rec's - Maintenance of sleep-wake cycle, avoid delirium - G.I. & VTE prophylaxis - PT/OT/ROM exercises - mobility protocols for pressure ulcer prophylaxis - Monitor hemodynamics closely - continue other care per attending / other consultants - discharge planning ongoing concurrently COVID SPECIFIC INTERVENTIONS - COVID-19 PCR negative .... Re-evaluate in am & prn CONDITION: CRITICAL PROGNOSIS: GUARDED CODE STATUS: FULL CODE The high probability of a clinically significant, sudden or life-threatening deterioration of the [respiratory, cardiovascular & neurologic] system(s) required my full and direct attention, intervention and personal management. The aggregate critical care time was [32] minutes without overlap. Time includes spent on; [x] Data Review and interpretation [x] Patient assessment and monitoring of vital signs [x] Documentation [x] Medication orders and management Subjective Date of service: 12/13/21 Principal diagnosis: AHRF; CAP; A-fib with RVR; AE-COPD; Acute Pulmonary edema; AE-CHF; GERD Interval history: Patient is seen today for: Acute hypoxemic respiratory failure; Pneumonia (CAP); A-fib with RVR; AE-COPD; Acute Pulmonary edema; AE-CHF; GERD Seen and examined at bedside; 24hour events reviewed; nursing and respiratory care staff consulted; no adverse overnight events reported to me; resting peacefully in bed; remains BIPAP dependent; family visiting; she has apparently decided on home hospice care Objective Vital Signs - 12hr 12/13/21 12/13/21 12/13/21 04:00 05:00 05:35 Temperature 97.7 F Pulse Rate 86 118 H 118 H Pulse Rate [ 114 H From Monitor] Respiratory 15 20 Rate Blood Pressure 113/57 125/71 125/71 O2 Sat by Pulse 98 97 Oximetry 12/13/21 12/13/21 12/13/21 06:00 07:00 08:00 Temperature 97.6 F Pulse Rate 87 90 Pulse Rate [ From Monitor] Respiratory 18 19 Rate Blood Pressure 114/58 133/62 O2 Sat by Pulse 98 96 Oximetry 12/13/21 12/13/21 12/13/21 08:01 09:00 10:00 Temperature Pulse Rate 97 H 97 H 99 H Pulse Rate [ From Monitor] Respiratory 17 19 21 Rate Blood Pressure 120/67 128/72 126/64 O2 Sat by Pulse 98 98 100 Oximetry 12/13/21 12/13/21 12/13/21 11:00 12:00 13:23 Temperature 97.7 F Pulse Rate 99 H 108 H Pulse Rate [ From Monitor] Respiratory 19 Rate Blood Pressure 110/64 117/70 O2 Sat by Pulse 96 Oximetry Constitutional: appears uncomfortable, other (Having increased work of breathing ) Eyes: non-icteric ENT: oropharynx moist Neck: supple, no JVD Effort: mildly labored Ascultation: Bilateral: rales (basilar inspiratory), other (occasional accessory muscle use) Percussion: Bilateral: not dull Cardiovascular: regular rate and rhythm Gastrointestinal: hypoactive bowel sounds, soft, non-tender, non-distended (protuberant) Integumentary: normal Extremities: no cyanosis, no edema, pink and warm, pulses normal, no ischemia or petechiae Neurologic: normal mental status, non-focal exam, pupils equal and round, motor strength normal and Psychiatric: anxious CBC and BMP: 12/12/21 04:28 12/12/21 04:28 ABG, PT/INR, D-dimer: ABG ABG pH 7.430 pH Units (7.350-7.450) 12/08/21 16:12 ABG pCO2 33.8 mm Hg 12/08/21 16:12 ABG pO2 72.1 mm Hg (80.0-90.0) L 12/08/21 16:12 ABG O2 Saturation 95.0 % (95.0-99.0) 12/08/21 16:12 PT/INR, D-dimer PT 18.5 Sec. (12.2-14.9) H 12/06/21 10:05 INR 1.37 (0.87-1.13) H 12/06/21 10:05 D-Dimer 7549.01 ng/mlDDU (0-234) H 12/07/21 20:13 Abnormal lab findings: Abnormal Labs 12/06/21 12/06/21 12/06/21 10:05 10:05 10:05 WBC 16.9 H RDW 16.3 H Plt Count 473 H Lymph % (Auto) 3.3 L Lymph # (Auto) 0.6 L [place] # (Auto) 1.2 H Seg Neutrophils % 89.5 H Seg Neuts % (Manual) Lymphocytes % (Manual) Seg Neutrophils # 15.1 H Seg Neutrophils # Man Lymphocytes # (Manual) PT 18.5 H INR 1.37 H D-Dimer ABG pO2 ABG O2 Saturation ABG Base Excess ABG Hemoglobin Oxyhemoglobin Sodium Potassium 2.9 L* Chloride Carbon Dioxide 21 L BUN 20 H Creatinine Glucose 127 H POC Glucose Calcium Magnesium 2.90 H Alkaline Phosphatase 140 H NT-Pro-B Natriuret Pep Albumin 3.5 L 12/06/21 12/06/21 12/07/21 10:05 11:15 09:21 WBC RDW Plt Count Lymph % (Auto) Lymph # (Auto) [place]arton # (Auto) Seg Neutrophils % Seg Neuts % (Manual) Lymphocytes % (Manual) Seg Neutrophils # Seg Neutrophils # Man Lymphocytes # (Manual) PT INR D-Dimer ABG pO2 61.6 L ABG O2 Saturation 91.7 L ABG Base Excess ABG Hemoglobin 11.9 L Oxyhemoglobin 90.0 L Sodium Potassium 3.5 L D Chloride Carbon Dioxide 20 L BUN Creatinine 0.5 L Glucose 105 H POC Glucose Calcium 8.3 L Magnesium Alkaline Phosphatase 136 H NT-Pro-B Natriuret Pep 6552 H Albumin 3.4 L 12/07/21 12/07/21 12/08/21 12:50 20:13 16:12 WBC RDW Plt Count Lymph % (Auto) Lymph # (Auto) [place]arton # (Auto) Seg Neutrophils % Seg Neuts % (Manual) Lymphocytes % (Manual) Seg Neutrophils # Seg Neutrophils # Man Lymphocytes # (Manual) PT INR D-Dimer 7549.01 H ABG pO2 79.3 L 72.1 L ABG O2 Saturation ABG Base Excess -3.0 L ABG Hemoglobin 11.2 L Oxyhemoglobin 93.6 L Sodium Potassium Chloride Carbon Dioxide BUN Creatinine Glucose POC Glucose Calcium Magnesium Alkaline Phosphatase NT-Pro-B Natriuret Pep Albumin 12/08/21 12/09/21 12/09/21 23:14 07:31 07:31 WBC 16.7 H RDW 16.1 H Plt Count Lymph % (Auto) Lymph # (Auto) [place] # (Auto) Seg Neutrophils % Seg Neuts % (Manual) 93.0 H Lymphocytes % (Manual) 2.0 L Seg Neutrophils # Seg Neutrophils # Man 15.5 H Lymphocytes # (Manual) 0.3 L PT INR D-Dimer ABG pO2 ABG O2 Saturation ABG Base Excess ABG Hemoglobin Oxyhemoglobin Sodium 150 H Potassium Chloride 110.4 H Carbon Dioxide BUN 37 H Creatinine Glucose 183 H POC Glucose 179 H Calcium Magnesium Alkaline Phosphatase NT-Pro-B Natriuret Pep Albumin 12/10/21 12/10/21 12/11/21 00:09 17:01 05:15 WBC 15.3 H RDW 16.4 H Plt Count Lymph % (Auto) Lymph # (Auto) [place] # (Auto) Seg Neutrophils % Seg Neuts % (Manual) Lymphocytes % (Manual) Seg Neutrophils # Seg Neutrophils # Man Lymphocytes # (Manual) PT INR D-Dimer ABG pO2 ABG O2 Saturation ABG Base Excess ABG Hemoglobin Oxyhemoglobin Sodium Potassium Chloride Carbon Dioxide BUN Creatinine Glucose POC Glucose 166 H 180 H Calcium Magnesium Alkaline Phosphatase NT-Pro-B Natriuret Pep Albumin 12/11/21 12/11/21 12/11/21 05:15 08:55 09:13 WBC RDW Plt Count Lymph % (Auto) Lymph # (Auto) [place] # (Auto) Seg Neutrophils % Seg Neuts % (Manual) Lymphocytes % (Manual) Seg Neutrophils # Seg Neutrophils # Man Lymphocytes # (Manual) PT INR D-Dimer ABG pO2 ABG O2 Saturation ABG Base Excess ABG Hemoglobin Oxyhemoglobin Sodium 162 H* D 162 H* Potassium Chloride 122.2 H Carbon Dioxide BUN 43 H Creatinine Glucose 212 H POC Glucose 171 H Calcium Magnesium Alkaline Phosphatase NT-Pro-B Natriuret Pep Albumin 12/11/21 12/11/21 12/11/21 12:48 16:10 16:50 WBC RDW Plt Count Lymph % (Auto) Lymph # (Auto) [place] # (Auto) Seg Neutrophils % Seg Neuts % (Manual) Lymphocytes % (Manual) Seg Neutrophils # Seg Neutrophils # Man Lymphocytes # (Manual) PT INR D-Dimer ABG pO2 ABG O2 Saturation ABG Base Excess ABG Hemoglobin Oxyhemoglobin Sodium 164 H* Potassium Chloride Carbon Dioxide BUN Creatinine Glucose POC Glucose 174 H 167 H Calcium Magnesium Alkaline Phosphatase NT-Pro-B Natriuret Pep Albumin 12/11/21 12/12/21 12/12/21 21:41 04:28 04:28 WBC 17.8 H RDW 16.9 H Plt Count Lymph % (Auto) Lymph # (Auto) [place] # (Auto) Seg Neutrophils % Seg Neuts % (Manual) Lymphocytes % (Manual) Seg Neutrophils # Seg Neutrophils # Man Lymphocytes # (Manual) PT INR D-Dimer ABG pO2 ABG O2 Saturation ABG Base Excess ABG Hemoglobin Oxyhemoglobin Sodium 160 H 161 H* Potassium Chloride 121.9 H Carbon Dioxide BUN 41 H Creatinine Glucose 195 H POC Glucose Calcium Magnesium Alkaline Phosphatase NT-Pro-B Natriuret Pep Albumin 12/12/21 12/13/21 12/13/21 17:01 05:36 11:50 WBC RDW Plt Count Lymph % (Auto) Lymph # (Auto) [place] # (Auto) Seg Neutrophils % Seg Neuts % (Manual) Lymphocytes % (Manual) Seg Neutrophils # Seg Neutrophils # Man Lymphocytes # (Manual) PT INR D-Dimer ABG pO2 ABG O2 Saturation ABG Base Excess ABG Hemoglobin Oxyhemoglobin Sodium Potassium Chloride Carbon Dioxide BUN Creatinine Glucose POC Glucose 176 H 196 H 169 H Calcium Magnesium Alkaline Phosphatase NT-Pro-B Natriuret Pep Albumin Chest x-ray: pending Allied health notes reviewed: nursing
--- NOTE | 2021-12-13 16:02 | Procedure Note ---
Date of procedure: 12/13/21 Pre-op diagnosis: Acute hypoxemic respiratory failure Post-op diagnosis: same Procedure: Right femoral vein triple-lumen catheter under ultrasound guidance The patient was prepped and draped in the usual sterile fashion. A timeout was taken with the patient's nurse at bedside to verify the correct patient, correct procedure, and correct operative site. Local anesthesia obtained with 1% lidocaine. The Seldinger technique was utilized to access the right femoral vein under ultrasound guidance without difficulty. A seeker needle was utilized to access the right femoral vein under ultrasound guidance. A guidewire was then advanced through the seeker needle into the right femoral vein and the seeker needle subsequently removed over the guidewire. A scalpel was used to incise the skin. A dilator was then passed over the guidewire into the right femoral vein. A preflush triple-lumen catheter was then advanced into the right femoral vein and the guidewire subsequently removed. All 3 ports flush and draw with ease. 3-0 silk suture was utilized to suture the triple-lumen catheter in place. A Biopatch was placed at the insertion site. Estimated blood loss minimal. Complications none. Anesthesia: local Estimated blood loss: minimal Pathology: none Condition: critical Disposition: ICU
[2021-12-13] MEDS: DIGOXIN 0.125 MG TAB PO SCH (18:02)
--- NOTE | 2021-12-13 19:58 | Event Note ---
Date: 12/13/21 Advance care planning conducted: Discussed patient prognosis with patient daughter. Patient daughter acknowledges understanding prognosis. Patient daughter elects to have patient discharged home with hospice care. Hospice care team notified. Discharge planning with IV [employer] infusion for pain control. Discharge home with hospice care. Awaiting family approval. Needs assessment conducted. +30 minutes.
[2021-12-13] MEDS: PRAVASTATIN 40 MG TAB PO SCH (21:45)
[2021-12-13] MEDS: clonazePAM 0.5 MG TAB PO SCH (21:45)
[2021-12-13] MEDS: MORPHINE 2 MG/1 ML INJ IV PRN (22:00)
[2021-12-14] MEDS: methylPREDNISolone Sod Succinate 125 MG/2 ML INJ IV SCH ×4 (01:27→23:03)
[2021-12-14] MEDS: dilTIAZem 60 MG TAB FEEDTUBE SCH ×5 (01:28→23:02)
[2021-12-14] MEDS: IPRATROPIUM/ALBUTEROL SULFATE 3 ML AMPUL.NEB IH SCH ×4 (03:21→20:19)
[2021-12-14] MEDS: ARFORMOTEROL 15 MCG/2 ML NEBU IH SCH ×2 (08:30→20:19)
[2021-12-14] MEDS: BUDESONIDE 0.5 MG/2 ML NEBU IH SCH ×2 (08:30→20:19)
[2021-12-14] MEDS: INSULIN LISPRO 100 UNIT/ML SUB-Q SCH ×5 (10:24→22:59)
[2021-12-14] MEDS: PANTOPRAZOLE 20 MG TAB PO SCH ×2 (10:25→21:49)
[2021-12-14] MEDS: ASPIRIN EC 81 MG TAB PO SCH (10:25)
[2021-12-14] MEDS: CALCIUM CARBONATE 1250 MG TAB PO SCH (10:25)
[2021-12-14] MEDS: DABIGATRAN 150 MG CAP PO SCH ×2 (10:25→21:49)
[2021-12-14] MEDS: QUEtiapine 25 MG TAB PO SCH ×2 (10:27→21:50)
[2021-12-14] MEDS: CYANOCOBALAMIN (VIT B-12) 1000 MCG TAB PO SCH (10:28)
[2021-12-14] MEDS: THIAMINE 100 MG TAB PO SCH (10:28)
[2021-12-14] MEDS: CHOLECALCIFEROL (VIT D3) 1000 UNIT (25 mcg) TAB PO SCH (10:28)
[2021-12-14] MEDS: ALPRAZolam 1 MG TAB FEEDTUBE SCH ×2 (10:28→21:49)
--- NOTE | 2021-12-14 12:19 | Progress Note ---
Assessment and Plan Assessment and plan: HPI: 86-year-old female with history of COPD, atrial fibrillation, CHF and hyperlipidemia brought in by EMS for severe shortness of breath and low oxygen saturations with 50% improvement. Patient also atrial fibrillation with rapid ventricular rate of 140. Patient was treated with Solu-Medrol. Patient declined CPAP en route to the hospital. Patient arrived with nonrebreather oxygen treatment systemic tachypnea. Patient was initiated on BiPAP. No fever or chills. Cough productive of mucoid sputum present. CODE STATUS: DNR/AND hospital course: 12/07/2021 Patient very short of breath in spite of BiPAP Patient to be transferred to IMCU Patient may need intubation Pulmonary informed December 08, 2021 Patient continues to be very short of breath Patient on BiPAP Slight improvement since yesterday 12/09: Patient seen and examined remains anxious. Patient is on high flow and nonrebreather and will likely continue to require BiPAP at nighttime. Will tr ial of low-dose Xanax 0.25. Cardiology and pulmonary input noted. Continue current management for severe COPD exacerbation with underlying pneumonia possible gram-negative. Will request records from [facility] and [facility]. Continue steroids no indication for weaning at this time except if otherwise noted by optical manufacturing technician. 12/10: Continue current management. Cardiology added digoxin to current management. Continue Haldol and morphine for symptomatic control of hypoxia. Will request psych consult to assist with anxiety. 12/11: Continue current management as outlined above. Still awaiting family to bring the advance care directive. Patient remains on BiPAP with interchangeable nonrebreather on high flow. Hypernatremia with a sodium level of 162 noted this morning. Patient started on water flushes at 300 cc every 6 hours with serial sodium level monitoring. Family at bedside discussed her poor prognosis with them in detail they verbalized understanding. The patient's daughter will be bringing her living will to help guide therapy. 12/12: Patient still requiring BiPAP. Appears very anxious on encounter today, initiated Xanax 1 mg NG twice daily. Discussed with granddaughter at bedside who agrees that patient's prognosis is very poor. Also discussed my encounter with patient earlier this morning with patient stating to myself and AUSTEN Leahy that she "Just wants to ". The granddaughter stated that the patient's daughter/POA is coming at 1300 today with patient's living will. She stated that the family is of the the sentiment that patient should be DNR/DNI and would not want any aggressive measures. I stated that I would discuss comfort measures with patient daughter when she comes to the hospital today. 12/13: Remains BIPAP dependent. HR better controlled, digoxin addition noted. Discussion with daughters yesterday regarding patient (please refer to event note). Patient now DNR/AND. Plan for home hospice arrangements, will discuss with cm tuesday. 12/14: plan is for home with hospice. D/w CM this AM, currently working on hospice arrangements. Assessment and Plan: # Acute respiratory failure with hypoxia # Bilateral pneumonia #Hypernatremia #COPD exacerbation #Severe anxiety # Chronic atrial fibrillation Patient on Pradaxa and diltiazem. Was initially scheduled for cardioversion OP, but hospitalized, now too unstable. Initially rate was high but now controlled. # Hypokalemia Current Visit: Yes Status: Acute Plan to address problem: Supplemented. # CHF (congestive heart failure) Current Visit: Yes Status: Chronic Qualifiers: Heart failure type: combined systolic and diastolic Plan to address problem: On Lasix and Aldactone. Echocardiogram for ejection fraction 60%. # leukocytosis without evidence of sepsis # Hyponatremia #GERD (gastroesophageal reflux disease) # Hyperlipidemia # DVT prophylaxis Current Visit: Yes Status: Acute Plan to address problem: On Pradaxa and GI prophylaxis. # anxious # advance care planning Current Visit: Yes Status: Acute Plan to address problem: Disease education conducted, care plan discussed, diagnosis discussed, prognosis discussed. Patient is full code. Patient acknowledges understanding and agreement with care plan. +30 minutes. The high probability of a clinically significant, sudden or life threatening deterioration of the [pulmonary, cardiac, neuro] system(s) required my full and direct attention, intervention and personal management. The aggregate critical care time was [40] minutes. This time is in addition to time spent performing reported procedures but includes the following: [x] Data Review and interpretation [x] Patient assessment and monitoring of vital signs [x] Documentation [x] Medication orders and management History Interval history: Remains on vent. no events overnight Hospitalist Physical - Physical exam Narrative exam: VITAL SIGNS: Reviewed. GENERAL: The patient appears normally developed, anxious, on BiPAP with sats in mid 90s. vital signs as documented. Very anxious appearing HEAD: No signs of head trauma. EYES: Pupils are equal. Extraocular motions intact. EARS: Hearing grossly intact. MOUTH: Oropharynx is normal. NECK: No adenopathy, no JVD. CHEST: Tachypnea chest with clear breath although diminished sounds bilaterally. No wheezes, rales, or rhonchi. CARDIAC: Irregularly irregular rate and rhythm tachycardia S1 and S2, without murmurs, gallops, or rubs. VASCULAR: No Edema. Peripheral pulses normal and equal in all extremities. ABDOMEN: Soft, non tender and non distended. No rebound or guarding, and no masses palpated. Bowel Sounds normal. MUSCULOSKELETAL: Good range of motion of all major joints. Extremities without clubbing, cyanosis or edema. NEUROLOGIC EXAM: Alert and oriented x 3 No focal sensory or strength deficits. Speech normal. Follows commands. PSYCHIATRIC: Mood anxious SKIN: detail exam as documented in skin assessment - Constitutional Vitals: Temp Pulse Resp BP Pulse Ox 97.7 F 80 24 119/59 96 12/14/21 12:00 12/14/21 11:00 12/14/21 11:00 12/14/21 11:00 12/14/21 11:00 General appearance: Present: no acute distress, well-nourished HEART Score - HEART Score Troponin: Troponin T 0.019 ng/mL (0.00-0.029) 12/06/21 13:54 Results - Labs CBC & Chem 7: 12/12/21 04:28 12/12/21 04:28 Labs: Laboratory Last Values WBC 17.8 K/mm3 (4.5-11.0) H 12/12/21 04:28 RBC 4.06 M/mm3 (3.65-5.03) 12/12/21 04:28 Hgb 11.2 gm/dl (10.1-14.3) 12/12/21 04:28 Hct 35.8 % (30.3-42.9) 12/12/21 04:28 MCV 88 fl (79-97) 12/12/21 04:28 MCH 28 pg (28-32) 12/12/21 04:28 MCHC 31 % (30-34) 12/12/21 04:28 RDW 16.9 % (13.2-15.2) H 12/12/21 04:28 Plt Count 217 K/mm3 (140-440) 12/12/21 04:28 Lymph % (Auto) 3.3 % (13.4-35.0) L 12/06/21 10:05 Barron % (Auto) 7.1 % (0.0-7.3) 12/06/21 10:05 Eos % (Auto) 0.0 % (0.0-4.3) 12/06/21 10:05 Baso % (Auto) 0.1 % (0.0-1.8) 12/06/21 10:05 Lymph # (Auto) 0.6 K/mm3 (1.2-5.4) L 12/06/21 10:05 Barron # (Auto) 1.2 K/mm3 (0.0-0.8) H 12/06/21 10:05 Eos # (Auto) 0.0 K/mm3 (0.0-0.4) 12/06/21 10:05 Baso # (Auto) 0.0 K/mm3 (0.0-0.1) 12/06/21 10:05 Add Manual Diff Complete 12/09/21 07:31 Total Counted 100 12/09/21 07:31 Seg Neutrophils % Senior Ecologist 12/09/21 07:31 Seg Neuts % (Manual) 93.0 % (40.0-70.0) H 12/09/21 07:31 Band Neutrophils % 0 % 12/09/21 07:31 Lymphocytes % (Manual) 2.0 % (13.4-35.0) L 12/09/21 07:31 Reactive Lymphs % (Man) 0 % 12/09/21 07:31 Monocytes % (Manual) 5.0 % (0.0-7.3) 12/09/21 07:31 Eosinophils % (Manual) 0 % (0.0-4.3) 12/09/21 07:31 Basophils % (Manual) 0 % (0.0-1.8) 12/09/21 07:31 Metamyelocytes % 0 % 12/09/21 07:31 Myelocytes % 0 % 12/09/21 07:31 Promyelocytes % 0 % 12/09/21 07:31 Blast Cells % 0 % 12/09/21 07:31 Nucleated RBC % Not Reportable 12/09/21 07:31 Seg Neutrophils # 15.1 K/mm3 (1.8-7.7) H 12/06/21 10:05 Seg Neutrophils # Man 15.5 K/mm3 (1.8-7.7) H 12/09/21 07:31 Band Neutrophils # 0.0 K/mm3 12/09/21 07:31 Lymphocytes # (Manual) 0.3 K/mm3 (1.2-5.4) L 12/09/21 07:31 Abs React Lymphs (Man) 0.0 K/mm3 12/09/21 07:31 Monocytes # (Manual) 0.8 K/mm3 (0.0-0.8) 12/09/21 07:31 Eosinophils # (Manual) 0.0 K/mm3 (0.0-0.4) 12/09/21 07:31 Basophils # (Manual) 0.0 K/mm3 (0.0-0.1) 12/09/21 07:31 Metamyelocytes # 0.0 K/mm3 12/09/21 07:31 Myelocytes # 0.0 K/mm3 12/09/21 07:31 Promyelocytes # 0.0 K/mm3 12/09/21 07:31 Blast Cells # 0.0 K/mm3 12/09/21 07:31 WBC Morphology Not Reportable 12/09/21 07:31 Hypersegmented Neuts Not Reportable 12/09/21 07:31 Hyposegmented Neuts Not Reportable 12/09/21 07:31 Hypogranular Neuts Not Reportable 12/09/21 07:31 Smudge Cells Not Reportable 12/09/21 07:31 Toxic Granulation Not Reportable 12/09/21 07:31 Toxic Vacuolation Not Reportable 12/09/21 07:31 Dohle Bodies Not Reportable 12/09/21 07:31 Pelger-Huet Anomaly Not Reportable 12/09/21 07:31 Merry Rods Not Reportable 12/09/21 07:31 Platelet Estimate Consistent w auto 12/09/21 07:31 Clumped Platelets Not Reportable 12/09/21 07:31 Plt Clumps, EDTA Not Reportable 12/09/21 07:31 Large Platelets Not Reportable 12/09/21 07:31 Giant Platelets Not Reportable 12/09/21 07:31 Platelet Satelliting Not Reportable 12/09/21 07:31 Plt Morphology Comment Not Reportable 12/09/21 07:31 RBC Morphology Normal 12/09/21 07:31 Dimorphic RBCs Not Reportable 12/09/21 07:31 Polychromasia Not Reportable 12/09/21 07:31 Hypochromasia Not Reportable 12/09/21 07:31 Poikilocytosis Not Reportable 12/09/21 07:31 Anisocytosis Not Reportable 12/09/21 07:31 Microcytosis Not Reportable 12/09/21 07:31 Macrocytosis Not Reportable 12/09/21 07:31 Spherocytes Not Reportable 12/09/21 07:31 Pappenheimer Bodies Not Reportable 12/09/21 07:31 Sickle Cells Not Reportable 12/09/21 07:31 Target Cells Not Reportable 12/09/21 07:31 Tear Drop Cells Not Reportable 12/09/21 07:31 Ovalocytes Not Reportable 12/09/21 07:31 Helmet Cells Not Reportable 12/09/21 07:31 Alan-[place] Bodies Not Reportable 12/09/21 07:31 [place] Rings Not Reportable 12/09/21 07:31 Abdiel Cells Not Reportable 12/09/21 07:31 Bite Cells Not Reportable 12/09/21 07:31 Crenated Cell Not Reportable 12/09/21 07:31 Elliptocytes Not Reportable 12/09/21 07:31 Acanthocytes (Spur) Not Reportable 12/09/21 07:31 Rouleaux Not Reportable 12/09/21 07:31 Hemoglobin C Crystals Not Reportable 12/09/21 07:31 Schistocytes Not Reportable 12/09/21 07:31 Malaria parasites Not Reportable 12/09/21 07:31 Farhan Bodies Not Reportable 12/09/21 07:31 Hem Pathologist Commnt No 12/09/21 07:31 PT 18.5 Sec. (12.2-14.9) H 12/06/21 10:05 INR 1.37 (0.87-1.13) H 12/06/21 10:05 D-Dimer 7549.01 ng/mlDDU (0-234) H 12/07/21 20:13 ABG pH 7.430 pH Units (7.350-7.450) 12/08/21 16:12 ABG pCO2 33.8 mm Hg 12/08/21 16:12 ABG pO2 72.1 mm Hg (80.0-90.0) L 12/08/21 16:12 ABG HCO3 21.9 mmol/L (20.0-26.0) 12/08/21 16:12 ABG O2 Saturation 95.0 % (95.0-99.0) 12/08/21 16:12 ABG O2 Content 14.8 (0.0-44) 12/08/21 16:12 ABG Base Excess -1.8 mmol/L (-2.0-3.0) 12/08/21 16:12 ABG Hemoglobin 11.2 gm/dl (12.0-16.0) L 12/08/21 16:12 ABG Carboxyhemoglobin 1.1 % (0.0-5.0) 12/08/21 16:12 ABG Methemoglobin 0.4 % (0.0-1.5) 12/08/21 16:12 Oxyhemoglobin 93.6 % (95.0-99.0) L 12/08/21 16:12 FiO2 100 % 12/08/21 16:12 Sodium 161 mmol/L (137-145) H* 12/12/21 04:28 Potassium 3.8 mmol/L (3.6-5.0) 12/12/21 04:28 Chloride 121.9 mmol/L (98-107) H 12/12/21 04:28 Carbon Dioxide 28 mmol/L (22-30) 12/12/21 04:28 Anion Gap 16 mmol/L 12/12/21 04:28 BUN 41 mg/dL (7-17) H 12/12/21 04:28 Creatinine 0.7 mg/dL (0.6-1.2) 12/12/21 04:28 Estimated GFR > 60 ml/min 12/12/21 04:28 BUN/Creatinine Ratio 59 % 12/12/21 04:28 Glucose 195 mg/dL (65-100) H 12/12/21 04:28 POC Glucose 215 mg/dL (70-105) H 12/14/21 07:54 Calcium 8.7 mg/dL (8.4-10.2) 12/12/21 04:28 Magnesium 2.90 mg/dL (1.7-2.3) H 12/06/21 10:05 Total Bilirubin 0.60 mg/dL (0.1-1.2) 12/07/21 09:21 AST 22 units/L (5-40) 12/07/21 09:21 ALT 19 units/L (7-56) 12/07/21 09:21 Alkaline Phosphatase 136 units/L (35-129) H 12/07/21 09:21 Troponin T 0.019 ng/mL (0.00-0.029) 12/06/21 13:54 NT-Pro-B Natriuret Pep 6552 pg/mL (0-900) H 12/06/21 10:05 Total Protein 6.3 g/dL (6.3-8.2) 12/07/21 09:21 Albumin 3.4 g/dL (3.9-5) L 12/07/21 09:21 Albumin/Globulin Ratio 1.2 % 12/07/21 09:21 Procalcitonin 0.20 ng/mL (<0.15) 12/09/21 Unknown Nasal Screen MRSA (PCR) Negative (Negative) 12/08/21 Unknown Coronavirus (PCR) Negative (Negative) 12/07/21 08:25 Sánchez/IV: Voiding Method Indwelling Catheter Active Medications - Current Medications Current Medications: Generic Name Dose Route Start Last Admin Trade Name Freq PRN Reason Stop Dose Admin Acetaminophen 650 mg 12/06/21 15:23 Acetaminophen 325 Mg Tab PO Q4H PRN Pain MILD(1-3)/Fever >100.5/ Albuterol 2.5 mg 12/09/21 08:44 Albuterol 2.5 Mg/3 Ml Nebu IH Q4H PRN Shortness Of Breath Albuterol/Ipratropium 1 ampul 12/09/21 14:00 12/14/21 08:30 Ipratropium/Albuterol Sulfate 3 Ml Ampul.Neb IH Not Given Q6HRT OVI Alprazolam 1 mg 12/12/21 11:00 12/14/21 10:28 Alprazolam 1 Mg Tab FEEDTUBE 1 mg BID OVI Administration Arformoterol Tartrate 15 mcg 12/09/21 20:00 12/14/21 08:30 Arformoterol 15 Mcg/2 Ml Nebu IH 15 mcg Q12HRT OVI Administration Aspirin 81 mg 12/06/21 16:00 12/14/21 10:25 Aspirin Ec 81 Mg Tab PO 81 mg QDAY OVI Administration Budesonide 0.5 mg 12/09/21 20:00 12/14/21 08:30 Budesonide 0.5 Mg/2 Ml Nebu IH 0.5 mg Q12HRT OVI Administration Calcium Carbonate/Glycine 1,250 mg 12/07/21 10:00 12/14/21 10:25 Calcium Carbonate 1250 Mg Tab PO 1,250 mg QDAY OVI Administration Cholecalciferol 1,000 unit 12/07/21 10:00 12/14/21 10:28 Cholecalciferol (Vit D3) 1000 Unit (25 Mcg) Tab PO 1,000 unit DAILY OVI Administration Clonazepam 0.5 mg 12/06/21 22:00 12/13/21 21:45 Clonazepam 0.5 Mg Tab PO 0.5 mg HS OVI Administration Cyanocobalamin 1,000 mcg 12/07/21 10:00 12/14/21 10:28 Cyanocobalamin (Vit B-12) 1000 Mcg Tab PO 1,000 mcg DAILY OVI Administration Dabigatran 150 mg 12/06/21 16:00 12/14/21 10:25 Dabigatran 150 Mg Cap PO 150 mg BID OVI Administration Protocol Dextrose 50 ml 12/13/21 08:11 Dextrose 50% In Water (25gm) 50 Ml Syringe IV Q30MIN PRN Hypoglycemia Protocol Digoxin 0.125 mg 12/11/21 10:00 12/13/21 18:02 Digoxin 0.125 Mg Tab PO 0.125 mg DAILY@1700 OVI Administration Diltiazem HCl 60 mg 12/12/21 12:00 12/14/21 05:30 Diltiazem 60 Mg Tab FEEDTUBE 60 mg Q6HR OVI Administration Haloperidol Lactate 5 mg 12/09/21 13:01 12/12/21 20:39 Haloperidol Lactate 5 Mg/1 Ml Inj IV 5 mg Q6H PRN Administration Agitation Insulin Human Lispro 0 unit 12/13/21 11:30 12/14/21 10:24 Insulin Lispro 100 Unit/Ml SUB-Q Not Given ACHS OVI Protocol Methylprednisolone Sodium Succinate 80 mg 12/06/21 16:00 12/14/21 08:55 Methylprednisolone Sod Succinate 125 Mg/2 Ml Inj IV 80 mg Q8H OVI Administration Morphine Sulfate 2 mg 12/06/21 15:23 12/13/21 22:00 Morphine 2 Mg/1 Ml Inj IV 2 mg Q4H PRN Administration Pain, Moderate (4-6) Ondansetron HCl 4 mg 12/06/21 15:23 Ondansetron 4 Mg/2 Ml Inj IV Q8H PRN Nausea And Vomiting Oxycodone/Acetaminophen 1 tab 12/06/21 15:23 12/12/21 09:02 Oxycodone /Acetaminophen 5-325mg Tab PO 1 tab Q6H PRN Administration Pain, Moderate (4-6) Pantoprazole Sodium 20 mg 12/06/21 22:00 12/14/21 10:25 Pantoprazole 20 Mg Tab PO 20 mg BID OVI Administration Pravastatin Sodium 40 mg 12/06/21 22:00 12/13/21 21:45 Pravastatin 40 Mg Tab PO 40 mg QHS OVI Administration Quetiapine Fumarate 50 mg 12/09/21 15:00 12/14/21 10:27 Quetiapine 25 Mg Tab PO 50 mg BID OVI Administration Sodium Chloride 10 ml 12/06/21 22:00 12/14/21 10:28 Sodium Chloride 0.9% 10 Ml Flush Syringe IV Not Given BID OVI Sodium Chloride 10 ml 12/06/21 15:23 Sodium Chloride 0.9% 10 Ml Flush Syringe IV PRN PRN LINE FLUSH Thiamine HCl 100 mg 12/07/21 10:00 12/14/21 10:28 Thiamine 100 Mg Tab PO 100 mg QDAY OVI Administration Nutrition/Malnutrition Assess - Dietary Evaluation Nutrition/Malnutrition Findings: Nutrition Notes Start: 12/08/21 16:55 Freq: Status: Active Protocol: Document 12/14/21 12:09 JOSE EDUARDO (Rec: 12/14/21 12:12 [facility] [id number] Nutrition Notes Initial or Follow up Reassessment Current Diagnosis COPD,Heart Failure,Respiratory Failure,Hyperlipidemia Other Pertinent Diagnosis Bilat pneu, Hypernatremia, severe anxiety, chronic afib, GERD Current Diet Cl liq Labs/Tests POC Glu range since last assessment: 169-228 (may be sec to steroid medication) Pertinent Medications 3 units Humalog given this am Height 5 ft 4 in Weight 74 kg [place] Body Weight (kg) 54.54 BMI 28.0 Weight Status Overweight Subjective/Other Information Pt remains on continuous BiPap support. Pt being evaluated for home hospice. Per RN, pt not tolerating PO at this time . Burn Absent Trauma Absent #1 Nutrition Diagnosis Inadequate oral intake Diagnosis Progress(for reassessment Continues documentation) Is patient on ventilator? No Is Patient Ambulatory and/or Out of Bed No REE-(Izard-St. Jeor-confined to bed) [phone] Calculation [facility] Additional Notes Pro needs 1-1.2g/k-89g/ day Fluid needs per MD. Nutrition Intervention Change Diet Order: PO diet as tolerated Goal #1 PO tolerance Follow-Up By: 12/17/21 Additional Comments F/U: POC, Na lab
--- NOTE | 2021-12-14 13:25 | Discharge Summary ---
Providers - Providers Date of Admission: 12/06/21 15:23 Attending physician: CHUCKY POSADA MD 12/06/21 11:52 Consult to Physician [CONS] Urgent Comment: Consulting Provider: XUAN ANDERSON Physician Instructions: Reason For Exam: pulmonary edema 12/07/21 08:23 Consult to Physician [CONS] Routine Comment: Consulting Provider: BERENICE RODRIGUEZ Physician Instructions: Reason For Exam: acute respiratory failure with hypoxia 12/07/21 09:47 Physical Therapy Evaluation and Treat [CONS] Stat Comment: Reason For Exam: eval and treat 12/07/21 12:32 Occupational Therapy Evaluate and Treat [CONS] Stat Comment: Reason For Exam: eval and treat 12/08/21 18:29 Midline [Consult to PICC Line RN] [CONS] Routine Reason For Exam: IV accesss needed Type Line:: Midline 12/10/21 15:01 Consult to Physician [CONS] Routine Comment: called spoke to jefferson/ jennifer Consulting Provider: ADAMARIS CAMPBELL Physician Instructions: Reason For Exam: severe anxiety due to hypoxia 12/11/21 20:27 Consult to Dietitian/Nutrition [CONS] Routine Physician Instructions: Reason For Exam: Reason for Consult: NPO 12/12/21 14:44 Consult to Case Management [CONS] Routine Services Needed at Discharge: Other Comment:: home hospice Hospitalization Reason for admission: shortness of breath Condition: Poor Hospital course: HPI: 86-year-old female with history of COPD, atrial fibrillation, CHF and hyperlipidemia brought in by EMS for severe shortness of breath and low oxygen saturations with 50% improvement. Patient also atrial fibrillation with rapid ventricular rate of 140. Patient was treated with Solu-Medrol. Patient declined CPAP en route to the hospital. Patient arrived with nonrebreather oxygen treatment systemic tachypnea. Patient was initiated on BiPAP. No fever or chills. Cough productive of mucoid sputum present. CODE STATUS: DNR/AND hospital course: 12/07/2021 Patient very short of breath in spite of BiPAP Patient to be transferred to IMCU Patient may need intubation Pulmonary informed December 08, 2021 Patient continues to be very short of breath Patient on BiPAP Slight improvement since yesterday 12/09: Patient seen and examined remains anxious. Patient is on high flow and nonrebreather and will likely continue to require BiPAP at nighttime. Will trial of low-dose Xanax 0.25. Cardiology and pulmonary input noted. Continue current management for severe COPD exacerbation with underlying pneumonia possible gram-negative. Will request records from [facility] and [facility]. Continue steroids no indication for weaning at this time except if otherwise noted by residency director. 12/10: Continue current management. Cardiology added digoxin to current management. Continue Haldol and morphine for symptomatic control of hypoxia. Will request psych consult to assist with anxiety. 12/11: Continue current management as outlined above. Still awaiting family to bring the advance care directive. Patient remains on BiPAP with interchangeable nonrebreather on high flow. Hypernatremia with a sodium level of 162 noted this morning. Patient started on water flushes at 300 cc every 6 hours with serial sodium level monitoring. Family at bedside discussed her poor prognosis with them in detail they verbalized understanding. The patient's daughter will be bringing her living will to help guide therapy. 12/12: Patient still requiring BiPAP. Appears very anxious on encounter today, initiated Xanax 1 mg NG twice daily. Discussed with granddaughter at bedside who agrees that patient's prognosis is very poor. Also discussed my encounter with patient earlier this morning with patient stating to myself and AUSTEN Leahy that she "Just wants to ". The granddaughter stated that the patient's daughter/POA is coming at 1300 today with patient's living will. She stated that the family is of the the sentiment that patient should be DNR/DNI and would not want any aggressive measures. I stated that I would discuss comfort measures with patient daughter when she comes to the hospital today. 12/13: Remains BIPAP dependent. HR better controlled, digoxin addition noted. Discussion with daughters yesterday regarding patient (please refer to event note). Patient now DNR/AND. Plan for home hospice arrangements, will discuss with cm tuesday. 12/14: plan is for home with hospice. D/w CM this AM, currently awaiting hospice arrangements. Discharge today or early AM. Assessment and Plan: # Acute respiratory failure with hypoxia # Bilateral pneumonia #Hypernatremia #COPD exacerbation #Severe anxiety # Chronic atrial fibrillation Patient on Pradaxa and diltiazem. Was initially scheduled for cardioversion OP, but hospitalized, now too unstable. Initially rate was high but now controlled. # Hypokalemia Current Visit: Yes Status: Acute Plan to address problem: Supplemented. # CHF (congestive heart failure) Current Visit: Yes Status: Chronic Qualifiers: Heart failure type: combined systolic and diastolic Plan to address problem: On Lasix and Aldactone. Echocardiogram for ejection fraction 60%. # leukocytosis without evidence of sepsis # Hyponatremia #GERD (gastroesophageal reflux disease) # Hyperlipidemia # DVT prophylaxis Current Visit: Yes Status: Acute Plan to address problem: On Pradaxa and GI prophylaxis. # anxious # advance care planning Current Visit: Yes Status: Acute Plan to address problem: Disease education conducted, care plan discussed, diagnosis discussed, prognosis discussed. Patient is full code. Patient acknowledges understanding and agreement with care plan. +30 minutes. Disposition: 51 HOSPICE/MEDICAL FACILITY Final Discharge Diagnosis (Prints w/discharge instructions): End stage COPD, acute hypoxic respiratory failure Time spent for discharge: 35 Core Measure Documentation - Palliative Care Palliative Care/ Comfort Measures: Hospice Care - Core Measures Any of the following diagnoses?: none Exam - Physical Exam Narrative exam: VITAL SIGNS: Reviewed. GENERAL: The patient appears normally developed, anxious, on BiPAP with sats in mid 90s. vital signs as documented. Very anxious appearing HEAD: No signs of head trauma. EYES: Pupils are equal. Extraocular motions intact. EARS: Hearing grossly intact. MOUTH: Oropharynx is normal. NECK: No adenopathy, no JVD. CHEST: Tachypnea chest with clear breath although diminished sounds bilaterally. No wheezes, rales, or rhonchi. CARDIAC: Irregularly irregular rate and rhythm tachycardia S1 and S2, without murmurs, gallops, or rubs. VASCULAR: No Edema. Peripheral pulses normal and equal in all extremities. ABDOMEN: Soft, non tender and non distended. No rebound or guarding, and no masses palpated. Bowel Sounds normal. MUSCULOSKELETAL: Good range of motion of all major joints. Extremities without clubbing, cyanosis or edema. NEUROLOGIC EXAM: Alert and oriented x 3 No focal sensory or strength deficits. Speech normal. Follows commands. PSYCHIATRIC: Mood anxious SKIN: detail exam as documented in skin assessment - Constitutional Vitals: Temp Pulse Resp BP Pulse Ox 97.7 F 97 H 26 H 130/65 96 12/14/21 12:00 12/14/21 13:00 12/14/21 13:00 12/14/21 13:00 12/14/21 13:00 Plan Follow up with: IVAN JOSE [Other] - 3-5 Days
--- NOTE | 2021-12-14 14:03 | Progress Note ---
Assessment and Plan 86-year-old female the past medical history of COPD on home oxygen, atrial fibrillation (pradaxa), and TIA presents to the hospital with complaints of respiratory distress. EMS reports that they were at the home 3 days ago for same complaint and patient refused transport at that time. Today upon EMS arrival patient was satting 50% on room air and had a A. fib heart rate in the 140s with respiratory distress. Patient was treated with albuterol 5 mg, Atrovent 0.5 mg, Solu-Medrol 125 mg, magnesium 2 g with some improvement in symptoms. Patient apparently declined CPAP in route to the hospital. She arrives with nonrebreather oxygen treatment with persistent tachypnea and signs of respiratory distress. BiPAP initiated upon arrival. Patient admitted to third floor. Patient is on BIPAP 16/6, rate 14,FIO2 100%. Patient still having increased work of breathing. Patient has slight history of smoking. Stopped smoking 30 years ago. Denies alcohol or drug abuse. 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 Patient is in IMCU. Patient sleeping. On BIPAP 16/8, rate 18, Fio2 75% and O2 saturation running 95%. No acute respiratory distress. Patient afebrile. Has leukocytosis.Blood pressure 124/63, pulse 95. Respirations 31. Chest xray 12/06/21 reported Diffuse bilateral pulmonary opacities Venous doppler studies of both extremities 12/07/21 reported no sonographic evidence of DVT. Chest xray 12/10/21 reported Moderate parenchymal opacities in both mid to lower lung zones have improved significantly. Patient is on I/V Solumedrol, Brovanna/Bdesonide aerosol treatments q 12 hours. Albuterol/atrovent aerosol treatments q 6 hours prn for shortness of breath., Pradaxa and protonix. I spent critical care time of 32 minutes review the chart, Talking to the patient, Examine the patient, review xrays and labs, talking to the nursing staff and respiratory therapy and work up a plan of treatment. - Patient Problems (1) Acute respiratory failure with hypoxia Status: Acute Plan to address problem: BIPAP16/8, rate 18, FIO2 75%. Continue I/V solumedrol Brovanna/Budesonide aerosol treatments q 12 hours. Albuterol/atrovent aerosol treatments q 6 hours prn for shortness of breath. Continue Pradaxa Continue Protonix. (2) Bilateral pneumonia Status: Acute Plan to address problem: Patient was on Zithromax and ceftriaxone. (3) Atrial fibrillation Status: Acute Plan to address problem: On Pradaxa. Management as per cardiology. (4) COPD exacerbation Status: Acute Plan to address problem: BIPAP 16/8, rate 18, FIO2 75%. Continue I/V solumedrol Brovanna/Budesonide aerosol treatments q 12 hours. Albuterol/atrovent aerosol treatments q 6 hours prn for shortness of breath. Continue Pradaxa Continue Protonix. (5) Pulmonary edema Status: Acute Plan to address problem: Patient is on Lasix. Management as per cardiology. (6) CHF (congestive heart failure) Status: Chronic Qualifiers: Heart failure type: combined systolic and diastolic Plan to address problem: Management as per cardiology. (7) GERD (gastroesophageal reflux disease) Status: Chronic Qualifiers: Esophagitis presence: without esophagitis Qualified Code(s): K21.9 - Gastro-esophageal reflux disease without esophagitis Plan to address problem: Patient is on Protonix. Subjective Date of service: 12/14/21 Principal diagnosis: AHRF; CAP; A-fib with RVR; AE-COPD; Acute Pulmonary edema; AE-CHF; GERD Interval history: 86-year-old female the past medical history of COPD on home oxygen, atrial fibrillation (pradaxa), and TIA presents to the hospital with complaints of respiratory distress. EMS reports that they were at the home 3 days ago for same complaint and patient refused transport at that time. Today upon EMS arrival patient was satting 50% on room air and had a A. fib heart rate in the 140s with respiratory distress. Patient was treated with albuterol 5 mg, Atrovent 0.5 mg, Solu-Medrol 125 mg, magnesium 2 g with some improvement in symptoms. Patient apparently declined CPAP in route to the hospital. She arrives with nonrebreather oxygen treatment with persistent tachypnea and signs of respiratory distress. BiPAP initiated upon arrival. Patient admitted to third floor. Patient is on BIPAP 16/6, rate 14,FIO2 100%. Patient still having increased work of breathing. Patient has slight history of smoking. Stopped smoking 30 years ago. Denies alcohol or drug abuse. 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 Patient is in IMCU. Patient sleeping. On BIPAP 16/8, rate 18, Fio2 75% and O2 saturation running 95%. No acute respiratory distress. Patient afebrile. Has leukocytosis.Blood pressure 124/63, pulse 95. Respirations 31. Chest xray 12/06/21 reported Diffuse bilateral pulmonary opacities Venous doppler studies of both extremities 12/07/21 reported no sonographic evidence of DVT. Chest xray 12/10/21 reported Moderate parenchymal opacities in both mid to lower lung zones have improved significantly. Patient is on I/V Solumedrol, Brovanna/Bdesonide aerosol treatments q 12 hours. Albuterol/atrovent aerosol treatments q 6 hours prn for shortness of breath., Pradaxa and protonix. Objective Vital Signs - 12hr 12/14/21 12/14/21 12/14/21 03:00 03:24 04:00 Temperature 97.8 F Pulse Rate 102 H 111 H 99 H Pulse Rate [ Anterior Bilateral Throughout] Pulse Rate [ 98 H From Monitor] Respiratory 21 19 20 Rate Respiratory Rate [Anterior Bilateral Throughout] Blood Pressure 95/65 95/65 115/60 O2 Sat by Pulse 96 96 97 Oximetry 12/14/21 12/14/21 12/14/21 05:00 05:30 06:00 Temperature Pulse Rate 92 H 112 H 90 Pulse Rate [ Anterior Bilateral Throughout] Pulse Rate [ From Monitor] Respiratory 19 21 Rate Respiratory Rate [Anterior Bilateral Throughout] Blood Pressure 100/58 100/58 108/72 O2 Sat by Pulse 97 96 Oximetry 12/14/21 12/14/21 12/14/21 07:00 07:26 08:00 Temperature 97.9 F Pulse Rate 86 96 H Pulse Rate [ Anterior Bilateral Throughout] Pulse Rate [ 108 H From Monitor] Respiratory 20 20 Rate Respiratory Rate [Anterior Bilateral Throughout] Blood Pressure 116/55 100/70 O2 Sat by Pulse 97 97 Oximetry 12/14/21 12/14/21 12/14/21 08:24 08:30 09:01 Temperature Pulse Rate 98 H 111 H Pulse Rate [ 99 H Anterior Bilateral Throughout] Pulse Rate [ From Monitor] Respiratory 21 31 H Rate Respiratory 21 Rate [Anterior Bilateral Throughout] Blood Pressure 100/70 116/74 O2 Sat by Pulse 97 96 Oximetry 12/14/21 12/14/21 12/14/21 10:00 11:00 12:00 Temperature 97.7 F Pulse Rate 111 H 80 97 H Pulse Rate [ Anterior Bilateral Throughout] Pulse Rate [ 99 H From Monitor] Respiratory 29 H 24 26 H Rate Respiratory Rate [Anterior Bilateral Throughout] Blood Pressure 133/77 119/59 126/64 O2 Sat by Pulse 96 96 97 Oximetry 12/14/21 12/14/21 12:27 13:00 Temperature Pulse Rate 111 H 97 H Pulse Rate [ Anterior Bilateral Throughout] Pulse Rate [ From Monitor] Respiratory 25 H 26 H Rate Respiratory Rate [Anterior Bilateral Throughout] Blood Pressure 126/64 130/65 O2 Sat by Pulse 96 96 Oximetry Constitutional: no acute distress, asleep, other (Having Slight increased work of breathing on BIPAP.) Eyes: non-icteric ENT: oropharynx moist Neck: supple, no JVD Effort: mildly labored Ascultation: Bilateral: rales (basilar inspiratory), rhonchi, other (occasional accessory muscle use) Percussion: Bilateral: not dull Cardiovascular: regular rate and rhythm Gastrointestinal: hypoactive bowel sounds, soft, non-tender, non-distended (protuberant) Integumentary: normal Extremities: no cyanosis, no edema, pink and warm, pulses normal, no ischemia or petechiae Neurologic: normal mental status, non-focal exam, pupils equal and round, motor strength normal and Psychiatric: anxious CBC and BMP: 12/12/21 04:28 12/12/21 04:28 ABG, PT/INR, D-dimer: ABG ABG pH 7.430 pH Units (7.350-7.450) 12/08/21 16:12 ABG pCO2 33.8 mm Hg 12/08/21 16:12 ABG pO2 72.1 mm Hg (80.0-90.0) L 12/08/21 16:12 ABG O2 Saturation 95.0 % (95.0-99.0) 12/08/21 16:12 PT/INR, D-dimer PT 18.5 Sec. (12.2-14.9) H 12/06/21 10:05 INR 1.37 (0.87-1.13) H 12/06/21 10:05 D-Dimer 7549.01 ng/mlDDU (0-234) H 12/07/21 20:13 Abnormal lab findings: Abnormal Labs 12/06/21 12/06/21 12/06/21 10:05 10:05 10:05 WBC 16.9 H RDW 16.3 H Plt Count 473 H Lymph % (Auto) 3.3 L Lymph # (Auto) 0.6 L [place] # (Auto) 1.2 H Seg Neutrophils % 89.5 H Seg Neuts % (Manual) Lymphocytes % (Manual) Seg Neutrophils # 15.1 H Seg Neutrophils # Man Lymphocytes # (Manual) PT 18.5 H INR 1.37 H D-Dimer ABG pO2 ABG O2 Saturation ABG Base Excess ABG Hemoglobin Oxyhemoglobin Sodium Potassium 2.9 L* Chloride Carbon Dioxide 21 L BUN 20 H Creatinine Glucose 127 H POC Glucose Calcium Magnesium 2.90 H Alkaline Phosphatase 140 H NT-Pro-B Natriuret Pep Albumin 3.5 L 12/06/21 12/06/21 12/07/21 10:05 11:15 09:21 WBC RDW Plt Count Lymph % (Auto) Lymph # (Auto) [place] # (Auto) Seg Neutrophils % Seg Neuts % (Manual) Lymphocytes % (Manual) Seg Neutrophils # Seg Neutrophils # Man Lymphocytes # (Manual) PT INR D-Dimer ABG pO2 61.6 L ABG O2 Saturation 91.7 L ABG Base Excess ABG Hemoglobin 11.9 L Oxyhemoglobin 90.0 L Sodium Potassium 3.5 L D Chloride Carbon Dioxide 20 L BUN Creatinine 0.5 L Glucose 105 H POC Glucose Calcium 8.3 L Magnesium Alkaline Phosphatase 136 H NT-Pro-B Natriuret Pep 6552 H Albumin 3.4 L 12/07/21 12/07/21 12/08/21 12:50 20:13 16:12 WBC RDW Plt Count Lymph % (Auto) Lymph # (Auto) [place] # (Auto) Seg Neutrophils % Seg Neuts % (Manual) Lymphocytes % (Manual) Seg Neutrophils # Seg Neutrophils # Man Lymphocytes # (Manual) PT INR D-Dimer 7549.01 H ABG pO2 79.3 L 72.1 L ABG O2 Saturation ABG Base Excess -3.0 L ABG Hemoglobin 11.2 L Oxyhemoglobin 93.6 L Sodium Potassium Chloride Carbon Dioxide BUN Creatinine Glucose POC Glucose Calcium Magnesium Alkaline Phosphatase NT-Pro-B Natriuret Pep Albumin 12/08/21 12/09/21 12/09/21 23:14 07:31 07:31 WBC 16.7 H RDW 16.1 H Plt Count Lymph % (Auto) Lymph # (Auto) [place] # (Auto) Seg Neutrophils % Seg Neuts % (Manual) 93.0 H Lymphocytes % (Manual) 2.0 L Seg Neutrophils # Seg Neutrophils # Man 15.5 H Lymphocytes # (Manual) 0.3 L PT INR D-Dimer ABG pO2 ABG O2 Saturation ABG Base Excess ABG Hemoglobin Oxyhemoglobin Sodium 150 H Potassium Chloride 110.4 H Carbon Dioxide BUN 37 H Creatinine Glucose 183 H POC Glucose 179 H Calcium Magnesium Alkaline Phosphatase NT-Pro-B Natriuret Pep Albumin 12/10/21 12/10/21 12/11/21 00:09 17:01 05:15 WBC 15.3 H RDW 16.4 H Plt Count Lymph % (Auto) Lymph # (Auto) [place] # (Auto) Seg Neutrophils % Seg Neuts % (Manual) Lymphocytes % (Manual) Seg Neutrophils # Seg Neutrophils # Man Lymphocytes # (Manual) PT INR D-Dimer ABG pO2 ABG O2 Saturation ABG Base Excess ABG Hemoglobin Oxyhemoglobin Sodium Potassium Chloride Carbon Dioxide BUN Creatinine Glucose POC Glucose 166 H 180 H Calcium Magnesium Alkaline Phosphatase NT-Pro-B Natriuret Pep Albumin 12/11/21 12/11/21 12/11/21 05:15 08:55 09:13 WBC RDW Plt Count Lymph % (Auto) Lymph # (Auto) [place] # (Auto) Seg Neutrophils % Seg Neuts % (Manual) Lymphocytes % (Manual) Seg Neutrophils # Seg Neutrophils # Man Lymphocytes # (Manual) PT INR D-Dimer ABG pO2 ABG O2 Saturation ABG Base Excess ABG Hemoglobin Oxyhemoglobin Sodium 162 H* D 162 H* Potassium Chloride 122.2 H Carbon Dioxide BUN 43 H Creatinine Glucose 212 H POC Glucose 171 H Calcium Magnesium Alkaline Phosphatase NT-Pro-B Natriuret Pep Albumin 12/11/21 12/11/21 12/11/21 12:48 16:10 16:50 WBC RDW Plt Count Lymph % (Auto) Lymph # (Auto) [place] # (Auto) Seg Neutrophils % Seg Neuts % (Manual) Lymphocytes % (Manual) Seg Neutrophils # Seg Neutrophils # Man Lymphocytes # (Manual) PT INR D-Dimer ABG pO2 ABG O2 Saturation ABG Base Excess ABG Hemoglobin Oxyhemoglobin Sodium 164 H* Potassium Chloride Carbon Dioxide BUN Creatinine Glucose POC Glucose 174 H 167 H Calcium Magnesium Alkaline Phosphatase NT-Pro-B Natriuret Pep Albumin 12/11/21 12/12/21 12/12/21 21:41 04:28 04:28 WBC 17.8 H RDW 16.9 H Plt Count Lymph % (Auto) Lymph # (Auto) [place] # (Auto) Seg Neutrophils % Seg Neuts % (Manual) Lymphocytes % (Manual) Seg Neutrophils # Seg Neutrophils # Man Lymphocytes # (Manual) PT INR D-Dimer ABG pO2 ABG O2 Saturation ABG Base Excess ABG Hemoglobin Oxyhemoglobin Sodium 160 H 161 H* Potassium Chloride 121.9 H Carbon Dioxide BUN 41 H Creatinine Glucose 195 H POC Glucose Calcium Magnesium Alkaline Phosphatase NT-Pro-B Natriuret Pep Albumin 12/12/21 12/13/21 12/13/21 17:01 05:36 11:50 WBC RDW Plt Count Lymph % (Auto) Lymph # (Auto) [place] # (Auto) Seg Neutrophils % Seg Neuts % (Manual) Lymphocytes % (Manual) Seg Neutrophils # Seg Neutrophils # Man Lymphocytes # (Manual) PT INR D-Dimer ABG pO2 ABG O2 Saturation ABG Base Excess ABG Hemoglobin Oxyhemoglobin Sodium Potassium Chloride Carbon Dioxide BUN Creatinine Glucose POC Glucose 176 H 196 H 169 H Calcium Magnesium Alkaline Phosphatase NT-Pro-B Natriuret Pep Albumin 12/13/21 12/14/21 12/14/21 17:27 00:01 05:27 WBC RDW Plt Count Lymph % (Auto) Lymph # (Auto) [place] # (Auto) Seg Neutrophils % Seg Neuts % (Manual) Lymphocytes % (Manual) Seg Neutrophils # Seg Neutrophils # Man Lymphocytes # (Manual) PT INR D-Dimer ABG pO2 ABG O2 Saturation ABG Base Excess ABG Hemoglobin Oxyhemoglobin Sodium Potassium Chloride Carbon Dioxide BUN Creatinine Glucose POC Glucose 176 H 228 H 228 H Calcium Magnesium Alkaline Phosphatase NT-Pro-B Natriuret Pep Albumin 12/14/21 07:54 WBC RDW Plt Count Lymph % (Auto) Lymph # (Auto) [place] # (Auto) Seg Neutrophils % Seg Neuts % (Manual) Lymphocytes % (Manual) Seg Neutrophils # Seg Neutrophils # Man Lymphocytes # (Manual) PT INR D-Dimer ABG pO2 ABG O2 Saturation ABG Base Excess ABG Hemoglobin Oxyhemoglobin Sodium Potassium Chloride Carbon Dioxide BUN Creatinine Glucose POC Glucose 215 H Calcium Magnesium Alkaline Phosphatase NT-Pro-B Natriuret Pep Albumin Allied health notes reviewed: nursing
--- NOTE | 2021-12-14 14:33 | Progress Note ---
Assessment and Plan - Patient Problems (1) Shortness of breath Current Visit: Yes Status: Acute Plan to address problem: Patient with COPD on home oxygen, admitted with shortness of breath and has dense right lower lobe and right middle lobe infiltrate. Presentation is consistent with acute pneumonia. A COVID-19 test is negative. Defer to internal medicine and pulmonary for further management of COPD exacerbation and acute pneumonia. (2) Atrial fibrillation Current Visit: Yes Status: Acute Plan to address problem: Patient has paroxysmal atrial fibrillation, was sinus rhythm on prior presentation in February 2021. Had been scheduled in the outpatients for cardioversion. With the onset of acute pneumonia, patient is currently not a candidate for mechanical rhythm control of the atrial fibrillation. We will continue rate control and oral anticoagulation with Pradaxa. We have added digoxin for rate control of atrial fibrillation. 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 Objective Vital Signs Temp Pulse Pulse Pulse Resp Resp BP 12/14/21 13:00 97 H 26 H 130/65 12/14/21 12:27 111 H 25 H 126/64 12/14/21 12:00 97.7 F 97 H 99 H 26 H 126/64 12/14/21 11:00 80 24 119/59 12/14/21 10:00 111 H 29 H 133/77 12/14/21 09:01 111 H 31 H 116/74 12/14/21 08:30 99 H 21 12/14/21 08:24 98 H 21 100/70 12/14/21 08:00 96 H 108 H 20 100/70 12/14/21 07:26 97.9 F 12/14/21 07:00 86 20 116/55 12/14/21 06:00 90 21 108/72 12/14/21 05:30 112 H 100/58 12/14/21 05:00 92 H 19 100/58 12/14/21 04:00 97.8 F 99 H 98 H 20 115/60 12/14/21 03:24 111 H 19 95/65 12/14/21 03:00 102 H 21 95/65 12/14/21 02:00 119 H 107 H 22 20 94/57 12/14/21 01:28 117 H 107/65 12/14/21 01:00 109 H 21 107/65 12/14/21 00:00 98.6 F 114 H 115 H 19 98/51 12/13/21 23:51 102 H 19 101/54 12/13/21 23:43 120 H 19 101/54 12/13/21 23:00 114 H 19 93/49 12/13/21 22:00 115 H 24 124/61 12/13/21 21:01 103 H 24 109/47 12/13/21 20:00 98.6 F 110 H 115 H 29 H 125/67 12/13/21 19:51 107 H 31 H 118/64 12/13/21 19:49 120 H 29 H 12/13/21 19:01 92 H 29 H 114/52 12/13/21 18:28 117 H 125/81 12/13/21 18:02 119 H 125/81 12/13/21 18:00 110 H 23 125/81 12/13/21 17:00 127 H 22 138/66 12/13/21 16:29 110 H 19 117/70 12/13/21 16:00 97.4 F L 100 H 24 121/63 12/13/21 15:15 92 H 18 12/13/21 15:01 97 H 23 120/63 Pulse Ox 12/14/21 13:00 96 12/14/21 12:27 96 12/14/21 12:00 97 12/14/21 11:00 96 12/14/21 10:00 96 12/14/21 09:01 96 12/14/21 08:30 12/14/21 08:24 97 12/14/21 08:00 97 12/14/21 07:26 12/14/21 07:00 97 12/14/21 06:00 96 12/14/21 05:30 12/14/21 05:00 97 12/14/21 04:00 97 12/14/21 03:24 96 12/14/21 03:00 96 12/14/21 02:00 96 12/14/21 01:28 12/14/21 01:00 95 12/14/21 00:00 95 12/13/21 23:51 95 12/13/21 23:43 95 12/13/21 23:00 95 12/13/21 22:00 97 12/13/21 21:01 96 12/13/21 20:00 96 12/13/21 19:51 97 12/13/21 19:49 12/13/21 19:01 96 12/13/21 18:28 12/13/21 18:02 12/13/21 18:00 95 12/13/21 17:00 94 12/13/21 16:29 97 12/13/21 16:00 94 12/13/21 15:15 12/13/21 15:01 95 - Physical Examination General: Other (Mild respiratory distress) HEENT: Positive: PERRL Neck: Positive: neck supple Cardiac: Positive: irregularly irregular Lungs: Positive: Decreased Breath Sounds Neuro: Positive: Grossly Intact, Other (nonverbal) Abdomen: Positive: Soft Skin: Positive: Clear Extremities: Absent: edema - Imaging and Cardiology EKG: report reviewed (Atrial fibrillation with rapid ventricular rate) - Allied health notes Allied health notes reviewed: nursing
[2021-12-14] MEDS: DIGOXIN 0.125 MG TAB PO SCH (18:33)
[2021-12-14] MEDS: clonazePAM 0.5 MG TAB PO SCH (21:49)
[2021-12-14] MEDS: PRAVASTATIN 40 MG TAB PO SCH (21:49)
[2021-12-15] MEDS: IPRATROPIUM/ALBUTEROL SULFATE 3 ML AMPUL.NEB IH SCH ×3 (02:47→16:11)
[2021-12-15] MEDS: dilTIAZem 60 MG TAB FEEDTUBE SCH ×2 (05:57→13:06)
[2021-12-15] MEDS: INSULIN LISPRO 100 UNIT/ML SUB-Q SCH ×2 (07:32→11:59)
[2021-12-15] MEDS: ARFORMOTEROL 15 MCG/2 ML NEBU IH SCH (08:25)
[2021-12-15] MEDS: BUDESONIDE 0.5 MG/2 ML NEBU IH SCH (08:25)
[2021-12-15] MEDS: methylPREDNISolone Sod Succinate 125 MG/2 ML INJ IV SCH (09:52)
[2021-12-15] MEDS: ASPIRIN EC 81 MG TAB PO SCH (09:52)
[2021-12-15] MEDS: DABIGATRAN 150 MG CAP PO SCH (09:53)
[2021-12-15] MEDS: PANTOPRAZOLE 20 MG TAB PO SCH (09:53)
[2021-12-15] MEDS: CALCIUM CARBONATE 1250 MG TAB PO SCH (09:53)
[2021-12-15] MEDS: THIAMINE 100 MG TAB PO SCH (09:54)
[2021-12-15] MEDS: QUEtiapine 25 MG TAB PO SCH (09:54)
[2021-12-15] MEDS: CYANOCOBALAMIN (VIT B-12) 1000 MCG TAB PO SCH (09:54)
[2021-12-15] MEDS: CHOLECALCIFEROL (VIT D3) 1000 UNIT (25 mcg) TAB PO SCH (09:55)
--- NOTE | 2021-12-15 10:58 | Progress Note ---
Assessment and Plan - Patient Problems (1) Shortness of breath Status: Acute Plan to address problem: Patient with COPD on home oxygen, admitted with shortness of breath and has dense right lower lobe and right middle lobe infiltrate. Presentation is consistent with acute pneumonia. A COVID-19 test is negative. Defer to internal medicine and pulmonary for further management of COPD exacerbation and acute pneumonia. (2) Atrial fibrillation Status: Acute Plan to address problem: Patient has paroxysmal atrial fibrillation, was sinus rhythm on prior presentation in February 2021. [facility] With the onset of acute pneumonia, patient is currently not a candidate for mechanical rhythm control of the atrial fibrillation. We will continue rate control and oral anticoagulation with Pradaxa. We have added digoxin for rate control of atrial fibrillation. 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 Objective Vital Signs Temp Pulse Pulse Pulse Resp Resp Resp 12/15/21 09:00 99 H 40 H 12/15/21 08:25 103 H 34 H 12/15/21 08:02 106 H 38 H 12/15/21 08:00 99.4 F 108 H 105 H 32 H 12/15/21 07:00 99 H 33 H 12/15/21 06:00 94 H 30 H 12/15/21 05:57 95 H 12/15/21 05:00 97.2 F L 104 H 104 H 21 12/15/21 04:25 102 H 12/15/21 04:21 97 H 34 H 12/15/21 04:00 96 H 38 H 12/15/21 03:00 105 H 33 H 12/15/21 02:48 97 H 34 H 12/15/21 02:00 104 H 35 H 12/15/21 01:00 88 33 H 12/15/21 00:46 96 H 32 H 12/15/21 00:18 107 H 33 H 12/15/21 00:12 105 H 12/15/21 00:00 100 H 31 H 12/14/21 23:28 97.5 F L 12/14/21 23:26 114 H 31 H 12/14/21 23:02 109 H 12/14/21 23:00 122 H 31 H 12/14/21 22:00 123 H 35 H 12/14/21 21:17 32 H 12/14/21 21:00 107 H 33 H 12/14/21 20:30 107 H 107 H 32 H 12/14/21 20:23 96 H 32 H 12/14/21 20:20 105 H 32 H 12/14/21 20:00 97.2 F L 95 H 31 H 12/14/21 19:00 111 H 32 H 12/14/21 18:34 110 H 12/14/21 18:33 110 H 12/14/21 18:00 94 H 33 H 12/14/21 17:01 132 H 31 H 12/14/21 16:00 116 H 116 H 24 12/14/21 15:30 97.5 F L 12/14/21 15:00 110 H 28 H 12/14/21 14:17 108 H 109 H 31 H 30 H 12/14/21 14:00 131 H 27 H 12/14/21 13:00 97 H 26 H 12/14/21 12:27 111 H 25 H 12/14/21 12:00 97.7 F 97 H 99 H 26 H 12/14/21 11:00 80 24 BP Pulse Ox 12/15/21 09:00 102/60 95 12/15/21 08:25 12/15/21 08:02 119/54 92 12/15/21 08:00 84/54 93 12/15/21 07:00 84/54 94 12/15/21 06:00 96/52 93 12/15/21 05:57 98/58 12/15/21 05:00 121/63 93 12/15/21 04:25 12/15/21 04:21 121/63 93 12/15/21 04:00 121/63 95 12/15/21 03:00 116/58 94 12/15/21 02:48 12/15/21 02:00 115/64 93 12/15/21 01:00 106/51 92 12/15/21 00:46 107/48 93 12/15/21 00:18 92 12/15/21 00:12 12/15/21 00:00 107/48 93 12/14/21 23:28 12/14/21 23:26 105/56 92 12/14/21 23:02 105/56 12/14/21 23:00 97/47 91 12/14/21 22:00 142/71 93 12/14/21 21:17 12/14/21 21:00 128/66 94 12/14/21 20:30 94 12/14/21 20:23 94 12/14/21 20:20 124/63 94 12/14/21 20:00 124/63 93 12/14/21 19:00 124/65 93 12/14/21 18:34 118/59 12/14/21 18:33 118/59 12/14/21 18:00 125/67 94 12/14/21 17:01 120/65 95 12/14/21 16:00 107/57 96 12/14/21 15:30 12/14/21 15:00 104/55 95 12/14/21 14:17 116/61 95 12/14/21 14:00 116/61 96 12/14/21 13:00 130/65 96 12/14/21 12:27 126/64 96 12/14/21 12:00 126/64 97 12/14/21 11:00 119/59 96 - Physical Examination General: Other (Mild respiratory distress) HEENT: Positive: PERRL Neck: Positive: neck supple Cardiac: Positive: irregularly irregular Lungs: Positive: Decreased Breath Sounds Neuro: Positive: Grossly Intact, Other (nonverbal) Abdomen: Positive: Soft Skin: Positive: Clear Extremities: Absent: edema - Imaging and Cardiology EKG: report reviewed (Atrial fibrillation with rapid ventricular rate) - Allied health notes Allied health notes reviewed: nursing
[2021-12-15] MEDS: ALPRAZolam 1 MG TAB FEEDTUBE SCH (11:59)
--- NOTE | 2021-12-15 12:02 | Progress Note ---
Assessment and Plan Assessment and plan: HPI: 86-year-old female with history of COPD, atrial fibrillation, CHF and hyperlipidemia brought in by EMS for severe shortness of breath and low oxygen saturations with 50% improvement. Patient also atrial fibrillation with rapid ventricular rate of 140. Patient was treated with Solu-Medrol. Patient declined CPAP en route to the hospital. Patient arrived with nonrebreather oxygen treatment systemic tachypnea. Patient was initiated on BiPAP. No fever or chills. Cough productive of mucoid sputum present. CODE STATUS: DNR/AND hospital course: 12/07/2021 Patient very short of breath in spite of BiPAP Patient to be transferred to IMCU Patient may need intubation Pulmonary informed December 08, 2021 Patient continues to be very short of breath Patient on BiPAP Slight improvement since yesterday 12/09: Patient seen and examined remains anxious. Patient is on high flow and nonrebreather and will likely continue to require BiPAP at nighttime. Will tr ial of low-dose Xanax 0.25. Cardiology and pulmonary input noted. Continue current management for severe COPD exacerbation with underlying pneumonia possible gram-negative. Will request records from [facility] and [facility]. Continue steroids no indication for weaning at this time except if otherwise noted by drum tender. 12/10: Continue current management. Cardiology added digoxin to current management. Continue Haldol and morphine for symptomatic control of hypoxia. Will request psych consult to assist with anxiety. 12/11: Continue current management as outlined above. Still awaiting family to bring the advance care directive. Patient remains on BiPAP with interchangeable nonrebreather on high flow. Hypernatremia with a sodium level of 162 noted this morning. Patient started on water flushes at 300 cc every 6 hours with serial sodium level monitoring. Family at bedside discussed her poor prognosis with them in detail they verbalized understanding. The patient's daughter will be bringing her living will to help guide therapy. 12/12: Patient still requiring BiPAP. Appears very anxious on encounter today, initiated Xanax 1 mg NG twice daily. Discussed with granddaughter at bedside who agrees that patient's prognosis is very poor. Also discussed my encounter with patient earlier this morning with patient stating to myself and AUSTEN Leahy that she "Just wants to ". The granddaughter stated that the patient's daughter/POA is coming at 1300 today with patient's living will. She stated that the family is of the the sentiment that patient should be DNR/DNI and would not want any aggressive measures. I stated that I would discuss comfort measures with patient daughter when she comes to the hospital today. 12/13: Remains BIPAP dependent. HR better controlled, digoxin addition noted. Discussion with daughters yesterday regarding patient (please refer to event note). Patient now DNR/AND. Plan for home hospice arrangements, will discuss with cm tuesday. 12/14: plan is for home with hospice. D/w CM this AM, currently working on hospice arrangements. 12/15: Plan is for discharge with home hospice today. Assessment and Plan: # Acute respiratory failure with hypoxia # Bilateral pneumonia #Hypernatremia #COPD exacerbation #Severe anxiety # Chronic atrial fibrillation Patient on Pradaxa and diltiazem. Was initially scheduled for cardioversion OP, but hospitalized, now too unstable. Initially rate was high but now controlled. # Hypokalemia Current Visit: Yes Status: Acute Plan to address problem: Supplemented. # CHF (congestive heart failure) Current Visit: Yes Status: Chronic Qualifiers: Heart failure type: combined systolic and diastolic Plan to address problem: On Lasix and Aldactone. Echocardiogram for ejection fraction 60%. # leukocytosis without evidence of sepsis # Hyponatremia #GERD (gastroesophageal reflux disease) # Hyperlipidemia # DVT prophylaxis Current Visit: Yes Status: Acute Plan to address problem: On Pradaxa and GI prophylaxis. # anxious # advance care planning Current Visit: Yes Status: Acute Plan to address problem: Disease education conducted, care plan discussed, diagnosis discussed, prognosis discussed. Patient is full code. Patient acknowledges understanding and agreement with care plan. +30 minutes. The high probability of a clinically significant, sudden or life threatening deterioration of the [pulmonary, cardiac, neuro] system(s) required my full and direct attention, intervention and personal management. The aggregate critical care time was [40] minutes. This time is in addition to time spent performing r eported procedures but includes the following: [x] Data Review and interpretation [x] Patient assessment and monitoring of vital signs [x] Documentation [x] Medication orders and management History Interval history: Remains on BiPAP. no events overnight Hospitalist Physical - Physical exam Narrative exam: VITAL SIGNS: Reviewed. GENERAL: The patient appears normally developed, anxious, on BiPAP with sats in mid 90s. vital signs as documented. Very anxious appearing HEAD: No signs of head trauma. EYES: Pupils are equal. Extraocular motions intact. EARS: Hearing grossly intact. MOUTH: Oropharynx is normal. NECK: No adenopathy, no JVD. CHEST: Tachypnea chest with clear breath although diminished sounds bilaterally. No wheezes, rales, or rhonchi. CARDIAC: Irregularly irregular rate and rhythm tachycardia S1 and S2, without murmurs, gallops, or rubs. VASCULAR: No Edema. Peripheral pulses normal and equal in all extremities. ABDOMEN: Soft, non tender and non distended. No rebound or guarding, and no masses palpated. Bowel Sounds normal. MUSCULOSKELETAL: Good range of motion of all major joints. Extremities without clubbing, cyanosis or edema. NEUROLOGIC EXAM: Alert and oriented x 3 No focal sensory or strength deficits. Speech normal. Follows commands. PSYCHIATRIC: Mood anxious SKIN: detail exam as documented in skin assessment - Constitutional Vitals: Temp Pulse Resp BP Pulse Ox 99.4 F 86 37 H 90/58 93 12/15/21 08:00 12/15/21 12:00 12/15/21 11:00 12/15/21 11:00 12/15/21 11:00 General appearance: Present: no acute distress, well-nourished HEART Score - HEART Score Troponin: Troponin T 0.019 ng/mL (0.00-0.029) 12/06/21 13:54 Results - Labs CBC & Chem 7: 12/12/21 04:28 12/12/21 04:28 Labs: Laboratory Last Values WBC 17.8 K/mm3 (4.5-11.0) H 12/12/21 04:28 RBC 4.06 M/mm3 (3.65-5.03) 12/12/21 04:28 Hgb 11.2 gm/dl (10.1-14.3) 12/12/21 04:28 Hct 35.8 % (30.3-42.9) 12/12/21 04:28 MCV 88 fl (79-97) 12/12/21 04:28 MCH 28 pg (28-32) 12/12/21 04:28 MCHC 31 % (30-34) 12/12/21 04:28 RDW 16.9 % (13.2-15.2) H 12/12/21 04:28 Plt Count 217 K/mm3 (140-440) 12/12/21 04:28 Lymph % (Auto) 3.3 % (13.4-35.0) L 12/06/21 10:05 Greenlee % (Auto) 7.1 % (0.0-7.3) 12/06/21 10:05 Eos % (Auto) 0.0 % (0.0-4.3) 12/06/21 10:05 Baso % (Auto) 0.1 % (0.0-1.8) 12/06/21 10:05 Lymph # (Auto) 0.6 K/mm3 (1.2-5.4) L 12/06/21 10:05 Greenlee # (Auto) 1.2 K/mm3 (0.0-0.8) H 12/06/21 10:05 Eos # (Auto) 0.0 K/mm3 (0.0-0.4) 12/06/21 10:05 Baso # (Auto) 0.0 K/mm3 (0.0-0.1) 12/06/21 10:05 Add Manual Diff Complete 12/09/21 07:31 Total Counted 100 12/09/21 07:31 Seg Neutrophils % Benzene Washer 12/09/21 07:31 Seg Neuts % (Manual) 93.0 % (40.0-70.0) H 12/09/21 07:31 Band Neutrophils % 0 % 12/09/21 07:31 Lymphocytes % (Manual) 2.0 % (13.4-35.0) L 12/09/21 07:31 Reactive Lymphs % (Man) 0 % 12/09/21 07:31 Monocytes % (Manual) 5.0 % (0.0-7.3) 12/09/21 07:31 Eosinophils % (Manual) 0 % (0.0-4.3) 12/09/21 07:31 Basophils % (Manual) 0 % (0.0-1.8) 12/09/21 07:31 Metamyelocytes % 0 % 12/09/21 07:31 Myelocytes % 0 % 12/09/21 07:31 Promyelocytes % 0 % 12/09/21 07:31 Blast Cells % 0 % 12/09/21 07:31 Nucleated RBC % Not Reportable 12/09/21 07:31 Seg Neutrophils # 15.1 K/mm3 (1.8-7.7) H 12/06/21 10:05 Seg Neutrophils # Man 15.5 K/mm3 (1.8-7.7) H 12/09/21 07:31 Band Neutrophils # 0.0 K/mm3 12/09/21 07:31 Lymphocytes # (Manual) 0.3 K/mm3 (1.2-5.4) L 12/09/21 07:31 Abs React Lymphs (Man) 0.0 K/mm3 12/09/21 07:31 Monocytes # (Manual) 0.8 K/mm3 (0.0-0.8) 12/09/21 07:31 Eosinophils # (Manual) 0.0 K/mm3 (0.0-0.4) 12/09/21 07:31 Basophils # (Manual) 0.0 K/mm3 (0.0-0.1) 12/09/21 07:31 Metamyelocytes # 0.0 K/mm3 12/09/21 07:31 Myelocytes # 0.0 K/mm3 12/09/21 07:31 Promyelocytes # 0.0 K/mm3 12/09/21 07:31 Blast Cells # 0.0 K/mm3 12/09/21 07:31 WBC Morphology Not Reportable 12/09/21 07:31 Hypersegmented Neuts Not Reportable 12/09/21 07:31 Hyposegmented Neuts Not Reportable 12/09/21 07:31 Hypogranular Neuts Not Reportable 12/09/21 07:31 Smudge Cells Not Reportable 12/09/21 07:31 Toxic Granulation Not Reportable 12/09/21 07:31 Toxic Vacuolation Not Reportable 12/09/21 07:31 Dohle Bodies Not Reportable 12/09/21 07:31 Pelger-Huet Anomaly Not Reportable 12/09/21 07:31 Merry Rods Not Reportable 12/09/21 07:31 Platelet Estimate Consistent w auto 12/09/21 07:31 Clumped Platelets Not Reportable 12/09/21 07:31 Plt Clumps, EDTA Not Reportable 12/09/21 07:31 Large Platelets Not Reportable 12/09/21 07:31 Giant Platelets Not Reportable 12/09/21 07:31 Platelet Satelliting Not Reportable 12/09/21 07:31 Plt Morphology Comment Not Reportable 12/09/21 07:31 RBC Morphology Normal 12/09/21 07:31 Dimorphic RBCs Not Reportable 12/09/21 07:31 Polychromasia Not Reportable 12/09/21 07:31 Hypochromasia Not Reportable 12/09/21 07:31 Poikilocytosis Not Reportable 12/09/21 07:31 Anisocytosis Not Reportable 12/09/21 07:31 Microcytosis Not Reportable 12/09/21 07:31 Macrocytosis Not Reportable 12/09/21 07:31 Spherocytes Not Reportable 12/09/21 07:31 Pappenheimer Bodies Not Reportable 12/09/21 07:31 Sickle Cells Not Reportable 12/09/21 07:31 Target Cells Not Reportable 12/09/21 07:31 Tear Drop Cells Not Reportable 12/09/21 07:31 Ovalocytes Not Reportable 12/09/21 07:31 Helmet Cells Not Reportable 12/09/21 07:31 Alan-Eleele Bodies Not Reportable 12/09/21 07:31 [place] Rings Not Reportable 12/09/21 07:31 Abdiel Cells Not Reportable 12/09/21 07:31 Bite Cells Not Reportable 12/09/21 07:31 Crenated Cell Not Reportable 12/09/21 07:31 Elliptocytes Not Reportable 12/09/21 07:31 Acanthocytes (Spur) Not Reportable 12/09/21 07:31 Rouleaux Not Reportable 12/09/21 07:31 Hemoglobin C Crystals Not Reportable 12/09/21 07:31 Schistocytes Not Reportable 12/09/21 07:31 Malaria parasites Not Reportable 12/09/21 07:31 Farhan Bodies Not Reportable 12/09/21 07:31 Hem Pathologist Commnt No 12/09/21 07:31 PT 18.5 Sec. (12.2-14.9) H 12/06/21 10:05 INR 1.37 (0.87-1.13) H 12/06/21 10:05 D-Dimer 7549.01 ng/mlDDU (0-234) H 12/07/21 20:13 ABG pH 7.430 pH Units (7.350-7.450) 12/08/21 16:12 ABG pCO2 33.8 mm Hg 12/08/21 16:12 ABG pO2 72.1 mm Hg (80.0-90.0) L 12/08/21 16:12 ABG HCO3 21.9 mmol/L (20.0-26.0) 12/08/21 16:12 ABG O2 Saturation 95.0 % (95.0-99.0) 12/08/21 16:12 ABG O2 Content 14.8 (0.0-44) 12/08/21 16:12 ABG Base Excess -1.8 mmol/L (-2.0-3.0) 12/08/21 16:12 ABG Hemoglobin 11.2 gm/dl (12.0-16.0) L 12/08/21 16:12 ABG Carboxyhemoglobin 1.1 % (0.0-5.0) 12/08/21 16:12 ABG Methemoglobin 0.4 % (0.0-1.5) 12/08/21 16:12 Oxyhemoglobin 93.6 % (95.0-99.0) L 12/08/21 16:12 FiO2 100 % 12/08/21 16:12 Sodium 161 mmol/L (137-145) H* 12/12/21 04:28 Potassium 3.8 mmol/L (3.6-5.0) 12/12/21 04:28 Chloride 121.9 mmol/L (98-107) H 12/12/21 04:28 Carbon Dioxide 28 mmol/L (22-30) 12/12/21 04:28 Anion Gap 16 mmol/L 12/12/21 04:28 BUN 41 mg/dL (7-17) H 12/12/21 04:28 Creatinine 0.7 mg/dL (0.6-1.2) 12/12/21 04:28 Estimated GFR > 60 ml/min 12/12/21 04:28 BUN/Creatinine Ratio 59 % 12/12/21 04:28 Glucose 195 mg/dL (65-100) H 12/12/21 04:28 POC Glucose 239 mg/dL (70-105) H 12/15/21 11:37 Calcium 8.7 mg/dL (8.4-10.2) 12/12/21 04:28 Magnesium 2.90 mg/dL (1.7-2.3) H 12/06/21 10:05 Total Bilirubin 0.60 mg/dL (0.1-1.2) 12/07/21 09:21 AST 22 units/L (5-40) 12/07/21 09:21 ALT 19 units/L (7-56) 12/07/21 09:21 Alkaline Phosphatase 136 units/L (35-129) H 12/07/21 09:21 Troponin T 0.019 ng/mL (0.00-0.029) 12/06/21 13:54 NT-Pro-B Natriuret Pep 6552 pg/mL (0-900) H 12/06/21 10:05 Total Protein 6.3 g/dL (6.3-8.2) 12/07/21 09:21 Albumin 3.4 g/dL (3.9-5) L 12/07/21 09:21 Albumin/Globulin Ratio 1.2 % 12/07/21 09:21 Procalcitonin 0.20 ng/mL (<0.15) 12/09/21 Unknown Nasal Screen MRSA (PCR) Negative (Negative) 12/08/21 Unknown Coronavirus (PCR) Negative (Negative) 12/07/21 08:25 Sánchez/IV: Voiding Method Indwelling Catheter Active Medications - Current Medications Current Medications: Generic Name Dose Route Start Last Admin Trade Name Freq PRN Reason Stop Dose Admin Acetaminophen 650 mg 12/06/21 15:23 Acetaminophen 325 Mg Tab PO Q4H PRN Pain MILD(1-3)/Fever >100.5/ Albuterol 2.5 mg 12/09/21 08:44 Albuterol 2.5 Mg/3 Ml Nebu IH Q4H PRN Shortness Of Breath Albuterol/Ipratropium 1 ampul 12/09/21 14:00 12/15/21 08:25 Ipratropium/Albuterol Sulfate 3 Ml Ampul.Neb IH Not Given Q6HRT OVI Alprazolam 1 mg 12/12/21 11:00 12/15/21 11:59 Alprazolam 1 Mg Tab FEEDTUBE 1 mg BID OVI Administration Arformoterol Tartrate 15 mcg 12/09/21 20:00 12/15/21 08:25 Arformoterol 15 Mcg/2 Ml Nebu IH 15 mcg Q12HRT OVI Administration Aspirin 81 mg 12/06/21 16:00 12/15/21 09:52 Aspirin Ec 81 Mg Tab PO 81 mg QDAY OVI Administration Budesonide 0.5 mg 12/09/21 20:00 12/15/21 08:25 Budesonide 0.5 Mg/2 Ml Nebu IH 0.5 mg Q12HRT OVI Administration Calcium Carbonate/Glycine 1,250 mg 12/07/21 10:00 12/15/21 09:53 Calcium Carbonate 1250 Mg Tab PO 1,250 mg QDAY OVI Administration Cholecalciferol 1,000 unit 12/07/21 10:00 12/15/21 09:55 Cholecalciferol (Vit D3) 1000 Unit (25 Mcg) Tab PO 1,000 unit DAILY OVI Administration Clonazepam 0.5 mg 12/06/21 22:00 12/14/21 21:49 Clonazepam 0.5 Mg Tab PO 0.5 mg HS OVI Administration Cyanocobalamin 1,000 mcg 12/07/21 10:00 12/15/21 09:54 Cyanocobalamin (Vit B-12) 1000 Mcg Tab PO 1,000 mcg DAILY OVI Administration Dabigatran 150 mg 12/06/21 16:00 12/15/21 09:53 Dabigatran 150 Mg Cap PO 150 mg BID OVI Administration Protocol Dextrose 50 ml 12/13/21 08:11 Dextrose 50% In Water (25gm) 50 Ml Syringe IV Q30MIN PRN Hypoglycemia Protocol Digoxin 0.125 mg 12/11/21 10:00 12/14/21 18:33 Digoxin 0.125 Mg Tab PO 0.125 mg DAILY@1700 [facility] Administration Diltiazem HCl 60 mg 12/12/21 12:00 12/15/21 05:57 Diltiazem 60 Mg Tab FEEDTUBE Not Given Q6HR [facility] Haloperidol Lactate 5 mg 12/09/21 13:01 12/12/21 20:39 Haloperidol Lactate 5 Mg/1 Ml Inj IV 5 mg Q6H PRN Administration Agitation Insulin Human Lispro 0 unit 12/13/21 11:30 12/15/21 11:59 Insulin Lispro 100 Unit/Ml SUB-Q 3 unit ACHS OVI Administration Protocol Methylprednisolone Sodium Succinate 80 mg 12/06/21 16:00 12/15/21 09:52 Methylprednisolone Sod Succinate 125 Mg/2 Ml Inj IV 80 mg Q8H OVI Administration Morphine Sulfate 2 mg 12/06/21 15:23 12/13/21 22:00 Morphine 2 Mg/1 Ml Inj IV 2 mg Q4H PRN Administration Pain, Moderate (4-6) Ondansetron HCl 4 mg 12/06/21 15:23 Ondansetron 4 Mg/2 Ml Inj IV Q8H PRN Nausea And Vomiting Oxycodone/Acetaminophen 1 tab 12/06/21 15:23 12/12/21 09:02 Oxycodone /Acetaminophen 5-325mg Tab PO 1 tab Q6H PRN Administration Pain, Moderate (4-6) Pantoprazole Sodium 20 mg 12/06/21 22:00 12/15/21 09:53 Pantoprazole 20 Mg Tab PO 20 mg BID OVI Administration Pravastatin Sodium 40 mg 12/06/21 22:00 12/14/21 21:49 Pravastatin 40 Mg Tab PO 40 mg QHS OVI Administration Quetiapine Fumarate 50 mg 12/09/21 15:00 12/15/21 09:54 Quetiapine 25 Mg Tab PO 50 mg BID OVI Administration Sodium Chloride 10 ml 12/06/21 22:00 12/15/21 09:54 Sodium Chloride 0.9% 10 Ml Flush Syringe IV 10 ml BID OVI Administration Sodium Chloride 10 ml 12/06/21 15:23 Sodium Chloride 0.9% 10 Ml Flush Syringe IV PRN PRN LINE FLUSH Thiamine HCl 100 mg 12/07/21 10:00 12/15/21 09:54 Thiamine 100 Mg Tab PO 100 mg QDAY OVI Administration Nutrition/Malnutrition Assess - Dietary Evaluation Nutrition/Malnutrition Findings: Nutrition Notes Start: 12/08/21 16:55 Freq: Status: Active Protocol: Document 12/14/21 12:09 JOSE EDUARDO (Rec: 12/14/21 12:12 JOSE EDUARDO [id number]) Nutrition Notes Initial or Follow up Reassessment Current Diagnosis COPD,Heart Failure,Respiratory Failure,Hyperlipidemia Other Pertinent Diagnosis Bilat pneu, Hypernatremia, severe anxiety, chronic afib, GERD Current Diet Cl liq Labs/Tests POC Glu range since last assessment: 169-228 (may be sec to steroid medication) Pertinent Medications 3 units Humalog given this am Height 5 ft 4 in Weight 74 kg Peculiar Body Weight (kg) 54.54 BMI 28.0 Weight Status Overweight Subjective/Other Information Pt remains on continuous BiPap support. Pt being evaluated for home hospice. Per RN, pt not tolerating PO at this time . Burn Absent Trauma Absent #1 Nutrition Diagnosis Inadequate oral intake Diagnosis Progress(for reassessment Continues documentation) Is patient on ventilator? No Is Patient Ambulatory and/or Out of Bed No REE-([facility]-confined to bed) [phone] Calculation Used for Recommendations [facility] Additional Notes Pro needs 1-1.2g/k-89g/ day Fluid needs per MD. Nutrition Intervention Change Diet Order: PO diet as tolerated Goal #1 PO tolerance Follow-Up By: 12/17/21 Additional Comments F/U: POC, Na lab
--- NOTE | 2021-12-15 14:25 | Progress Note ---
Assessment and Plan Acute hypoxemic respiratory failure Bilateral pneumonia (CAP) Atrial fibrillation with RVR Acute COPD exacerbation Acute Pulmonary edema AE-CHF GERD - continue BIPAP scheduled qhs with prn daytime use (RTC use for now) - home with hospice care once set-up - continue care as below otherwise; - scontinue Seroquel with prn Haldol 5mg IV q6h prn for agitation / delirium - free water for hyperkalemia via DHT - continue full anticoagualation re: A-fib - still too unstable to send for CTA - continue systemic steroids - continue diuresis while monitoring electrolytes - continue to wean supplemental oxygen to keep O2 sats > 90% - continue Bronchodilators (LIU & LABA) with pulm hygiene per RT - aspiration precautions - continue bronchodilators with pulmonary hygiene per RT - continue accuchecks with glycemic control per SSI (While critically ill target blood glucose of 140-180 mg/dL; avoid hypoglycemia) - avoid nephrotoxins, renally dose all medications - continue to avoid benzodiazepine's, reduce the possibility of delirium - AB's per ID rec's - Maintenance of sleep-wake cycle, avoid delirium - G.I. & VTE prophylaxis - PT/OT/ROM exercises - mobility protocols for pressure ulcer prophylaxis - Monitor hemodynamics closely - continue other care per attending / other consultants - discharge planning ongoing concurrently COVID SPECIFIC INTERVENTIONS - COVID-19 PCR negative .... Re-evaluate in am & prn CONDITION: CRITICAL PROGNOSIS: GUARDED CODE STATUS: FULL CODE The high probability of a clinically significant, sudden or life-threatening deterioration of the [respiratory, cardiovascular & neurologic] system(s) required my full and direct attention, intervention and personal management. The aggregate critical care time was [34] minutes without overlap. Time includes spent on; [x] Data Review and interpretation [x] Patient assessment and monitoring of vital signs [x] Documentation [x] Medication orders and management Subjective Date of service: 12/15/21 Principal diagnosis: AHRF; CAP; A-fib with RVR; AE-COPD; Acute Pulmonary edema; AE-CHF; GERD Interval history: Patient is seen today for: Acute hypoxemic respiratory failure; Pneumonia (CAP); A-fib with RVR; AE-COPD; Acute Pulmonary edema; AE-CHF; GERD Seen and examined at bedside; 24hour events reviewed; nursing and respiratory care staff consulted; no adverse overnight events reported to me; resting in bed; remains BIPAP dependent; tentatively to discharge home with hospice today; no emesis or overt aspiration Objective Vital Signs - 12hr 12/15/21 12/15/21 12/15/21 02:48 03:00 04:00 Temperature Pulse Rate 105 H 96 H Pulse Rate [ 97 H Anterior Bilateral Throughout] Pulse Rate [ From Monitor] Respiratory 33 H 38 H Rate Respiratory 34 H Rate [Anterior Bilateral Throughout] Blood Pressure 116/58 121/63 O2 Sat by Pulse 94 95 Oximetry 12/15/21 12/15/21 12/15/21 04:21 04:25 05:00 Temperature 97.2 F L Pulse Rate 97 H 102 H 104 H Pulse Rate [ Anterior Bilateral Throughout] Pulse Rate [ 104 H From Monitor] Respiratory 34 H 21 Rate Respiratory Rate [Anterior Bilateral Throughout] Blood Pressure 121/63 121/63 O2 Sat by Pulse 93 93 Oximetry 12/15/21 12/15/21 12/15/21 05:57 06:00 07:00 Temperature Pulse Rate 95 H 94 H 99 H Pulse Rate [ Anterior Bilateral Throughout] Pulse Rate [ From Monitor] Respiratory 30 H 33 H Rate Respiratory Rate [Anterior Bilateral Throughout] Blood Pressure 98/58 96/52 84/54 O2 Sat by Pulse 93 94 Oximetry 12/15/21 12/15/21 12/15/21 08:00 08:02 08:25 Temperature 99.4 F Pulse Rate 108 H 106 H Pulse Rate [ 103 H Anterior Bilateral Throughout] Pulse Rate [ 105 H From Monitor] Respiratory 32 H 38 H Rate Respiratory 34 H Rate [Anterior Bilateral Throughout] Blood Pressure 84/54 119/54 O2 Sat by Pulse 93 92 Oximetry 12/15/21 12/15/21 12/15/21 09:00 10:00 11:00 Temperature Pulse Rate 99 H 88 94 H Pulse Rate [ Anterior Bilateral Throughout] Pulse Rate [ From Monitor] Respiratory 40 H 36 H 37 H Rate Respiratory Rate [Anterior Bilateral Throughout] Blood Pressure 102/60 89/56 90/58 O2 Sat by Pulse 95 94 93 Oximetry 12/15/21 12/15/21 12/15/21 12:00 12:21 13:00 Temperature 97.8 F Pulse Rate 79 85 80 Pulse Rate [ Anterior Bilateral Throughout] Pulse Rate [ 86 From Monitor] Respiratory 34 H 37 H 37 H Rate Respiratory Rate [Anterior Bilateral Throughout] Blood Pressure 75/40 81/36 76/43 O2 Sat by Pulse 93 90 92 Oximetry 12/15/21 14:00 Temperature Pulse Rate 89 Pulse Rate [ Anterior Bilateral Throughout] Pulse Rate [ From Monitor] Respiratory 37 H Rate Respiratory Rate [Anterior Bilateral Throughout] Blood Pressure 74/40 O2 Sat by Pulse 92 Oximetry Constitutional: appears uncomfortable, other (Having increased work of breathing ) Eyes: non-icteric ENT: oropharynx moist Neck: supple, no JVD Effort: mildly labored Ascultation: Bilateral: rales (basilar inspiratory), other (occasional accessory muscle use) Percussion: Bilateral: not dull Cardiovascular: regular rate and rhythm Gastrointestinal: hypoactive bowel sounds, soft, non-tender, non-distended (protuberant) Integumentary: normal Extremities: no cyanosis, no edema, pink and warm, pulses normal, no ischemia or petechiae Neurologic: normal mental status, non-focal exam, pupils equal and round, motor strength normal and Psychiatric: anxious CBC and BMP: 12/12/21 04:28 12/12/21 04:28 ABG, PT/INR, D-dimer: ABG ABG pH 7.430 pH Units (7.350-7.450) 12/08/21 16:12 ABG pCO2 33.8 mm Hg 12/08/21 16:12 ABG pO2 72.1 mm Hg (80.0-90.0) L 12/08/21 16:12 ABG O2 Saturation 95.0 % (95.0-99.0) 12/08/21 16:12 PT/INR, D-dimer PT 18.5 Sec. (12.2-14.9) H 12/06/21 10:05 INR 1.37 (0.87-1.13) H 12/06/21 10:05 D-Dimer 7549.01 ng/mlDDU (0-234) H 12/07/21 20:13 Abnormal lab findings: Abnormal Labs 12/06/21 12/06/21 12/06/21 10:05 10:05 10:05 WBC 16.9 H RDW 16.3 H Plt Count 473 H Lymph % (Auto) 3.3 L Lymph # (Auto) 0.6 L [place] # (Auto) 1.2 H Seg Neutrophils % 89.5 H Seg Neuts % (Manual) Lymphocytes % (Manual) Seg Neutrophils # 15.1 H Seg Neutrophils # Man Lymphocytes # (Manual) PT 18.5 H INR 1.37 H D-Dimer ABG pO2 ABG O2 Saturation ABG Base Excess ABG Hemoglobin Oxyhemoglobin Sodium Potassium 2.9 L* Chloride Carbon Dioxide 21 L BUN 20 H Creatinine Glucose 127 H POC Glucose Calcium Magnesium 2.90 H Alkaline Phosphatase 140 H NT-Pro-B Natriuret Pep Albumin 3.5 L 12/06/21 12/06/21 12/07/21 10:05 11:15 09:21 WBC RDW Plt Count Lymph % (Auto) Lymph # (Auto) [place] # (Auto) Seg Neutrophils % Seg Neuts % (Manual) Lymphocytes % (Manual) Seg Neutrophils # Seg Neutrophils # Man Lymphocytes # (Manual) PT INR D-Dimer ABG pO2 61.6 L ABG O2 Saturation 91.7 L ABG Base Excess ABG Hemoglobin 11.9 L Oxyhemoglobin 90.0 L Sodium Potassium 3.5 L D Chloride Carbon Dioxide 20 L BUN Creatinine 0.5 L Glucose 105 H POC Glucose Calcium 8.3 L Magnesium Alkaline Phosphatase 136 H NT-Pro-B Natriuret Pep 6552 H Albumin 3.4 L 12/07/21 12/07/21 12/08/21 12:50 20:13 16:12 WBC RDW Plt Count Lymph % (Auto) Lymph # (Auto) [place] # (Auto) Seg Neutrophils % Seg Neuts % (Manual) Lymphocytes % (Manual) Seg Neutrophils # Seg Neutrophils # Man Lymphocytes # (Manual) PT INR D-Dimer 7549.01 H ABG pO2 79.3 L 72.1 L ABG O2 Saturation ABG Base Excess -3.0 L ABG Hemoglobin 11.2 L Oxyhemoglobin 93.6 L Sodium Potassium Chloride Carbon Dioxide BUN Creatinine Glucose POC Glucose Calcium Magnesium Alkaline Phosphatase NT-Pro-B Natriuret Pep Albumin 12/08/21 12/09/21 12/09/21 23:14 07:31 07:31 WBC 16.7 H RDW 16.1 H Plt Count Lymph % (Auto) Lymph # (Auto) [place] # (Auto) Seg Neutrophils % Seg Neuts % (Manual) 93.0 H Lymphocytes % (Manual) 2.0 L Seg Neutrophils # Seg Neutrophils # Man 15.5 H Lymphocytes # (Manual) 0.3 L PT INR D-Dimer ABG pO2 ABG O2 Saturation ABG Base Excess ABG Hemoglobin Oxyhemoglobin Sodium 150 H Potassium Chloride 110.4 H Carbon Dioxide BUN 37 H Creatinine Glucose 183 H POC Glucose 179 H Calcium Magnesium Alkaline Phosphatase NT-Pro-B Natriuret Pep Albumin 12/10/21 12/10/21 12/11/21 00:09 17:01 05:15 WBC 15.3 H RDW 16.4 H Plt Count Lymph % (Auto) Lymph # (Auto) [place] # (Auto) Seg Neutrophils % Seg Neuts % (Manual) Lymphocytes % (Manual) Seg Neutrophils # Seg Neutrophils # Man Lymphocytes # (Manual) PT INR D-Dimer ABG pO2 ABG O2 Saturation ABG Base Excess ABG Hemoglobin Oxyhemoglobin Sodium Potassium Chloride Carbon Dioxide BUN Creatinine Glucose POC Glucose 166 H 180 H Calcium Magnesium Alkaline Phosphatase NT-Pro-B Natriuret Pep Albumin 12/11/21 12/11/21 12/11/21 05:15 08:55 09:13 WBC RDW Plt Count Lymph % (Auto) Lymph # (Auto) [place] # (Auto) Seg Neutrophils % Seg Neuts % (Manual) Lymphocytes % (Manual) Seg Neutrophils # Seg Neutrophils # Man Lymphocytes # (Manual) PT INR D-Dimer ABG pO2 ABG O2 Saturation ABG Base Excess ABG Hemoglobin Oxyhemoglobin Sodium 162 H* D 162 H* Potassium Chloride 122.2 H Carbon Dioxide BUN 43 H Creatinine Glucose 212 H POC Glucose 171 H Calcium Magnesium Alkaline Phosphatase NT-Pro-B Natriuret Pep Albumin 12/11/21 12/11/21 12/11/21 12:48 16:10 16:50 WBC RDW Plt Count Lymph % (Auto) Lymph # (Auto) [place] # (Auto) Seg Neutrophils % Seg Neuts % (Manual) Lymphocytes % (Manual) Seg Neutrophils # Seg Neutrophils # Man Lymphocytes # (Manual) PT INR D-Dimer ABG pO2 ABG O2 Saturation ABG Base Excess ABG Hemoglobin Oxyhemoglobin Sodium 164 H* Potassium Chloride Carbon Dioxide BUN Creatinine Glucose POC Glucose 174 H 167 H Calcium Magnesium Alkaline Phosphatase NT-Pro-B Natriuret Pep Albumin 12/11/21 12/12/21 12/12/21 21:41 04:28 04:28 WBC 17.8 H RDW 16.9 H Plt Count Lymph % (Auto) Lymph # (Auto) [place] # (Auto) Seg Neutrophils % Seg Neuts % (Manual) Lymphocytes % (Manual) Seg Neutrophils # Seg Neutrophils # Man Lymphocytes # (Manual) PT INR D-Dimer ABG pO2 ABG O2 Saturation ABG Base Excess ABG Hemoglobin Oxyhemoglobin Sodium 160 H 161 H* Potassium Chloride 121.9 H Carbon Dioxide BUN 41 H Creatinine Glucose 195 H POC Glucose Calcium Magnesium Alkaline Phosphatase NT-Pro-B Natriuret Pep Albumin 12/12/21 12/13/21 12/13/21 17:01 05:36 11:50 WBC RDW Plt Count Lymph % (Auto) Lymph # (Auto) [place] # (Auto) Seg Neutrophils % Seg Neuts % (Manual) Lymphocytes % (Manual) Seg Neutrophils # Seg Neutrophils # Man Lymphocytes # (Manual) PT INR D-Dimer ABG pO2 ABG O2 Saturation ABG Base Excess ABG Hemoglobin Oxyhemoglobin Sodium Potassium Chloride Carbon Dioxide BUN Creatinine Glucose POC Glucose 176 H 196 H 169 H Calcium Magnesium Alkaline Phosphatase NT-Pro-B Natriuret Pep Albumin 12/13/21 12/14/21 12/14/21 17:27 00:01 05:27 WBC RDW Plt Count Lymph % (Auto) Lymph # (Auto) [place] # (Auto) Seg Neutrophils % Seg Neuts % (Manual) Lymphocytes % (Manual) Seg Neutrophils # Seg Neutrophils # Man Lymphocytes # (Manual) PT INR D-Dimer ABG pO2 ABG O2 Saturation ABG Base Excess ABG Hemoglobin Oxyhemoglobin Sodium Potassium Chloride Carbon Dioxide BUN Creatinine Glucose POC Glucose 176 H 228 H 228 H Calcium Magnesium Alkaline Phosphatase NT-Pro-B Natriuret Pep Albumin 12/14/21 12/14/21 12/14/21 07:54 11:55 15:24 WBC RDW Plt Count Lymph % (Auto) Lymph # (Auto) [place] # (Auto) Seg Neutrophils % Seg Neuts % (Manual) Lymphocytes % (Manual) Seg Neutrophils # Seg Neutrophils # Man Lymphocytes # (Manual) PT INR D-Dimer ABG pO2 ABG O2 Saturation ABG Base Excess ABG Hemoglobin Oxyhemoglobin Sodium Potassium Chloride Carbon Dioxide BUN Creatinine Glucose POC Glucose 215 H 216 H 209 H Calcium Magnesium Alkaline Phosphatase NT-Pro-B Natriuret Pep Albumin 12/14/21 12/15/21 12/15/21 22:29 07:28 11:37 WBC RDW Plt Count Lymph % (Auto) Lymph # (Auto) [place] # (Auto) Seg Neutrophils % Seg Neuts % (Manual) Lymphocytes % (Manual) Seg Neutrophils # Seg Neutrophils # Man Lymphocytes # (Manual) PT INR D-Dimer ABG pO2 ABG O2 Saturation ABG Base Excess ABG Hemoglobin Oxyhemoglobin Sodium Potassium Chloride Carbon Dioxide BUN Creatinine Glucose POC Glucose 214 H 239 H 239 H Calcium Magnesium Alkaline Phosphatase NT-Pro-B Natriuret Pep Albumin Allied health notes reviewed: nursing
[2021-12-15 16:11] VITALS: BP 72/36
[2021-12-15] MEDS ORDERED: SODIUM BICARB 8.4% 50 MEQ/50 ML SYRINGE IV ONE ×3 (16:51→17:22)
[2021-12-15] MEDS ORDERED: SODIUM CHLORIDE 0.9% 500 ML 500 ML ONE (16:58)
[2021-12-15] MEDS ORDERED: SODIUM CHLORIDE 0.9% 500 ML 500 ML IV ONE (17:22)
== END 2021-12-15 17:15 | disposition hospice, home (50) | DRG 193 ==
LOC: ED 09:22 → 3A 15:23 → IMCU 12-07 14:34
PROVIDERS: ADMIT Internal Medicine; ATTEND Internal Medicine
PROC: 5A09557 Assistance with Respiratory Ventilation, Greater than 96 Consecutive Hours, Continuous Positive Airway Pressure (ICD-10-PCS; principal; 2021-12-06)
PROC: 4A033R1 Measurement of Arterial Saturation, Peripheral, Percutaneous Approach (ICD-10-PCS; 2021-12-06)
PROC: 05HB33Z Insertion of Infusion Device into Right Basilic Vein, Percutaneous Approach (ICD-10-PCS; 2021-12-09)
PROC: B54BZZA Ultrasonography of Right Lower Extremity Veins, Guidance (ICD-10-PCS; 2021-12-13)
PROC: 06HY33Z Insertion of Infusion Device into Lower Vein, Percutaneous Approach (ICD-10-PCS; 2021-12-13)
DX: J18.9 Pneumonia, unspecified organism (principal); J96.01 Acute respiratory failure with hypoxia; J44.1 Chronic obstructive pulmonary disease with (acute) exacerbation; I50.42 Chronic combined systolic (congestive) and diastolic (congestive) heart failure; I48.20 Chronic atrial fibrillation, unspecified; E87.0 Hyperosmolality and hypernatremia; J44.0 Chronic obstructive pulmonary disease with (acute) lower respiratory infection; I11.0 Hypertensive heart disease with heart failure; E87.6 Hypokalemia; Z66 Do not resuscitate; K21.9 Gastro-esophageal reflux disease without esophagitis; M19.90 Unspecified osteoarthritis, unspecified site; E78.2 Mixed hyperlipidemia; F41.9 Anxiety disorder, unspecified; Z20.822 Contact with and (suspected) exposure to COVID-19; Z79.82 Long term (current) use of aspirin; Z90.49 Acquired absence of other specified parts of digestive tract; Z86.73 Personal history of transient ischemic attack (TIA), and cerebral infarction without residual deficits
CPT/HCPCS: 36415; 36600; 71045; 74018; 80048; 80053; 82803; 82962; 83735; 83880; 84145; 84295; 84484; 85007; 85025; 85027; 85379; 85610; 87040; 87641; 93005; 93970; 94640; 94644; 94660; 94760; G0378; J3490; Q0162; Q9967; J0456; J0696; J1160; J1630; J1815; J1940; J2060; J2270; J2930; J3480; J7030; J7040; U0003